=== PATIENT | female | born 1960 ===

== ENCOUNTER → 2020-05-02 10:21 | Outpatient (BNVA) | payer OTHER, SELFPAY | PROVIDERS: PCP Internal Medicine; Referring Provider Internal Medicine; Visit Provider Nurse Practitioner | DX: Z76.89 Persons encountering health services in other specified circumstances (principal) ==

== ENCOUNTER 2020-05-21 11:38 | Outpatient (REF) | payer OTHER, SELFPAY ==
[2020-05-21 13:56] LABS: Alanine Aminotransferase 16 U/L (0-31); Albumin Level 4.2 g/dL (3.5-5.0); Alkaline Phosphatase 80 U/L (39-117); Anion Gap 12 (12-20); Aspartate Amino Transferase 18 U/L (5-31); Bilirubin Total 0.3 mg/dL (0.0-1.0); Blood Urea Nitrogen 8 mg/dL (9-16); Calcium 9.2 mg/dL (8.4-10.2); Carbon Dioxide 26 mmol/L (22-29); Chloride 108 mmol/L (96-108); Cholesterol 240 mg/dL; Estimated Glomerular Filt Rate > 60; Glucose Fasting 96 mg/dL (60-99); HDL Cholesterol 45 mg/dL; LDL Cholesterol Calculated 148 mg/dl; Potassium 4.3 mmol/l (3.3-5.1); Sodium 142 mmol/L (135-145); Total Protein 7.1 g/dL (6.5-8.0); Triglycerides 238 mg/dL
[2020-05-21 14:19] LABS: Free T4 (Free Thyroxine) 1.02 ng/dL (0.71-1.85); Thyroid Stimulating Hormone 2.16 uIU/mL (0.32-4.0)
== END 2020-05-21 11:39 | disposition home or self-care (01) ==
LOC: HO.LAB 11:38
PROVIDERS: Absent Provider Nurse Practitioner Family; PCP Internal Medicine; Visit Provider Internal Medicine
DX: E78.2 Mixed hyperlipidemia (principal); E03.9 Hypothyroidism, unspecified; E66.3 Overweight
CPT/HCPCS: 80053; 80061; 84439; 84443

== ENCOUNTER 2020-06-25 11:41 | Outpatient (REF) | payer OTHER, SELFPAY | END 2020-06-25 11:42 | disposition home or self-care (01) | LOC: HO.LAB 11:41 | PROVIDERS: Visit Provider Internal Medicine | DX: Z20.822 Contact with and (suspected) exposure to COVID-19 (principal) | CPT/HCPCS: 36415; C9803; U0003 ==

== ENCOUNTER → 2020-07-03 10:48 | Outpatient (BNVA) | payer OTHER, SELFPAY | PROVIDERS: PCP Internal Medicine; Visit Provider Nurse Practitioner ==

== ENCOUNTER 2020-08-30 10:13 | Outpatient (REF) | payer OTHER, SELFPAY ==
[2020-08-30 11:47] LABS: Glucose Urine UA NEG (NEG); Leukocyte Esterase Urine NEG (NEG); Nitrite Urine NEG (NEG); Urine Blood NEG (NEG); Urine Ketones NEG (NEG); Urine Protein NEG (NEG-TRACE)
[2020-08-30 11:56] LABS: Appearance Urine CLEAR; Color Urine YELLOW
[2020-08-30 12:06] LABS: MANUAL DIFF FLAG NO
[2020-08-30 12:20] LABS: Basophils Percent Auto 0.4 % (0-2); Eosinophils Absolute Auto 0.1 X10*3/uL (0.0-0.4); Eosinophils Percent Auto 2.7 % (0-4); Hematocrit 38.8 % (37-47); Hemoglobin 12.4 g/dl (12.0-16.0); Imm Gran Abs Auto 0.01 X10*3/uL (0.00-0.03); Imm Gran Pct Auto 0.2 % (0.0-0.4); Lymphocytes Absolute Auto 1.8 X10*3/uL (1.2-4.9); Mean Corpuscular Hemoglobin 29.2 pg (27.0-33.0); Mean Corpuscular Volume 91.3 fL (80-98); Mean Platelet Volume 11.8 fL (9.4-12.3); Monocytes Absolute Auto 0.3 X10*3/uL (0.1-1.2); Monocytes Percent Auto 5.8 % (2-11); Neutrophils Absolute Auto 2.3 X10*3/uL (2.0-8.3); Neutrophils Percent Auto 50.9 % (45-73); Platelet Count 229 X10*3/uL (160-400); Red Blood Count 4.25 X10*6/uL (4.20-5.50); Red Cell Distribution Width 13.2 % (11.0-16.0); White Blood Count 4.5 X10*3/uL (4.8-10.8)
[2020-08-30 13:10] LABS: Alanine Aminotransferase 15 U/L (0-31); Alkaline Phosphatase 80 U/L (39-117); Anion Gap 16 (12-20); Aspartate Amino Transferase 22 U/L (5-31); Bilirubin Total 0.4 mg/dL (0.0-1.0); Blood Urea Nitrogen 14 mg/dL (9-16); Calcium 9.1 mg/dL (8.4-10.2); Carbon Dioxide 22 mmol/L (22-29); Chloride 109 mmol/L (96-108); Cholesterol 200 mg/dL; Estimated Glomerular Filt Rate > 60; Glucose Fasting 97 mg/dL (60-99); HDL Cholesterol 47 mg/dL; LDL Cholesterol Calculated 121 mg/dl; Potassium 4.8 mmol/L (3.3-5.1); Sodium 142 mmol/L (135-145); Triglycerides 163 mg/dL
[2020-08-30 13:26] LABS: Thyroid Stimulating Hormone 2.15 uIU/mL (0.32-4.0); Vitamin D 25-OH Total 17.5 ng/mL (>30)
== END 2020-08-30 10:14 | disposition home or self-care (01) ==
LOC: HO.LAB 10:13
PROVIDERS: PCP Internal Medicine; Visit Provider Internal Medicine
DX: E03.9 Hypothyroidism, unspecified (principal); E66.3 Overweight; E78.2 Mixed hyperlipidemia; K58.2 Mixed irritable bowel syndrome; G44.209 Tension-type headache, unspecified, not intractable; M85.80 Other specified disorders of bone density and structure, unspecified site; K21.9 Gastro-esophageal reflux disease without esophagitis
CPT/HCPCS: 36415; 80053; 80061; 81003; 82306; 84439; 84443; 85025

== ENCOUNTER 2020-12-08 10:24 | Outpatient (REF) | payer OTHER, SELFPAY ==
[2020-12-08 11:23] LABS: MANUAL DIFF FLAG NO
[2020-12-08 11:30] LABS: Basophils Percent Auto 0.8 % (0-2); Eosinophils Absolute Auto 0.2 X10*3/uL (0.0-0.4); Eosinophils Percent Auto 2.9 % (0-4); Hematocrit 37.5 % (37-47); Hemoglobin 12.1 g/dl (12.0-16.0); Imm Gran Abs Auto 0.02 X10*3/uL (0.00-0.03); Imm Gran Pct Auto 0.4 % (0.0-0.4); Lymphocytes Absolute Auto 1.8 X10*3/uL (1.2-4.9); Mean Corpuscular HGB Conc 32.3 g/dl (31.0-35.0); Mean Corpuscular Hemoglobin 28.9 pg (27.0-33.0); Mean Corpuscular Volume 89.7 fL (80-98); Monocytes Absolute Auto 0.4 X10*3/uL (0.1-1.2); Monocytes Percent Auto 7.9 % (2-11); Neutrophils Absolute Auto 2.8 X10*3/uL (2.0-8.3); Platelet Count 194 X10*3/uL (160-400); Red Blood Count 4.18 X10*6/uL (4.20-5.50); Red Cell Distribution Width 13.5 % (11.0-16.0); White Blood Count 5.2 X10*3/uL (4.8-10.8)
[2020-12-08 12:07] LABS: TSH reflex Free T4 4.52 uIU/mL (0.32-4.0)
[2020-12-08 12:12] LABS: Alanine Aminotransferase 21 U/L (0-31); Albumin Level 3.9 g/dL (3.5-5.0); Alkaline Phosphatase 74 U/L (39-117); Anion Gap 11 (12-20); Aspartate Amino Transferase 22 U/L (5-31); Bilirubin Total 0.6 mg/dL (0.0-1.0); Blood Urea Nitrogen 13 mg/dL (9-16); Calcium 9.2 mg/dL (8.4-10.2); Carbon Dioxide 23 mmol/L (22-29); Chloride 111 mmol/L (96-108); Cholesterol 192 mg/dL; Estimated Glomerular Filt Rate > 60; Glucose Fasting 113 mg/dL (60-99); HDL Cholesterol 56 mg/dL; LDL Cholesterol Calculated 112 mg/dl; Potassium 4.8 mmol/L (3.3-5.1); Sodium 140 mmol/L (135-145); Total Protein 6.8 g/dL (6.5-8.0); Triglycerides 122 mg/dL
[2020-12-08 12:13] LABS: Free T4 (Free Thyroxine) 0.98 ng/dL (0.71-1.85); Thyroid Stimulating Hormone 5.14 uIU/mL (0.32-4.0); Vitamin D 25-OH Total 24.6 ng/mL (>30)
== END 2020-12-08 10:25 | disposition home or self-care (01) ==
LOC: HO.LAB 10:24
PROVIDERS: Nurse Practitioner Family; PCP Internal Medicine; Visit Provider Internal Medicine
DX: M85.80 Other specified disorders of bone density and structure, unspecified site (principal); E03.9 Hypothyroidism, unspecified; E78.2 Mixed hyperlipidemia; K21.9 Gastro-esophageal reflux disease without esophagitis; K58.2 Mixed irritable bowel syndrome; E66.3 Overweight
CPT/HCPCS: 36415; 80053; 80061; 82306; 84439; 84443; 85025

== ENCOUNTER → 2020-12-25 13:48 | Outpatient (BNVA) | payer OTHER, SELFPAY | PROVIDERS: PCP Internal Medicine; Visit Provider Nurse Practitioner ==

== ENCOUNTER 2020-12-31 11:58 | Outpatient (REF) | payer OTHER, SELFPAY ==
[2020-12-31 12:44] LABS: Basophils Percent Auto 0.3 % (0-2); Eosinophils Percent Auto 0.1 % (0-4); Hematocrit 38.9 % (37-47); Hemoglobin 12.6 g/dl (12.0-16.0); Imm Gran Abs Auto 0.05 X10*3/uL (0.00-0.03); Imm Gran Pct Auto 0.6 % (0.0-0.4); Lymphocytes Absolute Auto 1.8 X10*3/uL (1.2-4.9); Lymphocytes Percent Auto 20.1 % (20-40); MANUAL DIFF FLAG SCAN; Mean Corpuscular HGB Conc 32.4 g/dl (31.0-35.0); Mean Corpuscular Hemoglobin 29.4 pg (27.0-33.0); Mean Corpuscular Volume 90.7 fL (80-98); Mean Platelet Volume 12.3 fL (9.4-12.3); Monocytes Absolute Auto 0.3 X10*3/uL (0.1-1.2); Monocytes Percent Auto 3.8 % (2-11); Neutrophils Absolute Auto 6.8 X10*3/uL (2.0-8.3); Neutrophils Percent Auto 75.1 % (45-73); PLT CLUMP 1; Red Blood Count 4.29 X10*6/uL (4.20-5.50); Red Cell Distribution Width 13.4 % (11.0-16.0); SCAN SMEAR FLAG 1
[2020-12-31 13:01] LABS: Platelet Count 192 X10*3/uL (160-400)
[2020-12-31 13:02] LABS: SLIDE REVIEW VERIFIED
[2020-12-31 13:14] LABS: Cholesterol 202 mg/dL; HDL Cholesterol 73 mg/dL; LDL Cholesterol Calculated 109 mg/dl; Triglycerides 101 mg/dL
[2021-01-01 17:21] LABS: Gliadin Deamidated IgA Ab 4 Units; Gliadin Deamidated IgG Ab 2 Units
[2021-01-01 22:53] LABS: Transglutaminase Ab IgG 7 U/mL; Transglutaminase IgA 1 U/mL
== END 2020-12-31 11:59 | disposition home or self-care (01) ==
LOC: HO.LAB 11:58
PROVIDERS: Nurse Practitioner Family; PCP Internal Medicine; Visit Provider Nurse Practitioner
DX: R14.0 Abdominal distension (gaseous) (principal); E03.9 Hypothyroidism, unspecified; J32.1 Chronic frontal sinusitis; E78.00 Pure hypercholesterolemia, unspecified
CPT/HCPCS: 36415; 80061; 83516; 85025

== ENCOUNTER 2021-01-01 11:40 | Outpatient (REF) | payer OTHER, SELFPAY | END 2021-01-01 11:41 | disposition home or self-care (01) | LOC: HO.LNP 11:40 | PROVIDERS: Visit Provider Nurse Practitioner | DX: K21.9 Gastro-esophageal reflux disease without esophagitis (principal); R14.0 Abdominal distension (gaseous) | CPT/HCPCS: 87338 ==

== ENCOUNTER → 2021-03-09 08:54 | Outpatient (BNVA) | payer OTHER, SELFPAY | PROVIDERS: PCP Internal Medicine; Visit Provider Nurse Practitioner ==

== ENCOUNTER → 2021-07-29 10:37 | Outpatient (REF) | payer OTHER, SELFPAY ==
--- NOTE | 2021-07-29 10:41 | CA_ITS ---
Acquisition Time: 2021-07-29 11:39:36 Total Exercise Time: 00:04:25 Test Indications: Chest Pain Medications: Protocol: ANASTACIA Max HR: 222 BPM 138% of Pred: 160 BPM Max BP: 146/070 mmHG Max Work Load: 6.3 METS Exercise stress test with exercise 4 min 25 sec of Anastacia protocol, with request to stop due to fatigue and moderate sob, without chest discomfort, without arrythmia, with normotensive response to exercise, achieving 78% MPHR, with significant artifact during exercise, without nondiagnostic EKG for ischemia due to artifact and subopitmal heart rate. Test reviewed with Dr Graff Message sent to Dr Kamara with recommendation for a pharmacological nuclear stress test if further evaluation for ischemia is warranted. Referred By: Mayra Valente Overread By: TOMASA ORDAZ
== END ==
LOC: HO.CARD 10:37
PROVIDERS: PCP Internal Medicine; Visit Provider Internal Medicine
DX: R07.9 Chest pain, unspecified (principal)
CPT/HCPCS: 93017

== ENCOUNTER → 2021-08-28 07:57 | Outpatient (REF) | payer OTHER, SELFPAY ==
--- NOTE | ~2021-08-28 | NM_ITS ---
Myocardial perfusion study Indication: Chest pain to evaluate for myocardial ischemia Technique: The patient was brought in for a Lexiscan perfusion study on 08/28/2021. Patient performed low-level exercise and was injected 0.4 mg of Lexiscan intravenously. Within a minute of injection, 25 mCi of sestamibi was given intravenously. Images were obtained using the SPECT gamma camera interlaced with the gating device. Images were obtained in supine position. Resting perfusion study was performed on 09/01/2021. Patient was administered 25 mCi of sestamibi intravenously at rest. Images were then obtained in supine position. Images obtained with and without CT attenuation DLP 110 mGy-cm Images were processed with the software and compared side to side in short axis, horizontal long axis and vertical long axis views. Findings: The stress perfusion study showed both attenuated corrected as well as non attenuated images show normal uptake of radiotracer in all segments of LV myocardium. The gated study shows normal LV systolic function with calculated LVEF of 72%. LV cavity is normal size. The gated study shows normal systolic wall thickening and contraction of segments. Resting study shows non attenuated images show normal uptake of radiotracer in all segments of LV myocardium. Gating at rest reveals normal systolic wall motion with ejection fraction at 67%. The findings are consistent with normal myocardial perfusion. NM/NM darcy perf SPECT rest & str Impression: 1. Myocardial perfusion imaging study shows normal myocardial perfusion 2. Gated LVEF is 67% 3. Transient ischemic dilatation not present EKG is nondiagnostic for ischemia
--- NOTE | 2021-08-28 08:05 | CA_ITS ---
Acquisition Time: 2021-08-28 08:27:10 Total Exercise Time: 00:02:00 Test Indications: Chest Pain Medications: SEE H Protocol: LEXISCAN Max HR: 109 BPM 60% of Pred: 180 BPM Max BP: 118/070 mmHG Max Work Load: 1.6 METS Pharmacological stress test with Lexiscan injection, while walking on treadmill without anginal symptoms, without arrythmia, with normotensive response to injection, with nondiagnostic EKG for ischemia. Nuclear images pending. Test reviewed with Dr Phillips. Referred By: Jacoby Kamara Overread By: TOMASA ORDAZ
== END ==
LOC: HO.CARD 07:57
PROVIDERS: Visit Provider Internal Medicine
DX: R07.9 Chest pain, unspecified (principal); R94.39 Abnormal result of other cardiovascular function study
CPT/HCPCS: 78452; 93017; A9500; J0280; J2785

== ENCOUNTER 2021-09-21 15:01 | Outpatient (REF) | payer OTHER, SELFPAY ==
--- NOTE | ~2021-09-21 | XR_ITS ---
EXAMINATION: XR KNEE, RIGHT CLINICAL INFORMATION: Sprain COMPARISON: None TECHNIQUE: Four views of the right knee. FINDINGS: Bones and soft tissues are normal. No fracture or joint effusion. Alignment is anatomic. Joint spaces are well maintained. No abnormal soft tissue calcification. XR/XR knee RT 4V IMPRESSION: Normal right knee.
== END 2021-09-21 15:02 | disposition home or self-care (01) ==
LOC: HO.HMGCX 15:01
PROVIDERS: Visit Provider Internal Medicine
DX: S83.91XD Sprain of unspecified site of right knee, subsequent encounter (principal)
CPT/HCPCS: 73564

== ENCOUNTER 2021-10-15 10:36 | Outpatient (REF) | payer OTHER, SELFPAY ==
[2021-10-15 11:00] LABS: MANUAL DIFF FLAG NO
[2021-10-15 11:49] LABS: Basophils Percent Auto 0.8 % (0-2); Eosinophils Absolute Auto 0.1 X10*3/uL (0.0-0.4); Eosinophils Percent Auto 1.9 % (0-4); Hematocrit 37.1 % (37.0-47.0); Hemoglobin 12.1 g/dl (12.0-16.0); Imm Gran Abs Auto 0.01 X10*3/uL (0.00-0.03); Imm Gran Pct Auto 0.2 % (0.0-0.4); Lymphocytes Absolute Auto 2.2 X10*3/uL (1.2-4.9); Lymphocytes Percent Auto 42.3 % (20-40); Mean Corpuscular HGB Conc 32.6 g/dl (31.0-35.0); Mean Corpuscular Hemoglobin 29.4 pg (27.0-33.0); Mean Platelet Volume 11.7 fL (9.4-12.3); Monocytes Absolute Auto 0.4 X10*3/uL (0.1-1.2); Monocytes Percent Auto 7.2 % (2-11); Neutrophils Absolute Auto 2.5 x10*3/uL (2.0-8.3); Neutrophils Percent Auto 47.6 % (45-73); Platelet Count 241 X10*3/uL (160-400); Red Blood Count 4.12 X10*6/uL (4.20-5.50); Red Cell Distribution Width 13.4 % (11.0-16.0); White Blood Count 5.3 X10*3/uL (4.8-10.8)
[2021-10-15 12:23] LABS: Alanine Aminotransferase 15 U/L (0-31); Albumin Level 3.8 g/dL (3.5-5.0); Alkaline Phosphatase 77 U/L (39-117); Anion Gap 11 (12-20); Aspartate Amino Transferase 18 U/L (5-31); Bilirubin Total 0.4 mg/dL (0.0-1.0); Blood Urea Nitrogen 10 mg/dL (9-16); Calcium 9.3 mg/dL (8.4-10.2); Carbon Dioxide 25 mmol/L (22-29); Chloride 109 mmol/L (96-108); Cholesterol 248 mg/dL; Estimated Glomerular Filt Rate > 60; Glucose Fasting 111 mg/dL (60-99); HDL Cholesterol 45 mg/dL; LDL Cholesterol Calculated 170 mg/dl; Potassium 4.1 mmol/L (3.3-5.1); Sodium 141 mmol/L (135-145); Total Protein 6.6 g/dL (6.5-8.0); Triglycerides 166 mg/dL
[2021-10-15 12:28] LABS: Appearance Urine CLEAR; Color Urine YELLOW; Glucose Urine UA NEG (NEG); Leukocyte Esterase Urine NEG (NEG); Nitrite Urine NEG (NEG); PH 6.5 (5.0-8.0); Specific Gravity - Urine 1.015 (1.005-1.025); Urine Blood NEG (NEG); Urine Ketones NEG (NEG); Urine Protein NEG (NEG-TRACE)
[2021-10-15 12:33] LABS: Free T4 (Free Thyroxine) 1.06 ng/dL (0.71-1.85); Thyroid Stimulating Hormone 2.96 uIU/mL (0.32-4.0)
== END 2021-10-15 10:37 | disposition home or self-care (01) ==
LOC: HO.LAB 10:36
PROVIDERS: PCP Internal Medicine; Visit Provider Internal Medicine
DX: E78.00 Pure hypercholesterolemia, unspecified (principal); E03.9 Hypothyroidism, unspecified; K58.2 Mixed irritable bowel syndrome; K21.9 Gastro-esophageal reflux disease without esophagitis
CPT/HCPCS: 36415; 80053; 80061; 81003; 84439; 84443; 85025

== ENCOUNTER 2021-11-24 08:09 | Outpatient (REF) | payer OTHER, SELFPAY ==
--- NOTE | ~2021-11-24 | XR_ITS ---
EXAMINATION: Knee x-ray CLINICAL INFORMATION: Pain COMPARISON: Previous right knee x-ray September 2021 TECHNIQUE: AP bilateral standing view of the knees and lateral and sunrise view of the right knee was obtained. FINDINGS: Right: Bone alignment is normal. No fracture or dislocation is seen. There is a small osteophytes seen at the lateral patellofemoral joint on the sunrise view. Joint spaces are otherwise normal. There is no joint effusion. The AP view of the left knee is unremarkable. XR/XR knee RT 1V IMPRESSION: Right: Mild degenerative changes at the lateral patellofemoral joint.
--- NOTE | ~2021-11-24 | XR_ITS ---
EXAMINATION: Knee x-ray CLINICAL INFORMATION: Pain COMPARISON: Previous right knee x-ray September 2021 TECHNIQUE: AP bilateral standing view of the knees and lateral and sunrise view of the right knee was obtained. FINDINGS: Right: Bone alignment is normal. No fracture or dislocation is seen. There is a small osteophytes seen at the lateral patellofemoral joint on the sunrise view. Joint spaces are otherwise normal. There is no joint effusion. The AP view of the left knee is unremarkable. XR/XR knee standing BI IMPRESSION: Right: Mild degenerative changes at the lateral patellofemoral joint.
== END 2021-11-24 08:10 | disposition home or self-care (01) ==
LOC: HO.HOSX 08:09
PROVIDERS: Visit Provider Physician Assistant
DX: M76.899 Other specified enthesopathies of unspecified lower limb, excluding foot (principal)
CPT/HCPCS: 73560; 73565; 99202

== ENCOUNTER → 2021-11-25 10:31 | Outpatient (BNVA) | payer OTHER, SELFPAY | PROVIDERS: PCP Internal Medicine; Referring Provider Nurse Practitioner Family; Visit Provider Internal Medicine | DX: R07.9 Chest pain, unspecified (principal); I10 Essential (primary) hypertension; Z98.890 Other specified postprocedural states | CPT/HCPCS: 93005; 99202 ==

== ENCOUNTER 2022-02-11 08:37 | Outpatient (REF) | payer OTHER, SELFPAY ==
--- NOTE | ~2022-02-11 | US_ITS ---
EXAMINATION: US THYROID CLINICAL INFORMATION: Other specified disorders of thyroid. Thyroid pain. COMPARISON: None TECHNIQUE: Linear transducer grayscale and color Doppler examination with attention to the region of the thyroid. FINDINGS: SIZE: Measurements of the thyroid lobes and nodules are given in sagittal, anteroposterior and transverse dimensions respectively. Right Thyroid Lobe: 4.0 x 2.4 x 1.6 cm, volume 8.0 mL. Parenchyma: The gland echotexture is heterogeneous. Thyroid vascularity is normal. Left Thyroid Lobe: 3.5 x 1.6 x 1.4 cm, volume 4.1 mL. Parenchyma: The gland echotexture is heterogeneous. Thyroid vascularity is increased. Isthmus: 0.3 cm in maximum AP dimension. Estimated total number of nodules greater than or equal to 1 cm: 1. 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 Location: Right mid pole. Size: 0.7 x 0.8 x 1.0 cm, volume 0.294 mL. Nodule characteristics: Composition: Solid (2). Echogenicity: Hyperechoic (1). Shape: Taller than wide (3). Margins: Smooth (0). Echogenic Foci: None (0). ACR TI-RADS total points: 6 ACR TI-RADS category: 4 2. Location: Right mid pole. Size: 0.3 x 0.3 x 0.2 cm, volume 0.010 mL. Nodule characteristics: Composition: Solid (2). Echogenicity: Hypoechoic (2). Shape: Not taller than wide (0). Margins: Ill-defined (0). Echogenic Foci: None (0). ACR TI-RADS total points: 4 ACR TI-RADS category: 4 NODES: No lymphadenopathy is seen in the tissue surrounding the thyroid gland. US/US thyroid IMPRESSION: TI-RADS Category 4 right midpole nodule with maximum dimension of 1.0 cm for which follow-up as described below is recommended. ACR TI-RADS RECOMMENDATION REFERENCE: Ultrasound-guided fine-needle aspiration, followup ultrasound, no further follow up. * TR4 (4-6 points): FNA if more than or equal to 1.5 cm in maximum dimension, followup ultrasound in 1, 2, 3 and 5 years if 1 to 1.4 cm in maximum dimension.
== END 2022-02-11 08:38 | disposition home or self-care (01) ==
LOC: HO.US 08:37
PROVIDERS: Visit Provider Internal Medicine
DX: E07.89 Other specified disorders of thyroid (principal)
CPT/HCPCS: 76536

== ENCOUNTER → 2022-02-19 09:34 | Outpatient (REF) | payer OTHER, SELFPAY ==
--- NOTE | 2022-02-19 09:36 | CA_ITS ---
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 There is mildly increased left ventricular wall thickness. The visually estimated ejection fraction is between 60-65%. - Normal right ventricular cavity size and systolic function. Findings Left Ventricle Normal left ventricular size and systolic function. There is mildly increased left ventricular wall thickness. The visually estimated ejection fraction is between 60-65%. There is no evidence of regional wall motion abnormalities. Diastolic function is indeterminate on the basis of available data. E/E prime ratio is between 8 and 15 consistent with indeterminate filling pressures. Right Ventricle Normal right ventricular cavity size and systolic function. Atria The left atrium is likely dilated. Aortic Valve There is a normal trileaflet aortic valve. There is mild thickening of the aortic valve. There is no aortic valve stenosis. There is no aortic valve regurgitation. Mitral Valve Normal mitral valve structure and function. There is no mitral valve regurgitation. There is no mitral valve stenosis. Pulmonic Valve Normal pulmonic valve structure and function. There is no pulmonic valve regurgitation. Tricuspid Valve Normal tricuspid valve structure and function. There is trace tricuspid valve regurgitation. Normal right atrial pressure. There is no evidence of pulmonary hypertension. Great Vessels There is mild dilatation of the ascending aorta measuring 3.40 cm. The visualized portions of the pulmonary artery and branches are normal. Venous The inferior vena cava is normal in size and collapses greater than 50% with inspiration. Pericardium/Pleural There is no evidence of pericardial effusion. Measurements 2D Linear Measurements IVSd: 1.15 0.6-0.9/0.6-1.0 cm LVIDd: 4.36 3.9-5.3/4.2-5.9 cm LVIDd Index: 2.48 2.4-3.2/2.2-3.1 cm/m2 LVIDs: 2.86 2.0-3.6 cm LVPWd: 1.04 0.7-1.1 cm Ao Root: 3.00 2.1-3.5 cm LA Diam: 4.40 2.7-3.8/3.0-4.0 cm LAIDs Index: 2.50 1.5-2.3 cm/m2 LV Mass: 206.05 67-162/88-224 g LV Mass Index: 117.08 43-95/49-115 g/m2 LVOT Diam: 2.30 3.0+(-)1.3 cm 2D Systolic Function EF 4C: 61.10 >55% EF 2C: 68.30 >55% EF BiP: 64.90 >55% Mitral Valve MV Pk E: 0.63 MV PK A: 0.61 MV Decel Time: 228.00 E/A: 1.00 E'Lateral: 9.36 E'Medial: 6.31 E/E' Med: 10.00 E/E' Lat: 6.70 PHT: 67.00 MVA PHT: 3.28 Decel Catron: 2.76 Aortic Valve AoV Pk Elfego: 1.26 AoV Mn Elfego: 0.88 AoV VTI: 0.25 AoV Pk Grad: 6.00 Aov Mn Grad: 4.00 NETTE Cont.VTI: 3.51 LVOT LVOT Pk Elfego: 0.97 LVOT Mn Elfego: 0.62 LVOT VTI: 0.21 LVOT Pk Grad: 4.00 LVOT Mn Grad: 2.00 LVOT Diam: 2.30 LVOT Area: 4.15 Diastolic Function MV Pk E: 0.63 MV Pk A: 0.61 E/A: 1.00 E'Medial: 6.31 E/E' Med: 10.00 E' Laterial: 9.36 E/E' Lat: 6.70 Right Ventricle TAPSE (mm): 20.00 TVS' Elfego: 11.00 Tricuspid Valve TR Pk Elfego: 2.08 TR Pk Grad: 17.00 RA Press: 3.00 RVSP: 20.00 Great Vessels Aorta Ao Root-2D: 3.00 2.0-3.7 cm Ao Asc: 3.40 2.1-3.4 cm Pulmonary Valve PV Pk Elfego: 1.29 Peak PV Grad: 7.00 Updated in Other Vendor System with Status of Final José Antonio Pierce MD electronically signed on 02/20/2022 7:47:10 PM with status of Final
[2022-02-19 10:32] LABS: MANUAL DIFF FLAG NO
[2022-02-19 11:46] LABS: Basophils Percent Auto 0.5 % (0-2); Eosinophils Absolute Auto 0.2 X10*3/uL (0.0-0.4); Eosinophils Percent Auto 2.5 % (0-4); Hematocrit 37.8 % (37.0-47.0); Hemoglobin 12.5 g/dl (12.0-16.0); Imm Gran Abs Auto 0.02 X10*3/uL (0.00-0.03); Imm Gran Pct Auto 0.3 % (0.0-0.4); Lymphocytes Absolute Auto 2.3 X10*3/uL (1.2-4.9); Lymphocytes Percent Auto 38.5 % (20-40); Mean Corpuscular HGB Conc 33.1 g/dl (31.0-35.0); Mean Corpuscular Hemoglobin 29.1 pg (27.0-33.0); Mean Corpuscular Volume 88.1 fL (80.0-98.0); Mean Platelet Volume 11.7 fL (9.4-12.3); Monocytes Absolute Auto 0.4 X10*3/uL (0.1-1.2); Monocytes Percent Auto 7.1 % (2-11); Neutrophils Percent Auto 51.1 % (45-73); Platelet Count 230 X10*3/uL (160-400); Red Blood Count 4.29 X10*6/uL (4.20-5.50)
[2022-02-19 12:02] LABS: Alanine Aminotransferase 16 U/L (0-31); Albumin Level 4.1 g/dL (3.5-5.0); Alkaline Phosphatase 80 U/L (39-117); Anion Gap 15 (12-20); Aspartate Amino Transferase 21 U/L (5-31); Bilirubin Total 0.4 mg/dL (0.0-1.0); Blood Urea Nitrogen 9 mg/dL (9-16); Calcium 9.4 mg/dL (8.4-10.2); Carbon Dioxide 23 mmol/L (22-29); Chloride 107 mmol/L (96-108); Cholesterol 212 mg/dL; Estimated Glomerular Filt Rate > 60; Glucose Fasting 101 mg/dL (60-99); HDL Cholesterol 49 mg/dL; LDL Cholesterol Calculated 136 mg/dl; Potassium 4.4 mmol/L (3.3-5.1); Sodium 141 mmol/L (135-145); Total Protein 7.1 g/dL (6.5-8.0); Triglycerides 138 mg/dL
[2022-02-19 13:23] LABS: TSH reflex Free T4 5.62 uIU/mL (0.32-4.0)
[2022-02-19 13:56] LABS: Free T4 (Free Thyroxine) 0.96 ng/dL (0.71-1.85)
[2022-02-24 14:57] LABS: Vitamin D 25-OH, D2 <4 ng/mL; Vitamin D 25-OH, D3 29 ng/mL; Vitamin D 25-OH, Total 29 ng/mL (30-100)
== END ==
LOC: HO.CARD 09:34
PROVIDERS: Absent Provider Nurse Practitioner Family; PCP Internal Medicine; Visit Provider Internal Medicine
DX: R07.9 Chest pain, unspecified (principal); E03.9 Hypothyroidism, unspecified; E66.3 Overweight; E78.2 Mixed hyperlipidemia; I10 Essential (primary) hypertension; E78.00 Pure hypercholesterolemia, unspecified; K22.10 Ulcer of esophagus without bleeding; K58.2 Mixed irritable bowel syndrome; K21.9 Gastro-esophageal reflux disease without esophagitis; K22.4 Dyskinesia of esophagus; R10.10 Upper abdominal pain, unspecified
CPT/HCPCS: 36415; 80053; 80061; 82306; 84439; 84443; 85025; 93306; 99212

== ENCOUNTER 2022-02-22 12:44 | Outpatient (REF) | payer OTHER, SELFPAY ==
--- NOTE | ~2022-02-22 | US_ITS ---
EXAMINATION: US ABDOMEN COMPLETE CLINICAL INFORMATION: Upper abdominal pain, unspecified. COMPARISON: Ultrasound abdomen 05/21/2011. TECHNIQUE: Real-time imaging of the abdominal viscera. FINDINGS: PANCREAS: Normal. The visualized pancreatic head and body are normal in appearance. The remainder of the pancreas is obscured from visualization by the overlying bowel gas. ABDOMINAL AORTA: The proximal, mid, and distal segments are normal in caliber. INFERIOR VENA CAVA: Visualized portions are normal. LIVER: The liver is normal in size. The liver contour is normal. There is diffuse increased liver parenchymal echogenicity. No focal hepatic lesion. There is no intrahepatic biliary duct dilatation seen. GALLBLADDER: Normal. The gallbladder is physiologically distended without evidence of stones, sludge, polyps, wall thickening or pericholecystic fluid. COMMON BILE DUCT: Normal in caliber measuring 0.4 cm in diameter. RIGHT KIDNEY: At the interpolar aspect, a 3 mm nonobstructing calculus is seen, with twinkle artifact. No hydronephrosis or focal parenchymal lesions. The kidney measures 9.5 cm in maximum dimension. LEFT KIDNEY: At the upper pole, a 6 mm nonobstructing calculus is seen, with twinkle artifact. At the lower pole, a 3 mm nonobstructing calculus is seen, with twinkle artifact. No hydronephrosis or focal parenchymal lesions. The kidney measures 8.7 cm in maximum dimension. SPLEEN: Normal. The spleen measures 8.7 cm in maximum dimension. FREE FLUID: None. US/US abdomen complete IMPRESSION: 1. There are nonobstructing bilateral renal calculi, as detailed. No hydronephrosis is noted bilaterally. 2. There is generalized increase in hepatic echotexture, consistent with fatty infiltration or hepatocellular disease. Please correlate clinically. No focal hepatic mass or intrahepatic biliary dilatation is seen. 3. Otherwise, unremarkable examination, with imaging of the pancreatic tail technically limited
[2022-02-27 23:57] LABS: Pancreatic Elastase-1 484 mcg/g
== END 2022-02-22 12:45 | disposition home or self-care (01) ==
LOC: HO.US 12:44
PROVIDERS: Visit Provider Nurse Practitioner
DX: R10.10 Upper abdominal pain, unspecified (principal); K58.2 Mixed irritable bowel syndrome
CPT/HCPCS: 76700; 82656

== ENCOUNTER → 2022-03-17 12:46 | Outpatient (BNVA) | payer OTHER, SELFPAY | PROVIDERS: PCP Internal Medicine; Visit Provider Nurse Practitioner | DX: K21.9 Gastro-esophageal reflux disease without esophagitis (principal); K58.2 Mixed irritable bowel syndrome; R10.10 Upper abdominal pain, unspecified; K22.10 Ulcer of esophagus without bleeding | CPT/HCPCS: 99212 ==

== ENCOUNTER → 2022-04-28 13:14 | Outpatient (BNVA) | payer OTHER, SELFPAY | PROVIDERS: PCP Internal Medicine; Visit Provider Nurse Practitioner | DX: K22.10 Ulcer of esophagus without bleeding (principal); K58.2 Mixed irritable bowel syndrome; K22.4 Dyskinesia of esophagus; R10.10 Upper abdominal pain, unspecified | CPT/HCPCS: 99212 ==

== ENCOUNTER → 2022-05-12 11:46 | Outpatient (BNVA) | payer OTHER, SELFPAY | PROVIDERS: PCP Internal Medicine; Visit Provider Internal Medicine | DX: E03.9 Hypothyroidism, unspecified (principal); E04.1 Nontoxic single thyroid nodule | CPT/HCPCS: 99202 ==

== ENCOUNTER → 2022-06-22 12:37 | Outpatient (BNVA) | payer OTHER, SELFPAY | PROVIDERS: PCP Internal Medicine; Visit Provider Nurse Practitioner | DX: K22.10 Ulcer of esophagus without bleeding (principal); R14.0 Abdominal distension (gaseous); K58.2 Mixed irritable bowel syndrome; K21.9 Gastro-esophageal reflux disease without esophagitis; Z79.899 Other long term (current) drug therapy | CPT/HCPCS: 99212 ==

== ENCOUNTER 2022-07-15 07:19 | Outpatient (REF) | payer OTHER, SELFPAY ==
[2022-07-15 07:44] LABS: MANUAL DIFF FLAG NO
[2022-07-15 07:48] LABS: Basophils Absolute Auto 0.1 X10*3/uL (0.0-0.2); Basophils Percent Auto 1.3 % (0-2); Eosinophils Absolute Auto 0.1 X10*3/uL (0.0-0.4); Hematocrit 37.6 % (37.0-47.0); Hemoglobin 12.2 g/dl (12.0-16.0); Lymphocytes Absolute Auto 1.7 X10*3/uL (1.2-4.9); Lymphocytes Percent Auto 36.2 % (20-40); Mean Corpuscular HGB Conc 32.4 g/dl (31.0-35.0); Mean Corpuscular Hemoglobin 29.5 pg (27.0-33.0); Mean Platelet Volume 11.3 fL (9.4-12.3); Monocytes Absolute Auto 0.5 X10*3/uL (0.1-1.2); Monocytes Percent Auto 9.8 % (2-11); Neutrophils Absolute Auto 2.3 x10*3/uL (2.0-8.3); Neutrophils Percent Auto 49.7 % (45-73); Platelet Count 190 X10*3/uL (160-400); Red Blood Count 4.13 X10*6/uL (4.20-5.50); Red Cell Distribution Width 13.8 % (11.0-16.0); White Blood Count 4.6 X10*3/uL (4.8-10.8)
[2022-07-15 08:22] LABS: Alanine Aminotransferase 37 U/L (0-31); Albumin Level 3.9 g/dL (3.5-5.0); Alkaline Phosphatase 101 U/L (39-117); Anion Gap 11 (12-20); Aspartate Amino Transferase 30 U/L (5-31); Bilirubin Total 0.6 mg/dL (0.0-1.0); Blood Urea Nitrogen 10 mg/dL (9-16); Calcium 8.9 mg/dL (8.4-10.2); Carbon Dioxide 22 mmol/L (22-29); Chloride 112 mmol/L (96-108); Cholesterol 133 mg/dL; Estimated Glomerular Filt Rate 55; Glucose Fasting 136 mg/dL (60-99); HDL Cholesterol 38 mg/dL; LDL Cholesterol Calculated 72 mg/dl; Potassium 4.2 mmol/L (3.3-5.1); Sodium 141 mmol/L (135-145); Total Protein 6.5 g/dL (6.5-8.0); Triglycerides 116 mg/dL
[2022-07-15 08:24] LABS: Appearance Urine Clear; Color Urine Yellow; Glucose Urine UA Negative (Negative); Leukocyte Esterase Urine Trace (Negative); Nitrite Urine Negative (Negative); PH 6.5 (5.0-9.0); Specific Gravity - Urine 1.015 (1.005-1.025); UMIC TRIGGER UACC YES; Urine Blood Negative (Negative); Urine Ketones Negative (Negative); Urine Protein Negative (Neg-Trace)
[2022-07-15 08:25] LABS: Cortisol Random 13.6 ug/dL
[2022-07-15 08:30] LABS: Bacteria Urine None Seen (None Seen); Hyaline Casts Urine 0-2 /LPF (0-2); RBC Urine 0-2 /HPF (0-2); WBC Urine 0-5 /HPF (0-5)
[2022-07-15 08:40] LABS: Free T4 (Free Thyroxine) 1.02 ng/dL (0.71-1.85); Thyroid Stimulating Hormone 5.43 uIU/mL (0.32-4.0); Thyroid Stimulating Hormone 6.12 uIU/mL (0.32-4.0); Vitamin D 25-OH Total 31.3 ng/mL (>30)
--- NOTE | 2022-07-15 09:10 | PM.OP ---
Brief Operative Note Date of Service: 07/15/22 Pre-op diagnosis: Multinodular Thyroid Procedure: This is doctor Yuliet Bowles. This is an ultrasound-guided fine-needle aspiration report. Date of Examination: 07/15/2022 Indication: Multinodular Thyroid Porcedure: Procedure was explained to the patient. Alternatives, the risk and benefits were discussed. Written consent was obtained. A time-out was also obtained. 1 ml of 1% lidocaine solution was applied subcutaneously for anesthetic effect. After sterile preparation, fine-needle aspiration of a right mid pole 1.0 cm thyroid nodule was performed using direct ultrasound guidance to confirm accurate needle placement. Two aspirations were made using 27 gauge needles. An additional four aspirations were made using 25 guage needles. Samples were submitted for cytology. 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 The patient tolerated the procedure well. Aftercare instructions were provided. Impression: Uncomplicated fine needle aspiration biopsy of a right mid pole 1.0 cm thyroid nodule under ultrasound guidance. Surgeon: Yuliet Bowles, DO Was an Behavioral Services Tech used for this Procedure?: No Estimated blood loss (mL): 0
[2022-07-15] MEDS: Lidocaine HCl 1 % 20 ML VIAL 5 ML SUBCUT (11:31)
[2022-07-16 21:44] LABS: Thyroglobulin Antibodies 5 IU/mL (< or = 1); Thyroid Peroxidase Antibodies 801 IU/mL (<9)
[2022-07-22 14:13] LABS: Adrenocorticotropic Hormone 13 pg/mL (6-50)
== END 2022-07-15 07:20 | disposition home or self-care (01) ==
LOC: HO.US 07:19
PROVIDERS: Absent Provider Internal Medicine; PCP Internal Medicine; Visit Provider Internal Medicine
DX: I10 Essential (primary) hypertension (principal); E03.9 Hypothyroidism, unspecified; E78.00 Pure hypercholesterolemia, unspecified; E55.9 Vitamin D deficiency, unspecified; R30.0 Dysuria; E04.1 Nontoxic single thyroid nodule
CPT/HCPCS: 10005; 36415; 80053; 80061; 81001; 82024; 82306; 82533; 84439; 84443; 85025; 86376; 86800; 88172; 88173; 88177; 88305

== ENCOUNTER → 2022-08-04 14:05 | Outpatient (BNVA) | payer OTHER, SELFPAY | PROVIDERS: PCP Internal Medicine; Visit Provider Internal Medicine | DX: E03.9 Hypothyroidism, unspecified (principal); E04.1 Nontoxic single thyroid nodule; E11.65 Type 2 diabetes mellitus with hyperglycemia | CPT/HCPCS: 99212 ==

== ENCOUNTER 2022-09-10 07:11 | Outpatient (REF) | payer OTHER, SELFPAY ==
[2022-09-10 07:31] LABS: MANUAL DIFF FLAG NO
[2022-09-10 07:40] LABS: Basophils Percent Auto 0.4 % (0-2); Eosinophils Percent Auto 0.2 % (0-4); Hematocrit 38.3 % (37.0-47.0); Hemoglobin 12.6 g/dl (12.0-16.0); Imm Gran Abs Auto 0.02 X10*3/uL (0.00-0.03); Imm Gran Pct Auto 0.4 % (0.0-0.4); Lymphocytes Absolute Auto 1.3 X10*3/uL (1.2-4.9); Lymphocytes Percent Auto 24.3 % (20-40); Mean Corpuscular HGB Conc 32.9 g/dl (31.0-35.0); Mean Platelet Volume 11.3 fL (9.4-12.3); Monocytes Absolute Auto 0.2 X10*3/uL (0.1-1.2); Monocytes Percent Auto 3.2 % (2-11); Neutrophils Absolute Auto 3.8 x10*3/uL (2.0-8.3); Neutrophils Percent Auto 71.5 % (45-73); Platelet Count 231 X10*3/uL (160-400); Red Blood Count 4.35 X10*6/uL (4.20-5.50); Red Cell Distribution Width 12.8 % (11.0-16.0); White Blood Count 5.3 X10*3/uL (4.8-10.8)
[2022-09-10 07:49] LABS: Estimated Average Glucose 137 mg/dL; Hemoglobin A1c % 6.4 %
[2022-09-10 08:17] LABS: Alanine Aminotransferase 35 U/L (0-31); Albumin Level 3.8 g/dL (3.5-5.0); Alkaline Phosphatase 104 U/L (39-117); Anion Gap 12 (12-20); Aspartate Amino Transferase 25 U/L (5-31); Bilirubin Total 0.4 mg/dL (0.0-1.0); Blood Urea Nitrogen 12 mg/dL (9-16); Calcium 9.2 mg/dL (8.4-10.2); Carbon Dioxide 20 mmol/L (22-29); Chloride 112 mmol/L (96-108); Cholesterol 202 mg/dL; Estimated Glomerular Filt Rate > 60; Glucose Fasting 158 mg/dL (60-99); HDL Cholesterol 49 mg/dL; LDL Cholesterol Calculated 133 mg/dl; Potassium 4.4 mmol/L (3.3-5.1); Sodium 140 mmol/L (135-145); Total Protein 6.5 g/dL (6.5-8.0); Triglycerides 104 mg/dL
[2022-09-10 08:19] LABS: Appearance Urine Clear; Color Urine Yellow; Glucose Urine UA Negative (Negative); Leukocyte Esterase Urine Negative (Negative); Nitrite Urine Negative (Negative); Urine Blood Negative (Negative); Urine Ketones Negative (Negative); Urine Protein Negative (Neg-Trace)
[2022-09-10 08:20] LABS: TSH reflex Free T4 0.11 uIU/mL (0.32-4.0)
[2022-09-10 08:23] LABS: Free T4 (Free Thyroxine) 1.13 ng/dL (0.71-1.85); Thyroid Stimulating Hormone 0.11 uIU/mL (0.32-4.0)
[2022-09-10 08:46] LABS: Creatinine Urine 57.18 mg/dL; Microalbumin Urine < 5.0 mg/L
== END 2022-09-10 07:12 | disposition home or self-care (01) ==
LOC: HO.LAB 07:11
PROVIDERS: Absent Provider Internal Medicine; PCP Internal Medicine; Visit Provider Internal Medicine
DX: E03.9 Hypothyroidism, unspecified (principal); E55.9 Vitamin D deficiency, unspecified; E78.00 Pure hypercholesterolemia, unspecified; E11.9 Type 2 diabetes mellitus without complications; R30.0 Dysuria; I10 Essential (primary) hypertension
CPT/HCPCS: 36415; 80053; 80061; 81003; 82043; 82306; 83036; 84439; 84443; 85025

== ENCOUNTER 2022-11-03 13:06 | Outpatient (REF) | payer OTHER, SELFPAY ==
--- NOTE | ~2022-11-03 | MM_ITS ---
EXAMINATION: BONE DENSITOMETRY CLINICAL INDICATION: Asymptomatic menopausal state. COMPARISON: Baseline BD dated 11/16/2018. TECHNIQUE: Using a [employer]ette DXA System (software version: 13.1) manufactured by [employer], dual-energy x-ray absorptiometry was performed of the lumbar spine and left hip. The images are of good technical quality. Summary results are attached. FINDINGS: AP SPINE L1-L4: Current: BMD 0.965 g/cm2, Z-score -0.7, T-score -1.8, osteopenia, 1.2% decrease from baseline (<5% change is not significant). Baseline: BMD 0.977 g/cm2. LEFT FEMUR, NECK: Current: BMD 0.782 g/cm2, Z-score -0.7, T-score -1.8, osteopenia. Baseline: BMD 0.778 g/cm2. LEFT FEMUR, TOTAL: Current: BMD 0.859 g/cm2, Z-score -0.3, T-score -1.2, osteopenia, 4.5% increase from baseline (<5% change is not significant). Baseline: BMD 0.822 g/cm2. IDENTIFIED RISK FACTORS: Menopause. HISTORY OF FRACTURE: None listed. MEDICATIONS: Vitamin D. MM/XR DEXA axial skeleton IMPRESSION: 1. DIAGNOSIS: Osteopenia based on the lowest T-score value of -1.8 in the lumbar spine and femoral neck applying World Health Organization criteria. 2. 10-YEAR FRACTURE RISK PREDICTION, FRAX: Major osteoporotic fracture (clinical spine, forearm, hip or shoulder) 5.3%. Hip fracture 0.6%. 3. Treatment Recommendations: NOF guidelines recommend consideration for treatment in postmenopausal women and men age 50 and older presenting with the following: -A hip or vertebral (clinical or morphometric) fracture. -T-score less than or equal to -2.5 at the femoral neck or spine after appropriate evaluation to exclude secondary causes. -Low bone mass at the hip or spine and a 10-year fracture probability by FRAX of greater than or equal to 3% for hip fracture or greater than or equal to 20% for major osteoporotic fracture based on the [place] adapted WHO algorithm. 4. Other Recommendations: All treatment decisions require clinical judgment and consideration of individual patient factors, including patient preferences, comorbidities, previous drug use, risk factors not captured in the FRAX model (e.g. frailty, falls, vitamin D deficiency, increased bone turnover, interval significant decline in bone density) and possible under or overestimation of fracture risk by FRAX. Additional medical evaluation for secondary cause of low bone mineral density may be appropriate. FUTURE SCAN RECOMMENDATION: People with diagnosed cases of osteoporosis or at high risk for fracture should have regular bone mineral density tests. For patients eligible for Medicare, routine testing is allowed once every 2 years. The testing frequency can be increased to one year for patients who have rapidly progressing disease, those who are receiving or discontinuing medical therapy to restore bone mass, or have additional risk factors.
--- NOTE | ~2022-11-03 | MM_ITS ---
EXAMINATION: MM SCREENING DIGITAL BREAST TOMOSYNTHESIS, BILATERAL CLINICAL INFORMATION: Screening. Asymptomatic. Prior [id number] mammography from [place] currently unavailable. No known family history breast cancer. The lifetime risk of breast cancer based on the Tyrer-Cuzick Model is 5%. COMPARISON: None. Radiology department staff will attempt to retrieve prior [id number] mammography to allow for comparison in an addendum report. TECHNIQUE: Digital breast tomosynthesis is performed in both the craniocaudal and mediolateral oblique views along with computer-aided detection (CAD). Synthesized 2D images are generated from the tomosynthesis. FINDINGS: There are scattered areas of fibroglandular density (ACR BI-RADS breast composition Category b). There are no significant masses, abnormal calcifications, or other abnormalities. No architectural abnormality. Incidental small low left axillary tail nodes. There are scattered bilateral vascular calcifications and minor pseudocalcification digital processing artifact anterior outer left breast on synthesized CC view. No tomography or MLO correlate. The axilla and skin contours are unremarkable. MM/MM tomosynthesis screening BI IMPRESSION: No mammographic evidence of malignancy. ASSESSMENT: BI-RADS 2: Benign RECOMMENDATION: -Routine annual mammography screening. -Radiology department staff will attempt to retrieve prior [id number] mammography to allow for comparison in an addendum report. This patient's information was entered into a reminder system with a target due date for their next mammogram.
== END 2022-11-03 13:07 | disposition home or self-care (01) ==
LOC: HO.MAMMO 13:06
PROVIDERS: PCP Internal Medicine; Visit Provider Internal Medicine
DX: Z12.31 Encounter for screening mammogram for malignant neoplasm of breast (principal); Z13.820 Encounter for screening for osteoporosis; Z78.0 Asymptomatic menopausal state
CPT/HCPCS: 77063; 77067; 77080

== ENCOUNTER 2022-11-16 07:11 | Outpatient (REF) | payer OTHER, SELFPAY ==
[2022-11-16 08:00] LABS: Estimated Average Glucose 128 mg/dL; Hemoglobin A1c % 6.1 %
[2022-11-16 08:04] LABS: Alanine Aminotransferase 27 U/L (0-31); Alkaline Phosphatase 104 U/L (39-117); Anion Gap 10 (12-20); Aspartate Amino Transferase 20 U/L (5-31); Bilirubin Total 0.3 mg/dL (0.0-1.0); Blood Urea Nitrogen 6 mg/dL (9-16); Calcium 9.5 mg/dL (8.4-10.2); Carbon Dioxide 24 mmol/L (22-29); Chloride 114 mmol/L (96-108); Cholesterol 135 mg/dL; Estimated Glomerular Filt Rate > 60; Glucose Random 119 mg/dL (60-115); HDL Cholesterol 41 mg/dL; LDL Cholesterol Calculated 66 mg/dl; Potassium 4.4 mmol/L (3.3-5.1); Sodium 144 mmol/L (135-145); Total Protein 6.7 g/dL (6.5-8.0); Triglycerides 144 mg/dL
[2022-11-16 08:18] LABS: Cortisol Random 17.4 ug/dL
[2022-11-16 08:19] LABS: Free T4 (Free Thyroxine) 1.53 ng/dL (0.71-1.85); Insulin 8 uU/mL (2-29); Thyroid Stimulating Hormone 1.61 uIU/mL (0.32-4.0)
[2022-11-18 01:03] LABS: LDL Cholesterol Direct 64 mg/dL (<100)
[2022-11-18 02:23] LABS: C Peptide 2.71 ng/mL (0.80-3.85)
[2022-11-21 07:49] LABS: Glutamic acid decarboxylase Ab <5 IU/mL (<5)
[2022-11-21 14:58] LABS: Adrenocorticotropic Hormone 21 pg/mL (6-50)
[2022-11-24 18:58] LABS: Insulinoma associated 2 aatb <5.4 U/mL (<5.4)
[2022-11-25 18:18] LABS: Dexamethasone <20 ng/dL
[2022-11-27 23:19] LABS: Islet Cell Antibody Screen NEGATIVE (NEGATIVE)
== END 2022-11-16 07:12 | disposition home or self-care (01) ==
LOC: HO.LAB 07:11
PROVIDERS: PCP Internal Medicine; Visit Provider Internal Medicine
DX: E11.65 Type 2 diabetes mellitus with hyperglycemia (principal); E03.9 Hypothyroidism, unspecified
CPT/HCPCS: 36415; 80053; 80061; 80299; 82024; 82533; 83036; 83525; 83721; 84439; 84443; 84681; 86255; 86341

== ENCOUNTER 2023-01-17 09:10 | Outpatient (AMB) | payer OTHER, SELFPAY ==
[2023-01-17 09:15] VITALS: BP 122/80; PULSE 70; O2SAT 98; BMI 32.5
--- NOTE | 2023-01-17 09:15 | MHC.PC.OV ---
Vital Signs 01/17/23 09:15 Height 5 ft 2 in Weight 177 lb 8 oz BMI 32.5 BP 122/80 Blood Pressure Location Lt brachial Position Sitting Pulse 70 Pulse Source Pulse Oximeter Pulse Oximetry (%) 98 Oxygen Delivery Method Room Air Intake Visit Reasons: [facility] Chest pain Vehicle Care Specialist Required: No Accompanied by: Self / Same As Patient Allergies Benadryl Allergy (Unknown, Verified 01/17/23 09:45) unknown dapagliflozin Adverse Reaction (Severe, Verified 01/17/23 09:45) Chest Pain, Weakness, Nausea, Fatigue amoxicillin [Augmentin] Adverse Reaction (Intermediate, Verified 01/17/23 09:45) diarrhea atorvastatin Adverse Reaction (Intermediate, Verified 01/17/23 09:45) myalgia, feet pain, hair loss morphine [MORPHINE] Adverse Reaction (Intermediate, Verified 01/17/23 09:45) TACHYCARDIA, CP, confusion simvastatin Adverse Reaction (Intermediate, Verified 01/17/23 09:45) swelling of feet tramadol [TRAMADOL] Adverse Reaction (Intermediate, Verified 01/17/23 09:45) DIZZYNESS, confusion paroxetine [Paxil] Adverse Reaction (Unknown, Verified 01/17/23 09:45) Unknown Medication List - Last Reconciled 01/17/23 by Jacoby Kamara MD albuterol sulfate 90 mcg/actuation 2 puffs PO Q6H PRN albuterol sulfate 2.5 mg (3 mL) inhalation QID PRN 30 days aspirin 81 mg PO DAILY atorvastatin 80 mg PO BEDTIME 90 days jskqndpfpc-yicdstiqjwsaa-agai 50-325-40 mg 1 cap PO TID cimetidine 800 mg PO BID 90 days clonazepam 0.5 mg PO BID PRN 30 days clopidogrel 75 mg PO DAILY dexamethasone 1 mg PO ONCE escitalopram oxalate 10 mg PO DAILY 30 days famotidine 40 mg PO BID fluticasone propion-salmeterol 115-21 mcg/actuation (Advair HFA) 2 puffs inhalation BID 30 days fluticasone propionate 50 mcg/actuation 2 sprays intranasal DAILY 30 days levothyroxine 88 mcg PO DAILY 30 days metformin ER 500 mg PO QPM 30 days metoprolol succinate ER 25 mg PO DAILY 90 days [NEBULIZER As directed] omega-3 fatty acids 1,000 mg PO DAILY NS sennosides (senna) 17.2 mg (2 x 8.6 mg) PO BEDTIME PRN sucralfate (Carafate) 2 grams (20 mL) PO .qhs trazodone 150 mg PO BEDTIME Tobacco use date assessed: 01/17/23 Dental Screening Dental Screen Date: 01/17/23 Did you have a dental visit in the last 12 months?: No Did you have a dental problem in the last 6 months where you did not have access to dental care?: No Was dental information given to patient?: No HPI [facility] Chest pain HPI Details Patient comes in today for her follow up visit States that she feels okay She denies any headaches or dizziness Denies any chest pains or increased SOB lately No nausea/vomiting, no abdominal pain No change in bowel habits noted States that she had her follow up labs done at [facility] last week although these were NOT fasting labs; did have her fasting labs and cholesterol checked back in November 2022 for her healthcare or medical at [facility] Would like to see if she can be referred to cardiology here at [facility] for her future cardiology follow up as she states that she has been having some issues with her current healthcare or medical at [facility] lately [facility] Medical History (Updated 01/17/23 @ 12:05 by Jacoby Kamara MD) Acquired hypothyroidism Acute non intractable tension-type headache Allergic rhinitis Anxiety Asthma Coronary atherosclerosis Depression Diabetes mellitus Epilepsy Insomnia Mixed hyperlipidemia Obesity (BMI 30-39.9) Osteopenia Surgical History History of bunionectomy History of esophagogastroduodenoscopy (EGD) History of ST elevation myocardial infarction (STEMI) Hx of cardiac cath (~05/05/22) Hx of colonoscopy Hx of shoulder surgery Family History Father HTN (hypertension) Heart disease Myocardial infarction Mother Diabetes Hyperchloremia HTN (hypertension) Myocardial infarction Family/Other Stomach cancer Social History Household Members: None Housing: Apartment Alcohol intake: current Alcohol intake frequency: does not drink Patient Tobacco Use Status: Never used Tobacco e-Cigarette/Vaping Use: Never Used Second Hand Smoke Exposure: No Current occupational status: disabled Cognitive needs: No Hearing needs: No Vision needs: Yes Questionnaire PHQ-9 Over the last 2 weeks, how often have you been bothered by any of the following problems? 1. Little interest or pleasure in doing things: more than half the days 2. Feeling down, depressed, or hopeless: more than half the days 3. Trouble falling or staying asleep, or sleeping too much: more than half the days 4. Feeling tired or having little energy: more than half the days 5. Poor appetite or overeating: more than half the days 6. Feeling bad about yourself - or that you are a failure or have let yourself or your family down: more than half the days 7. Trouble concentrating on things, such as reading the newspaper or watching television: not at all 8. Moving or speaking so slowly that other people could have noticed. Or the opposite - being so fidgety or restless that you have been moving around a lot more than usual: not at all 9. Thoughts that you would be better off or of hurting yourself in some way: not at all Total score: 12 Depression Screening Interpretation: Positive Depression Screening Follow-up: Existing condition and In treatment 22647 - PHQ-9 Billing: Yes Source: Developed by Drs. Ziyad Gary, Dayana Crane, Vinh Brar and colleagues, with an educational vero from [employer]. Thrive Questionnaire Date Thrive assessed: 01/17/23 I am a: Patient What is your living situation today?: I have a steady place to live Within the past 12 months, did the food you bought not last and you didn't have the money to get more?: Never true Within the past 12 months, did you worry whether your food would run out before you got money to buy more?: Never true Do you have trouble paying for medicines?: No Do you have trouble getting transportation to medical appointments?: No Do you have trouble paying your heating and electricity bill?: No Do you have trouble taking care of your child, family member or friend?: No Do you have trouble with day-to-day activities such as bathing, preparing meals, shopping, managing finances, etc.?: No Are you currently unemployed and looking for a job?: No Are you interested in more education?: No Please select the resources that you would like help with: None Currently or been in a relationship where the following occur: no concerns reported AUDIT C Alcohol Use Questionnaire (AUDIT-C) 1. How often do you have a drink containing alcohol?: Never 2. How many drinks containing alcohol do you have on a typical day when you are drinking?: 1 or 2 3. How often do you have six or more drinks on one occasion?: Never Total Score: 0 Score Reviewed/Action Taken: Yes RASHI-7 AMB Questionnaire RASHI-7 Date RASHI - 7 assessed: 01/17/23 Feeling nervous, anxious, or on edge: 0 = Not at all Not being able to stop or control worryin = Not at all Worrying too much about different things: 0 = Not at all Trouble relaxin = Not at all Being so restless that it is hard to sit still: 0 = Not at all Becoming easily annoyed or irritable: 0 = Not at all Feeling afraid as if something awful might happen: 0 = Not at all Total RASHI-7 score (0-4 normal; 5-9 mild; 10-14 moderate; 15-21 severe): 0 Source: Developed by Drs. Ziyad Gary, Dayana Crane, Vinh Brar and colleagues, with an educational vero from [employer]. Review of Systems Const Denies fatigue, Denies fever(s) and Denies headache(s) ENT Denies dysphagia, Denies dizziness, Denies headache(s), Denies neck pain, Denies odynophagia and Denies sore throat Card Denies chest pain, Denies rapid heart rate, Denies irregular heart rhythm, Denies palpitations and Denies dyspnea Resp Denies chest congestion, Denies cough and Denies dyspnea GI Denies abdominal pain, Denies constipation, Denies dysphagia, Denies heartburn, Denies diarrhea, Denies nausea, Denies odynophagia and Denies vomiting Denies urinary frequency, Denies dysuria and Denies urinary urgency Musc Denies back pain, Denies arthralgias and Denies neck pain Neuro Denies dizziness, Denies headache(s) and Denies paresthesias Psych Reports anxiety (controlled on Rx) and Denies depression Endo Denies fatigue and Denies palpitations Bryson/Lymph Denies easy bruising Physical exam (Primary Care) Vital Signs: Last Vital Signs Pulse 70 01/17/23 09:15 BP 122/80 01/17/23 09:15 Pulse Ox 98 01/17/23 09:15 Oxygen Delivery Method Room Air 01/17/23 09:15 BMI result Body Mass Index 32.5 Tobacco/Smoking Status: Tobacco use Status Tobacco use date assessed 01/17/23 01/17/23 09:21 Patient Tobacco Use Status Never used Tobacco 01/17/23 09:21 e-Cigarette/Vaping Use Never Used 01/17/23 09:21 PHQ-9: PHQ-9 Score PHQ-9: Total score 12 01/17/23 11:47 Depression Screening Interpretation: Positive Depression Screening Follow-up: Existing condition and In treatment Thrive Assessment: Date of Thrive Assessment Date Thrive assessed 01/17/23 01/17/23 09:21 Currently or been in a relationship where the following occur: no concerns reported Const General: no acute distress and alert HENMT Ears: TM's normal bilaterally and EAC's normal Throat: Yes posterior oropharynx normal and Yes tonsils normal (no TP congestion) Neck Neck: Yes no lymphadenopathy and Yes supple Thyroid: Thyroid normal Resp Auscultation: clear to auscultation bilaterally, no rales and no wheezes Cardio Rate: regular rate Rhythm: regular rhythm Heart sounds: no murmurs GI Palpation (GI): Soft to palpation and nontender Auscultation: normal bowel sounds General: Yes no CVA tenderness Back/Spine/Pelvis Back: no CVA tenderness Thoracic/Lumbar Spine: thoracic and lumbar spine normal to inspection Skin Rashes: no rashes Neuro General: no focal motor deficits Extrem General: Yes no clubbing, cyanosis or edema Results Reviewed Results Reviewed: Laboratory Tests 11/16/22 11/16/22 11/16/22 07:38 07:38 07:38 Creatinine 0.80 Estimated GFR > 60 Random Glucose 119 H Hemoglobin A1c % 6.1 Triglycerides 144 Cholesterol 135 LDL Cholesterol Direct 64 LDL Cholesterol, Calc 66 HDL Cholesterol 41 Assessment and Plan Assessment & Plan (1) Coronary atherosclerosis: Comment: S/P cardiac cath with stenting of LAD with ISAIAH on 05/05/2022 Code(s): I25.10 - Atherosclerotic heart disease of [place] coronary artery without angina pectoris Qualifiers: Associated angina: without angina Coronary Disease-Associated Artery/Lesion type: [place] artery [place] vs. transplanted heart: [place] heart Qualified Code(s): I25.10 - Atherosclerotic heart disease of [place] coronary artery without angina pectoris Plan: Patient currently remains asymptomatic from cardiac standpoint Continue Aspirin 81 mg QD for lifelong antiplatelet Tx; continue Clopidogrel 75 mg QD and Metoprolol ER 25 mg QD (was taken off Brilinta by cardiology previously due to increasing SOB) Myocardial perfusion stress test imaging done on 09/08/22 at [facility] reportedly came out normal Repeat echocardiogram done on 10/26/2022 at [facility] was also normal, with EF of 65 to 70% (EF was at 35 to 40% back in April 2022 when patient had her [place] and was experiencing ischemic cardiomyopathy at the time) Follow up with cardiology as scheduled Per her request, will refer her to [facility] Cardiology for continuing management and follow up (2) Diabetes mellitus: Code(s): E11.9 - Type 2 diabetes mellitus without complications Qualifiers: Diabetes mellitus type: type 2 Diabetes mellitus shelter insulin use: without terminal manager use Diabetes mellitus complication status: with hyperglycemia Qualified Code(s): E11.65 - Type 2 diabetes mellitus with hyperglycemia Plan: HgbA1c was at 6.1% when last checked a couple of months ago (was at 6.4% a few months ago) - goal is at least <7.0% but ideally <6.5% Reinforced diabetic diet She was started on Farxiga 5 mg QD previously but developed chest pains while on the medication Went to the ER at [facility] at the beginning of August 2022 - cardiac work ups were normal and she was advised to stop Farxiga immediately States that she's had no recurrence of her chest pains since Continue Metformin ER 500 mg QD (3) Mixed hyperlipidemia: Code(s): E78.2 - Mixed hyperlipidemia Plan: Patient's cholesterol levels were at goal when last checked a couple of months ago, with her LDL cholesterol at 64 mg/dl Reinforced low cholesterol diet Has been taking Atorvastatin 80 mg QD but states that she is still experiencing increased pain over her ankles every time she takes her Rx (as she did in the past with both Atorvastatin and Simvastatin) but she has been trying to put up with it as she is aware that she should be on a statin due to her recent CAD Will try switching her over to Rosuavastatain 40 mg QD to see if she will tolerate Rosuvastatin better; reminded to STOP Atorvastatin when she starts taking Rosuvastatin Will recheck her labs in 3 months for follow-up (4) Asthma: Code(s): J45.909 - Unspecified asthma, uncomplicated Qualifiers: Asthma severity: moderate Asthma persistence: persistent Asthma complication type: with acute exacerbation Qualified Code(s): J45.41 - Moderate persistent asthma with (acute) exacerbation Plan: Stable [place] Advair HFA 115-21 mcg 2 inhalations BID and Albuterol HFA 1 to 2 inhalations Q 6 hours PRN (5) Acquired hypothyroidism: Code(s): E03.9 - Hypothyroidism, unspecified Plan: Continue Levothyroxine 88 mcg QD Will recheck her TFTs in 3 months for follow up (6) Thyroid nodule: Code(s): E04.1 - Nontoxic single thyroid nodule Plan: Thyroid US done a few months ago revealed (+) TI-RADS Category 4 right midpole nodule with maximum dimension of 1.0 cm Recommend followup ultrasound in 1, 2, 3 and 5 years for continuing surveillance; was referred to and she is now seeing endocrinology for further evaluation and management of her thyroid nodule Just had thyroid Bx done by endocrinology a few months ago Follow up with endocrinology as scheduled (7) Epilepsy: Code(s): G40.909 - Epilepsy, unspecified, not intractable, without status epilepticus Qualifiers: Epilepsy type: unspecified Intractability: not intractable Status epilepticus: without status epilepticus Qualified Code(s): G40.909 - Epilepsy, unspecified, not intractable, without status epilepticus Plan: Stable lately; recalls that her last seizure episode was over a year ago, and that she has never been started on any Rx for her seizures Was referred to neurology last year but patient states that she does not want to go back to see Dr. Pittman Was referred instead to Dr. Donahue as she has [facility], which is not accepted by [facility]-affiliated practices, but patient states that she has not yet been contacted for an appointment (8) Erosive esophagitis: Code(s): K22.10 - Ulcer of esophagus without bleeding Plan: Dx by EGD with Bx Dietary restrictions reinforced Was doing well on Omeprazole 40 mg BID but insurance would NOT cover Rx and she was getting Rx [id number] for a while but could not afford to continue Is currently on Famotidine 40 mg BID and Carafate liquid Q HS Follow up with GI as scheduled (9) Insomnia: Code(s): G47.00 - Insomnia, unspecified Qualifiers: Insomnia type: unspecified Qualified Code(s): G47.00 - Insomnia, unspecified Plan: Sleep hygiene reinforced Continue Trazodone 150 mg once a day at bedtime as needed (10) Anxiety: Code(s): F41.9 - Anxiety disorder, unspecified Plan: Continue Clonazepam 0.5 mg BID PRN Follow-up with Psychiatry as scheduled (11) Depression: Code(s): F32.9 - Major depressive disorder, single episode, unspecified Qualifiers: Depression Type: major depressive disorder Major depression recurrence: recurrent Active/Remission status: currently active Major depression episode severity: unspecified Qualified Code(s): F33.9 - Major depressive disorder, recurrent, unspecified Plan: Was on Fluoxetine 40 mg QD but reportedly felt angry often while on the Rx Continue Escitalopram 10 mg QD - has been tolerating Rx well so far Follow-up with Psychiatry as scheduled (12) Obesity (BMI 30-39.9): Code(s): E66.9 - Obesity, unspecified Plan: Reinforced diet/exercise as tolerated/lose weight Plan Follow up in 3 months Orders: Orders B Type Natriuretic Peptide 3 Months I50.9 - Heart failure, unspecified Comprehensive [place]. Panel Fast 3 Months E78.00 - Pure hypercholesterolemia, unspecified Hemoglobin A1c 3 Months E11.9 - Type 2 diabetes mellitus without complications, I25.10 - Atherosclerotic heart disease of [place] coronary artery without angina pectoris Lipid Panel 3 Months E78.00 - Pure hypercholesterolemia, unspecified Vitamin D 25-OH Total 3 Months E55.9 - Vitamin D deficiency, unspecified Complete Blood Count Auto Diff 3 Months I10 - Essential (primary) hypertension UA CC w/rflx Micro + Cult 3 Months R30.0 - Dysuria Free T4 (Free Thyroxine) 3 Months E03.9 - Hypothyroidism, unspecified Thyroid Stimulating Hormone 3 Months E03.9 - Hypothyroidism, unspecified Microalbumin, Random (w Creat) 3 Months E11.9 - Type 2 diabetes mellitus without complications Referrals Cardiology Referral I25.10 - Atherosclerotic heart disease of [place] coronary artery without angina pectoris, I42.9 - Cardiomyopathy, unspecified Medications: New rosuvastatin 40 mg PO DAILY 30 tabs 5RF 30 days Coding Level of Care Code Est Pt Level 4 (63859) Diagnoses Coronary atherosclerosis I25.10 Associated angina: without angina Coronary Disease-Associated Artery/Lesion type: [place] artery [place] vs. transplanted heart: [place] heart Diabetes mellitus E11.65 Diabetes mellitus type: type 2 Diabetes mellitus shelter insulin use: without terminal manager use Diabetes mellitus complication status: with hyperglycemia Mixed hyperlipidemia E78.2 Asthma J45.41 Asthma severity: moderate Asthma persistence: persistent Asthma complication type: with acute exacerbation Acquired hypothyroidism E03.9 Thyroid nodule E04.1 Epilepsy G40.909 Epilepsy type: unspecified Intractability: not intractable Status epilepticus: without status epilepticus Erosive esophagitis K22.10 Insomnia G47.00 Insomnia type: unspecified Anxiety F41.9 Depression F33.9 Depression Type: major depressive disorder Major depression recurrence: recurrent Active/Remission status: currently active Major depression episode severity: unspecified Obesity (BMI 30-39.9) E66.9
== END 2023-01-17 10:06 | disposition home or self-care (01) ==
PROVIDERS: PCP Internal Medicine; Visit Provider Internal Medicine
DX: E11.65 Type 2 diabetes mellitus with hyperglycemia (principal); J45.41 Moderate persistent asthma with (acute) exacerbation; E03.9 Hypothyroidism, unspecified; E04.1 Nontoxic single thyroid nodule; G40.909 Epilepsy, unspecified, not intractable, without status epilepticus; I25.10 Atherosclerotic heart disease of native coronary artery without angina pectoris; E78.2 Mixed hyperlipidemia; K22.10 Ulcer of esophagus without bleeding; G47.00 Insomnia, unspecified; F41.9 Anxiety disorder, unspecified; F33.9 Major depressive disorder, recurrent, unspecified; E66.9 Obesity, unspecified
CPT/HCPCS: 99214

== ENCOUNTER 2023-05-02 09:12 | Outpatient (REF) | payer OTHER, SELFPAY ==
[2023-05-02 10:02] LABS: Basophils Percent Auto 0.7 % (0-2); Eosinophils Absolute Auto 0.1 X10*3/uL (0.0-0.4); Eosinophils Percent Auto 2.1 % (0-4); Hematocrit 35.8 % (37.0-47.0); Hemoglobin 11.6 g/dl (12.0-16.0); Imm Gran Abs Auto 0.01 X10*3/uL (0.00-0.03); Imm Gran Pct Auto 0.2 % (0.0-0.4); Lymphocytes Absolute Auto 1.8 X10*3/uL (1.2-4.9); Lymphocytes Percent Auto 42.4 % (20-40); MANUAL DIFF FLAG NO; Mean Corpuscular HGB Conc 32.4 g/dl (31.0-35.0); Mean Corpuscular Hemoglobin 28.9 pg (27.0-33.0); Mean Corpuscular Volume 89.3 fL (80.0-98.0); Mean Platelet Volume 12.1 fL (9.4-12.3); Monocytes Absolute Auto 0.3 X10*3/uL (0.1-1.2); Monocytes Percent Auto 7.8 % (2-11); Neutrophils Percent Auto 46.8 % (45-73); Platelet Count 208 X10*3/uL (160-400); Red Blood Count 4.01 X10*6/uL (4.20-5.50); White Blood Count 4.3 X10*3/uL (4.8-10.8)
[2023-05-02 10:11] LABS: Estimated Average Glucose 134 mg/dL; Hemoglobin A1c % 6.3 % (<6.0)
[2023-05-02 10:37] LABS: B Type Natriuretic Peptide 185 pg/mL (<100)
[2023-05-02 10:39] LABS: Alanine Aminotransferase 14 U/L (0-31); Albumin Level 3.8 g/dL (3.5-5.0); Alkaline Phosphatase 65 U/L (39-117); Anion Gap 12 (12-20); Aspartate Amino Transferase 18 U/L (5-31); Bilirubin Total 0.2 mg/dL (0.0-1.0); Blood Urea Nitrogen 12 mg/dL (9-16); Calcium 9.1 mg/dL (8.4-10.2); Carbon Dioxide 23 mmol/L (22-29); Chloride 112 mmol/L (96-108); Cholesterol 150 mg/dL (<200); Estimated Glomerular Filt Rate > 60; Glucose Fasting 133 mg/dL (60-99); HDL Cholesterol 44 mg/dL (>40); LDL Cholesterol Calculated 80 mg/dL (<100); Potassium 4.2 mmol/L (3.3-5.1); Sodium 143 mmol/L (135-145); Total Protein 6.6 g/dL (6.5-8.0); Triglycerides 134 mg/dL (<150)
[2023-05-02 10:50] LABS: Free T4 (Free Thyroxine) 0.89 ng/dL (0.71-1.85); TSH reflex Free T4 4.83 uIU/mL (0.32-4.0); Thyroid Stimulating Hormone 4.83 uIU/mL (0.32-4.0); Vitamin D 25-OH Total 34.5 ng/mL (>30)
[2023-05-02 10:59] LABS: Appearance Urine Clear; Color Urine Yellow; Glucose Urine UA Negative (Negative); Leukocyte Esterase Urine Negative (Negative); Nitrite Urine Negative (Negative); Specific Gravity - Urine 1.015 (1.005-1.025); Urine Blood Negative (Negative); Urine Ketones Negative (Negative); Urine Protein Negative (Neg-Trace)
[2023-05-02 11:43] LABS: Creatinine Urine 63.05 mg/dL; Microalbumin Urine < 5.0 mg/L
== END 2023-05-02 09:13 | disposition home or self-care (01) ==
LOC: HO.LAB 09:12
PROVIDERS: PCP Internal Medicine; Visit Provider Internal Medicine
DX: I11.0 Hypertensive heart disease with heart failure (principal); I50.9 Heart failure, unspecified; E03.9 Hypothyroidism, unspecified; I25.10 Atherosclerotic heart disease of native coronary artery without angina pectoris; E78.00 Pure hypercholesterolemia, unspecified; E55.9 Vitamin D deficiency, unspecified; E11.9 Type 2 diabetes mellitus without complications; R30.0 Dysuria
CPT/HCPCS: 36415; 80053; 80061; 81003; 82043; 82306; 82570; 83036; 83880; 84439; 84443; 85025

== ENCOUNTER 2023-05-03 13:08 | Outpatient (AMB) | payer OTHER, SELFPAY ==
[2023-05-03 13:24] VITALS: BP 130/70; PULSE 79; O2SAT 98; BMI 33.4
--- NOTE | 2023-05-03 13:24 | A.OFFPC_ITS ---
Vital Signs 05/03/23 13:24 Height 5 ft 2 in Weight 182 lb 6 oz BMI 33.4 BP 130/70 Blood Pressure Location Lt brachial Position Sitting Pulse 79 Pulse Source Pulse Oximeter Pulse Oximetry (%) 98 Oxygen Delivery Method Room Air Intake Visit Reasons: cardiomyopathy/CAD, hyperlipidemia Repossessor Required: No Accompanied by: Self / Same As Patient Allergies Benadryl Allergy (Unknown, Verified 05/03/23 14:06) unknown dapagliflozin Adverse Reaction (Severe, Verified 05/03/23 14:06) Chest Pain, Weakness, Nausea, Fatigue amoxicillin [Augmentin] Adverse Reaction (Intermediate, Verified 05/03/23 14:06) diarrhea atorvastatin Adverse Reaction (Intermediate, Verified 05/03/23 14:06) myalgia, feet pain, hair loss morphine [MORPHINE] Adverse Reaction (Intermediate, Verified 05/03/23 14:06) TACHYCARDIA, CP, confusion simvastatin Adverse Reaction (Intermediate, Verified 05/03/23 14:06) swelling of feet tramadol [TRAMADOL] Adverse Reaction (Intermediate, Verified 05/03/23 14:06) DIZZYNESS, confusion paroxetine [Paxil] Adverse Reaction (Unknown, Verified 05/03/23 14:06) Unknown Medication List - Last Reconciled 05/03/23 by Jacoby Kamara MD albuterol sulfate 90 mcg/actuation 2 puffs PO Q6H PRN albuterol sulfate 2.5 mg (3 mL) inhalation QID PRN 30 days aspirin 81 mg PO DAILY atorvastatin 80 mg PO BEDTIME 90 days [id number]-[id number] 50-325-40 mg 1 cap PO TID cimetidine 800 mg PO BID 90 days clonazepam 0.5 mg PO BID PRN 30 days clopidogrel 75 mg PO DAILY dexamethasone 1 mg PO ONCE escitalopram oxalate 10 mg PO DAILY 30 days famotidine 40 mg PO BID fluticasone propion-salmeterol 115-21 mcg/actuation (Advair HFA) 2 puffs inhalation BID 30 days fluticasone propionate 50 mcg/actuation 2 sprays intranasal DAILY 30 days levothyroxine 88 mcg PO DAILY metformin ER 500 mg PO QPM 30 days metoprolol succinate ER 25 mg PO DAILY 90 days [NEBULIZER As directed] omega-3 fatty acids 1,000 mg PO DAILY NS rosuvastatin 40 mg PO DAILY 30 days sennosides (senna) 17.2 mg (2 x 8.6 mg) PO BEDTIME PRN sucralfate (Carafate) 2 grams (20 mL) PO .qhs trazodone 150 mg PO BEDTIME Tobacco use date assessed: 05/03/23 Dental Screening Dental Screen Date: 05/03/23 Did you have a dental visit in the last 12 months?: Yes Did you have a dental problem in the last 6 months where you did not have access to dental care?: No Was dental information given to patient?: Patient has dentist HPI cardiomyopathy/CAD, hyperlipidemia HPI Details Patient comes in today for her follow up visit States that she feels okay She denies any headaches or dizziness Denies any chest pains, no increased SOB No nausea/vomiting, no abdominal pain No change in bowel habits noted Is requesting to have her Escitalopram dosage increased - states that she is tolerating the Rx but feels that her depression is still not controlled well enough Had her follow up labs done yesterday - to discuss her results [facility] Medical History Obesity (BMI 30-39.9) Diabetes mellitus Coronary atherosclerosis Asthma Depression Epilepsy Anxiety Insomnia Osteopenia Allergic rhinitis Acquired hypothyroidism Acute non intractable tension-type headache Mixed hyperlipidemia Surgical History Hx of cardiac cath (~05/05/22) History of ST elevation myocardial infarction (STEMI) Hx of shoulder surgery History of bunionectomy History of esophagogastroduodenoscopy (EGD) Hx of colonoscopy Family History Father HTN (hypertension) Heart disease Myocardial infarction Mother Diabetes Hyperchloremia HTN (hypertension) Myocardial infarction Family/Other Stomach cancer Household Members: None Housing: Apartment Alcohol intake: current Alcohol intake frequency: does not drink Patient Tobacco Use Status: Never used Tobacco e-Cigarette/Vaping Use: Never Used Second Hand Smoke Exposure: No Current occupational status: disabled Cognitive needs: No Hearing needs: No Vision needs: Yes Questionnaire PHQ-9 Over the last 2 weeks, how often have you been bothered by any of the following problems? 1. Little interest or pleasure in doing things: more than half the days 2. Feeling down, depressed, or hopeless: more than half the days 3. Trouble falling or staying asleep, or sleeping too much: more than half the days 4. Feeling tired or having little energy: more than half the days 5. Poor appetite or overeating: more than half the days 6. Feeling bad about yourself - or that you are a failure or have let yourself or your family down: more than half the days 7. Trouble concentrating on things, such as reading the newspaper or watching television: not at all 8. Moving or speaking so slowly that other people could have noticed. Or the opposite - being so fidgety or restless that you have been moving around a lot more than usual: not at all 9. Thoughts that you would be better off or of hurting yourself in some way: not at all Total score: 12 Depression Screening Interpretation: Positive Depression Screening Follow-up: Existing condition and In treatment Depression Screening Done: Yes 09609 - PHQ-9 Billing: Yes Source: Developed by Drs. Ziyad Gary, Dayana Crane, Vinh Brar and colleagues, with an educational vero from [employer]. Thrive Questionnaire Date Thrive assessed: 05/03/23 I am a: Patient What is your living situation today?: I have a steady place to live Within the past 12 months, did the food you bought not last and you didn't have the money to get more?: Never true Within the past 12 months, did you worry whether your food would run out before you got money to buy more?: Never true Do you have trouble paying for medicines?: No Do you have trouble getting transportation to medical appointments?: No Do you have trouble paying your heating and electricity bill?: No Do you have trouble taking care of your child, family member or friend?: No Do you have trouble with day-to-day activities such as bathing, preparing meals, shopping, managing finances, etc.?: No Are you currently unemployed and looking for a job?: No Are you interested in more education?: No Please select the resources that you would like help with: None Currently or been in a relationship where the following occur: no concerns reported AUDIT C Alcohol Use Questionnaire (AUDIT-C) 1. How often do you have a drink containing alcohol?: Never 2. How many drinks containing alcohol do you have on a typical day when you are drinking?: 1 or 2 3. How often do you have six or more drinks on one occasion?: Never Total Score: 0 Score Reviewed/Action Taken: Yes RASHI-7 AMB Questionnaire RASHI-7 Date RASHI - 7 assessed: 05/03/23 Feeling nervous, anxious, or on edge: 0 = Not at all Not being able to stop or control worryin = Not at all Worrying too much about different things: 0 = Not at all Trouble relaxin = Not at all Being so restless that it is hard to sit still: 0 = Not at all Becoming easily annoyed or irritable: 0 = Not at all Feeling afraid as if something awful might happen: 0 = Not at all Total RASHI-7 score (0-4 normal; 5-9 mild; 10-14 moderate; 15-21 severe): 0 Source: Developed by Drs. Ziyad Gary, Dayana Crane, Vinh Brar and colleagues, with an educational vero from [employer]. Review of Systems Const Denies chills, Denies fatigue, Denies fever(s) and Denies headache(s) ENT Denies dysphagia, Denies dizziness, Denies otalgia, Denies headache(s), Denies neck pain, Denies odynophagia and Denies sore throat Card Denies chest pain, Denies rapid heart rate, Denies irregular heart rhythm, Denies palpitations and Denies dyspnea Resp Denies chest congestion, Denies cough and Denies dyspnea GI Denies abdominal pain, Denies constipation, Denies dysphagia, Denies heartburn, Denies diarrhea, Denies nausea, Denies odynophagia and Denies vomiting Denies urinary frequency, Denies dysuria and Denies urinary urgency Musc Denies back pain, Denies arthralgias and Denies neck pain Skin/Breast Denies rash Neuro Denies dizziness, Denies headache(s) and Denies paresthesias Psych Reports anxiety (controlled on Rx) and Denies depression Endo Denies fatigue and Denies palpitations Bryson/Lymph Denies easy bruising Physical exam (Primary Care) Vital Signs: Last Vital Signs Pulse 79 05/03/23 13:24 BP 130/70 05/03/23 13:24 Pulse Ox 98 05/03/23 13:24 Oxygen Delivery Method Room Air 05/03/23 13:24 BMI result Body Mass Index 33.4 Tobacco/Smoking Status: Tobacco use Status Tobacco use date assessed 05/03/23 05/03/23 13:34 Patient Tobacco Use Status Never used Tobacco 05/03/23 13:24 e-Cigarette/Vaping Use Never Used 05/03/23 13:24 PHQ-9: PHQ-9 Score PHQ-9: Total score 12 05/03/23 13:34 Depression Screening Interpretation: Positive Depression Screening Follow-up: Existing condition and In treatment Thrive Assessment: Date of Thrive Assessment Date Thrive assessed 05/03/23 05/03/23 13:34 Currently or been in a relationship where the following occur: no concerns reported Const General: no acute distress and alert HENMT Ears: TM's normal bilaterally and EAC's normal Throat: Yes posterior oropharynx normal and Yes tonsils normal (no TP congestion) Neck Neck: Yes no lymphadenopathy and Yes supple Thyroid: Thyroid normal Resp Auscultation: clear to auscultation bilaterally, no rales and no wheezes Cardio Rate: regular rate Rhythm: regular rhythm Heart sounds: no murmurs GI Palpation (GI): Soft to palpation and nontender Auscultation: normal bowel sounds General: Yes no CVA tenderness Back/Spine/Pelvis Back: no CVA tenderness Thoracic/Lumbar Spine: thoracic and lumbar spine normal to inspection Skin Rashes: no rashes Neuro General: no focal motor deficits Extrem General: Yes no clubbing, cyanosis or edema Results Reviewed Results Reviewed: Laboratory Tests 05/02/23 05/02/23 05/02/23 09:17 10:15 Unknown WBC 4.3 L Hgb 11.6 L Hct 35.8 L Plt Count 208 Sodium 143 Potassium 4.2 Creatinine 0.81 Estimated GFR > 60 Fasting Glucose 133 H Hemoglobin A1c % 6.3 H Calcium 9.1 AST 18 ALT 14 B-Natriuretic Peptide Triglycerides Cholesterol 150 LDL Cholesterol, Calc 80 HDL Cholesterol 44 25-OH Vitamin D Total 34.5 TSH 4.83 H Free T4 0.89 Ur Specific [place] 1.015 Urine Protein Negative Urine Glucose (UA) Negative Urine Blood Negative 05/02/23 Unknown WBC Hgb Hct Plt Count Sodium Potassium Creatinine Estimated GFR Fasting Glucose Hemoglobin A1c % Calcium AST ALT B-Natriuretic Peptide 185 H Triglycerides 134 Cholesterol LDL Cholesterol, Calc HDL Cholesterol 25-OH Vitamin D Total TSH Free T4 Ur Specific [place] Urine Protein Urine Glucose (UA) Urine Blood Assessment and Plan Assessment & Plan (1) Coronary atherosclerosis: Comment: S/P cardiac cath with stenting of LAD with ISAIAH on 05/05/2022 Code(s): I25.10 - Atherosclerotic heart disease of [place] coronary artery without angina pectoris Qualifiers: Coronary Disease-Associated Artery/Lesion type: [place] artery [place] vs. transplanted heart: [place] heart Associated angina: without angina Qualified Code(s): I25.10 - Atherosclerotic heart disease of [place] coronary artery without angina pectoris Plan: Patient continues to remain asymptomatic from cardiac standpoint Continue Aspirin 81 mg QD for lifelong antiplatelet Tx; continue Clopidogrel 75 mg QD and Metoprolol ER 25 mg QD (was taken off Brilinta by cardiology previously due to increasing SOB) Myocardial perfusion stress test imaging done on 09/08/22 at [facility] reportedly came out normal Repeat echocardiogram done on 10/26/2022 at [facility] was also normal, with EF of 65 to 70% (EF was at 35 to 40% back in April 2022 when patient had her MS and was experiencing ischemic cardiomyopathy at the time) Follow up with cardiology as scheduled (2) Mixed hyperlipidemia: Code(s): E78.2 - Mixed hyperlipidemia Plan: Results of her labs done yesterday reviewed and discussed with patient - advised that her cholesterol numbers are acceptable although they have increased slightly from previous Reinforced low cholesterol diet Was switched to Rosuvastatin 40 mg QOD at her last visit as she supposedly had problems tolerating Atorvastatin (80 mg) in the past but states that she ended up with similar reactions on Rosuvastatin so she switched herself back to Atorvastatin 80 mg after a few weeks and has been taking this every other day for a few weeks now with no significant issues; would like to continue on Atorvastatin for now Will recheck her labs and fasting lipids in 3 months for follow-up (3) Diabetes mellitus: Code(s): E11.9 - Type 2 diabetes mellitus without complications Qualifiers: Diabetes mellitus type: type 2 Diabetes mellitus penitentiary insulin use: without protection engineer use Diabetes mellitus complication status: with hyperglycemia Qualified Code(s): E11.65 - Type 2 diabetes mellitus with hyperglycemia Plan: HgbA1c was at 6.3% on her labs done yesterday (was at 6.1% a few months ago) - goal is at least <7.0% but ideally <6.5% Reinforced diabetic diet Continue Metformin ER 500 mg QD; could not tolerate Farxiga (chest pains) (4) Asthma: Code(s): J45.909 - Unspecified asthma, uncomplicated Qualifiers: Asthma severity: moderate Asthma persistence: persistent Asthma complication type: with acute exacerbation Qualified Code(s): J45.41 - Moderate persistent asthma with (acute) exacerbation Plan: Stable Con[place] Advair HFA 115-21 mcg 2 inhalations BID and Albuterol HFA 1 to 2 inhalations Q 6 hours PRN (5) Acquired hypothyroidism: Code(s): E03.9 - Hypothyroidism, unspecified Plan: Her TFTs were acceptable on her recent labs Continue Levothyroxine 88 mcg QD Will recheck her TFTs in 3 months for follow up (6) Thyroid nodule: Code(s): E04.1 - Nontoxic single thyroid nodule Plan: Thyroid US done a few months ago revealed (+) TI-RADS Category 4 right midpole nodule with maximum dimension of 1.0 cm Recommend followup ultrasound in 1, 2, 3 and 5 years for continuing surveillance; was referred to and she is now seeing endocrinology for further evaluation and management of her thyroid nodule Just had thyroid Bx done by endocrinology a few months ago Follow up with endocrinology as scheduled (7) Epilepsy: Code(s): G40.909 - Epilepsy, unspecified, not intractable, without status epilepticus Qualifiers: Epilepsy type: unspecified Intractability: not intractable Status epilepticus: without status epilepticus Qualified Code(s): G40.909 - Epilepsy, unspecified, not intractable, without status epilepticus Plan: Stable lately; recalls that her last seizure episode was over a year ago, and that she has never been started on any Rx for her seizures Was referred to neurology last year but patient states that she does not want to go back to see Dr. Pittman Was referred instead to Dr. Donahue as she has [facility], which is not accepted by [facility]-affiliated practices, but patient states that she has not yet been contacted for an appointment (8) Erosive esophagitis: Code(s): K22.10 - Ulcer of esophagus without bleeding Plan: Dx by EGD with Bx Dietary restrictions reinforced Was doing well on Omeprazole 40 mg BID but insurance would NOT cover Rx and she was getting Rx [id number] for a while but could not afford to continue Is currently on Famotidine 40 mg BID and Carafate liquid Q HS Follow up with GI as scheduled (9) Insomnia: Code(s): G47.00 - Insomnia, unspecified Qualifiers: Insomnia type: unspecified Qualified Code(s): G47.00 - Insomnia, unspecified Plan: Sleep hygiene reinforced Continue Trazodone 150 mg once a day at bedtime as needed (10) Anxiety: Code(s): F41.9 - Anxiety disorder, unspecified Plan: Continue Clonazepam 0.5 mg BID PRN Follow-up with Psychiatry as scheduled (11) Depression: Code(s): F32.9 - Major depressive disorder, single episode, unspecified Qualifiers: Depression Type: major depressive disorder Major depression recurrence: recurrent Active/Remission status: currently active Major depression episode severity: unspecified Qualified Code(s): F33.9 - Major depressive disorder, recurrent, unspecified Plan: Has been tolerating Escitalopram but requested to have this increased in dose - will increase her Escitalopram now to 20 mg QD (reportedly felt angry often while on Fluoxetine in the past) Follow-up with Psychiatry as scheduled (12) Obesity (BMI 30-39.9): Code(s): E66.9 - Obesity, unspecified Plan: Reinforced diet/exercise as tolerated/lose weight Plan Follow up in 3 months Orders: Orders Comprehensive Velma. Panel Fast 3 Months E78.00 - Pure hypercholesterolemia, unspecified Thyroid Stimulating Hormone 3 Months E03.9 - Hypothyroidism, unspecified Vitamin D 25-OH Total 3 Months E55.9 - Vitamin D deficiency, unspecified Hemoglobin A1c 3 Months E11.9 - Type 2 diabetes mellitus without complications Complete Blood Count Auto Diff 3 Months I10 - Essential (primary) hypertension Lipid Panel 3 Months E78.00 - Pure hypercholesterolemia, unspecified Free T4 (Free Thyroxine) 3 Months E03.9 - Hypothyroidism, unspecified UA CC w/rflx Micro + Cult 3 Months R30.0 - Dysuria Microalbumin, Random (w Creat) 3 Months E11.9 - Type 2 diabetes mellitus without complications Medications: Changed From escitalopram oxalate 10 mg PO DAILY 30 days 30 tabs 3RF F33.9 - Major depressive disorder, recurrent, unspecified, F41.9 - Anxiety disorder, u nspecified To escitalopram oxalate 20 mg PO DAILY 30 days 30 tabs 3RF F33.9 - Major depressive disorder, recurrent, unspecified, F41.9 - Anxiety disorder, unsp ecified Coding Level of Care Code Est Pt Level 4 (54094) Diagnoses Atherosclerosis of [place] coronary artery of [place] heart without angina pectoris I25.10 Coronary Disease-Associated Artery/Lesion type: [place] artery [place] vs. transplanted heart: [place] heart Associated angina: without angina Mixed hyperlipidemia E78.2 Type 2 diabetes mellitus with hyperglycemia, without long-term current use of insulin E11.65 Diabetes mellitus type: type 2 Diabetes mellitus protection engineer insulin use: without penitentiary use Diabetes mellitus complication status: with hyperglycemia Moderate persistent asthma with acute exacerbation J45.41 Asthma severity: moderate Asthma persistence: persistent Asthma complication type: with acute exacerbation Acquired hypothyroidism E03.9 Thyroid nodule E04.1 Nonintractable epilepsy without status epilepticus, unspecified epilepsy type G40.909 Epilepsy type: unspecified Intractability: not intractable Status epilepticus: without status epilepticus Erosive esophagitis K22.10 Insomnia, unspecified type G47.00 Insomnia type: unspecified Anxiety F41.9 Episode of recurrent major depressive disorder, unspecified depression episode severity F33.9 Depression Type: major depressive disorder Major depression recurrence: recurrent Active/Remission status: currently active Major depression episode severity: unspecified Obesity (BMI 30-39.9) E66.9
== END 2023-05-03 14:21 | disposition home or self-care (01) ==
PROVIDERS: PCP Internal Medicine; Visit Provider Internal Medicine
DX: I25.10 Atherosclerotic heart disease of native coronary artery without angina pectoris (principal); E11.65 Type 2 diabetes mellitus with hyperglycemia; G40.909 Epilepsy, unspecified, not intractable, without status epilepticus; F33.9 Major depressive disorder, recurrent, unspecified; E78.2 Mixed hyperlipidemia; J45.41 Moderate persistent asthma with (acute) exacerbation; K22.10 Ulcer of esophagus without bleeding; E03.9 Hypothyroidism, unspecified; E04.1 Nontoxic single thyroid nodule; G47.00 Insomnia, unspecified; F41.9 Anxiety disorder, unspecified; E66.9 Obesity, unspecified
CPT/HCPCS: 99214

== ENCOUNTER 2023-06-23 08:45 | Outpatient (AMB) | payer OTHER, SELFPAY ==
[2023-06-23 08:55] VITALS: BP 118/74; PULSE 74; BMI 32.1
--- NOTE | 2023-06-23 08:55 | A.OFFVIS_ITS ---
Intake Vital Signs 06/23/23 08:55 Height 5 ft 2 in Weight 175 lb 11.335 oz BMI 32.1 BP 118/74 Blood Pressure Location Lt brachial Position Sitting Pulse 74 Pulse Source Pulse Oximeter Intake Visit Reasons: Thyroid/CONFIRMED Intake Note: Patient presents today for Thyroid follow up. Last seen by Dr. Fierro on 08/04/2022. Cloth Designer Required: No Accompanied by: Self / Same As Patient Allergies Benadryl Allergy (Unknown, Verified 06/23/23 09:00) unknown dapagliflozin Adverse Reaction (Severe, Verified 06/23/23 09:00) Chest Pain, Weakness, Nausea, Fatigue amoxicillin [Augmentin] Adverse Reaction (Intermediate, Verified 06/23/23 09:00) diarrhea atorvastatin Adverse Reaction (Intermediate, Verified 06/23/23 09:00) myalgia, feet pain, hair loss morphine [MORPHINE] Adverse Reaction (Intermediate, Verified 06/23/23 09:00) TACHYCARDIA, CP, confusion simvastatin Adverse Reaction (Intermediate, Verified 06/23/23 09:00) swelling of feet tramadol [TRAMADOL] Adverse Reaction (Intermediate, Verified 06/23/23 09:00) DIZZYNESS, confusion paroxetine [Paxil] Adverse Reaction (Unknown, Verified 06/23/23 09:00) Unknown Medication List - Last Reconciled 06/23/23 by Ziyad Le MD albuterol sulfate 90 mcg/actuation 2 puffs PO Q6H PRN albuterol sulfate 2.5 mg (3 mL) inhalation QID PRN 30 days aspirin 81 mg PO DAILY atorvastatin 80 mg PO BEDTIME 90 days [id number] 50-325-40 mg 1 cap PO TID clonazepam 0.5 mg PO BID PRN 30 days dexamethasone 1 mg PO ONCE escitalopram oxalate 20 mg PO DAILY 30 days fluticasone propion-salmeterol 115-21 mcg/actuation (Advair HFA) 2 puffs inhalation BID 30 days levothyroxine 88 mcg PO DAILY metformin ER 500 mg PO QPM 30 days metoprolol succinate ER 25 mg PO DAILY 90 days [NEBULIZER As directed] sennosides (senna) 17.2 mg (2 x 8.6 mg) PO BEDTIME PRN trazodone 150 mg PO BEDTIME HPI HPI Comments History of Present Illness Details 62 YO F with PMHx Hypothyroidism, SVT, Celiac disease and a recent STEMI who is seen in F/U for a thyroid nodule. The patient last saw Dr. Fierro on 08/04/2022 She had a recent thyroid US 02/11/2022 which revealed a RMP 1.0 cm thyroid nodule. She underwent FNA biopsy of this nodule 07/15/2022 with benign cytology. She presents today to review these results. She does have a history of hypothyroidism and takes levothyroxine 88 mcg PO daily. Her most recent labs reveal hypothyroidism. She reports poor compliance prior to that, but states she has been fully compliant with daily dosing for the past 6 weeks. She denies any symptoms of hyper or hypothyroidism. Denies any history of head or neck irradiation. Denies any family history of thyroid cancer. Thyroid US: 02/11/2022 Right Thyroid Lobe: 4.0 x 2.4 x 1.6 cm, volume 8.0 mL. Parenchyma: The gland echotexture is heterogeneous. Thyroid vascularity is normal. Left Thyroid Lobe: 3.5 x 1.6 x 1.4 cm, volume 4.1 mL. Parenchyma: The gland echotexture is heterogeneous. Thyroid vascularity is increased. Isthmus: 0.3 cm in maximum AP dimension. Estimated total number of nodules greater than or equal to 1 cm: 1. Metal Stamper nodules are described as follows: 1. Location: Right mid pole. ?? ? Size: 0.7 x 0.8 x 1.0 cm, volume 0.294 mL. ?? ? Nodule characteristics: ?? ? Composition: Solid (2). ?? ? Echogenicity: Hyperechoic (1). ?? ? Shape: Taller than wide (3). ?? ? Margins: Smooth (0). ?? ? Echogenic Foci: None (0). ?? ? ACR TI-RADS total points: 6 ?? ? ACR TI-RADS category: 4 2. Location: Right mid pole. ?? ? Size: 0.3 x 0.3 x 0.2 cm, volume 0.010 mL. ?? ? Nodule characteristics: ?? ? Composition: Solid (2). ?? ? Echogenicity: Hypoechoic (2). ?? ? Shape: Not taller than wide (0). ?? ? Margins: Ill-defined (0). ?? ? Echogenic Foci: None (0). ?? ? ACR TI-RADS total points: 4 ?? ? ACR TI-RADS category: 4 NODES: No lymphadenopathy is seen in the tissue surrounding the thyroid gland. Labs: Laboratory Tests 07/15/22 07/15/22 07:43 07:43 TSH 5.43 H Free T4 1.02 Thyroglobulin Anti body 5 H Thyroid Peroxidase Ab 801 H S/P FNA of R nodule 07/15/2022 with benign cytology Complains of several symptoms of Markel's including weight gain, facial puffiness, muscular weakness. Had a 1 mg dexamethasone suppression test performed with n on suppressible cortisol [facility] Medical History (Updated 06/23/23 @ 09:53 by Ziyad Le MD) Buford syndrome Obesity (BMI 30-39.9) Diabetes mellitus Coronary atherosclerosis Asthma Depression Epilepsy Anxiety Insomnia Osteopenia Allergic rhinitis Acquired hypothyroidism Acute non intractable tension-type headache Mixed hyperlipidemia Surgical History Hx of cardiac cath (~05/05/22) History of ST elevation myocardial infarction (STEMI) Hx of shoulder surgery History of bunionectomy History of esophagogastroduodenoscopy (EGD) Hx of colonoscopy Family History Father HTN (hypertension) Heart disease Myocardial infarction Mother Diabetes Hyperchloremia HTN (hypertension) Myocardial infarction Family/Other Stomach cancer Social History Household Members: None Housing: Apartment Alcohol intake: current Alcohol intake frequency: does not drink Patient Tobacco Use Status: Never used Tobacco e-Cigarette/Vaping Use: Never Used Second Hand Smoke Exposure: No Current occupational status: disabled Cognitive needs: No Hearing needs: No Vision needs: Yes Physical Exam Const Other: Thyroid gland is normal size weighs about 15 g. There are no thyroid nodules palpated. She does have cushingoid features such as facial puffiness and supraclavicular fat pad Assessment & Plan Assessment & Plan (1) Hypothyroidism: Code(s): E03.9 - Hypothyroidism, unspecified Plan: This 62-year-old female with a history of hypothyroidism being treated with 88 mcg levothyroxine. She appears to be clinically euthyroid slightly elevated TSH 2 months ago. Plan is to increase the levothyroxine to 100 mcg and recheck TSH and free T4 in 6 weeks time (2) Thyroid nodule: Code(s): E04.1 - Nontoxic single thyroid nodule Plan: Status post FNA of a right midpole nodule July 2022 with benign cytology. 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 She h ad a non suppressible 1 mg dexamethasone suppression test. ACTH was measured 20. If she does have Markel's, based on the ACTH level, it would be ACTH dependent Buford's covering from the pituitary or less likely ectopic Will repeat the dexamethasone suppression test with dexamethasone level, we will also do 24 hour urine for free cortisol and creatinine as well as midnight salivary cortisol. If results are consistent with Buford's, may repeat ACTH and/or perform pituitary MRI. At that point they also referred to pituitary Markel's expert at [facility] Dr. Sabrina Hernandez Orders: Orders Thyroid Stimulating Hormone 6 Weeks E03.9 - Hypothyroidism, unspecified Cortisol Random 1 Week E24.9 - Buford's syndrome, unspecified Cortisol, Free 24Hr Urine Today E24.9 - Buford's syndrome, unspecified Free T4 (Free Thyroxine) 6 Weeks E03.9 - Hypothyroidism, unspecified Dexamethasone 1 Week E24.9 - Buford's syndrome, unspecified Creatinine, 24 Hr Group Today E24.9 - Markel's syndrome, unspecified Saliva Cortisol Today E24.9 - Buford's syndrome, unspecified Medications: New levothyroxine (Levoxyl) 100 mcg PO DAILY 30 tabs 5RF Refilled dexamethasone 1 mg PO ONCE 1 tab 0RF E11.65 - Type 2 diabetes mellitus with hyperglycemia Discontinued levothyroxine Discontinued Reason: Doctor's Order 88 mcg PO DAILY 90 tabs 1RF E03.9 - Hypothyroidism, unspecified Coding Level of Care Code Est Pt Level 3 (52486) Diagnoses Hypothyroidism E03.9 Thyroid nodule E04.1 Markel syndrome E24.9
== END 2023-06-23 10:07 | disposition home or self-care (01) ==
PROVIDERS: PCP Internal Medicine; Visit Provider Internal Medicine Endocrinology, Diabetes & Metabolism
DX: E03.9 Hypothyroidism, unspecified (principal); E04.1 Nontoxic single thyroid nodule; E24.9 Cushing's syndrome, unspecified
CPT/HCPCS: 99213

== ENCOUNTER → 2023-06-23 08:45 | Outpatient (BNVA) | payer OTHER, SELFPAY | PROVIDERS: PCP Internal Medicine; Visit Provider Internal Medicine Endocrinology, Diabetes & Metabolism | DX: E03.9 Hypothyroidism, unspecified (principal); E04.1 Nontoxic single thyroid nodule; E24.9 Cushing's syndrome, unspecified | CPT/HCPCS: 99212 ==

== ENCOUNTER 2023-08-02 10:50 | Outpatient (AMB) | payer OTHER, SELFPAY ==
[2023-08-02 11:00] VITALS: BP 144/67; PULSE 68; BMI 31.9
--- NOTE | 2023-08-02 11:00 | A.OFFVIS_ITS ---
Intake Vital Signs 08/02/23 11:00 Height 5 ft 2 in Weight 174 lb 2.643 oz BMI 31.9 BP 144/67 H Blood Pressure Location Lt brachial Position Sitting Pulse 68 Intake Visit Reasons: Follow up constipation Intake Note: Steffany presents in the office in follow up of IBS. CC: Patient reports having chest pains but unsure if it's from her heart or from GERD. Patient states she has been buying the Omeprazole OTC because the cimetidine did not help with symptoms. Patient denies other GI symptoms. Exchange Specialist Required: No Accompanied by: Self / Same As Patient Allergies Benadryl Allergy (Unknown, Verified 08/02/23 11:17) unknown dapagliflozin Adverse Reaction (Severe, Verified 08/02/23 11:17) Chest Pain, Weakness, Nausea, Fatigue amoxicillin [Augmentin] Adverse Reaction (Intermediate, Verified 08/02/23 11:17) diarrhea atorvastatin Adverse Reaction (Intermediate, Verified 08/02/23 11:17) myalgia, feet pain, hair loss morphine [MORPHINE] Adverse Reaction (Intermediate, Verified 08/02/23 11:17) TACHYCARDIA, CP, confusion simvastatin Adverse Reaction (Intermediate, Verified 08/02/23 11:17) swelling of feet tramadol [TRAMADOL] Adverse Reaction (Intermediate, Verified 08/02/23 11:17) DIZZYNESS, confusion paroxetine [Paxil] Adverse Reaction (Unknown, Verified 08/02/23 11:17) Unknown HPI Follow up constipation HPI Details Assessment & Plan (1) Erosive esophagitis: ?Code(s): K22.10 - Ulcer of esophagus without bleeding ?Plan: She had a big SC in April, just before .? I considered this in the differential diet no when her her GERD worsened but she told me she was seeing a maintenance worker house trailer so I thought this had been excluded! It turns out she had never gotten nuclear stress test which may have uncovered the pending problem.? She had a thrombus in her LAD and had a drug eluting stent placed. Most all of her problems resolved after this including N/V and sinus problems!! She is in cardiac rehab and has adjusted her diet aggressively for cholesterol/cardiac health. She has had some wt loss. The bentyl was stopped by card because they did not want me to confuse CP with esophageal spasm. She continues on famotidine with good control of the GERD and still uses carafate for diarrhea. She has the cimetidine but has not been using it. ROV 6 mos (2) Abdominal bloating: ?Code(s): R14.0 - Abdominal distension (gaseous) (3) Irritable bowel syndrome with both c onstipation and diarrhea: ?Code(s): K58.2 - Mixed irritable bowel syndrome (4) GERD (gastroesophageal reflux diseas e): ?Code(s): K21.9 - Gastro-esophageal reflux disease without esophagitis ?Qualifiers: ?Esophagitis presence:?without esophagitis? Qualified Code(s):?K21.9 - Gastro-esophageal reflux disease without esophagitis TODAY'S VISIT She has been having frequent chest pain some across the upper chest she describes as burning that goes from right to left and some that has a more stabbing pain right in the middle. When her GERD was increased last time it was because she had an SC so we do not want to be can place an about possible cardiac causes. However, she also did not have good success with cimetidine and has not been taking omeprazole 40 mg twice a day as we had prescribed in the past for her erosive esophagitis. This is because her insurance declined to pay for any PPI. She is trying to buy it [id number] and can get 14 pills for 14 dollars but this is expensive for her so she has only been taking it once a day. We look up on [employer] if she goes too big why she can get a 60 day supply for 10- 11 dollars so will try sending it they are giving her the coupon. I think we need to see how she does once we get her reestablished on the appropriate medication intervention. I have also encouraged her to communicate with her maintenance worker house trailer to make sure the pain is not due to cardiac causes. She has an upcoming echocardiogram on the of this month. She is also having a feeling of early satiety and continued bloating even hours after eating. This is accompanied by a good deal of gas and flatulence. While this could be driving GERD and that could be the reason for her chest pain we want to be cautious and I do encourage her to contact her maintenance worker house trailer she says that she has use nitro sublingually at times and this has relieved the pain, but she has using a lot more of the nitroglycerin that she had in the past. It is also possible she has having a combination of these 2 factors which could be difficult to tease out. Return office visit in 2 weeks to see how she is doing. She also wants to restart her dicyclomine to see if esophageal spasm is part of the presentation and I think this is okay. [facility] Medical History Athol syndrome Obesity (BMI 30-39.9) Diabetes mellitus Coronary atherosclerosis Asthma Depression Epilepsy Anxiety Insomnia Osteopenia Allergic rhinitis Acquired hypothyroidism Acute non intractable tension-type headache Mixed hyperlipidemia Surgical History Hx of cardiac cath (~05/05/22) History of ST elevation myocardial infarction (STEMI) Hx of shoulder surgery History of bunionectomy History of esophagogastroduodenoscopy (EGD) Hx of colonoscopy Family History Father HTN (hypertension) Heart disease Myocardial infarction Mother Diabetes Hyperchloremia HTN (hypertension) Myocardial infarction Family/Other Stomach cancer Other Thyroid nodule Social History Household Members: None Housing: Apartment Alcohol intake: current Alcohol intake frequency: does not drink Patient Tobacco Use Status: Never used Tobacco e-Cigarette/Vaping Use: Never Used Second Hand Smoke Exposure: No Current occupational status: disabled Cognitive needs: No Hearing needs: No Vision needs: Yes Review of Systems Const Denies fatigue, Denies fever(s), Denies night sweats, Reports poor appetite and Denies weight loss Eyes Details: glasses Reports requires corrective lenses ENT Reports Normal hearing present, Denies dental pain, Denies dysphagia, Denies hearing loss, Denies mouth pain, Denies odynophagia, Denies throat swelling, Denies tongue swelling and Reports other (Dentition adequate) Card Reports chest pain Resp Reports no additional complaints GI Details: Denies abdominal pain, Denies melena, Denies bloating, Reports hematochezia, Denies constipation, Denies GI cramping, Denies dysphagia, Reports excessive flatus, Reports early satiety, Reports heartburn, Denies diarrhea, Denies nausea, Denies odynophagia, Denies vomiting and Denies hematemesis Skin/Breast Denies pruritus, Denies lesions, Denies rash and Denies jaundice Neuro Reports Normal hearing present and Denies Abnormal speech present Endo Denies fatigue Aller/Immun Denies throat swelling and Denies tongue swelling Physical Exam Vital Signs: Last Vital Signs Pulse 68 08/02/23 11:00 BP 144/67 H 08/02/23 11:00 BMI result Body Mass Index 31.9 Const General: cooperative, no acute distress, well developed and well groomed Nutritional Appearance: well nourished and obese Orientation/consciousness: oriented to person, oriented to place and oriented to time Limitations: No language barrier HEENT Head: Yes normocephalic and Yes atraumatic Eyes General: appearance normal, both eyes and all related structures Pupils: Equal, round and reactive pupils present Neck Neck: Yes normal visual inspection and Yes no lymphadenopathy Thyroid: Thyroid normal Resp Effort & Inspection: normal respiratory effort and able to speak in complete sentences Auscultation: clear to auscultation bilaterally Cardio Rate: regular rate Rhythm: regular rhythm Heart sounds: Normal, physiologic split S2 sound present Peripheral pulses: radial pulses present and posterior tibial pulses present GI Inspection: No distended, No Abdominal panniculus present and Yes obesity Palpation (GI): Soft to palpation, nontender, no guarding, not rigid and No hepatosplenomegaly present Percussion: Yes normal to percussion Auscultation: normal bowel sounds Rectal Exam - Female: deferred Skin General skin exam: no rashes or lesions noted, turgor normal, skin not dry, no jaundice, No spider nevi and no striae Rashes: no rashes Nails: normal Neuro General: oriented to person, oriented to place and oriented to time Cranial nerves: Yes Equal, round and reactive pupils present and Yes Normal hearing present Speech: No Abnormal speech present Extrem General: Yes normal to inspection, No clubbing, No cyanosis and No edema Psych Appearance: grossly normal and well kempt Mental Status: mental status grossly normal Speech and movement: Normal speech and movement present Affect: normal affect Attitude: cooperative Thought process: Normal thought process present and not confabulating Thought content: Normal thought content present Insight: Fair insight present (Psych) Judgement: Fair judgement present (Psych) Assessment & Plan Assessment & Plan (1) GERD (gastroesophageal reflux disease): Code(s): K21.9 - Gastro-esophageal reflux disease without esophagitis Qualifiers: Esophagitis presence: without esophagitis Qualified Code(s): K21.9 - Gastro-esophageal reflux disease without esophagitis (2) Irritable bowel syndrome with both constipation and diarrhea: Code(s): K58.2 - Mixed irritable bowel syndrome (3) Esophageal spasm: Code(s): K22.4 - Dyskinesia of esophagus (4) Erosive esophagitis: Code(s): K22.10 - Ulcer of esophagus without bleeding (5) Cardiomyopathy: Code(s): I42.9 - Cardiomyopathy, unspecified Plan She has been having frequent chest pain some across the upper chest she describes as burning that goes from right to left and some that has a more stabbing pain right in the middle. When her GERD was increased last time it was because she had an SC so we do not want to be can place an about possible cardiac causes. However, she also did not have good success with cimetidine and has not been taking omeprazole 40 mg twice a day as we had prescribed in the past for her erosive esophagitis. This is because her insurance declined to pay for any PPI. She is trying to buy it [id number] and can get 14 pills for 14 dollars but this is expensive for her so she has only been taking it once a day. We look up on [employer] if she goes too big why she can get a 60 day supply for 10- 11 dollars so will try sending it they are giving her the coupon. I think we need to see how she does once we get her reestablished on the appropriate medication intervention. I have also encouraged her to communicate with her maintenance worker house trailer to make sure the pain is not due to cardiac causes. She has an upcoming echocardiogram on the of this month. She is also having a feeling of early satiety and continued bloating even hours after eating. This is accompanied by a good deal of gas and flatulence. While this could be driving GERD and that could be the reason for her chest pain we want to be cautious and I do encourage her to contact her maintenance worker house trailer she says that she has use nitro sublingually at times and this has relieved the pain, but she has using a lot more of the nitroglycerin that she had in the past. It is also possible she has having a combination of these 2 factors which could be difficult to tease out. Return office visit in 2 weeks to see how she is doing. She also wants to restart her dicyclomine to see if esophageal spasm is part of the presentation and I think this is okay. Medications: New omeprazole 40 mg PO BID 30 days 60 caps 6RF K21.9 - Gastro-esophageal reflux disease without esophagitis, K22.10 - Ulcer of esophagus without bleeding dicyclomine 10 mg PO QID PRN 120 caps 3RF abdominal pain K22.4 - Dyskinesia of esophagus Coding Level of Care Code Est Pt Level 3 (29802) Diagnoses Gastroesophageal reflux disease without esophagitis K21.9 Esophagitis presence: without esophagitis Irritable bowel syndrome with both constipation and diarrhea K58.2 Esophageal spasm K22.4 Erosive esophagitis K22.10 Cardiomyopathy I42.9
== END 2023-08-02 11:59 | disposition home or self-care (01) ==
PROVIDERS: PCP Internal Medicine; Visit Provider Nurse Practitioner
DX: K21.9 Gastro-esophageal reflux disease without esophagitis (principal); K58.2 Mixed irritable bowel syndrome; K22.4 Dyskinesia of esophagus; K22.10 Ulcer of esophagus without bleeding; I42.9 Cardiomyopathy, unspecified
CPT/HCPCS: 99213

== ENCOUNTER → 2023-08-02 10:50 | Outpatient (BNVA) | payer OTHER, SELFPAY | PROVIDERS: PCP Internal Medicine; Visit Provider Nurse Practitioner | DX: K21.9 Gastro-esophageal reflux disease without esophagitis (principal); K58.2 Mixed irritable bowel syndrome; K22.4 Dyskinesia of esophagus; K22.10 Ulcer of esophagus without bleeding; I42.9 Cardiomyopathy, unspecified | CPT/HCPCS: 99212 ==

== ENCOUNTER 2023-08-03 07:27 | Outpatient (REF) | payer OTHER, SELFPAY ==
[2023-08-03 07:41] LABS: MANUAL DIFF FLAG NO
[2023-08-03 08:01] LABS: Basophils Percent Auto 0.3 % (0-2); Eosinophils Absolute Auto 0.1 X10*3/uL (0.0-0.4); Eosinophils Percent Auto 1.4 % (0-4); Hematocrit 36.5 % (37.0-47.0); Hemoglobin 11.8 g/dl (12.0-16.0); Imm Gran Abs Auto 0.03 X10*3/uL (0.00-0.03); Imm Gran Pct Auto 0.4 % (0.0-0.4); Lymphocytes Absolute Auto 1.6 X10*3/uL (1.2-4.9); Lymphocytes Percent Auto 21.6 % (20-40); Mean Corpuscular HGB Conc 32.3 g/dl (31.0-35.0); Mean Corpuscular Hemoglobin 29.1 pg (27.0-33.0); Mean Corpuscular Volume 90.1 fL (80.0-98.0); Mean Platelet Volume 11.6 fL (9.4-12.3); Monocytes Absolute Auto 0.4 X10*3/uL (0.1-1.2); Neutrophils Absolute Auto 5.1 x10*3/uL (2.0-8.3); Neutrophils Percent Auto 70.3 % (45-73); Platelet Count 237 X10*3/uL (160-400); Red Blood Count 4.05 X10*6/uL (4.20-5.50); Red Cell Distribution Width 14.2 % (11.0-16.0); White Blood Count 7.2 X10*3/uL (4.8-10.8)
[2023-08-03 08:02] LABS: Estimated Average Glucose 126 mg/dL
[2023-08-03 08:14] LABS: Appearance Urine Clear; Color Urine Yellow; Glucose Urine UA Negative (Negative); Leukocyte Esterase Urine Negative (Negative); Nitrite Urine Negative (Negative); PH 8.5 (5.0-9.0); Specific Gravity - Urine 1.015 (1.005-1.025); Urine Blood Negative (Negative); Urine Ketones Negative (Negative); Urine Protein Negative (Neg-Trace)
[2023-08-03 08:26] LABS: Creatinine Urine 82.89 mg/dL; Microalbumin Urine < 5.0 mg/L
[2023-08-03 08:41] LABS: Alanine Aminotransferase 31 U/L (0-31); Albumin Level 3.7 g/dL (3.5-5.0); Alkaline Phosphatase 94 U/L (39-117); Anion Gap 12 (12-20); Aspartate Amino Transferase 41 U/L (5-31); Bilirubin Total 0.3 mg/dL (0.0-1.0); Blood Urea Nitrogen 10 mg/dL (9-16); Calcium 9.2 mg/dL (8.4-10.2); Carbon Dioxide 23 mmol/L (22-29); Chloride 112 mmol/L (96-108); Cholesterol 159 mg/dL (<200); Estimated Glomerular Filt Rate > 60; Glucose Fasting 154 mg/dL (60-99); HDL Cholesterol 47 mg/dL (>40); LDL Cholesterol Calculated 90 mg/dL (<100); Potassium 5.2 mmol/L (3.3-5.1); Sodium 142 mmol/L (135-145); Triglycerides 112 mg/dL (<150)
[2023-08-03 08:43] LABS: Free T4 (Free Thyroxine) 1.01 ng/dL (0.71-1.85); Vitamin D 25-OH Total 33.6 ng/mL (>30)
[2023-08-13 17:34] LABS: Saliva Cortisol 98.46 mcg/dL
== END 2023-08-03 07:28 | disposition home or self-care (01) ==
LOC: HO.LAB 07:27
PROVIDERS: Absent Provider Internal Medicine Endocrinology, Diabetes & Metabolism; Visit Provider Internal Medicine
DX: E78.00 Pure hypercholesterolemia, unspecified (principal); E55.9 Vitamin D deficiency, unspecified; E03.9 Hypothyroidism, unspecified; E11.9 Type 2 diabetes mellitus without complications; R30.0 Dysuria; E24.9 Cushing's syndrome, unspecified; I10 Essential (primary) hypertension
CPT/HCPCS: 36415; 80053; 80061; 81003; 82043; 82306; 82530; 82570; 83036; 84439; 84443; 85025

== ENCOUNTER 2023-08-08 14:01 | Outpatient (AMB) | payer OTHER, SELFPAY ==
[2023-08-08 14:04] VITALS: BP 100/68; PULSE 73; O2SAT 94; BMI 32.2
--- NOTE | 2023-08-08 14:04 | MHC.PC.OV ---
Vital Signs 08/08/23 14:04 Height 5 ft 2 in Weight 176 lb BMI 32.2 BP 100/68 Blood Pressure Location Lt brachial Position Sitting Pulse 73 Pulse Source Pulse Oximeter Pulse Oximetry (%) 94 Oxygen Delivery Method Room Air Intake Visit Reasons: cardiomyopathy, hyperlipidemia, DM, HTN Graphic Artist Required: No Physical Therapy Technician: Not Required per policy Accompanied by: Self / Same As Patient Allergies Benadryl Allergy (Unknown, Verified 08/08/23 16:07) unknown dapagliflozin Adverse Reaction (Severe, Verified 08/08/23 16:07) Chest Pain, Weakness, Nausea, Fatigue amoxicillin [Augmentin] Adverse Reaction (Intermediate, Verified 08/08/23 16:07) diarrhea atorvastatin Adverse Reaction (Intermediate, Verified 08/08/23 16:07) myalgia, feet pain, hair loss morphine [MORPHINE] Adverse Reaction (Intermediate, Verified 08/08/23 16:07) TACHYCARDIA, CP, confusion simvastatin Adverse Reaction (Intermediate, Verified 08/08/23 16:07) swelling of feet tramadol [TRAMADOL] Adverse Reaction (Intermediate, Verified 08/08/23 16:07) DIZZYNESS, confusion paroxetine [Paxil] Adverse Reaction (Unknown, Verified 08/08/23 16:07) Unknown Medication List - Last Reconciled 08/08/23 by Jacoby Kamara MD albuterol sulfate 90 mcg/actuation 2 puffs PO Q6H PRN albuterol sulfate 2.5 mg (3 mL) inhalation QID PRN 30 days aspirin 81 mg PO DAILY atorvastatin 80 mg PO BEDTIME 90 days [id number]-bztomvclpgvkp-bqdt 50-325-40 mg 1 cap PO TID cetirizine 10 mg PO DAILY PRN 90 days clonazepam 0.5 mg PO BID PRN 30 days dexamethasone 1 mg PO ONCE dicyclomine 10 mg PO QID PRN escitalopram oxalate 20 mg PO DAILY 30 days fluticasone propion-salmeterol 115-21 mcg/actuation (Advair HFA) 2 puffs inhalation BID 30 days levothyroxine 100 mcg PO DAILY metformin ER 500 mg PO QPM 30 days metoprolol succinate ER 25 mg PO DAILY 90 days [NEBULIZER As directed] nitroglycerin mg sublingual omeprazole 40 mg PO BID 30 days sennosides (senna) 17.2 mg (2 x 8.6 mg) PO BEDTIME PRN trazodone 150 mg PO BEDTIME Tobacco use date assessed: 08/08/23 Dental Screening Dental Screen Date: 08/08/23 Did you have a dental visit in the last 12 months?: Yes Did you have a dental problem in the last 6 months where you did not have access to dental care?: No Was dental information given to patient?: Patient has dentist HPI cardiomyopathy, hyperlipidemia, DM, HTN HPI Details Patient comes in today for her follow up visit States that she has been experiencing frequent/recurrent nasal and sinus drainage and congestion as well as recurrent bilateral ear fullness and discomfort for a while now Relates that she has a history of allergies and was seeing an melt supervisor in [place] a few years ago although she has not been back to see them in a few years now States that she now resides up in [place] and going all the way down to [place] to see a specialist would be too far for her States that she was also on Nasacort and Azelastine nasal sprays in the past but she stopped using them a while ago as she did not feel that the nasal sprays were helping adequately Patient also states that 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, based on some of her symptoms; patient also reportedly had a non-suppressible 1 mg Dexamethasone suppression test recently and she has been sent for a repeat Dexamethasone suppression test as well as some additional labs for further evaluation She denies any fever or sore throat; denies any headaches or dizziness She denies any chest pains, no increased SOB No nausea/vomiting, no abdominal pain No change in bowel habits noted Needs her Atoravastatin Rx refilled Had her follow up labs done a few days ago - to discuss her results [facility] Medical History Markel syndrome Obesity (BMI 30-39.9) Diabetes mellitus Coronary atherosclerosis Asthma Depression Epilepsy Anxiety Insomnia Osteopenia Allergic rhinitis Acquired hypothyroidism Acute non intractable tension-type headache Mixed hyperlipidemia Surgical History Hx of cardiac cath (~05/05/22) History of ST elevation myocardial infarction (STEMI) Hx of shoulder surgery History of bunionectomy History of esophagogastroduodenoscopy (EGD) Hx of colonoscopy Family History Father HTN (hypertension) Heart disease Myocardial infarction Mother Diabetes Hyperchloremia HTN (hypertension) Myocardial infarction Family/Other Stomach cancer Other Thyroid nodule Social History Household Members: None Housing: Apartment Alcohol intake: current Alcohol intake frequency: does not drink Patient Tobacco Use Status: Never used Tobacco e-Cigarette/Vaping Use: Never Used Second Hand Smoke Exposure: No Current occupational status: disabled Cognitive needs: No Hearing needs: No Vision needs: Yes Questionnaire PHQ-9 Over the last 2 weeks, how often have you been bothered by any of the following problems? 1. Little interest or pleasure in doing things: not at all 2. Feeling down, depressed, or hopeless: not at all 3. Trouble falling or staying asleep, or sleeping too much: not at all 4. Feeling tired or having little energy: not at all 5. Poor appetite or overeating: not at all 6. Feeling bad about yourself - or that you are a failure or have let yourself or your family down: not at all 7. Trouble concentrating on things, such as reading the newspaper or watching television: not at all 8. Moving or speaking so slowly that other people could have noticed. Or the opposite - being so fidgety or restless that you have been moving around a lot more than usual: not at all 9. Thoughts that you would be better off or of hurting yourself in some way: not at all Total score: 0 Depression Screening Interpretation: Positive Depression Screening Follow-up: Existing condition and In treatment Depression Screening Done: Yes 34286 - PHQ-9 Billing: Yes Source: Developed by Drs. Ziyad Gary, Dayana Crane, Vinh Brar and colleagues, with an educational vero from [employer]. Thrive Questionnaire Date Thrive assessed: 08/08/23 I am a: Patient What is your living situation today?: I have a steady place to live Within the past 12 months, did the food you bought not last and you didn't have the money to get more?: Never true Within the past 12 months, did you worry whether your food would run out before you got money to buy more?: Never true Do you have trouble paying for medicines?: No Do you have trouble getting transportation to medical appointments?: No Do you have trouble paying your heating and electricity bill?: No Do you have trouble taking care of your child, family member or friend?: No Do you have trouble with day-to-day activities such as bathing, preparing meals, shopping, managing finances, etc.?: No Are you currently unemployed and looking for a job?: No Are you interested in more education?: No Please select the resources that you would like help with: None Currently or been in a relationship where the following occur: no concerns reported THRIVE Score: 0 AUDIT C Alcohol Use Questionnaire (AUDIT-C) 1. How often do you have a drink containing alcohol?: Never 2. How many drinks containing alcohol do you have on a typical day when you are drinking?: 1 or 2 3. How often do you have six or more drinks on one occasion?: Never Total Score: 0 Score Reviewed/Action Taken: Yes RASHI-7 AMB Questionnaire RASHI-7 Date RASHI - 7 assessed: 08/08/23 Feeling nervous, anxious, or on edge: 1 = Several days Not being able to stop or control worryin = More than half the days Worrying too much about different things: 0 = Not at all Trouble relaxin = Not at all Being so restless that it is hard to sit still: 0 = Not at all Becoming easily annoyed or irritable: 0 = Not at all Feeling afraid as if something awful might happen: 0 = Not at all Total RASHI-7 score (0-4 normal; 5-9 mild; 10-14 moderate; 15-21 severe): 3 Source: Developed by Drs. Ziyad Gary, Dayana Crane, Vinh Brar and colleagues, with an educational vero from [employer]. Review of Systems Const Denies chills, Reports fatigue, Denies fever(s) and Denies headache(s) ENT Denies dysphagia, Denies dizziness, Denies ear discharge, Denies otalgia (but reports (+) ear fullness/pressure at times), Denies headache(s), Reports nasal congestion (on and off), Reports nasal discharge, Denies neck pain, Denies odynophagia, Denies sinus pain, Reports sinus pressure (on and off) and Denies sore throat Card Denies chest pain, Denies rapid heart rate, Denies irregular heart rhythm, Denies palpitations and Denies dyspnea Resp Denies chest congestion, Denies cough, Denies dyspnea and Denies wheezing GI Denies abdominal pain, Denies constipation, Denies dysphagia, Denies heartburn, Denies diarrhea, Denies nausea, Denies odynophagia and Denies vomiting Denies urinary frequency, Denies dysuria and Denies urinary urgency Musc Denies back pain, Denies arthralgias and Denies neck pain Skin/Breast Denies rash Neuro Denies dizziness, Denies headache(s) and Denies paresthesias Psych Reports anxiety (controlled on Rx) and Denies depression Endo Reports fatigue and Denies palpitations Bryson/Lymph Denies easy bruising Aller/Immun Reports seasonal rhinorrhea and Denies wheezing Physical exam (Primary Care) Vital Signs: Last Vital Signs Pulse 73 08/08/23 14:04 BP 100/68 08/08/23 14:04 Pulse Ox 94 08/08/23 14:04 Oxygen Delivery Method Room Air 08/08/23 14:04 BMI result Body Mass Index 32.2 Tobacco/Smoking Status: Tobacco use Status Tobacco use date assessed 08/08/23 08/08/23 14:05 Patient Tobacco Use Status Never used Tobacco 08/08/23 14:05 e-Cigarette/Vaping Use Never Used 08/08/23 14:05 PHQ-9: PHQ-9 Score PHQ-9: Total score 0 08/08/23 14:10 Depression Screening Interpretation: Positive Depression Screening Follow-up: Existing condition and In treatment Thrive Assessment: Date of Thrive Assessment Date Thrive assessed 08/08/23 08/08/23 14:05 Currently or been in a relationship where the following occur: no concerns reported Const General: no acute distress and alert HENMT Ears: TM's normal bilaterally and EAC's normal General nose exam: no nasal discharge noted Face and sinus: Yes sinuses nontender Throat: Yes posterior oropharynx normal and Yes tonsils normal (no TP congestion) Neck Neck: Yes no lymphadenopathy and Yes supple Thyroid: Thyroid normal Resp Auscultation: clear to auscultation bilaterally, no rales and no wheezes Cardio Rate: regular rate Rhythm: regular rhythm Heart sounds: no murmurs GI Palpation (GI): Soft to palpation and nontender Auscultation: normal bowel sounds General: Yes no CVA tenderness Back/Spine/Pelvis Back: no CVA tenderness Thoracic/Lumbar Spine: thoracic and lumbar spine normal to inspection Skin Rashes: no rashes Extrem General: Yes no clubbing, cyanosis or edema Results Reviewed Results Reviewed: Laboratory Tests 08/03/23 08/03/23 07:34 07:39 WBC 7.2 Hgb 11.8 L Hct 36.5 L Plt Count 237 Sodium 142 Potassium 5.2 H Creatinine 0.76 Estimated GFR > 60 Fasting Glucose 154 H Hemoglobin A1c % 6.0 Calcium 9.2 AST 41 H ALT 31 Triglycerides 112 Cholesterol 159 LDL Cholesterol, Calc 90 HDL Cholesterol 47 25-OH Vitamin D Total 33.6 TSH 0.70 Free T4 1.01 Ur Specific Leonardo 1.015 Urine Protein Negative Urine Glucose (UA) Negative Urine Blood Negative Urine Nitrite Negative Ur Leukocyte Esterase Negative Assessment and Plan Assessment & Plan (1) Coronary atherosclerosis: Comment: S/P cardiac cath with stenting of LAD with ISAIAH on 05/05/2022 Code(s): I25.10 - Atherosclerotic heart disease of [place] coronary artery without angina pectoris Qualifiers: Coronary Disease-Associated Artery/Lesion type: [place] artery [place] vs. transplanted heart: [place] heart Associated angina: without angina Qualified Code(s): I25.10 - Atherosclerotic heart disease of [place] coronary artery without angina pectoris Plan: Patient continues to remain asymptomatic from cardiac standpoint Continue Aspirin 81 mg QD for lifelong antiplatelet Tx; continue Clopidogrel 75 mg QD and Metoprolol ER 25 mg QD (was taken off Brilinta by cardiology previously due to increasing SOB) Myocardial perfusion stress test imaging done on 09/08/22 at [facility] reportedly came out normal Repeat echocardiogram done on 10/26/2022 at [facility] was also normal, with EF of 65 to 70% (EF was at 35 to 40% back in April 2022 when patient had her TN and was experiencing ischemic cardiomyopathy at the time) Follow up with cardiology as scheduled (2) Mixed hyperlipidemia: Code(s): E78.2 - Mixed hyperlipidemia Plan: Results of her labs done a few days ago reviewed and discussed with patient - advised that her cholesterol numbers are acceptable although they have again increased slightly from previous Reinforced low cholesterol diet Continue Atorvastatin 80 mg QD for now; may need to consider adding Ezetimibe if her cholesterol numbers do not improve or continue to go up over the next fem Will recheck her labs and fasting lipids in 3 months for follow-up (3) Diabetes mellitus: Code(s): E11.9 - Type 2 diabetes mellitus without complications Qualifiers: Diabetes mellitus type: type 2 Diabetes mellitus intermediate manager insulin use: without intermediate manager use Diabetes mellitus complication status: with hyperglycemia Qualified Code(s): E11.65 - Type 2 diabetes mellitus with hyperglycemia Plan: HgbA1c was at 6.0% on her labs done a few days ago (was at 6.3% a few months ago) - goal is at least <7.0% but ideally <6.5% Reinforced diabetic diet Continue Metformin ER 500 mg QD; she could not tolerate Farxiga (chest pains) (4) Asthma: Code(s): J45.909 - Unspecified asthma, uncomplicated Qualifiers: Asthma severity: moderate Asthma persistence: persistent Asthma complication type: with acute exacerbation Qualified Code(s): J45.41 - Moderate persistent asthma with (acute) exacerbation Plan: Stable [place] Advair HFA 115-21 mcg 2 inhalations BID and Albuterol HFA 1 to 2 inhalations Q 6 hours PRN (5) Acquired hypothyroidism: Code(s): E03.9 - Hypothyroidism, unspecified Plan: Her TFTs were acceptable on her recent labs Continue Levothyroxine 100 mcg QD Will recheck her TFTs in 3 months for follow up (6) Thyroid nodule: Code(s): E04.1 - Nontoxic single thyroid nodule Plan: Thyroid US done a few months ago revealed (+) TI-RADS Category 4 right midpole nodule with maximum dimension of 1.0 cm Recommend followup ultrasound in 1, 2, 3 and 5 years for continuing surveillance She had a thyroid Bx done by endocrinology last year on 07/15/2022 - cytology was benign Follow up with endocrinology as scheduled (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 for further evaluation and management (8) Allergic rhinitis: Code(s): J30.9 - Allergic rhinitis, unspecified Qualifiers: Allergic rhinitis trigger: unspecified Allergic rhinitis seasonality: unspecified Qualified Code(s): J30.9 - Allergic rhinitis, unspecified Plan: Patient used to see Dr. Donita Ho for her allergies and was on Nasacort and Azelastine but has not used these in a while as she did not feel that they were helping adequately She also has not seen Dr. Ho in a few years - she currently lives in the [facility] and finds it too far to go all the way to [place] Will start her for now on oral Cetirizine 10 mg QD PRN to help with her allergy symptoms Will refer her to melt supervisor (SAMANTHA) in [place] for further evaluation and management of her allergies (9) Epilepsy: Code(s): G40.909 - Epilepsy, unspecified, not intractable, without status epilepticus Qualifiers: Epilepsy type: unspecified Intractability: not intractable Status epilepticus: without status epilepticus Qualified Code(s): G40.909 - Epilepsy, unspecified, not intractable, without status epilepticus Plan: Stable lately; recalls that her last seizure episode was over a year ago, and that she has never been started on any Rx for her seizures Was referred to neurology last year but patient states that she does not want to go back to see Dr. Pittman Was referred instead to Dr. Donahue as [place] [facility] [place] [facility] - to follow up with neurology as scheduled (10) Erosive esophagitis: Code(s): K22.10 - Ulcer of esophagus without bleeding Plan: Dx by EGD with Bx Dietary restrictions reinforced Was doing well on Omeprazole 40 mg BID but insurance would NOT cover Rx and she was getting Rx [id number] for a while but could not afford to continue Is currently on Famotidine 40 mg BID and Carafate liquid Q HS Follow up with GI as scheduled (11) Insomnia: Code(s): G47.00 - Insomnia, unspecified Qualifiers: Insomnia type: unspecified Qualified Code(s): G47.00 - Insomnia, unspecified Plan: Sleep hygiene reinforced Continue Trazodone 150 mg once a day at bedtime as needed (12) Anxiety: Code(s): F41.9 - Anxiety disorder, unspecified Plan: Continue Clonazepam 0.5 mg BID PRN Follow-up with Psychiatry as scheduled (13) Depression: Code(s): F32.9 - Major depressive disorder, single episode, unspecified Qualifiers: Depression Type: major depressive disorder Major depression recurrence: recurrent Active/Remission status: currently active Major depression episode severity: unspecified Qualified Code(s): F33.9 - Major depressive disorder, recurrent, unspecified Plan: Has been tolerating Escitalopram but requested to have this increased in dose - will increase her Escitalopram now to 20 mg QD (reportedly felt angry often while on Fluoxetine in the past) Follow-up with Psychiatry as scheduled (14) Obesity (BMI 30-39.9): Code(s): E66.9 - Obesity, unspecified Plan: Reinforced diet/exercise as tolerated/lose weight Plan To return in 3 months for her annual physical examination Orders: Orders Comprehensive [place]. Panel Fast 3 Months E78.00 - Pure hypercholesterolemia, unspecified Hemoglobin A1c 3 Months E11.9 - Type 2 diabetes mellitus without complications Microalbumin, Random (w Creat) 3 Months E11.9 - Type 2 diabetes mellitus without complications Free T4 (Free Thyroxine) 3 Months E03.9 - Hypothyroidism, unspecified Vitamin D 25-OH Total 3 Months E55.9 - Vitamin D deficiency, unspecified Complete Blood Count Auto Diff 3 Months D64.9 - Anemia, unspecified Lipid Panel 3 Months E78.00 - Pure hypercholesterolemia, unspecified UA CC w/rflx Micro + Cult 3 Months R30.0 - Dysuria Thyroid Stimulating Hormone 3 Months E03.9 - Hypothyroidism, unspecified Referrals Allergy & Immunology Referral Z91.09 - Other allergy status, other than to drugs and biological substances Medications: New cetirizine 10 mg PO DAILY PRN 90 tabs 3RF allergy symptoms 90 days Refilled atorvastatin 80 mg PO BEDTIME 90 tabs 3RF 90 days Coding Level of Care Code Est Pt Level 4 (39070) Diagnoses Atherosclerosis of [place] coronary artery of [place] heart without angina pectoris I25.10 Coronary Disease-Associated Artery/Lesion type: [place] artery [place] vs. 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 Allergic rhinitis, unspecified seasonality, unspecified trigger J30.9 Allergic rhinitis trigger: unspecified Allergic rhinitis seasonality: unspecified Nonintractable epilepsy without status epilepticus, unspecified epilepsy type G40.909 Epilepsy type: unspecified Intractability: not intractable Status epilepticus: without status epilepticus Erosive esophagitis K22.10 Insomnia, unspecified type G47.00 Insomnia type: unspecified Anxiety F41.9 Episode of recurrent major depressive disorder, unspecified depression episode severity F33.9 Depression Type: major depressive disorder Major depression recurrence: recurrent Active/Remission status: currently active Major depression episode severity: unspecified Obesity (BMI 30-39.9) E66.9
== END 2023-08-08 15:13 | disposition home or self-care (01) ==
PROVIDERS: PCP Internal Medicine; Visit Provider Internal Medicine
DX: E11.65 Type 2 diabetes mellitus with hyperglycemia (principal); E24.9 Cushing's syndrome, unspecified; G40.909 Epilepsy, unspecified, not intractable, without status epilepticus; F33.9 Major depressive disorder, recurrent, unspecified; I25.10 Atherosclerotic heart disease of native coronary artery without angina pectoris; E78.2 Mixed hyperlipidemia; J45.41 Moderate persistent asthma with (acute) exacerbation; E03.9 Hypothyroidism, unspecified; E04.1 Nontoxic single thyroid nodule; J30.9 Allergic rhinitis, unspecified; K22.10 Ulcer of esophagus without bleeding
CPT/HCPCS: 99214

== ENCOUNTER 2023-08-12 11:17 | Outpatient (REF) | payer OTHER, SELFPAY ==
[2023-08-12 12:04] LABS: Creatinine, mg/dL 50.59
[2023-08-12 14:19] LABS: Total Volume 24 Hour Urine 2000 mL
[2023-08-24 16:47] LABS: Cortisol Free, 24 Hr Urine 26.9 mcg/24 h (4.0-50.0); Creatinine, 24 Hr Urine 1.09 g/24 h (0.50-2.15); Total Volume, 24 Hr Urine 2000 mL
== END 2023-08-12 11:18 | disposition home or self-care (01) ==
LOC: HO.LNP 11:17
PROVIDERS: Visit Provider Internal Medicine Endocrinology, Diabetes & Metabolism
DX: E24.9 Cushing's syndrome, unspecified (principal)
CPT/HCPCS: 82530; 82570

== ENCOUNTER 2023-08-16 11:27 | Outpatient (AMB) | payer OTHER, SELFPAY ==
--- NOTE | 2023-08-16 11:31 | A.OFFVIS_ITS ---
Intake Vital Signs 08/16/23 11:55 Height 5 ft 2 in Weight 178 lb 9.191 oz BMI 32.7 BP 139/83 Blood Pressure Location Rt brachial Position Sitting Temp 68 F L Intake Visit Reasons: 2 week follow up Intake Note: Patient returns to in office visit in 2 weeks follow up. CC: Patient reports feeling better from chest pains with medications. Allergies Benadryl Allergy (Unknown, Verified 08/18/23 15:55) unknown dapagliflozin Adverse Reaction (Severe, Verified 08/18/23 15:55) Chest Pain, Weakness, Nausea, Fatigue amoxicillin [Augmentin] Adverse Reaction (Intermediate, Verified 08/18/23 15:55) diarrhea atorvastatin Adverse Reaction (Intermediate, Verified 08/18/23 15:55) myalgia, feet pain, hair loss morphine [MORPHINE] Adverse Reaction (Intermediate, Verified 08/18/23 15:55) TACHYCARDIA, CP, confusion simvastatin Adverse Reaction (Intermediate, Verified 08/18/23 15:55) swelling of feet tramadol [TRAMADOL] Adverse Reaction (Intermediate, Verified 08/18/23 15:55) DIZZYNESS, confusion paroxetine [Paxil] Adverse Reaction (Unknown, Verified 08/18/23 15:55) Unknown HPI 2 week follow up HPI0 Details Assessment & Plan (1) GERD (gastroesophageal reflux diseas e): Code(s): K21.9 - Gastro-esophageal reflux disease without esophagitis Qualifiers: Esophagitis presence: without esophagitis Qualified Code(s): K21.9 - Gastro-esophageal reflux disease without esophagitis (2) Irritable bowel syndrome with both c onstipation and diarrhea: Code(s): K58.2 - Mixed irritable bowel syndrome (3) Esophageal spasm: Code(s): K22.4 - Dyskinesia of esophagus (4) Erosive esophagitis: Code(s): K22.10 - Ulcer of esophagus without bleeding (5) Cardiomyopathy: Code(s): I42.9 - Cardiomyopathy, unspecified Plan She has been having frequent chest pain some across the upper chest she describes as burning that goes from right to left and some that has a more stabbing pain right in the middle. When her GERD was increased last time it was because she had an UT so we do not want to be can place an about possible cardiac causes. However, she also did not have good success with cimetidine and has not been taking omeprazole 40 mg twice a day as we had prescribed in the past for her erosive esophagitis. This is because her insurance declined to pay for any PPI. She is trying to buy it [id number] and can get 14 pills for 14 dollars but this is expensive for her so she has only been taking it once a day. We look up on [facility] if she goes too big why she can get a 60 day supply for 10- 11 dollars so will try sending it they are giving her the coupon. I think we need to see how she does once we get her reestablished on the appropriate medication intervention. I have also encouraged her to communicate with her management architect to make sure the pain is not due to cardiac causes. She has an upcoming echocardiogram on the of this month. She is also having a feeling of early satiety and continued bloating even hours after eating. This is accompanied by a good deal of gas and flatulence. While this could be driving GERD and that could be the reason for her chest pain we want to be cautious and I do encourage her to contact her management architect she says that she has use nitro sublingually at times and this has relieved the pain, but she has using a lot more of the nitroglycerin that she had in the past. It is also possible she has having a combination of these 2 factors which could be difficult to tease out. Return office visit in 2 weeks to see how she is doing. She also wants to restart her dicyclomine to see if esophageal spasm is part of the presentation and I think this is okay. Medications: New omeprazole 40 mg PO BID 30 d ays 60 caps 6RF K21.9 - Gastro-eso phageal reflux dis ease without esoph agitis, K22.10 - U lcer of esophagus without bleeding dicyclomine 10 mg PO QID PRN 120 caps 3RF abdom inal pain K22.4 - Dyskinesia of esophagus TODAY'S VISIT SHe is doing much better, and she credits franck omperazole which her insurance is covering now! She also finds the bentyl helpful for general bowel cramping. She tells me that she was dx'ed wtih Celiac which she was in [place] but has not been following [facility] diet. ROV 6 mos BE SURE TO SEND OMPERAZOLE TO [facility] Medical History (Updated 08/16/23 @ 12:43 by BLAS Padilla) Markel syndrome Obesity (BMI 30-39.9) Diabetes mellitus Coronary atherosclerosis Asthma Depression Epilepsy Anxiety Insomnia Osteopenia Allergic rhinitis Acquired hypothyroidism Acute non intractable tension-type headache Mixed hyperlipidemia Surgical History Hx of cardiac cath (~05/05/22) History of ST elevation myocardial infarction (STEMI) Hx of shoulder surgery History of bunionectomy History of esophagogastroduodenoscopy (EGD) Hx of colonoscopy Family History Father HTN (hypertension) Heart disease Myocardial infarction Mother Diabetes Hyperchloremia HTN (hypertension) Myocardial infarction Family/Other Stomach cancer Other Thyroid nodule Social History Household Members: None Housing: Apartment Alcohol intake: current Alcohol intake frequency: does not drink Patient Tobacco Use Status: Never used Tobacco e-Cigarette/Vaping Use: Never Used Second Hand Smoke Exposure: No Current occupational status: disabled Cognitive needs: No Hearing needs: No Vision needs: Yes Review of Systems Const Denies fatigue, Denies fever(s), Denies night sweats, Denies poor appetite and Denies weight loss Eyes Details: glasses Reports requires corrective lenses ENT Reports Normal hearing present, Denies dental pain, Denies dysphagia, Denies hearing loss, Denies mouth pain, Denies odynophagia, Denies throat swelling, Denies tongue swelling and Reports other (Dentition adequate) Card Reports no additional complaints Resp Reports no additional complaints GI Details: Denies abdominal pain, Denies melena, Denies bloating, Denies hematochezia, Denies constipation, Reports GI cramping, Denies dysphagia, Denies excessive flatus, Denies early satiety, Reports heartburn, Denies diarrhea, Denies nausea, Denies odynophagia, Denies vomiting and Denies hematemesis Skin/Breast Denies pruritus, Denies lesions, Denies rash and Denies jaundice Neuro Reports Normal hearing present and Denies Abnormal speech present Endo Denies fatigue Aller/Immun Denies throat swelling and Denies tongue swelling Physical Exam Vital Signs: Last Vital Signs Temp 68 F L 08/16/23 11:55 BP 139/83 08/16/23 11:55 BMI result Body Mass Index 32.7 Const General: cooperative, no acute distress, well developed and well groomed Nutritional Appearance: well nourished and obese Orientation/consciousness: oriented to person, oriented to place and oriented to time Limitations: No language barrier HEENT Head: Yes normocephalic and Yes atraumatic Eyes General: appearance normal, both eyes and all related structures Pupils: Equal, round and reactive pupils present Neck Neck: Yes normal visual inspection and Yes no lymphadenopathy Thyroid: Thyroid normal Resp Effort & Inspection: normal respiratory effort and able to speak in complete sentences Auscultation: clear to auscultation bilaterally Cardio Rate: regular rate Rhythm: regular rhythm Heart sounds: Normal, physiologic split S2 sound present Peripheral pulses: radial pulses present and posterior tibial pulses present GI Inspection: No distended, No Abdominal panniculus present and Yes obesity Palpation (GI): Soft to palpation, nontender, no guarding, not rigid and No hepatosplenomegaly present Percussion: Yes normal to percussion Auscultation: normal bowel sounds Rectal Exam - Female: deferred Skin General skin exam: no rashes or lesions noted, turgor normal, skin not dry, no jaundice, No spider nevi and no striae Rashes: no rashes Nails: normal Neuro General: oriented to person, oriented to place and oriented to time Cranial nerves: Yes Equal, round and reactive pupils present and Yes Normal hearing present Speech: No Abnormal speech present Extrem General: Yes normal to inspection, No clubbing, No cyanosis and No edema Psych Appearance: grossly normal and well kempt Mental Status: mental status grossly normal Speech and movement: Normal speech and movement present Affect: normal affect Attitude: cooperative Thought process: Normal thought process present and not confabulating Thought content: Normal thought content present Insight: Limited insight present (Psych) Judgement: Limited judgement present (Psych) Assessment & Plan Assessment & Plan (1) GERD (gastroesophageal reflux disease): Code(s): K21.9 - Gastro-esophageal reflux disease without esophagitis Qualifiers: Esophagitis presence: without esophagitis Qualified Code(s): K21.9 - Gastro-esophageal reflux disease without esophagitis (2) Irritable bowel syndrome with both constipation and diarrhea: Code(s): K58.2 - Mixed irritable bowel syndrome (3) Esophageal spasm: Code(s): K22.4 - Dyskinesia of esophagus (4) Celiac disease: Code(s): K90.0 - Celiac disease Plan SHe is doing much better, and she credits [facility] omperazole which her insurance is covering now! She also finds the bentyl helpful for general bowel cramping. She tells me that she was dx'ed wtih Celiac which she was in [facility] but has not been following [facility] diet. ROV 6 mos BE SURE TO SEND OMPERAZOLE TO [facility] pharmacy Coding Level of Care Code Est Pt Level 3 (74877) Diagnoses Gastroesophageal reflux disease without esophagitis K21.9 Esophagitis presence: without esophagitis Irritable bowel syndrome with both constipation and diarrhea K58.2 Esophageal spasm K22.4 Celiac disease K90.0
[2023-08-16 11:55] VITALS: BP 139/83; TEMP 20; BMI 32.7
== END 2023-08-16 12:46 | disposition home or self-care (01) ==
PROVIDERS: PCP Internal Medicine; Visit Provider Nurse Practitioner
DX: K21.9 Gastro-esophageal reflux disease without esophagitis (principal); K58.2 Mixed irritable bowel syndrome; K22.4 Dyskinesia of esophagus; K90.0 Celiac disease
CPT/HCPCS: 99213

== ENCOUNTER → 2023-08-16 11:27 | Outpatient (BNVA) | payer OTHER, SELFPAY | PROVIDERS: PCP Internal Medicine; Visit Provider Nurse Practitioner | DX: K21.9 Gastro-esophageal reflux disease without esophagitis (principal); K58.2 Mixed irritable bowel syndrome; K22.4 Dyskinesia of esophagus; K90.0 Celiac disease | CPT/HCPCS: 99212 ==

== ENCOUNTER 2023-08-18 15:49 | Outpatient (AMB) | payer OTHER, SELFPAY ==
[2023-08-18 15:50] VITALS: BP 118/72; PULSE 84; BMI 33.1
--- NOTE | 2023-08-18 15:50 | MHC.OFFVIS ---
Intake Vital Signs 08/18/23 15:50 Height 5 ft 2 in Weight 180 lb 15.992 oz BMI 33.1 BP 118/72 Blood Pressure Location Lt brachial Position Sitting Pulse 84 Pulse Source Pulse Oximeter Intake Visit Reasons: f/u hypothyroidism /?Markel's-confirmed Intake Note: Patient present for hypothyroidism markel's follow up visit. Learning Specialist Required: No Accompanied by: Self / Same As Patient Allergies Benadryl Allergy (Unknown, Verified 08/18/23 15:55) unknown dapagliflozin Adverse Reaction (Severe, Verified 08/18/23 15:55) Chest Pain, Weakness, Nausea, Fatigue amoxicillin [Augmentin] Adverse Reaction (Intermediate, Verified 08/18/23 15:55) diarrhea atorvastatin Adverse Reaction (Intermediate, Verified 08/18/23 15:55) myalgia, feet pain, hair loss morphine [MORPHINE] Adverse Reaction (Intermediate, Verified 08/18/23 15:55) TACHYCARDIA, CP, confusion simvastatin Adverse Reaction (Intermediate, Verified 08/18/23 15:55) swelling of feet tramadol [TRAMADOL] Adverse Reaction (Intermediate, Verified 08/18/23 15:55) DIZZYNESS, confusion paroxetine [Paxil] Adverse Reaction (Unknown, Verified 08/18/23 15:55) Unknown Medication List - Last Reconciled 08/18/23 by Ziyad Le MD albuterol sulfate 90 mcg/actuation 2 puffs PO Q6H PRN albuterol sulfate 2.5 mg (3 mL) inhalation QID PRN 30 days aspirin 81 mg PO DAILY atorvastatin 80 mg PO BEDTIME 90 days eskaxckuoq-[id number]-auqt 50-325-40 mg 1 cap PO TID cetirizine 10 mg PO DAILY PRN 90 days clonazepam 0.5 mg PO BID PRN 30 days dicyclomine 10 mg PO QID PRN escitalopram oxalate 20 mg PO DAILY 30 days fluticasone propion-salmeterol 115-21 mcg/actuation (Advair HFA) 2 puffs inhalation BID 30 days levothyroxine 100 mcg PO DAILY metformin ER 500 mg PO QPM 30 days metoprolol succinate ER 25 mg PO DAILY 90 days [NEBULIZER As directed] nitroglycerin mg sublingual omeprazole 40 mg PO BID 30 days sennosides (senna) 17.2 mg (2 x 8.6 mg) PO BEDTIME PRN trazodone 150 mg PO BEDTIME HPI HPI Comments History of Present Illness Details 62 YO F with PMHx Hypothyroidism, SVT, Celiac disease and a recent STEMI who is seen in F/U for a thyroid nodule. She had a recent thyroid US 02/11/2022 which revealed a RMP 1.0 cm thyroid nodule. She underwent FNA biopsy of this nodule 07/15/2022 with benign cytology. She presents today to review these results. She does have a history of hypothyroidism and takes levothyroxine 88 mcg PO daily. Her most recent labs reveal hypothyroidism. She reports poor compliance prior to that, but states she has been fully compliant with daily dosing for the past 6 weeks. She denies any symptoms of hyper or hypothyroidism. Denies any history of head or neck irradiation. Denies any family history of thyroid cancer. Thyroid US: 02/11/2022 Right Thyroid Lobe: 4.0 x 2.4 x 1.6 cm, volume 8.0 mL. Parenchyma: The gland echotexture is heterogeneous. Thyroid vascularity is normal. Left Thyroid Lobe: 3.5 x 1.6 x 1.4 cm, volume 4.1 mL. Parenchyma: The gland echotexture is heterogeneous. Thyroid vascularity is increased. Isthmus: 0.3 cm in maximum AP dimension. Estimated total number of nodules greater than or equal to 1 cm: 1. Human Resources Trainer nodules are described as follows: 1. Location: Right mid pole. ?? ? Size: 0.7 x 0.8 x 1.0 cm, volume 0.294 mL. ?? ? Nodule characteristics: ?? ? Composition: Solid (2). ?? ? Echogenicity: Hyperechoic (1). ?? ? Shape: Taller than wide (3). ?? ? Margins: Smooth (0). ?? ? Echogenic Foci: None (0). ?? ? ACR TI-RADS total points: 6 ?? ? ACR TI-RADS category: 4 2. Location: Right mid pole. ?? ? Size: 0.3 x 0.3 x 0.2 cm, volume 0.010 mL. ?? ? Nodule characteristics: ?? ? Composition: Solid (2). ?? ? Echogenicity: Hypoechoic (2). ?? ? Shape: Not taller than wide (0). ?? ? Margins: Ill-defined (0). ?? ? Echogenic Foci: None (0). ?? ? ACR TI-RADS total points: 4 ?? ? ACR TI-RADS category: 4 NODES: No lymphadenopathy is seen in the tissue surrounding the thyroid gland. Labs: Laboratory Tests 07/15/22 07/15/22 07:43 07:43 TSH 5.43 H Free T4 1.02 Thyroglobulin Anti body 5 H Thyroid Peroxidase Ab 801 H S/P FNA of R nodule 07/15/2022 with benign cytology Complains of several symptoms of Markel's including weight gain, facial puffiness, muscular weakness. Had a 1 mg dexamethasone suppression test performed with n on suppressible cortisol. [facility] Medical History (Updated 08/16/23 @ 12:43 by BLAS Padilla) Markel syndrome Obesity (BMI 30-39.9) Diabetes mellitus Coronary atherosclerosis Asthma Depression Epilepsy Anxiety Insomnia Osteopenia Allergic rhinitis Acquired hypothyroidism Acute non intractable tension-type headache Mixed hyperlipidemia Surgical History Hx of cardiac cath (~05/05/22) History of ST elevation myocardial infarction (STEMI) Hx of shoulder surgery History of bunionectomy History of esophagogastroduodenoscopy (EGD) Hx of colonoscopy Family History Father HTN (hypertension) Heart disease Myocardial infarction Mother Diabetes Hyperchloremia HTN (hypertension) Myocardial infarction Family/Other Stomach cancer Other Thyroid nodule Social History Household Members: None Housing: Apartment Alcohol intake: current Alcohol intake frequency: does not drink Patient Tobacco Use Status: Never used Tobacco e-Cigarette/Vaping Use: Never Used Second Hand Smoke Exposure: No Current occupational status: disabled Cognitive needs: No Hearing needs: No Vision needs: Yes Physical Exam Vital Signs: Last Vital Signs Pulse 84 08/18/23 15:50 BP 118/72 08/18/23 15:50 BMI result Body Mass Index 33.1 Const Other: Thyroid gland is normal size weighs about 15 g. There are no thyroid nodules palpated. She does have cushingoid features such as facial puffiness and supraclavicular fat pad Assessment & Plan Assessment & Plan (1) Hypothyroidism: Code(s): E03.9 - Hypothyroidism, unspecified Plan: This 62-year-old female with a history of hypothyroidism being treated with 88 mcg levothyroxine. She appears to be clinically euthyroid slightly elevated TSH 2 months ago. Plan is to increase the levothyroxine to 100 mcg and recheck TSH and free T4 in 6 weeks time (2) Thyroid nodule: Code(s): E04.1 - Nontoxic single thyroid nodule Plan: Status post FNA of a right midpole nodule July 2022 with benign cytology. 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 She had a non suppressible 1 mg dexamethasone suppression test. ACTH was measured 20. If she does have Markel's, based on the ACTH level, it would be ACTH dependent Cottonwood's covering from the pituitary or less likely ectopic. Midnight salivary cortisol was very elevated suggesting possible contamination. Patient did do 24 hour urine and dexamethasone suppression test not available and 24 hour urine for cortisol is pending. Will repeat the dexamethasone suppression test with dexamethasone level, we will also check 24 hour urine for free cortisol and creatinine when available.. Will also repeat the midnight salivary cortisol and gave patient instructions want to avoid when doing the midnight salivary cortisol If results are consistent with Cottonwood's, may repeat ACTH and/or perform pituitary MRI. At that point they also referred to pituitary Markel's expert at [facility] Dr. 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
== END 2023-08-18 16:56 | disposition home or self-care (01) ==
PROVIDERS: PCP Internal Medicine; Visit Provider Internal Medicine Endocrinology, Diabetes & Metabolism
DX: E03.9 Hypothyroidism, unspecified (principal); E04.1 Nontoxic single thyroid nodule; E24.9 Cushing's syndrome, unspecified
CPT/HCPCS: 99213

== ENCOUNTER → 2023-08-18 15:49 | Outpatient (BNVA) | payer OTHER, SELFPAY | PROVIDERS: PCP Internal Medicine; Visit Provider Internal Medicine Endocrinology, Diabetes & Metabolism | DX: E03.9 Hypothyroidism, unspecified (principal); E24.9 Cushing's syndrome, unspecified; E04.1 Nontoxic single thyroid nodule | CPT/HCPCS: 99212 ==

== ENCOUNTER 2023-08-23 08:11 | Outpatient (REF) | payer OTHER, SELFPAY ==
[2023-08-23 09:55] LABS: Alanine Aminotransferase 16 U/L (0-31); Albumin Level 3.8 g/dL (3.5-5.0); Alkaline Phosphatase 79 U/L (39-117); Anion Gap 10 (12-20); Aspartate Amino Transferase 17 U/L (5-31); Bilirubin Total 0.3 mg/dL (0.0-1.0); Blood Urea Nitrogen 13 mg/dL (9-16); Calcium 9.3 mg/dL (8.4-10.2); Carbon Dioxide 23 mmol/L (22-29); Chloride 112 mmol/L (96-108); Cholesterol 195 mg/dL (<200); Estimated Glomerular Filt Rate > 60; Glucose Fasting 135 mg/dL (60-99); HDL Cholesterol 51 mg/dL (>40); LDL Cholesterol Calculated 112 mg/dL (<100); Potassium 4.2 mmol/L (3.3-5.1); Sodium 141 mmol/L (135-145); Triglycerides 160 mg/dL (<150)
[2023-08-23 10:14] LABS: Free T4 (Free Thyroxine) 1.12 ng/dL (0.71-1.85); Thyroid Stimulating Hormone 0.25 uIU/mL (0.32-4.0)
[2023-08-23 10:17] LABS: Cortisol Random < 1.0 ug/dL
[2023-09-06 19:54] LABS: Dexamethasone 502 ng/dL
== END 2023-08-23 08:12 | disposition home or self-care (01) ==
LOC: HO.LAB 08:11
PROVIDERS: PCP Internal Medicine; Visit Provider Internal Medicine Endocrinology, Diabetes & Metabolism
DX: E03.9 Hypothyroidism, unspecified (principal); E24.9 Cushing's syndrome, unspecified; E78.00 Pure hypercholesterolemia, unspecified
CPT/HCPCS: 36415; 80053; 80061; 80299; 82306; 82533; 84439; 84443

== ENCOUNTER 2023-09-13 08:03 | Outpatient (REF) | payer OTHER, SELFPAY ==
[2023-09-13 09:34] LABS: Free T4 (Free Thyroxine) 0.99 ng/dL (0.71-1.85); Thyroid Stimulating Hormone 0.47 uIU/mL (0.32-4.0)
[2023-09-21 01:43] LABS: Saliva Cortisol 0.08 mcg/dL
== END 2023-09-13 08:04 | disposition home or self-care (01) ==
LOC: HO.LAB 08:03
PROVIDERS: PCP Internal Medicine; Visit Provider Internal Medicine Endocrinology, Diabetes & Metabolism
DX: E03.9 Hypothyroidism, unspecified (principal); E24.9 Cushing's syndrome, unspecified
CPT/HCPCS: 36415; 82530; 84439; 84443

== ENCOUNTER 2023-09-15 08:26 | Outpatient (AMB) | payer OTHER, SELFPAY ==
--- NOTE | 2023-09-15 08:27 | MHC.OFFVIS ---
Intake Vital Signs 09/15/23 08:28 Height 5 ft 2 in Weight 183 lb 3.266 oz BMI 33.5 Intake Visit Reasons: f/u hypothyroidism /?Markel's-lvm Intake Note: Patient present today for Hypothyroidism/Markel's follow up visit. Dental Technician Instructor Required: No Accompanied by: Self / Same As Patient Allergies Benadryl Allergy (Unknown, Verified 09/15/23 08:29) unknown dapagliflozin Adverse Reaction (Severe, Verified 09/15/23 08:29) Chest Pain, Weakness, Nausea, Fatigue amoxicillin [Augmentin] Adverse Reaction (Intermediate, Verified 09/15/23 08:29) diarrhea atorvastatin Adverse Reaction (Intermediate, Verified 09/15/23 08:29) myalgia, feet pain, hair loss morphine [MORPHINE] Adverse Reaction (Intermediate, Verified 09/15/23 08:29) TACHYCARDIA, CP, confusion simvastatin Adverse Reaction (Intermediate, Verified 09/15/23 08:29) swelling of feet tramadol [TRAMADOL] Adverse Reaction (Intermediate, Verified 09/15/23 08:29) DIZZYNESS, confusion paroxetine [Paxil] Adverse Reaction (Unknown, Verified 09/15/23 08:29) Unknown Medication List - Last Reconciled 09/15/23 by Ziyad Le MD albuterol sulfate 90 mcg/actuation 2 puffs PO Q6H PRN albuterol sulfate 2.5 mg (3 mL) inhalation QID PRN 30 days aspirin 81 mg PO DAILY atorvastatin 80 mg PO BEDTIME 90 days daivcsereu-jmcaommbxhjpx-prvo 50-325-40 mg 1 cap PO TID PRN 20 days cetirizine 10 mg PO DAILY PRN 90 days clonazepam 0.5 mg PO BID PRN 30 days dexamethasone 1 mg PO ONCE dicyclomine 10 mg PO QID PRN escitalopram oxalate 20 mg PO DAILY 30 days fluticasone propion-salmeterol 115-21 mcg/actuation (Advair HFA) 2 puffs inhalation BID 30 days levothyroxine 100 mcg PO DAILY metformin ER 500 mg PO BEDTIME metoprolol succinate ER 25 mg PO DAILY 90 days [NEBULIZER As directed] nitroglycerin mg sublingual omeprazole 40 mg PO BID 30 days sennosides (senna) 17.2 mg (2 x 8.6 mg) PO BEDTIME PRN trazodone 150 mg PO BEDTIME HPI HPI Comments History of Present Illness Details 62 YO F with PMHx Hypothyroidism, SVT, Celiac disease and a recent STEMI who is seen in F/U for a thyroid nodule. She had a recent thyroid US 02/11/2022 which revealed a RMP 1.0 cm thyroid nodule. She underwent FNA biopsy of this nodule 07/15/2022 with benign cytology. She presents today to review these results. She does have a history of hypothyroidism and takes levothyroxine 100 mcg PO daily. She denies any symptoms of hyper or hypothyroidism. Denies any history of head or neck irradiation. Denies any family history of thyroid cancer. Thyroid US: 02/11/2022 Right Thyroid Lobe: 4.0 x 2.4 x 1.6 cm, volume 8.0 mL. Parenchyma: The gland echotexture is heterogeneous. Thyroid vascularity is normal. Left Thyroid Lobe: 3.5 x 1.6 x 1.4 cm, volume 4.1 mL. Parenchyma: The gland echotexture is heterogeneous. Thyroid vascularity is increased. Isthmus: 0.3 cm in maximum AP dimension. Estimated total number of nodules greater than or equal to 1 cm: 1. Registered Radiation Therapist nodules are described as follows: 1. Location: Right mid pole. ?? ? Size: 0.7 x 0.8 x 1.0 cm, volume 0.294 mL. ?? ? Nodule characteristics: ?? ? Composition: Solid (2). ?? ? Echogenicity: Hyperechoic (1). ?? ? Shape: Taller than wide (3). ?? ? Margins: Smooth (0). ?? ? Echogenic Foci: None (0). ?? ? ACR TI-RADS total points: 6 ?? ? ACR TI-RADS category: 4 2. Location: Right mid pole. ?? ? Size: 0.3 x 0.3 x 0.2 cm, volume 0.010 mL. ?? ? Nodule characteristics: ?? ? Composition: Solid (2). ?? ? Echogenicity: Hypoechoic (2). ?? ? Shape: Not taller than wide (0). ?? ? Margins: Ill-defined (0). ?? ? Echogenic Foci: None (0). ?? ? ACR TI-RADS total points: 4 ?? ? ACR TI-RADS category: 4 NODES: No lymphadenopathy is seen in the tissue surrounding the thyroid gland. Labs: Laboratory Tests 07/15/22 07/15/22 07:43 07:43 TSH 5.43 H Free T4 1.02 Thyroglobulin Anti body 5 H Thyroid Peroxidase Ab 801 H S/P FNA of R nodule 07/15/2022 with benign cytology Complains of several symptoms of Markel's including weight gain, facial puffiness, muscular weakness. Had a 1 mg dexamethasone suppression test performed with n on suppressible cortisol. Repeat 1 mg dexamethasone suppression test was normal as was 24 hour urine for cortisol ruling out Markel's [facility] Medical History (Updated 08/16/23 @ 12:43 by BLAS Padilla) Winfield syndrome Obesity (BMI 30-39.9) Diabetes mellitus Coronary atherosclerosis Asthma Depression Epilepsy Anxiety Insomnia Osteopenia Allergic rhinitis Acquired hypothyroidism Acute non intractable tension-type headache Mixed hyperlipidemia Surgical History Hx of cardiac cath (~05/05/22) History of ST elevation myocardial infarction (STEMI) Hx of shoulder surgery History of bunionectomy History of esophagogastroduodenoscopy (EGD) Hx of colonoscopy Family History Father HTN (hypertension) Heart disease Myocardial infarction Mother Diabetes Hyperchloremia HTN (hypertension) Myocardial infarction Family/Other Stomach cancer Other Thyroid nodule Social History Household Members: None Housing: Apartment Alcohol intake: current Alcohol intake frequency: does not drink Patient Tobacco Use Status: Never used Tobacco e-Cigarette/Vaping Use: Never Used Second Hand Smoke Exposure: No Current occupational status: disabled Cognitive needs: No Hearing needs: No Vision needs: Yes Physical Exam Vital Signs: BMI result Body Mass Index 33.5 Const Other: Thyroid gland is normal size weighs about 15 g. There are no thyroid nodules palpated. She does have cushingoid features such as facial puffiness and supraclavicular fat pad Assessment & Plan Assessment & Plan (1) Hypothyroidism: Code(s): E03.9 - Hypothyroidism, unspecified Plan: This 62-year-old female with a history of hypothyroidism being treated with 88 mcg levothyroxine. She appears to be clinically and biochemically euthyroid Plan is to continue the current therapy. At this point, patient returned to the care of her primary care provider returned back to endocrinology as needed (2) Thyroid nodule: Code(s): E04.1 - Nontoxic single thyroid nodule Plan: Status post FNA of a right midpole nodule July 2022 with benign cytology. Patient returned to the care of her primary care provider and repeat thyroid ultrasound to be ordered about 1-2 years time. 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 This essentially rules out Markel syndrome Coding Level of Care Code Est Pt Level 3 (35934) Diagnoses Hypothyroidism E03.9 Thyroid nodule E04.1 Markel syndrome E24.9
[2023-09-15 08:28] VITALS: BMI 33.5
== END 2023-09-15 08:58 | disposition home or self-care (01) ==
PROVIDERS: PCP Internal Medicine; Visit Provider Internal Medicine Endocrinology, Diabetes & Metabolism
DX: E03.9 Hypothyroidism, unspecified (principal); E04.1 Nontoxic single thyroid nodule; E24.9 Cushing's syndrome, unspecified
CPT/HCPCS: 99213

== ENCOUNTER → 2023-09-15 08:26 | Outpatient (BNVA) | payer OTHER, SELFPAY | PROVIDERS: PCP Internal Medicine; Visit Provider Internal Medicine Endocrinology, Diabetes & Metabolism | DX: E03.9 Hypothyroidism, unspecified (principal); E04.1 Nontoxic single thyroid nodule; E24.9 Cushing's syndrome, unspecified | CPT/HCPCS: 99212 ==

== ENCOUNTER 2023-11-02 09:37 | Outpatient (REF) | payer OTHER, SELFPAY ==
[2023-11-02 09:53] LABS: MANUAL DIFF FLAG NO
[2023-11-02 10:38] LABS: Basophils Percent Auto 0.7 % (0-2); Eosinophils Absolute Auto 0.2 X10*3/uL (0.0-0.4); Eosinophils Percent Auto 3.6 % (0-4); Hematocrit 37.5 % (37.0-47.0); Hemoglobin 12.2 g/dl (12.0-16.0); Imm Gran Abs Auto 0.01 X10*3/uL (0.00-0.03); Imm Gran Pct Auto 0.2 % (0.0-0.4); Lymphocytes Absolute Auto 2.5 X10*3/uL (1.2-4.9); Lymphocytes Percent Auto 42.8 % (20-40); Mean Corpuscular HGB Conc 32.5 g/dl (31.0-35.0); Mean Corpuscular Hemoglobin 28.6 pg (27.0-33.0); Mean Platelet Volume 12.2 fL (9.4-12.3); Monocytes Absolute Auto 0.4 X10*3/uL (0.1-1.2); Monocytes Percent Auto 6.8 % (2-11); Neutrophils Absolute Auto 2.7 x10*3/uL (2.0-8.3); Neutrophils Percent Auto 45.9 % (45-73); Platelet Count 204 X10*3/uL (160-400); Red Blood Count 4.26 X10*6/uL (4.20-5.50); Red Cell Distribution Width 13.7 % (11.0-16.0); White Blood Count 5.9 X10*3/uL (4.8-10.8)
[2023-11-02 10:40] LABS: Appearance Urine Cloudy; Color Urine Yellow; Glucose Urine UA Negative (Negative); Leukocyte Esterase Urine Trace (Negative); Nitrite Urine Negative (Negative); Specific Gravity - Urine 1.015 (1.005-1.025); UMIC TRIGGER UACC YES; Urine Blood Negative (Negative); Urine Ketones Negative (Negative); Urine Protein Negative (Neg-Trace)
[2023-11-02 10:47] LABS: Bacteria Urine Trace (None Seen); Hyaline Casts Urine 0-2 /LPF (0-2); RBC Urine 0-2 /HPF (0-2); WBC Urine 0-5 /HPF (0-5)
[2023-11-02 10:55] LABS: Estimated Average Glucose 146 mg/dL; Hemoglobin A1c % 6.7 % (<6.0)
[2023-11-02 11:11] LABS: Creatinine Urine 107.22 mg/dL; Microalbumin Urine < 5.0 mg/L
[2023-11-02 11:13] LABS: Alanine Aminotransferase 16 U/L (0-31); Albumin Level 3.9 g/dL (3.5-5.0); Alkaline Phosphatase 81 U/L (39-117); Anion Gap 13 (12-20); Aspartate Amino Transferase 17 U/L (5-31); Bilirubin Total 0.3 mg/dL (0.0-1.0); Blood Urea Nitrogen 14 mg/dL (9-16); Calcium 9.4 mg/dL (8.4-10.2); Carbon Dioxide 22 mmol/L (22-29); Chloride 112 mmol/L (96-108); Cholesterol 167 mg/dL (<200); Estimated Glomerular Filt Rate > 60; Glucose Fasting 140 mg/dL (60-99); HDL Cholesterol 51 mg/dL (>40); LDL Cholesterol Calculated 93 mg/dL (<100); Potassium 4.2 mmol/L (3.3-5.1); Sodium 143 mmol/L (135-145); Total Protein 6.8 g/dL (6.5-8.0); Triglycerides 118 mg/dL (<150)
[2023-11-02 11:17] LABS: Vitamin D 25-OH Total 29.2 ng/mL (>30)
== END 2023-11-02 09:38 | disposition home or self-care (01) ==
LOC: HO.LAB 09:37
PROVIDERS: PCP Internal Medicine; Visit Provider Internal Medicine
DX: E55.9 Vitamin D deficiency, unspecified (principal); E78.00 Pure hypercholesterolemia, unspecified; I10 Essential (primary) hypertension; E11.9 Type 2 diabetes mellitus without complications; E03.9 Hypothyroidism, unspecified
CPT/HCPCS: 36415; 80053; 80061; 81001; 82043; 82306; 82570; 83036; 85025

== ENCOUNTER 2023-11-04 13:31 | Outpatient (AMB) | payer OTHER, SELFPAY ==
--- NOTE | 2023-11-04 13:34 | MHC.PC.OV ---
Vital Signs 11/04/23 13:35 Height 5 ft 2 in Weight 182 lb 4 oz BMI 33.3 BP 110/66 Blood Pressure Location Lt brachial Position Sitting Pulse 60 Pulse Source Pulse Oximeter Pulse Oximetry (%) 97 Oxygen Delivery Method Room Air Intake Visit Reasons: Annual Exam Intake Note: Patient is here today for a physical. 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 Required: No Campaign Analyst: Not Required per policy Accompanied by: Self / Same As Patient Allergies Benadryl Allergy (Unknown, Verified 11/04/23 14:01) unknown dapagliflozin Adverse Reaction (Severe, Verified 11/04/23 14:01) Chest Pain, Weakness, Nausea, Fatigue amoxicillin [Augmentin] Adverse Reaction (Intermediate, Verified 11/04/23 14:01) diarrhea atorvastatin Adverse Reaction (Intermediate, Verified 11/04/23 14:01) myalgia, feet pain, hair loss morphine [MORPHINE] Adverse Reaction (Intermediate, Verified 11/04/23 14:01) TACHYCARDIA, CP, confusion simvastatin Adverse Reaction (Intermediate, Verified 11/04/23 14:01) swelling of feet tramadol [TRAMADOL] Adverse Reaction (Intermediate, Verified 11/04/23 14:01) DIZZYNESS, confusion paroxetine [Paxil] Adverse Reaction (Unknown, Verified 11/04/23 14:01) Unknown Medication List - Last Reconciled 11/04/23 by Jacoby Kamara MD albuterol sulfate 90 mcg/actuation 2 puffs PO Q6H PRN albuterol sulfate 2.5 mg (3 mL) inhalation QID PRN 30 days aspirin 81 mg PO DAILY atorvastatin 80 mg PO BEDTIME 90 days [id number] 50-325-40 mg 1 cap PO TID PRN 20 days cetirizine 10 mg PO DAILY PRN 90 days clonazepam 0.5 mg PO BID PRN 30 days dicyclomine 10 mg PO QID PRN escitalopram oxalate 20 mg PO DAILY 30 days fluticasone propion-salmeterol 115-21 mcg/actuation (Advair HFA) 2 puffs inhalation BID 30 days levothyroxine 100 mcg PO DAILY metformin ER 500 mg PO BEDTIME metoprolol succinate ER 25 mg PO DAILY 90 days [NEBULIZER As directed] nitroglycerin mg sublingual omeprazole 40 mg PO BID 30 days sennosides (senna) 17.2 mg (2 x 8.6 mg) PO BEDTIME PRN trazodone 150 mg PO BEDTIME Tobacco use date assessed: 11/04/23 Dental Screening Dental Screen Date: 08/08/23 [facility] Annual Exam HPI Details Patient comes in today for her annual physical examination States that she feels okay except for some recurrent pain in her right ankle, right foot and over her right heel lately She does not recall any recent injury or trauma to her right ankle or foot She denies any headaches or dizziness Denies any chest pains, no SOB No nausea/vomiting, no abdominal pain No change in bowel habits noted She denies any acute urinary symptoms Needs her Clonazepam Rx refilled Had her follow up labs done a couple of days ago - to discuss her results She had her colonoscopy last done with Dr. Barroso in 2019 and was advised that she will need repeat colonoscopy in 7 years (2026) She had her BMD done in 2022; mammogram was also last done in September 2022 and she is now due for repeat States that she has not had her pap smear and gynecology exam done in a few years now and is overdue Relates that she was seen by her infection control manager at [facility] last week and was reportedly advised that she was doing well and will see her again in 6 months for follow up [facility] Medical History Umbarger syndrome Obesity (BMI 30-39.9) Diabetes mellitus Coronary atherosclerosis Asthma Depression Epilepsy Anxiety Insomnia Osteopenia Allergic rhinitis Acquired hypothyroidism Acute non intractable tension-type headache Mixed hyperlipidemia Surgical History Hx of cardiac cath (~05/05/22) History of ST elevation myocardial infarction (STEMI) Hx of shoulder surgery History of bunionectomy History of esophagogastroduodenoscopy (EGD) Hx of colonoscopy Family History Father HTN (hypertension) Heart disease Myocardial infarction Mother Diabetes Hyperchloremia HTN (hypertension) Myocardial infarction Family/Other Stomach cancer Other Thyroid nodule Social History Household Members: None Housing: Apartment Alcohol intake: current Alcohol intake frequency: does not drink Patient Tobacco Use Status: Never used Tobacco e-Cigarette/Vaping Use: Never Used Second Hand Smoke Exposure: No service: No Current occupational status: disabled Cognitive needs: No Hearing needs: No Vision needs: Yes Questionnaire PHQ-9 Over the last 2 weeks, how often have you been bothered by any of the following problems? 1. Little interest or pleasure in doing things: not at all 2. Feeling down, depressed, or hopeless: not at all 3. Trouble falling or staying asleep, or sleeping too much: not at all 4. Feeling tired or having little energy: not at all 5. Poor appetite or overeating: not at all 6. Feeling bad about yourself - or that you are a failure or have let yourself or your family down: not at all 7. Trouble concentrating on things, such as reading the newspaper or watching television: not at all 8. Moving or speaking so slowly that other people could have noticed. Or the opposite - being so fidgety or restless that you have been moving around a lot more than usual: not at all 9. Thoughts that you would be better off or of hurting yourself in some way: not at all Total score: 0 Depression Screening Interpretation: Positive Depression Screening Follow-up: Existing condition and In treatment Depression Screening Done: Yes 97103 - PHQ-9 Billing: Yes Source: Developed by Drs. Ziyad Gary, Dayana Crane, Vinh Brar and colleagues, with an educational vero from [employer]. Thrive Questionnaire Date Thrive assessed: 11/04/23 I am a: Patient What is your living situation today?: I have a steady place to live Within the past 12 months, did the food you bought not last and you didn't have the money to get more?: Never true Within the past 12 months, did you worry whether your food would run out before you got money to buy more?: Never true Do you have trouble paying for medicines?: No Do you have trouble getting transportation to medical appointments?: No Do you have trouble paying your heating and electricity bill?: No Do you have trouble taking care of your child, family member or friend?: No Do you have trouble with day-to-day activities such as bathing, preparing meals, shopping, managing finances, etc.?: No Are you currently unemployed and looking for a job?: No Are you interested in more education?: No Please select the resources that you would like help with: None Currently or been in a relationship where the following occur: no concerns reported THRIVE Score: 0 AUDIT C Alcohol Use Questionnaire (AUDIT-C) 1. How often do you have a drink containing alcohol?: Never 2. How many drinks containing alcohol do you have on a typical day when you are drinking?: 1 or 2 3. How often do you have six or more drinks on one occasion?: Never Total Score: 0 Score Reviewed/Action Taken: Yes RASHI-7 AMB Questionnaire RASHI-7 Date RASHI - 7 assessed: 08/08/23 Source: Developed by Drs. Ziyad Gary, Dayana Crane, Vinh Brar and colleagues, with an educational vero from [employer]. Review of Systems Const Denies chills, Denies fatigue, Denies fever(s), Denies headache(s) and Denies malaise Eyes Denies blurry vision, Denies change in vision, Denies irritation and Denies itchy eyes ENT Denies dysphagia, Denies dizziness, Denies otalgia, Denies headache(s), Denies nasal congestion, Denies neck pain, Denies odynophagia, Denies sinus pain and Denies sore throat Card Denies chest pain, Denies rapid heart rate, Denies irregular heart rhythm, Denies palpitations and Denies dyspnea Resp Denies chest congestion, Denies cough, Denies dyspnea and Denies wheezing GI Denies abdominal pain, Denies bloating, Denies constipation, Denies dysphagia, Denies heartburn, Denies diarrhea, Denies nausea, Denies odynophagia and Denies vomiting Denies hematuria, Denies urinary frequency, Denies dysuria, Denies urinary incontinence and Denies urinary urgency Musc Denies back pain, Reports arthralgias (on and off over her right ankle, foot and heel areas lately), Denies joint swelling, Denies muscle weakness and Denies neck pain Skin/Breast Denies breast pain, Denies breast mass, Denies change in pigmentation, Denies lesions, Denies rash and Denies unusual bruising Neuro Denies dizziness, Denies headache(s) and Denies paresthesias Psych Denies anxiety and Denies depression Endo Denies fatigue and Denies palpitations Bryson/Lymph Denies easy bruising Aller/Immun Denies itchy eyes and Denies wheezing Physical exam (Primary Care) Vital Signs: Last Vital Signs Pulse 60 11/04/23 13:35 BP 110/66 11/04/23 13:35 Pulse Ox 97 11/04/23 13:35 Oxygen Delivery Method Room Air 11/04/23 13:35 BMI result Body Mass Index 33.3 Tobacco/Smoking Status: Tobacco use Status Tobacco use date assessed 11/04/23 11/04/23 13:41 Patient Tobacco Use Status Never used Tobacco 11/04/23 13:41 e-Cigarette/Vaping Use Never Used 11/04/23 13:41 PHQ-9: PHQ-9 Score PHQ-9: Total score 0 11/04/23 14:28 Depression Screening Interpretation: Positive Depression Screening Follow-up: Existing condition and In treatment Thrive Assessment: Date of Thrive Assessment Date Thrive assessed 11/04/23 11/04/23 14:28 Currently or been in a relationship where the following occur: no concerns reported Const General: no acute distress, alert and awake Orientation/consciousness: patient oriented x3 HENMT Head: Yes normocephalic and Yes atraumatic Ears: external ears normal, TM's normal bilaterally and EAC's normal General nose exam: No nasal discharge present Face and sinus: Yes normal facial exam and Yes sinuses nontender Teeth and gingiva: dentition normal Throat: Yes posterior oropharynx normal and Yes tonsils normal (no TP congestion) Eyes Eyelids: Yes eyelids normal Conjunctivae: conjunctivae normal Pupils: Equal, round and reactive pupils present EOM: EOMs intact bilaterally Neck Neck: Yes no lymphadenopathy and Yes supple Thyroid: Thyroid normal Resp Auscultation: clear to auscultation bilaterally, no rales and no wheezes Cardio Rate: regular rate Rhythm: regular rhythm Heart sounds: no murmurs GI Palpation (GI): Soft to palpation, nontender and No hepatosplenomegaly present Auscultation: normal bowel sounds General: Yes no CVA tenderness Back/Spine/Pelvis Back: no CVA tenderness Thoracic/Lumbar Spine: thoracic and lumbar spine normal to inspection Skin Lesions: no lesions Rashes: no rashes Neuro General: patient oriented x3, moves all extremities, no focal motor deficits and CN's II-XI intact bilaterally Cranial nerves: Yes Equal, round and reactive pupils present Cognition (Neuro): normal cognition Gait exam (Neuro): Normal gait present Extrem General: Yes no clubbing, cyanosis or edema Right lower extremity: ankle Details: tenderness (mild) Location: of the lateral malleolus and of the achilles tendon; no swelling and foot Details: tenderness (mild) Location: of the calcaneus Results Reviewed Results Reviewed: Laboratory Tests 11/02/23 11/02/23 09:46 09:52 WBC 5.9 Hgb 12.2 Hct 37.5 Plt Count 204 Sodium 143 Potassium 4.2 Creatinine 0.77 Estimated GFR > 60 Fasting Glucose 140 H Hemoglobin A1c % 6.7 H Calcium 9.4 AST 17 ALT 16 Triglycerides 118 Cholesterol 167 LDL Cholesterol, Calc 93 HDL Cholesterol 51 25-OH Vitamin D Total 29.2 L Ur Specific [place] 1.015 Urine Protein Negative Urine Glucose (UA) Negative Urine Blood Negative Urine Nitrite Negative Ur Leukocyte Esterase Trace H Assessment and Plan Assessment & Plan (1) Annual physical exam: Code(s): Z00.00 - Encounter for general adult medical examination without abnormal findings Plan: Results of her labs done a couple of days ago reviewed and discussed with patient She is up-to-date with her colonoscopy screening; is now due for her repeat mammogram and is overdue for her annual Pap smear and gynecologic exam (2) Coronary atherosclerosis: Comment: S/P cardiac cath with stenting of LAD with ISAIAH on 05/05/2022 Code(s): I25.10 - Atherosclerotic heart disease of [place] coronary artery without angina pectoris Qualifiers: Associated angina: without angina Coronary Disease-Associated Artery/Lesion type: [place] artery [place] vs. transplanted heart: [place] heart Qualified Code(s): I25.10 - Atherosclerotic heart disease of [place] coronary artery without angina pectoris Plan: Patient continues to remain asymptomatic from cardiac standpoint Continue Aspirin 81 mg QD for lifelong antiplatelet Tx; continue Clopidogrel 75 mg QD and Metoprolol ER 25 mg QD (was taken off Brilinta by cardiology previously due to increasing SOB) Myocardial perfusion stress test imaging done on 09/08/[address] [facility] reportedly came out normal Repeat echocardiogram done on 10/26/[address] [facility] was also normal, with EF of 65 to 70% (EF was at 35 to 40% back in April 2022 when patient had her OR and was experiencing ischemic cardiomyopathy at the time) Follow up with cardiology as scheduled (3) Mixed hyperlipidemia: Code(s): E78.2 - Mixed hyperlipidemia Plan: Patient is advised that her cholesterol numbers have improved slightly from previous on her recent labs Reinforced low cholesterol diet Continue Atorvastatin 80 mg QD for now; may need to again consider adding Ezetimibe if her cholesterol numbers cannot get to goal Will recheck her labs and fasting lipids in 4 months for follow-up (4) Diabetes mellitus: Code(s): E11.9 - Type 2 diabetes mellitus without complications Qualifiers: Diabetes mellitus complication status: with hyperglycemia Diabetes mellitus rn long term care insulin use: without nursing home use Diabetes mellitus type: type 2 Qualified Code(s): E11.65 - Type 2 diabetes mellitus with hyperglycemia Plan: Her HgbA1c went up to 6.7% on her labs done a couple of days ago (HgbA1c was at 6.0% a few months ago) - goal is at least <7.0% but ideally <6.5% Reinforced diabetic diet Continue Metformin ER 500 mg QD but may need to increase to BID if her HgbA1c continues to go up: she could not tolerate Farxiga (chest pains) (5) Asthma: Code(s): J45.909 - Unspecified asthma, uncomplicated Qualifiers: Asthma complication type: with acute exacerbation Asthma persistence: persistent Asthma severity: moderate Qualified Code(s): J45.41 - Moderate persistent asthma with (acute) exacerbation Plan: Stable Conrinue Advair HFA 115-21 mcg 2 inhalations BID and Albuterol HFA 1 to 2 inhalations Q 6 hours PRN (6) Acquired hypothyroidism: Code(s): E03.9 - Hypothyroidism, unspecified Plan: Her TFTs were acceptable on her recent labs Continue Levothyroxine 100 mcg QD Will recheck her TFTs in 4 months for follow up (7) Thyroid nodule: Code(s): E04.1 - Nontoxic single thyroid nodule Plan: Thyroid US done a few months ago revealed (+) TI-RADS Category 4 right midpole nodule with maximum dimension of 1.0 cm Recommend followup ultrasound in 1, 2, 3 and 5 years for continuing surveillance She had a thyroid Bx done by endocrinology last year on 07/15/2022 - cytology was benign Follow up with endocrinology as scheduled (8) Umbarger syndrome: Code(s): 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 Sabrina Hernandez) for further evaluation and management (9) Allergic rhinitis: Code(s): J30.9 - Allergic rhinitis, unspecified Qualifiers: Allergic rhinitis seasonality: unspecified Allergic rhinitis trigger: unspecified Qualified Code(s): J30.9 - Allergic rhinitis, unspecified Plan: Patient used to see Dr. Donita Ho for her allergies and was on Nasacort and Azelastine but has not used these in a while as she did not feel that they were helping adequately She also has not seen Dr. Ho in a few years - she currently lives in the [facility] and finds it too far to go all the way to [place] Will start her for now on oral Cetirizine 10 mg QD PRN to help with her allergy symptoms Will refer her to narcotics detective (SAMANTHA) in [place] for further evaluation and management of her allergies (10) Epilepsy: Code(s): G40.909 - Epilepsy, unspecified, not intractable, without status epilepticus Qualifiers: Epilepsy type: unspecified Intractability: not intractable Status epilepticus: without status epilepticus Qualified Code(s): G40.909 - Epilepsy, unspecified, not intractable, without status epilepticus Plan: Stable lately; recalls that her last seizure episode was over a year ago, and that she has never been started on any Rx for her seizures Was referred to neurology last year but patient states that she does not want to go back to see Dr. Pittman Was referred instead to Dr. Donahue as she has [facility], which is not accepted by [facility] - to follow up with neurology as scheduled (11) Erosive esophagitis: Code(s): K22.10 - Ulcer of esophagus without bleeding Plan: Dx by EGD with Bx Dietary restrictions reinforced Was doing well on Omeprazole 40 mg BID but insurance would NOT cover Rx and she was getting Rx [id number] for a while but could not afford to continue Is currently on Famotidine 40 mg BID and Carafate liquid Q HS Follow up with GI as scheduled (12) Right ankle pain: Code(s): M25.571 - Pain in right ankle and joints of right foot Qualifiers: Chronicity: acute Qualified Code(s): M25.571 - Pain in right ankle and joints of right foot Plan: Will send patient for x-rays of the right ankle for further evaluation (13) Pain of right heel: Code(s): M79.671 - Pain in right foot Plan: Will also send patient for right foot and right heel x-rays for further evaluation (14) Insomnia: Code(s): G47.00 - Insomnia, unspecified Qualifiers: Insomnia type: unspecified Qualified Code(s): G47.00 - Insomnia, unspecified Plan: Sleep hygiene reinforced Continue Trazodone 150 mg once a day at bedtime as needed (15) Anxiety: Code(s): F41.9 - Anxiety disorder, unspecified Plan: Continue Clonazepam 0.5 mg BID PRN - Rx refilled Follow-up with Psychiatry as scheduled (16) Depression: Code(s): F32.9 - Major depressive disorder, single episode, unspecified Qualifiers: Active/Remission status: currently active Depression Type: major depressive disorder Major depression episode severity: unspecified Major depression recurrence: recurrent Qualified Code(s): F33.9 - Major depressive disorder, recurrent, unspecified Plan: Has been tolerating Escitalopram but requested to have this increased in dose - will increase her Escitalopram now to 20 mg QD (reportedly felt angry often while on Fluoxetine in the past) Follow-up with Psychiatry as scheduled (17) Obesity (BMI 30-39.9): Code(s): E66.9 - Obesity, unspecified Plan: Reinforced diet/exercise as tolerated/lose weight (18) Breast cancer screening by mammogram: Code(s): Z12.31 - Encounter for screening mammogram for malignant neoplasm of breast Plan: Will sent patient for repeat annual mammogram (19) Cervical cancer screening: Code(s): Z12.4 - Encounter for screening for malignant neoplasm of cervix Plan: Will refer patient to package sealer for her annual Pap smear and gynecologic exam Plan Follow up in 4 months Orders: Orders XR foot RT min 3V 11/04/23 M79.671 - Pain in right foot XR ankle RT min 3V 24 M25.571 - Pain in right ankle and joints of right foot Hemoglobin A1c 4 Months E11.9 - Type 2 diabetes mellitus without complications Complete Blood Count Auto Diff 4 Months D64.9 - Anemia, unspecified Comprehensive [place]. Panel Fast 4 Months E78.00 - Pure hypercholesterolemia, unspecified Microalbumin, Random (w Creat) 4 Months E11.9 - Type 2 diabetes mellitus without complications Vitamin D 25-OH Total 4 Months E55.9 - Vitamin D deficiency, unspecified MM tomosynthesis screening BI 11/04/23 Z12.31 - Encounter for screening mammogram for malignant neoplasm of breast Lipid Panel 4 Months E78.00 - Pure hypercholesterolemia, unspecified Thyroid Stimulating Hormone 4 Months E03.9 - Hypothyroidism, unspecified Free T4 (Free Thyroxine) 4 Months E03.9 - Hypothyroidism, unspecified UA CC w/rflx Micro + Cult 4 Months R30.0 - Dysuria Referrals RANGER AIDE Referral Z12.4 - Encounter for screening for malignant neoplasm of cervix Medications: Refilled clonazepam 0.5 mg PO BID 30 days PRN 60 tabs 0RF anxiety F41.9 - Anxiety disorder, unspecified Coding Level of Care Code Est Pt Prev Care 40-64y(90632) Diagnoses Annual physical exam Z00.00 Atherosclerosis of [place] coronary artery of [place] heart without angina pectoris I25.10 Associated angina: without angina Coronary Disease-Associated Artery/Lesion type: [place] artery [place] vs. transplanted heart: [place] heart Mixed hyperlipidemia E78.2 Type 2 diabetes mellitus with hyperglycemia, without long-term current use of insulin E11.65 Diabetes mellitus complication status: with hyperglycemia Diabetes mellitus nursing home insulin use: without nursing home use Diabetes mellitus type: type 2 Moderate persistent asthma with acute exacerbation J45.41 Asthma complication type: with acute exacerbation Asthma persistence: persistent Asthma severity: moderate Acquired hypothyroidism E03.9 Thyroid nodule E04.1 Umbarger syndrome E24.9 Allergic rhinitis, unspecified seasonality, unspecified trigger J30.9 Allergic rhinitis seasonality: unspecified Allergic rhinitis trigger: unspecified Nonintractable epilepsy without status epilepticus, unspecified epilepsy type G40.909 Epilepsy type: unspecified Intractability: not intractable Status epilepticus: without status epilepticus Erosive esophagitis K22.10 Acute right ankle pain M25.571 Chronicity: acute Pain of right heel M79.671 Insomnia, unspecified type G47.00 Insomnia type: unspecified Anxiety F41.9 Episode of recurrent major depressive disorder, unspecified depression episode severity F33.9 Active/Remission status: currently active Depression Type: major depressive disorder Major depression episode severity: unspecified Major depression recurrence: recurrent Obesity (BMI 30-39.9) E66.9 Breast cancer screening by mammogram Z12.31 Cervical cancer screening Z12.4
[2023-11-04 13:35] VITALS: BP 110/66; PULSE 60; O2SAT 97; BMI 33.3
== END 2023-11-04 14:14 | disposition home or self-care (01) ==
PROVIDERS: PCP Internal Medicine; Visit Provider Internal Medicine
DX: Z00.00 Encounter for general adult medical examination without abnormal findings (principal); E11.65 Type 2 diabetes mellitus with hyperglycemia; E24.9 Cushing's syndrome, unspecified; G40.909 Epilepsy, unspecified, not intractable, without status epilepticus; I25.10 Atherosclerotic heart disease of native coronary artery without angina pectoris; E78.2 Mixed hyperlipidemia; J45.41 Moderate persistent asthma with (acute) exacerbation; E03.9 Hypothyroidism, unspecified; E04.1 Nontoxic single thyroid nodule; J30.9 Allergic rhinitis, unspecified; K22.10 Ulcer of esophagus without bleeding; M25.571 Pain in right ankle and joints of right foot
CPT/HCPCS: 99396

== ENCOUNTER 2023-11-04 14:23 | Outpatient (REF) | payer OTHER, SELFPAY ==
--- NOTE | ~2023-11-04 | XR_ITS ---
EXAMINATION: XR RIGHT FOOT AND ANKLE CLINICAL INFORMATION: Pain right foot and ankle joints. COMPARISON: None available. TECHNIQUE: 2 views of the right ankle. 3 views of the right foot. FINDINGS: RIGHT FOOT: Postsurgical changes first metatarsal head with an obliquely positioned screw. Moderate degenerative changes in the first metatarsophalangeal joint with joint space narrowing and hypertrophic change. Small spur along the dorsal aspect of the calcaneus. RIGHT ANKLE: Ankle mortise is maintained. Small ossific/calcific densities along the inferior aspects of the medial and lateral malleoli of indeterminate age and etiology. Differential considerations include chronic/degenerative process versus prior avulsion fractures. Trace ankle joint effusion. XR/XR foot RT min 3V IMPRESSION: 1. Postsurgical changes first metatarsal head with an obliquely positioned screw. Moderate degenerative changes in the first metatarsophalangeal joint with joint space narrowing and hypertrophic change. 2. Small ossific/calcific densities along the inferior aspects of the medial and lateral malleoli of indeterminate age and etiology. Differential considerations include chronic/degenerative process versus prior avulsion fractures. Trace ankle joint effusion.
--- NOTE | ~2023-11-04 | XR_ITS ---
EXAMINATION: XR RIGHT FOOT AND ANKLE CLINICAL INFORMATION: Pain right foot and ankle joints. COMPARISON: None available. TECHNIQUE: 2 views of the right ankle. 3 views of the right foot. FINDINGS: RIGHT FOOT: Postsurgical changes first metatarsal head with an obliquely positioned screw. Moderate degenerative changes in the first metatarsophalangeal joint with joint space narrowing and hypertrophic change. Small spur along the dorsal aspect of the calcaneus. RIGHT ANKLE: Ankle mortise is maintained. Small ossific/calcific densities along the inferior aspects of the medial and lateral malleoli of indeterminate age and etiology. Differential considerations include chronic/degenerative process versus prior avulsion fractures. Trace ankle joint effusion. XR/XR ankle RT min 3V IMPRESSION: 1. Postsurgical changes first metatarsal head with an obliquely positioned screw. Moderate degenerative changes in the first metatarsophalangeal joint with joint space narrowing and hypertrophic change. 2. Small ossific/calcific densities along the inferior aspects of the medial and lateral malleoli of indeterminate age and etiology. Differential considerations include chronic/degenerative process versus prior avulsion fractures. Trace ankle joint effusion.
== END 2023-11-04 14:24 | disposition home or self-care (01) ==
LOC: HO.XRAY 14:23
PROVIDERS: PCP Internal Medicine; Visit Provider Internal Medicine
DX: M79.671 Pain in right foot (principal); M25.571 Pain in right ankle and joints of right foot
CPT/HCPCS: 73610; 73630

== ENCOUNTER 2024-03-07 10:41 | Outpatient (REF) | payer OTHER, SELFPAY ==
--- NOTE | ~2024-03-07 | MM_ITS ---
EXAMINATION: MM SCREENING DIGITAL BREAST TOMOSYNTHESIS, BILATERAL CLINICAL INFORMATION: Screening. Asymptomatic. COMPARISON: Mammography: Comparison is made with available priors TECHNIQUE: Digital breast mammography with tomosynthesis is performed in both the craniocaudal and mediolateral oblique views along with computer-aided detection (CAD). FINDINGS: There are scattered areas of fibroglandular density (ACR BI-RADS breast composition Category b). There are no significant masses, abnormal calcifications, or other abnormalities. MM/MM tomosynthesis screening BI IMPRESSION: No mammographic evidence of malignancy. ASSESSMENT: BI-RADS BI-RADS 1 - Negative RECOMMENDATION: Routine annual mammography screening. 1 year F/U This examination should not preclude the clinical evaluation of a suspicious palpable abnormality. This patient's information was entered into a reminder system with a target due date for their next mammogram. Electronically signed by: Jessa Greene DO 03/19/2024 05:15 PM EDT
== END 2024-03-07 10:42 | disposition home or self-care (01) ==
LOC: HO.MAMMO 10:41
PROVIDERS: PCP Internal Medicine; Visit Provider Internal Medicine
DX: Z12.31 Encounter for screening mammogram for malignant neoplasm of breast (principal)
CPT/HCPCS: 77063; 77067

== ENCOUNTER → 2024-03-07 10:45 | Outpatient (BNV) | payer OTHER, SELFPAY | PROVIDERS: PCP Internal Medicine; Visit Provider Internal Medicine | DX: Z12.31 Encounter for screening mammogram for malignant neoplasm of breast (principal) | CPT/HCPCS: 77063; 77067 ==

== ENCOUNTER 2024-03-14 07:29 | Outpatient (REF) | payer OTHER, SELFPAY ==
[2024-03-14 08:01] LABS: MANUAL DIFF FLAG NO
[2024-03-14 08:17] LABS: Basophils Percent Auto 0.7 % (0-2); Eosinophils Absolute Auto 0.2 X10*3/uL (0.0-0.4); Eosinophils Percent Auto 2.9 % (0-4); Hematocrit 37.6 % (37.0-47.0); Hemoglobin 12.4 g/dl (12.0-16.0); Imm Gran Abs Auto 0.02 X10*3/uL (0.00-0.03); Imm Gran Pct Auto 0.4 % (0.0-0.4); Lymphocytes Absolute Auto 2.4 X10*3/uL (1.2-4.9); Lymphocytes Percent Auto 43.5 % (20-40); Mean Corpuscular Hemoglobin 29.2 pg (27.0-33.0); Mean Corpuscular Volume 88.7 fL (80.0-98.0); Mean Platelet Volume 11.3 fL (9.4-12.3); Monocytes Absolute Auto 0.4 X10*3/uL (0.1-1.2); Monocytes Percent Auto 7.9 % (2-11); Neutrophils Absolute Auto 2.5 x10*3/uL (2.0-8.3); Neutrophils Percent Auto 44.6 % (45-73); Platelet Count 230 X10*3/uL (160-400); Red Blood Count 4.24 X10*6/uL (4.20-5.50); Red Cell Distribution Width 14.4 % (11.0-16.0); White Blood Count 5.6 X10*3/uL (4.8-10.8)
[2024-03-14 08:25] LABS: Estimated Average Glucose 134 mg/dL; Hemoglobin A1C 142.9991 umol/L; Hemoglobin A1c % 6.3 % (<6.0); Total Hemoglobin (HGBA1C) 3138.0187 umol/L
[2024-03-14 08:36] LABS: Appearance Urine Clear; Color Urine Yellow; Glucose Urine UA Negative (Negative); Leukocyte Esterase Urine Negative (Negative); Nitrite Urine Negative (Negative); PH 6.5 (5.0-9.0); Specific Gravity - Urine 1.015 (1.005-1.025); Urine Blood Negative (Negative); Urine Ketones Negative (Negative); Urine Protein Negative (Neg-Trace)
[2024-03-14 08:45] LABS: Microalbumin Urine < 5.0 mg/L
[2024-03-14 08:49] LABS: Alanine Aminotransferase 27 U/L (0-31); Albumin Level 4.1 g/dL (3.5-5.0); Alkaline Phosphatase 63 U/L (39-117); Anion Gap 14 (12-20); Aspartate Amino Transferase 27 U/L (5-31); Bilirubin Total 0.4 mg/dL (0.0-1.0); Blood Urea Nitrogen 12 mg/dL (9-16); Calcium 9.6 mg/dL (8.4-10.2); Carbon Dioxide 19 mmol/L (22-29); Chloride 111 mmol/L (96-108); Cholesterol 163 mg/dL (<200); Estimated Glomerular Filt Rate > 60; Glucose Fasting 144 mg/dL (60-99); HDL Cholesterol 45 mg/dL (>40); LDL Cholesterol Calculated 84 mg/dL (<100); Potassium 4.2 mmol/L (3.3-5.1); Sodium 140 mmol/L (135-145); Total Protein 7.2 g/dL (6.5-8.0); Triglycerides 171 mg/dL (<150)
[2024-03-14 09:06] LABS: Thyroid Stimulating Hormone 3.62 uIU/mL (0.32-4.0); Vitamin D 25-OH Total 32.4 ng/mL (>30)
== END 2024-03-14 07:30 | disposition home or self-care (01) ==
LOC: HO.LAB 07:29
PROVIDERS: PCP Internal Medicine; Visit Provider Internal Medicine
DX: I30.9 Acute pericarditis, unspecified (principal); I25.10 Atherosclerotic heart disease of native coronary artery without angina pectoris; E78.2 Mixed hyperlipidemia; E11.9 Type 2 diabetes mellitus without complications; I10 Essential (primary) hypertension; J45.41 Moderate persistent asthma with (acute) exacerbation; Z23 Encounter for immunization; E03.9 Hypothyroidism, unspecified; E04.1 Nontoxic single thyroid nodule; J30.9 Allergic rhinitis, unspecified; G40.909 Epilepsy, unspecified, not intractable, without status epilepticus; K22.10 Ulcer of esophagus without bleeding; G47.00 Insomnia, unspecified; F41.9 Anxiety disorder, unspecified; F33.9 Major depressive disorder, recurrent, unspecified; E66.9 Obesity, unspecified; D64.9 Anemia, unspecified; R30.0 Dysuria; E55.9 Vitamin D deficiency, unspecified; Z79.82 Long term (current) use of aspirin; Z79.84 Long term (current) use of oral hypoglycemic drugs; Z79.899 Other long term (current) drug therapy
CPT/HCPCS: 36415; 80053; 80061; 81003; 82306; 82570; 83036; 84439; 84443; 85025; 90471; 90656; 96127; 99212

== ENCOUNTER 2024-03-14 10:04 | Outpatient (AMB) | payer OTHER, SELFPAY ==
[2024-03-14 10:10] VITALS: BP 120/70; PULSE 77; O2SAT 98; BMI 32.1
--- NOTE | 2024-03-14 10:10 | A.OFFPC_ITS ---
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 Accompanied by: Self / Same As Patient Allergies Benadryl Allergy (Unknown, Verified 03/14/24 10:59) unknown dapagliflozin Adverse Reaction (Severe, Verified 03/14/24 10:59) Chest Pain, Weakness, Nausea, Fatigue amoxicillin [Augmentin] Adverse Reaction (Intermediate, Verified 03/14/24 10:59) diarrhea atorvastatin Adverse Reaction (Intermediate, Verified 03/14/24 10:59) myalgia, feet pain, hair loss morphine [MORPHINE] Adverse Reaction (Intermediate, Verified 03/14/24 10:59) TACHYCARDIA, CP, confusion simvastatin Adverse Reaction (Intermediate, Verified 03/14/24 10:59) swelling of feet tramadol [TRAMADOL] Adverse Reaction (Intermediate, Verified 03/14/24 10:59) DIZZYNESS, confusion trazodone Adverse Reaction (Intermediate, Verified 03/14/24 11:11) chest discomfort; tachycardia zolpidem Adverse Reaction (Intermediate, Verified 03/14/24 11:11) sleepwalking paroxetine [Paxil] Adverse Reaction (Unknown, Verified 03/14/24 10:59) Unknown Medication List - Last Reconciled 03/14/24 by Jacoby Kamara MD albuterol sulfate 90 mcg/actuation 2 puffs PO Q6H PRN albuterol sulfate 2.5 mg (3 mL) inhalation QID PRN 30 days aspirin 81 mg PO DAILY atorvastatin 80 mg PO BEDTIME 90 days apuhrzalzg-dialucrolaqnd-pobj 50-325-40 mg 1 cap PO TID PRN 20 days cetirizine 10 mg PO DAILY PRN 90 days clonazepam 0.5 mg PO BID PRN 30 days colchicine 0.6 mg PO DAILY dicyclomine 10 mg PO QID PRN escitalopram oxalate 20 mg PO DAILY 30 days fluticasone propion-salmeterol 115-21 mcg/actuation (Advair HFA) 2 puffs inhalation BID 30 days levothyroxine 100 mcg PO DAILY lisinopril 5 mg PO DAILY metformin ER 500 mg PO BEDTIME metoprolol succinate ER 25 mg PO DAILY 90 days [NEBULIZER As directed] nitroglycerin mg sublingual omeprazole 40 mg PO BID 30 days sennosides (senna) 17.2 mg (2 x 8.6 mg) PO BEDTIME PRN trazodone 150 mg PO BEDTIME Tobacco use date assessed: 03/14/24 Dental Screening Dental Screen Date: 03/14/24 Did you have a dental visit in the last 12 months?: Yes Did you have a dental problem in the last 6 months where you did not have access to dental care?: No Was dental information given to patient?: Patient has dentist HPI 4mt f/u HPI Details Patient comes in today for her follow up visit She went to the ER at [facility] about a month ago on 02/09/2024 for substernal chest pains As her blood pressure was reportedly significantly elevated at the time, cardiology recommended overnight observation and will do stress testing the following morning Cardiology reassessed her the next day and thinks that her symptoms might be more due to pericarditis as patient also just recently recovered from a bout with COVID and opted to start her on Colchicine 0.6 mg QD for the next 90 days and will defer nuclear stress testing to an outpatient basis She was subsequently discharged home and states that since then, her chest pains have subsided with no recent recurrence She was also started additionally on Lisinopril 5 mg QD when she was at the [facility] due to her persistently elevated blood pressure and she has been tolerating this with no issues She is currently still on Metoprolol ER 25 mg QD She denies any headaches or dizziness Denies any recent chest pains since her discharge from [facility] a month ago, no SOB No nausea/vomiting, no abdominal pain No change in bowel habits noted Adds that she is still having trouble sleeping at night and needs something to help with this She was taking Trazodone previously but stopped taking it a couple of weeks ago as since her hospital admission last month, she would feel frequent chest discomfort and that her heart would start racing at times everytime she took her Trazodone recently States that she tried cutting her Rx in half but still gets the same sensations although they are less severe but she is not able to sleep with just a half dose of her Trazodone Relates that she has tried Zolpidem in the past but ended up sleepwalking while on the Rx She had her follow up labs done earlier today - to discuss her results Would also like to get her flu shot today PFSH Medical History Markel syndrome Obesity (BMI 30-39.9) Diabetes mellitus Coronary atherosclerosis Asthma Depression Epilepsy Anxiety Insomnia Osteopenia Allergic rhinitis Acquired hypothyroidism Acute non intractable tension-type headache Mixed hyperlipidemia Surgical History Hx of cardiac cath (~05/05/22) History of ST elevation myocardial infarction (STEMI) Hx of shoulder surgery History of bunionectomy History of esophagogastroduodenoscopy (EGD) Hx of colonoscopy Family History Father HTN (hypertension) Heart disease Myocardial infarction Mother Diabetes Hyperchloremia HTN (hypertension) Myocardial infarction Family/Other Stomach cancer Other Thyroid nodule Social History Household Members: None Housing: Apartment Alcohol intake: current Alcohol intake frequency: does not drink Patient Tobacco Use Status: Never used Tobacco e-Cigarette/Vaping Use: Never Used Second Hand Smoke Exposure: No service: No Current occupational status: disabled Cognitive needs: No Hearing needs: No Vision needs: Yes Questionnaire PHQ-9 Over the last 2 weeks, how often have you been bothered by any of the following problems? 1. Little interest or pleasure in doing things: not at all 2. Feeling down, depressed, or hopeless: not at all 3. Trouble falling or staying asleep, or sleeping too much: not at all 4. Feeling tired or having little energy: not at all 5. Poor appetite or overeating: not at all 6. Feeling bad about yourself - or that you are a failure or have let yourself or your family down: not at all 7. Trouble concentrating on things, such as reading the newspaper or watching television: not at all 8. Moving or speaking so slowly that other people could have noticed. Or the opposite - being so fidgety or restless that you have been moving around a lot more than usual: not at all 9. Thoughts that you would be better off or of hurting yourself in some way: not at all Total score: 0 Depression Screening Interpretation: Positive Depression Screening Follow-up: Existing condition and In treatment Depression Screening Done: Yes 80345 - PHQ-9 Billing: Yes Source: Developed by Drs. Ziyad Gary, Dayana Crane, Vinh Brar and colleagues, with an educational vero from [employer]. Thrive Questionnaire Date Thrive assessed: 03/14/24 I am a: Patient What is your living situation today?: I have a steady place to live Within the past 12 months, did the food you bought not last and you didn't have the money to get more?: Never true Within the past 12 months, did you worry whether your food would run out before you got money to buy more?: Never true Do you have trouble paying for medicines?: No Do you have trouble getting transportation to medical appointments?: No Do you have trouble paying your heating and electricity bill?: No Do you have trouble taking care of your child, family member or friend?: No Do you have trouble with day-to-day activities such as bathing, preparing meals, shopping, managing finances, etc.?: No Are you currently unemployed and looking for a job?: No Are you interested in more education?: No Please select the resources that you would like help with: None Currently or been in a relationship where the following occur: No concerns reported THRIVE Score: 0 AUDIT C Alcohol Use Questionnaire (AUDIT-C) 1. How often do you have a drink containing alcohol?: Never 2. How many drinks containing alcohol do you have on a typical day when you are drinking?: 1 or 2 3. How often do you have six or more drinks on one occasion?: Never Total Score: 0 Score Reviewed/Action Taken: Yes RASHI-7 AMB Questionnaire RASHI-7 Date RASHI - 7 assessed: 03/14/24 Feeling nervous, anxious, or on edge: 0 = Not at all Not being able to stop or control worryin = Not at all Worrying too much about different things: 0 = Not at all Trouble relaxin = Not at all Being so restless that it is hard to sit still: 0 = Not at all Becoming easily annoyed or irritable: 0 = Not at all Feeling afraid as if something awful might happen: 0 = Not at all Total RASHI-7 score (0-4 normal; 5-9 mild; 10-14 moderate; 15-21 severe): 0 Source: Developed by Drs. Ziyad Gary, Dayana Crane, Vinh Brar and colleagues, with an educational vero from [employer]. Review of Systems Const Denies chills, Reports difficulty sleeping, Denies fatigue, Denies fever(s) and Denies headache(s) ENT Denies dysphagia, Denies dizziness, Denies otalgia, Denies headache(s), Denies neck pain, Denies odynophagia and Denies sore throat Card Denies chest pain, Denies rapid heart rate, Denies irregular heart rhythm, Denies palpitations and Denies dyspnea Resp Denies chest congestion, Denies cough and Denies dyspnea GI Denies abdominal pain, Denies constipation, Denies dysphagia, Denies heartburn, Denies diarrhea, Denies nausea, Denies odynophagia and Denies vomiting Denies hematuria, Denies urinary frequency, Denies dysuria, Denies urinary incontinence and Denies urinary urgency Musc Denies back pain, Reports arthralgias (on and off over her right ankle, foot and heel ) and Denies neck pain Skin/Breast Denies rash Neuro Denies dizziness, Denies headache(s) and Denies paresthesias Psych Denies anxiety and Denies depression Endo Denies fatigue and Denies palpitations Bryson/Lymph Denies easy bruising Physical exam (Primary Care) Vital Signs: Last Vital Signs Pulse 77 03/14/24 10:10 BP 120/70 03/14/24 10:10 Pulse Ox 98 03/14/24 10:10 Oxygen Delivery Method Room Air 03/14/24 10:10 BMI result Body Mass Index 32.1 Tobacco/Smoking Status: Tobacco use Status Tobacco use date assessed 03/14/24 03/14/24 10:12 Patient Tobacco Use Status Never used Tobacco 03/14/24 10:12 e-Cigarette/Vaping Use Never Used 03/14/24 10:12 PHQ-9: PHQ-9 Score PHQ-9: Total score 0 03/14/24 12:46 Depression Screening Interpretation: Positive Depression Screening Follow-up: Existing condition and In treatment Thrive Assessment: Date of Thrive Assessment Date Thrive assessed 03/14/24 03/14/24 10:12 Currently or been in a relationship where the following occur: No concerns reported Const General: no acute distress and alert HENMT Ears: TM's normal bilaterally and EAC's normal Throat: Yes posterior oropharynx normal and Yes tonsils normal (no TP congestion) Neck Neck: Yes no lymphadenopathy and Yes supple Thyroid: Thyroid normal Resp Auscultation: clear to auscultation bilaterally, no rales and no wheezes Cardio Rate: regular rate Rhythm: regular rhythm Heart sounds: no murmurs GI Palpation (GI): Soft to palpation and nontender Auscultation: normal bowel sounds General: Yes no CVA tenderness Back/Spine/Pelvis Back: no CVA tenderness Thoracic/Lumbar Spine: No lumbar spinal tenderness Skin Rashes: no rashes Extrem General: Yes no clubbing, cyanosis or edema Right lower extremity: ankle Details: tenderness (mild) Location: of the lateral malleolus and of the achilles tendon; no swelling and foot Details: tenderness (mild) Location: of the calcaneus Office Procedures Flu Questionnaire Does the patient have a severe egg allergy?: No Does the patient have severe life threatening allergies?: No Does the patient have a fever or illness today?: No Has the patient ever had Guillain-Mullens Syndrome?: No Has the patient ever had any past reaction to a flu shot?: No Results AMB Hemoglobin A1c AMB Hemoglobin A1c 6.9 % Last Edit by ROSALINDA Denise on 03/14/24 10 :33 Immunizations Fluarix Triv 4330-3531 (PF) 45 mcg (15 mcg x 3)/0.5 mL IM syringe Performing Provider: Jacoby Kamara MD Performing Location: [facility] [place] [place] [facility] Administered by: ROSALINDA Denise on 03/14/24 10:27 Dose Route Admin Location Dispensed Lot Number Expiration Date [facility] Terminal Operator 0.5 mL IM Left Deltoid 0.5 mL [id number] 12/10/24 11931-510-86 Huan Xiong VIS Given Date VIS Provided VIS Publication Date 03/14/24 Single Vaccine 21 Eligibility Eligibility Date Funding Source Not [facility] Eligible 03/14/24 Private Results Reviewed Results Reviewed: Laboratory Last Values Hgb A1c (Clinic) 6.9 % (4.0-6.0) H 03/14/24 10:12 Laboratory Tests 03/14/24 03/14/24 07:59 08:00 WBC 5.6 Hgb 12.4 Hct 37.6 Plt Count 230 Sodium 140 Potassium 4.2 Creatinine 0.84 Estimated GFR > 60 Fasting Glucose 144 H Hemoglobin A1c % 6.3 H Calcium 9.6 AST 27 ALT 27 Triglycerides 171 H Cholesterol 163 LDL Cholesterol, Calc 84 HDL Cholesterol 45 25-OH Vitamin D Total 32.4 TSH 3.62 Free T4 1.00 Ur Specific Hunter 1.015 Urine Protein Negative Urine Glucose (UA) Negative Urine Blood Negative Urine Nitrite Negative Ur Leukocyte Esterase Negative Coding Level of Care Code Est Pt Level 4 (61869) Complex EM visit Add On G2211 Diagnoses Acute pericarditis, unspecified type I30.9 Pericarditis type: unspecified type Chronicity: acute Atherosclerosis of [place] coronary artery of [place] heart without angina pectoris I25.10 Coronary Disease-Associated Artery/Lesion type: [place] artery [place] vs. transplanted heart: [place] heart Associated angina: without angina Mixed hyperlipidemia E78.2 Type 2 diabetes mellitus with hyperglycemia, without long-term current use of insulin E11.65 Diabetes mellitus type: type 2 Diabetes mellitus jail insulin use: without computer terminal operator use Diabetes mellitus complication status: with hyperglycemia Essential hypertension I10 Moderate persistent asthma with acute exacerbation J45.41 Asthma severity: moderate Asthma persistence: persistent Asthma complication type: with acute exacerbation Acquired hypothyroidism E03.9 Thyroid nodule E04.1 Allergic rhinitis, unspecified seasonality, unspecified trigger J30.9 Allergic rhinitis trigger: unspecified Allergic rhinitis seasonality: unspecified Nonintractable epilepsy without status epilepticus, unspecified epilepsy type G40.909 Epilepsy type: unspecified Intractability: not intractable Status epilepticus: without status epilepticus Erosive esophagitis K22.10 Insomnia, unspecified type G47.00 Insomnia type: unspecified Anxiety F41.9 Episode of recurrent major depressive disorder, unspecified depression episode severity F33.9 Depression Type: major depressive disorder Major depression recurrence: recurrent Active/Remission status: currently active Major depression episode severity: unspecified Obesity (BMI 30-39.9) E66.9 Assessment & Plan Assessment & Plan (1) Pericarditis: Code(s): I31.9 - Disease of pericardium, unspecified Category: Medical Qualifiers: Pericarditis type: unspecified type Chronicity: acute Qualified Code(s): I30.9 - Acute pericarditis, unspecified Plan: Cardiac work ups done at the ER at [facility] a month ago were all negative It was presumed that her chest pains at the time were likely due to pericarditis She was started on Colchicine 0.6 mg QD and she has been advised to stay on this for at least 90 days - she is currently just over 30 days into her Rx and will need to continue it for a couple of more months (2) Coronary atherosclerosis: Comment: S/P cardiac cath with stenting of LAD with ISAIAH on 05/05/2022 Code(s): I25.10 - Atherosclerotic heart disease of [place] coronary artery without angina pectoris Category: Medical Qualifiers: Coronary Disease-Associated Artery/Lesion type: [place] artery [place] vs. transplanted heart: [place] heart Associated angina: without angina Qualified Code(s): I25.10 - Atherosclerotic heart disease of [place] coronary artery without angina pectoris Plan: Patient continues to remain asymptomatic from cardiac standpoint Continue Aspirin 81 mg QD for lifelong antiplatelet Tx; continue Clopidogrel 75 mg QD and Metoprolol ER 25 mg QD (was taken off Brilinta by cardiology previously due to increasing SOB) Myocardial perfusion stress test imaging done on 09/08/22 at [facility] reportedly came out normal Repeat echocardiogram done on 10/26/2022 at [facility] was also normal, with EF of 65 to 70% (EF was at 35 to 40% back in April 2022 when patient had her TX and was experiencing ischemic cardiomyopathy at the time) Follow up with cardiology as scheduled (3) Mixed hyperlipidemia: Code(s): E78.2 - Mixed hyperlipidemia Category: Medical Plan: Results of her labs done earlier this morning reviewed and discussed with patient Reinforced low cholesterol diet She was on Atorvastatin 80 mg QD previously but she cut her dose down to 40 mg QD on her own a couple of weeks ago due to increased myalgia, which she attributed to her cholesterol Rx States that her muscle pains subsided when she cut her dose down Will have her continue on Atorvastatin 40 mg QD for now Will recheck her labs and fasting lipids in 4 months for follow-up - advised that if her cholesterol levels go up on the 40 mg dose, we may need to explore alternative Tx for her cholesterol levels (4) Diabetes mellitus: Code(s): E11.9 - Type 2 diabetes mellitus without complications Category: Medical Qualifiers: Diabetes mellitus type: type 2 Diabetes mellitus computer terminal operator insulin use: without computer terminal operator use Diabetes mellitus complication status: with hyperglycemia Qualified Code(s): E11.65 - Type 2 diabetes mellitus with hyperglycemia Plan: Her HgbA1c is at 6.3% on her labs done earlier today (HgbA1c was at 6.7% a few months ago) - goal is at least <7.0% but ideally <6.5% Reinforced diabetic diet Will go ahead and increase her Metformin ER to 500 mg BID: she could not tolerate Farxiga (chest pains) (5) Essential hypertension: Code(s): I10 - Essential (primary) hypertension Category: Medical Plan: Reinforced low sodium diet - goal is systolic BP of 120 mm or less Continue Lisinopril 5 mg QD (6) Asthma: Code(s): J45.909 - Unspecified asthma, uncomplicated Category: Medical Qualifiers: Asthma severity: moderate Asthma persistence: persistent Asthma complication type: with acute exacerbation Qualified Code(s): J45.41 - Moderate persistent asthma with (acute) exacerbation Plan: Stable [place] Advair HFA 115-21 mcg 2 inhalations BID and Albuterol HFA 1 to 2 inhalations Q 6 hours PRN (7) Acquired hypothyroidism: Code(s): E03.9 - Hypothyroidism, unspecified Category: Medical Plan: Her TFTs were normal on her recent labs Continue Levothyroxine 100 mcg QD Will recheck her TFTs in 4 months for follow up (8) Thyroid nodule: Code(s): E04.1 - Nontoxic single thyroid nodule Category: Medical Plan: Thyroid US done a few months ago revealed (+) TI-RADS Category 4 right midpole nodule with maximum dimension of 1.0 cm Recommend followup ultrasound in 1, 2, 3 and 5 years for continuing surveillance She had a thyroid Bx done by endocrinology last year on 07/15/2022 - cytology was benign Follow up with endocrinology as scheduled (9) Allergic rhinitis: Code(s): J30.9 - Allergic rhinitis, unspecified Category: Medical Qualifiers: Allergic rhinitis trigger: unspecified Allergic rhinitis seasonality: unspecified Qualified Code(s): J30.9 - Allergic rhinitis, unspecified Plan: Patient used to see Dr. Donita Ho for her allergies and was on Nasacort and Azelastine but has not used these in a while as she did not feel that they were helping adequately She also has not seen Dr. Ho in a few years - she currently lives in the [facility] [place] and finds it too far to go all the way to [place] She is now going to [facility] in [place] for her allergy issues Continue Cetirizine 10 mg QD PRN (10) Epilepsy: Code(s): G40.909 - Epilepsy, unspecified, not intractable, without status epilepticus Category: Medical Qualifiers: Epilepsy type: unspecified Intractability: not intractable Status epilepticus: without status epilepticus Qualified Code(s): G40.909 - Epilepsy, unspecified, not intractable, without status epilepticus Plan: Stable lately; recalls that her last seizure episode was over a year ago, and that she has never been started on any Rx for her seizures She was referred to neurology last year but patient states that she does not want to go back to see Dr. Pittman She was referred instead to Dr. Donahue as she has [facility], which is not accepted by [facility] practices - to follow up with neurology as scheduled (11) Erosive esophagitis: Code(s): K22.10 - Ulcer of esophagus without bleeding Category: Medical Plan: Dx by EGD with Bx Dietary restrictions reinforced Was doing well on Omeprazole 40 mg BID but insurance would NOT cover Rx and she was getting Rx [id number] for a while but could not afford to continue Is currently on Famotidine 40 mg BID and Carafate liquid Q HS Follow up with GI as scheduled (12) Insomnia: Code(s): G47.00 - Insomnia, unspecified Category: Medical Qualifiers: Insomnia type: unspecified Qualified Code(s): G47.00 - Insomnia, unspecified Plan: Sleep hygiene reinforced She could not tolerate Trazodone due to side effects; also had issues with Zolpidem in the past Will start her for now on Doxepin 25 mg Q HS PRN (13) Anxiety: Code(s): F41.9 - Anxiety disorder, unspecified Category: Medical Plan: Continue Clonazepam 0.5 mg BID PRN Follow-up with Psychiatry as scheduled (14) Depression: Code(s): F32.9 - Major depressive disorder, single episode, unspecified Category: Medical Qualifiers: Depression Type: major depressive disorder Major depression recurrence: recurrent Active/Remission status: currently active Major depression episode severity: unspecified Qualified Code(s): F33.9 - Major depressive disorder, recurrent, unspecified Plan: Continue Escitalopram 20 mg QD (reportedly felt angry often while on Fluoxetine in the past) Follow-up with Psychiatry as scheduled (15) Obesity (BMI 30-39.9): Code(s): E66.9 - Obesity, unspecified Category: Medical Plan: Reinforced diet/exercise as tolerated/lose weight Plan As requested, flu vaccine given to patient today Follow up in 4 months Orders: Orders Complete Blood Count Auto Diff 4 Months D64.9 - Anemia, unspecified Comprehensive [place]. Panel Fast 4 Months E78.00 - Pure hypercholesterolemia, unspecified Lipid Panel 4 Months E78.00 - Pure hypercholesterolemia, unspecified Microalbumin, Random (w Creat) 4 Months E11.9 - Type 2 diabetes mellitus without complications Influenza [id number] Immunization 03/14/24 Z23 - Encounter for immunization AMB Hemoglobin A1c 03/14/24 Z13.9 - Encounter for screening, unspecified Hemoglobin A1c 4 Months E11.9 - Type 2 diabetes mellitus without complications Medications: New doxepin 25 mg PO BEDTIME PRN 30 caps 3RF anxiety 30 days Changed From metformin ER 500 mg PO BEDTIME 90 tabs 1RF To metformin ER 500 mg PO BID 180 tabs 1RF 90 days Discontinued trazodone Discontinued Reason: Doctor's Order 150 mg PO BEDTIME 30 tabs 3RF
== END 2024-03-14 11:21 | disposition home or self-care (01) ==
PROVIDERS: PCP Internal Medicine; Visit Provider Internal Medicine
DX: E11.65 Type 2 diabetes mellitus with hyperglycemia (principal); G40.909 Epilepsy, unspecified, not intractable, without status epilepticus; F33.9 Major depressive disorder, recurrent, unspecified; I30.9 Acute pericarditis, unspecified; I25.10 Atherosclerotic heart disease of native coronary artery without angina pectoris; E78.2 Mixed hyperlipidemia; I10 Essential (primary) hypertension; J45.41 Moderate persistent asthma with (acute) exacerbation; E03.9 Hypothyroidism, unspecified; E04.1 Nontoxic single thyroid nodule; K22.10 Ulcer of esophagus without bleeding; J30.9 Allergic rhinitis, unspecified

== ENCOUNTER 2024-09-04 16:24 | Outpatient (REF) | payer OTHER, SELFPAY ==
--- NOTE | ~2024-09-04 | XR_ITS ---
CLINICAL HISTORY: J98.8 - Other specified respiratory disorders Two views of the chest. COMPARISON: None FINDINGS: Normal heart and mediastinal contours. No consolidation. No pleural effusion or pneumothorax. No fracture identified. IMPRESSION: 1. No consolidation. This document has been electronically signed by: Dylan Shen MD on 09/04/2024 16:45:05
== END 2024-09-04 16:25 | disposition home or self-care (01) ==
LOC: HO.XRAY 16:24
PROVIDERS: PCP Internal Medicine; Visit Provider Internal Medicine
DX: J98.8 Other specified respiratory disorders (principal)
CPT/HCPCS: 71046

== ENCOUNTER → 2024-09-04 16:28 | Outpatient (BNV) | payer OTHER, SELFPAY | PROVIDERS: PCP Internal Medicine; Visit Provider Radiology Diagnostic Radiology | DX: J98.8 Other specified respiratory disorders (principal) | CPT/HCPCS: 71046 ==

== ENCOUNTER 2024-09-05 08:41 | Outpatient (AMB) | payer OTHER, SELFPAY ==
--- NOTE | 2024-09-05 08:48 | A.OFFPC_ITS ---
Vital Signs 09/05/24 08:51 Height 5 ft 2 in Weight 179 lb BMI 32.7 BP 120/76 Blood Pressure Location Lt brachial Position Sitting Pulse 69 Pulse Source Pulse Oximeter Temp 97.1 F Temp Source Temporal Artery Scan Pulse Oximetry (%) 98 Oxygen Delivery Method Room Air Intake Visit Reasons: sinus infection? Intake Note: Patient complains of sinus infection?, productive coughs sometimes, headaches, no fever or chills ongoing for twelve days . Developer Advocate Required: No [employer] Field Technician: Not Required per policy Accompanied by: Self / Same As Patient Allergies Benadryl Allergy (Unknown, Verified 09/05/24 09:12) unknown dapagliflozin Adverse Reaction (Severe, Verified 09/05/24 09:12) Chest Pain, Weakness, Nausea, Fatigue amoxicillin [Augmentin] Adverse Reaction (Intermediate, Verified 09/05/24 09:12) diarrhea atorvastatin Adverse Reaction (Intermediate, Verified 09/05/24 09:12) myalgia, feet pain, hair loss morphine [MORPHINE] Adverse Reaction (Intermediate, Verified 09/05/24 09:12) TACHYCARDIA, CP, confusion simvastatin Adverse Reaction (Intermediate, Verified 09/05/24 09:12) swelling of feet tramadol [TRAMADOL] Adverse Reaction (Intermediate, Verified 09/05/24 09:12) DIZZYNESS, confusion trazodone Adverse Reaction (Intermediate, Verified 09/05/24 09:12) chest discomfort; tachycardia zolpidem Adverse Reaction (Intermediate, Verified 09/05/24 09:12) sleepwalking paroxetine [Paxil] Adverse Reaction (Unknown, Verified 09/05/24 09:12) Unknown Medication List - Last Reconciled 09/05/24 by DARRICK Lawson albuterol sulfate 90 mcg/actuation 2 puffs PO Q6H PRN albuterol sulfate 2.5 mg (3 mL) inhalation QID PRN 30 days aspirin 81 mg PO DAILY atorvastatin 80 mg PO BEDTIME 90 days blood sugar diagnostic (FreeStyle Lite Strips) As directed once a day blood-glucose meter (FreeStyle Lite Meter kit) As directed ecwroxzbmc-coobfqjcyvjgg-exqk 50-325-40 mg 1 cap PO TID PRN 20 days cetirizine 10 mg PO DAILY PRN 90 days clonazepam 0.5 mg PO BID PRN 30 days colchicine 0.6 mg PO DAILY dicyclomine 10 mg PO QID PRN escitalopram oxalate 20 mg PO DAILY 30 days fluticasone propion-salmeterol 115-21 mcg/actuation (Advair HFA) 2 puffs inhalation BID 30 days lancets (FreeStyle Lancets) As directed once a day levothyroxine 100 mcg PO DAILY lisinopril 5 mg PO DAILY metoprolol succinate ER 25 mg PO DAILY 90 days [NEBULIZER As directed] nitroglycerin mg sublingual omeprazole 40 mg PO BID 30 days sennosides (senna) 17.2 mg (2 x 8.6 mg) PO BEDTIME PRN sitagliptin phosphate (Januvia) 50 mg PO DAILY 90 days trazodone 150 mg PO BEDTIME Tobacco use date assessed: 09/05/24 Dental Screening Dental Screen Date: 09/05/24 Did you have a dental visit in the last 12 months?: Yes Did you have a dental problem in the last 6 months where you did not have access to dental care?: No Was dental information given to patient?: Patient has dentist HPI sinus infection? HPI Details The patient is a 63-year-old female who is presenting for evaluation for sinus infection Reports that her cough started 15 days ago. She went to urgent care and was prescribed Tessalon Perles without relief Reports that she called Dr. Kamara and was prescribed a Z-[place] without any relief as well Reports that she is still coughing in her head hurts in his worse when she bends down Reports that her headaches settles on the top of her head in the around the temporal lobes Reports she is having runny nose and nasal congestion alternatively Respiratory panel was all negative. Reports that she is short of breath at night Patient reports that she has been using her albuterol rescue inhaler. However, she has not been using her Advair inhaler, in fear of this affecting her heart Cough: started almost 15 days. Went to urgent care and the prescribed teslon pearls. Reports that she called Dr. Kamara and was sent the zpack without any relief. She reports that she is still coughing and her head hurts and worse if she bends down. Reports that the WERNER is on top of her head and in the temporal area. The is having runny and congested nose alteratively. Respiratory panel was all negative so far. short of breath at night. [facility]LY [facility] Medical History Markel syndrome Obesity (BMI 30-39.9) Diabetes mellitus Coronary atherosclerosis Asthma Depression Epilepsy Anxiety Insomnia Osteopenia Allergic rhinitis Acquired hypothyroidism Acute non intractable tension-type headache Mixed hyperlipidemia Surgical History Hx of cardiac cath (~05/05/22) History of ST elevation myocardial infarction (STEMI) Hx of shoulder surgery History of bunionectomy History of esophagogastroduodenoscopy (EGD) Hx of colonoscopy Family History Father HTN (hypertension) Heart disease Myocardial infarction Mother Diabetes Hyperchloremia HTN (hypertension) Myocardial infarction Family/Other Stomach cancer Other Thyroid nodule Social History Household Members: None Housing: Apartment Alcohol intake: current Alcohol intake frequency: does not drink Patient Tobacco Use Status: Never used Tobacco e-Cigarette/Vaping Use: Never Used Second Hand Smoke Exposure: No service: No Current occupational status: disabled Cognitive needs: No Hearing needs: No Vision needs: Yes (Glasses) Questionnaire PHQ-9 Over the last 2 weeks, how often have you been bothered by any of the following problems? 1. Little interest or pleasure in doing things: not at all 2. Feeling down, depressed, or hopeless: not at all 3. Trouble falling or staying asleep, or sleeping too much: not at all 4. Feeling tired or having little energy: not at all 5. Poor appetite or overeating: not at all 6. Feeling bad about yourself - or that you are a failure or have let yourself or your family down: not at all 7. Trouble concentrating on things, such as reading the newspaper or watching television: not at all 8. Moving or speaking so slowly that other people could have noticed. Or the opposite - being so fidgety or restless that you have been moving around a lot more than usual: not at all 9. Thoughts that you would be better off or of hurting yourself in some way: not at all Total score: 0 Depression Screening Interpretation: Negative Depression Screening Done: Yes 95931 - PHQ-9 Billing: Yes Source: Developed by Drs. Ziyad Gary, Dayana Crane, Vinh Brar and colleagues, with an educational vero from [employer]. Thrive Questionnaire Date Thrive assessed: 09/05/24 I am a: Patient What is your living situation today?: I have a steady place to live Within the past 12 months, did the food you bought not last and you didn't have the money to get more?: Never true Within the past 12 months, did you worry whether your food would run out before you got money to buy more?: Never true Do you have trouble paying for medicines?: No Do you have trouble getting transportation to medical appointments?: No Do you have trouble paying your heating and electricity bill?: No Do you have trouble taking care of your child, family member or friend?: No Do you have trouble with day-to-day activities such as bathing, preparing meals, shopping, managing finances, etc.?: No Are you currently unemployed and looking for a job?: No Are you interested in more education?: No Please select the resources that you would like help with: None Currently or been in a relationship where the following occur: No concerns reported THRIVE Score: 0 AUDIT C Alcohol Use Questionnaire (AUDIT-C) 1. How often do you have a drink containing alcohol?: Never Total Score: 0 RASHI-7 AMB Questionnaire RASHI-7 Date RASHI - 7 assessed: 09/05/24 Feeling nervous, anxious, or on edge: 0 = Not at all Not being able to stop or control worryin = Not at all Worrying too much about different things: 0 = Not at all Trouble relaxin = Not at all Being so restless that it is hard to sit still: 0 = Not at all Becoming easily annoyed or irritable: 0 = Not at all Feeling afraid as if something awful might happen: 0 = Not at all Total RASHI-7 score (0-4 normal; 5-9 mild; 10-14 moderate; 15-21 severe): 0 Source: Developed by Dayana Odell Kurt Kroenke and colleagues, with an educational vero from [employer]. RASHI-7 Assessment Billing RASHI-7 Assessment Tool: RASHI-7 Assessment 59237 Review of Systems Const Reports headache(s) Eyes Denies loss of vision ENT Denies vertigo, Denies dizziness, Reports headache(s), Reports nasal congestion, Reports nasal discharge, Reports post nasal drip and Denies sore throat Card Denies chest pain, Denies leg edema, Denies lightheadedness and Reports dyspnea (at night) Resp Reports cough, Denies hemoptysis, Reports dyspnea (at night) and Denies wheezing GI Denies abdominal pain, Denies melena, Denies constipation, Denies diarrhea and Denies vomiting Denies urinary frequency, Denies dysuria and Denies urinary urgency Musc Denies arthralgias, Denies joint swelling, Denies numbness and Denies tingling Neuro Denies Abnormal speech present, Denies behavioral changes, Denies vertigo, Denies dizziness, Reports headache(s), Denies loss of vision, Denies memory loss, Denies numbness and Denies tingling Psych Denies anxiety, Denies behavioral changes, Denies depression, Denies memory loss and Denies panic attacks Bryson/Lymph Denies easy bleeding and Denies easy bruising Aller/Immun Denies wheezing Physical exam (Primary Care) Vital Signs: Last Vital Signs Temp 97.1 F 09/05/24 08:51 Pulse 69 09/05/24 08:51 BP 120/76 09/05/24 08:51 Pulse Ox 98 09/05/24 08:51 Oxygen Delivery Method Room Air 09/05/24 08:51 BMI result Body Mass Index 32.7 Tobacco/Smoking Status: Tobacco use Status Tobacco use date assessed 09/05/24 09/05/24 08:56 Patient Tobacco Use Status Never used Tobacco 09/05/24 08:56 e-Cigarette/Vaping Use Never Used 09/05/24 08:56 PHQ-9: PHQ-9 Score PHQ-9: Total score 0 09/05/24 09:19 Depression Screening Interpretation: Negative Thrive Assessment: Date of Thrive Assessment Date Thrive assessed 09/05/24 09/05/24 08:56 Currently or been in a relationship where the following occur: No concerns reported Const General: healthy appearing, no acute distress, alert and awake Nutritional Appearance: well nourished Orientation/consciousness: oriented to person, oriented to place and oriented to time HENMT Ears: TM's normal bilaterally General nose exam: Abnormal mucous membranes and turbinates present boggy and erythematous Face and sinus: Yes sinuses nontender Mouth: Normal oral and palatal mucosa present Throat: Yes posterior oropharynx normal Eyes Conjunctivae: conjunctivae normal Sclerae: sclerae normal Pupils: Equal, round and reactive pupils present Neck Neck: Yes no lymphadenopathy and Yes no JVD Thyroid: Thyroid normal Carotids: no bruits Resp Effort & Inspection: normal respiratory effort and not tachypneic Auscultation: no crackles, no rales, no rhonchi and no wheezes Cardio Rate: regular rate Rhythm: regular rhythm Heart sounds: no murmurs and normal S1 and S2 GI Palpation (GI): Soft to palpation, nontender, no hepatomegaly and no splenomegaly Auscultation: normal bowel sounds Skin General skin exam: no rashes or lesions noted and dry skin Neuro General: oriented to person, oriented to place and oriented to time Cranial nerves: Yes Equal, round and reactive pupils present Speech: No Abnormal speech present Gait exam (Neuro): Normal gait present Motor exam (neuro): no tremor noted Extrem Right upper extremity: full ROM Left upper extremity: full ROM Right lower extremity: full ROM; no edema Left lower extremity: full ROM; no edema Psych Mental Status: mental status grossly normal Speech and movement: Normal speech and movement present Affect: normal affect Attitude: cooperative Thought process: Normal thought process present Coding Level of Care Code Est Pt Level 4 (05374) Diagnoses Allergic rhinitis, unspecified seasonality, unspecified trigger J30.9 Allergic rhinitis trigger: unspecified Allergic rhinitis seasonality: unspecified Moderate persistent asthma with acute exacerbation J45.41 Asthma severity: moderate Asthma persistence: persistent Asthma complication type: with acute exacerbation Subacute cough R05.2 Cough type: subacute Chronic nonintractable headache, unspecified headache type R51.9; G89.29 Headache type: unspecified Headache chronicity pattern: chronic headache Intractability: not intractable Additional Codes PHQ-9 - 07044 - PHQ-9 Billing: Yes ([id number]) RASHI-7 Assessment Billing - RASHI-7 Assessment Tool: RASHI-7 Assessment 81863 ([id number]) Time Spent (min) 39 Assessment & Plan Assessment & Plan (1) Allergic rhinitis: Code(s): J30.9 - Allergic rhinitis, unspecified Category: Medical Qualifiers: Allergic rhinitis trigger: unspecified Allergic rhinitis seasonality: unspecified Qualified Code(s): J30.9 - Allergic rhinitis, unspecified Plan: Continue cetirizine 10 mg daily PRN, flonase nasal spray OTC. Prednisone tapered ordered an allergic referral was already ordered by Dr. Kamara (2) Asthma: Code(s): J45.909 - Unspecified asthma, uncomplicated Category: Medical Qualifiers: Asthma severity: moderate Asthma persistence: persistent Asthma complication type: with acute exacerbation Qualified Code(s): J45.41 - Moderate persistent asthma with (acute) exacerbation Plan: Shortness of breath at nighttime. Using albuterol rescue inhaler only; fear that her Advair inhaler we will worsen her heart condition. Discussed with the patient that it is safer to use the Advair inhaler twice a day, than constantly using her rescue inhaler. Advair inhaler refilled. (3) Cough: Code(s): R05.9 - Cough, unspecified Category: Medical Qualifiers: Cough type: subacute Qualified Code(s): R05.2 - Subacute cough Plan: refractory nzcig-cktyhaf-ncqrzqudcjs PRN x7 days ordered (4) Headache: Code(s): R51.9 - Headache, unspecified Category: Medical Qualifiers: Headache type: unspecified Headache chronicity pattern: chronic headache Intractability: not intractable Qualified Code(s): R51.9 - Headache, unspecified; G89.29 - Other chronic pain Plan: Refilled the patient fnwzcubiid-lnvglydhuzgoc-irlm 50-325-40 mg Medications: New prednisone see taper instructions 4 tabs x2 day, 3 tabs x 2 days, 2 tabs x 2 days, 1 tab x 2 days 10 mg PO DIRECTED 20 tabs 0RF codeine-guaifenesin 10-100 mg/5 mL 10 mL PO Q4-6H 7 days PRN 200 mL 0RF cough Refilled fluticasone propion-salmeterol 115-21 mcg/actuation (Advair HFA) 2 puffs inhalation BID 30 days 12 grams 3RF J45.41 - Moderate persistent asthma with (acute) exacerbation pkodjfpjkf-duqlhqmizxysb-fyqq 50-325-40 mg 1 cap PO TID 20 days PRN 60 caps 1RF headaches
[2024-09-05 08:51] VITALS: BP 120/76; PULSE 69; TEMP 36.2; O2SAT 98; BMI 32.7
== END 2024-09-05 09:45 | disposition home or self-care (01) ==
LOC: HO.HMCH 08:42
PROVIDERS: PCP Internal Medicine
DX: J30.9 Allergic rhinitis, unspecified (principal); J45.41 Moderate persistent asthma with (acute) exacerbation; R05.2 Subacute cough; R51.9 Headache, unspecified; G89.29 Other chronic pain

== ENCOUNTER → 2024-09-05 08:41 | Outpatient (BNVA) | payer OTHER, SELFPAY | PROVIDERS: PCP Internal Medicine | DX: J30.9 Allergic rhinitis, unspecified (principal); J45.41 Moderate persistent asthma with (acute) exacerbation; R05.2 Subacute cough; R51.9 Headache, unspecified; G89.29 Other chronic pain | CPT/HCPCS: 96127; 99212 ==

== ENCOUNTER 2024-10-08 09:58 | Outpatient (REF) | payer OTHER, SELFPAY ==
[2024-10-08 10:21] LABS: MANUAL DIFF FLAG NO
[2024-10-08 10:46] LABS: Basophils Absolute Auto 0.1 X10*3/uL (0.0-0.2); Basophils Percent Auto 0.8 % (0-2); Eosinophils Absolute Auto 0.1 X10*3/uL (0.0-0.4); Eosinophils Percent Auto 1.7 % (0-4); Estimated Average Glucose 128 mg/dL; Hematocrit 36.2 % (37.0-47.0); Hemoglobin A1C 139.2371 umol/L; Hemoglobin A1c % 6.1 % (<6.0); Imm Gran Abs Auto 0.02 X10*3/uL (0.00-0.03); Imm Gran Pct Auto 0.3 % (0.0-0.4); Lymphocytes Absolute Auto 3.2 X10*3/uL (1.2-4.9); Lymphocytes Percent Auto 52.7 % (20-40); Mean Corpuscular HGB Conc 33.1 g/dl (31.0-35.0); Mean Corpuscular Hemoglobin 29.1 pg (27.0-33.0); Mean Corpuscular Volume 87.9 fL (80.0-98.0); Mean Platelet Volume 11.1 fL (9.4-12.3); Monocytes Absolute Auto 0.4 X10*3/uL (0.1-1.2); Monocytes Percent Auto 6.3 % (2-11); Neutrophils Absolute Auto 2.3 x10*3/uL (2.0-8.3); Neutrophils Percent Auto 38.2 % (45-73); Platelet Count 246 X10*3/uL (160-400); Red Blood Count 4.12 X10*6/uL (4.20-5.50); Total Hemoglobin (HGBA1C) 3218.1973 umol/L; White Blood Count 6.1 X10*3/uL (4.8-10.8)
[2024-10-08 11:20] LABS: Alanine Aminotransferase 24 U/L (0-31); Alkaline Phosphatase 65 U/L (39-117); Anion Gap 11 (12-20); Aspartate Amino Transferase 28 U/L (5-31); Bilirubin Total 0.4 mg/dL (0.0-1.0); Blood Urea Nitrogen 13 mg/dL (9-16); Calcium 9.1 mg/dL (8.4-10.2); Carbon Dioxide 24 mmol/L (22-29); Chloride 111 mmol/L (96-108); Cholesterol 156 mg/dL (<200); Estimated Glomerular Filt Rate > 60; Glucose Fasting 117 mg/dL (60-99); HDL Cholesterol 48 mg/dL (>40); LDL Cholesterol Calculated 87 mg/dL (<100); Potassium 4.4 mmol/L (3.3-5.1); Sodium 142 mmol/L (135-145); Total Protein 6.8 g/dL (6.5-8.0); Triglycerides 108 mg/dL (<150)
[2024-10-08 11:26] LABS: Creatinine Urine 64.08 mg/dL; Microalbumin Urine < 5.0 mg/L
== END 2024-10-08 09:59 | disposition home or self-care (01) ==
LOC: HO.LAB 09:58
PROVIDERS: PCP Internal Medicine; Visit Provider Internal Medicine
DX: D64.9 Anemia, unspecified (principal); E78.00 Pure hypercholesterolemia, unspecified; E11.9 Type 2 diabetes mellitus without complications
CPT/HCPCS: 36415; 80053; 80061; 82043; 82570; 83036; 85025

== ENCOUNTER 2024-10-19 14:57 | Outpatient (AMB) | payer OTHER, SELFPAY ==
--- OUTSIDE RECORDS SUMMARY | 2024-10-19 14:59 | XMS_ITS | Continuity of Care Document ---
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 Name Role Phone Eduardo LOMBARDO, Juanita Unavailable Unavailable Allergies, Adverse Reactions, Alerts Substance Reaction Status Criticality MORPHINE SULFATE Active No Informat ion POTASSIUM CLAVULANATE Active No Inf ormation AMOXICILLIN TRIHYDRATE Active No In formation PAROXETINE HCL Active No Informatio n Medications Medication Instructions Dosage Effective Dates (start - stop) Status Comments omeprazole 40 mg capsule,delayed release take 1 capsule by oral route every day before a meal 40 MG - Active Tirosint 75 mcg capsule take 1 capsule by oral route every day 75 MCG - Active baclofen 10 mg tablet take 1 tablet by oral route 3 times every day 10 MG - Active topiramate 50 mg tablet take 1 tablet by oral route 2 times every day 50 MG - Active Klonopin 0.5 mg tablet take 1 tablet by oral route 2 times every day 0.5 MG - Active diclofenac sodium 75 mg tablet,delayed release take 1 tablet by oral route 2 times every day 75 MG - Active Prozac 20 mg capsule take 1 capsule by oral route every day in the morning 20 MG - Active Prozac 40 mg capsule take 1 capsule by oral route every day in the morning 40 MG - Active fluoxetine 60 mg tablet take 1 tablet by oral route every day in the morning 60 MG - Active trazodone 150 mg tablet take 1 tablet by oral route every day 150 MG - Active oxycodone-acetami nophen 7.5 mg-325 [...] Diagnoses Date Provider Providers Copied on Encounter [email or web address], [address], [place], [place], [id number] , [facility] [place] No Information Eduardo Grant. [address], [address], [place], [address], [place]. tel:[phone] OFFICE/OUTPA TIENT VISIT, EST [email or web address], [address], [place], [place], [id number] , [facility] [place] neck pain (chief complaint) Pain in left shoulderChronic pain syndromeCervicalg iaRotator cuff rupture of left shoulder, not specified as traumaticRadiculo stuart, cervical regionBody mass index (BMI) 30.0-30.9, adult 8 Eduardo Grant. [address], [address], [place], [address], [place]. tel:[phone] Referring Provider: Samy patel, [facility] [place], [address] . [email or web address], [address], [place], [place], [id number] , [place] [facility] [place] Follow up chronic pain (chief complaint) Other disturbances of skin sensationBody mass index (BMI) 31.0-31.9, adult 8 [facility] Juanita. [address], [address], [place], [address], [place]. tel:[phone] Referring Provider: Samy aptel, [address] [place] [address], [phone] . OFFICE/OUTPA TIENT VISIT, [facility], [address], [place], [place], [id number] , [facility] [place] cervicalgia (chief complaint)[place] Pain (chief complaint) Pain in left shoulderChronic pain syndromeBody mass index (BMI) 31.0-31.9, adultCervicalgiaR otator cuff rupture of left shoulder, not specified as traumaticOther disturbances of skin sensation 0 3-201 8 [facility] [address], [place], [address], . tel:[phone] Referring Provider: Samy patel, [address] [place] [address], [phone] . [facility], [address], [place], [place], [id number] , [facility] [place] Pain in left shoulder 6 8 [facility] [address], [facility] [address], [place], [place], [facility], . tel:[phone] Referring Provider: Samy patel, [address] [place] [address], [phone] . Family History Family Member Type Diagnosis [...] ID Lex iniguez(s) [facility] Medicaid CI [id number] Social History Type Description Quantity Date Captured [...]
[2024-10-19 15:01] VITALS: BP 118/76; PULSE 79; O2SAT 95; BMI 32.6
--- NOTE | 2024-10-19 15:01 | MHC.PC.OV ---
Vital Signs 10/19/24 15:01 Height 5 ft 2 in Weight 178 lb 6 oz BMI 32.6 BP 118/76 Blood Pressure Location Lt brachial Position Sitting Pulse 79 Pulse Source Pulse Oximeter Pulse Oximetry (%) 95 Oxygen Delivery Method Room Air Intake Visit Reasons: 4 Months f/u Home Health Occupational Therapist Required: No Accompanied by: Self / Same As Patient Allergies Benadryl Allergy (Unknown, Verified 10/19/24 15:38) unknown dapagliflozin Adverse Reaction (Severe, Verified 10/19/24 15:38) Chest Pain, Weakness, Nausea, Fatigue amoxicillin [Augmentin] Adverse Reaction (Intermediate, Verified 10/19/24 15:38) diarrhea atorvastatin Adverse Reaction (Intermediate, Verified 10/19/24 15:38) myalgia, feet pain, hair loss morphine [MORPHINE] Adverse Reaction (Intermediate, Verified 10/19/24 15:38) TACHYCARDIA, CP, confusion simvastatin Adverse Reaction (Intermediate, Verified 10/19/24 15:38) swelling of feet tramadol [TRAMADOL] Adverse Reaction (Intermediate, Verified 10/19/24 15:38) DIZZYNESS, confusion trazodone Adverse Reaction (Intermediate, Verified 10/19/24 15:38) chest discomfort; tachycardia zolpidem Adverse Reaction (Intermediate, Verified 10/19/24 15:38) sleepwalking paroxetine [Paxil] Adverse Reaction (Unknown, Verified 10/19/24 15:38) Unknown Medication List - Last Reconciled 10/19/24 by Jacoby Kamara MD albuterol sulfate 90 mcg/actuation 2 puffs PO Q6H PRN albuterol sulfate 2.5 mg (3 mL) inhalation QID PRN 30 days aspirin 81 mg PO DAILY atorvastatin 80 mg PO BEDTIME 90 days blood sugar diagnostic (FreeStyle Lite Strips) As directed once a day blood-glucose meter (FreeStyle Lite Meter kit) As directed newlyiobxk-qunqckaspkrvk-hkkz 50-325-40 mg 1 tab PO TID PRN cetirizine 10 mg PO DAILY PRN 90 days clonazepam 0.5 mg PO BID PRN 30 days codeine-guaifenesin 10-100 mg/5 mL 10 mL PO Q4-6H PRN 7 days colchicine 0.6 mg PO DAILY dicyclomine 10 mg PO QID PRN dulaglutide (Trulicity) 0.75 mg subcut QWEEK escitalopram oxalate 20 mg PO DAILY 30 days fluticasone propion-salmeterol 115-21 mcg/actuation (Advair HFA) 2 puffs inhalation BID 30 days lancets (FreeStyle Lancets) As directed once a day levothyroxine 100 mcg PO DAILY lisinopril 5 mg PO DAILY metoprolol succinate ER 25 mg PO DAILY 90 days [NEBULIZER As directed] nitroglycerin mg sublingual omeprazole 40 mg PO BID 30 days prednisone 10 mg PO DIRECTED sennosides (senna) 17.2 mg (2 x 8.6 mg) PO BEDTIME PRN trazodone 150 mg PO BEDTIME Tobacco use date assessed: 10/19/24 Dental Screening Dental Screen Date: 10/19/24 Did you have a dental visit in the last 12 months?: Yes Did you have a dental problem in the last 6 months where you did not have access to dental care?: No Was dental information given to patient?: Patient has dentist HPI 4 Months f/u HPI Details Patient comes in today for her follow up visit States that she currently feels okay She denies any headaches or dizziness Denies any chest pains, no shortness a breath No nausea/vomiting, no abdominal pain No change in bowel habits noted She had her follow-up labs done a couple of weeks ago - to discuss her results [facility] Medical History Markel syndrome Obesity (BMI 30-39.9) Diabetes mellitus Coronary atherosclerosis Asthma Depression Epilepsy Anxiety Insomnia Osteopenia Allergic rhinitis Acquired hypothyroidism Acute non intractable tension-type headache Mixed hyperlipidemia Surgical History Hx of cardiac cath (~05/05/22) History of ST elevation myocardial infarction (STEMI) Hx of shoulder surgery History of bunionectomy History of esophagogastroduodenoscopy (EGD) Hx of colonoscopy Family History Father HTN (hypertension) Heart disease Myocardial infarction Mother Diabetes Hyperchloremia HTN (hypertension) Myocardial infarction Family/Other Stomach cancer Other Thyroid nodule Social History Household Members: None Housing: Apartment Alcohol intake: current Alcohol intake frequency: does not drink Patient Tobacco Use Status: Never used Tobacco e-Cigarette/Vaping Use: Never Used Second Hand Smoke Exposure: No service: No Current occupational status: disabled Cognitive needs: No Hearing needs: No Vision needs: Yes (Glasses) Questionnaire PHQ-9 Over the last 2 weeks, how often have you been bothered by any of the following problems? 1. Little interest or pleasure in doing things: several days 2. Feeling down, depressed, or hopeless: several days 3. Trouble falling or staying asleep, or sleeping too much: several days 4. Feeling tired or having little energy: several days 5. Poor appetite or overeating: several days 6. Feeling bad about yourself - or that you are a failure or have let yourself or your family down: several days 7. Trouble concentrating on things, such as reading the newspaper or watching television: several days 8. Moving or speaking so slowly that other people could have noticed. Or the opposite - being so fidgety or restless that you have been moving around a lot more than usual: several days 9. Thoughts that you would be better off or of hurting yourself in some way: several days Total score: 9 Depression Screening Interpretation: Positive Depression Screening Follow-up: Existing condition and In treatment Depression Screening Done: Yes 20478 - PHQ-9 Billing: Yes Source: Developed by Drs. Ziyad Gary, Dayana Crane, Vinh Brar and colleagues, with an educational vero from [employer]. Thrive Questionnaire Date Thrive assessed: 10/19/24 I am a: Patient What is your living situation today?: I have a steady place to live Within the past 12 months, did the food you bought not last and you didn't have the money to get more?: I choose not to answer this question Within the past 12 months, did you worry whether your food would run out before you got money to buy more?: I choose not to answer this question Do you have trouble paying for medicines?: No Do you have trouble getting transportation to medical appointments?: I choose not to answer this question Do you have trouble paying your heating and electricity bill?: I choose not to answer this question Do you have trouble taking care of your child, family member or friend?: No Do you have trouble with day-to-day activities such as bathing, preparing meals, shopping, managing finances, etc.?: I choose not to answer this question Are you currently unemployed and looking for a job?: No Are you interested in more education?: No Please select the resources that you would like help with: None Currently or been in a relationship where the following occur: No concerns reported THRIVE Score: 0 AUDIT C Alcohol Use Questionnaire (AUDIT-C) 1. How often do you have a drink containing alcohol?: Never 3. How often do you have six or more drinks on one occasion?: Never Total Score: 0 Score Reviewed/Action Taken: Yes RASHI-7 AMB Questionnaire RASHI-7 Date RASHI - 7 assessed: 10/19/24 Feeling nervous, anxious, or on edge: 1 = Several days Not being able to stop or control worryin = Not at all Worrying too much about different things: 0 = Not at all Trouble relaxin = Not at all Being so restless that it is hard to sit still: 0 = Not at all Becoming easily annoyed or irritable: 0 = Not at all Feeling afraid as if something awful might happen: 0 = Not at all Total RASHI-7 score (0-4 normal; 5-9 mild; 10-14 moderate; 15-21 severe): 1 Source: Developed by Drs. Ziyad Gary, Dayana Crane, Vinh Brar and colleagues, with an educational vero from [employer]. Review of Systems Const Denies chills, Reports difficulty sleeping, Denies fatigue, Denies fever(s) and Denies headache(s) ENT Denies dysphagia, Denies dizziness, Denies otalgia, Denies headache(s), Denies neck pain, Denies odynophagia and Denies sore throat Card Denies chest pain, Denies rapid heart rate, Denies irregular heart rhythm, Denies palpitations and Denies dyspnea Resp Denies chest congestion, Denies cough and Denies dyspnea GI Denies abdominal pain, Denies constipation, Denies dysphagia, Denies heartburn, Denies diarrhea, Denies nausea, Denies odynophagia and Denies vomiting Denies difficulty voiding, Denies nocturia, Denies dysuria and Denies urinary urgency Musc Denies back pain, Reports arthralgias (on and off over her right ankle, foot and heel ) and Denies neck pain Skin/Breast Denies rash Neuro Denies dizziness, Denies headache(s) and Denies paresthesias Psych Denies anxiety and Denies depression Endo Denies fatigue and Denies palpitations Bryson/Lymph Denies easy bruising Physical exam (Primary Care) Vital Signs: Last Vital Signs Pulse 79 10/19/24 15:01 BP 118/76 10/19/24 15:01 Pulse Ox 95 10/19/24 15:01 Oxygen Delivery Method Room Air 10/19/24 15:01 BMI result Body Mass Index 32.6 Tobacco/Smoking Status: Tobacco use Status Tobacco use date assessed 10/19/24 10/19/24 15:03 Patient Tobacco Use Status Never used Tobacco 10/19/24 15:03 e-Cigarette/Vaping Use Never Used 10/19/24 15:03 PHQ-9: PHQ-9 Score PHQ-9: Total score 9 10/19/24 15:41 Depression Screening Interpretation: Positive Depression Screening Follow-up: Existing condition and In treatment Thrive Assessment: Date of Thrive Assessment Date Thrive assessed 10/19/24 10/19/24 15:03 Currently or been in a relationship where the following occur: No concerns reported Const General: no acute distress and alert HENMT Ears: TM's normal bilaterally and EAC's normal Throat: Yes posterior oropharynx normal and Yes tonsils normal (no TP congestion) Neck Neck: Yes no lymphadenopathy and Yes supple Thyroid: Thyroid normal Resp Auscultation: clear to auscultation bilaterally, no rales and no wheezes Cardio Rate: regular rate Rhythm: regular rhythm Heart sounds: no murmurs GI Palpation (GI): Soft to palpation and nontender Auscultation: normal bowel sounds General: Yes no CVA tenderness Back/Spine/Pelvis Back: no CVA tenderness Thoracic/Lumbar Spine: No lumbar spinal tenderness Skin Rashes: no rashes Extrem General: Yes no clubbing, cyanosis or edema Right lower extremity: ankle Details: tenderness (mild) Location: of the lateral malleolus and of the achilles tendon; no swelling and foot Details: tenderness (mild) Location: of the calcaneus Results Reviewed Results Reviewed: Laboratory Tests 10/08/24 10:19 WBC 6.1 Hgb 12.0 Hct 36.2 L Plt Count 246 Sodium 142 Potassium 4.4 Creatinine 0.80 Estimated GFR > 60 Fasting Glucose 117 H Hemoglobin A1c % 6.1 H Calcium 9.1 AST 28 ALT 24 Triglycerides 108 Cholesterol 156 LDL Cholesterol, Calc 87 HDL Cholesterol 48 Coding Level of Care Code Est Pt Level 4 (54260) Diagnoses Atherosclerosis of [place] coronary artery of [place] heart without angina pectoris I25.10 Associated angina: without angina Coronary Disease-Associated Artery/Lesion type: [place] artery [place] vs. transplanted heart: [place] heart Mixed hyperlipidemia E78.2 Type 2 diabetes mellitus with hyperglycemia, without long-term current use of insulin E11.65 Diabetes mellitus complication status: with hyperglycemia Diabetes mellitus chcf insulin use: without extermination supervisor use Diabetes mellitus type: type 2 Essential hypertension I10 Moderate persistent asthma with acute exacerbation J45.41 Asthma complication type: with acute exacerbation Asthma persistence: persistent Asthma severity: moderate Acquired hypothyroidism E03.9 Thyroid nodule E04.1 Allergic rhinitis, unspecified seasonality, unspecified trigger J30.9 Allergic rhinitis seasonality: unspecified Allergic rhinitis trigger: unspecified Nonintractable epilepsy without status epilepticus, unspecified epilepsy type G40.909 Epilepsy type: unspecified Intractability: not intractable Status epilepticus: without status epilepticus Erosive esophagitis K22.10 Insomnia, unspecified type G47.00 Insomnia type: unspecified Anxiety F41.9 Episode of recurrent major depressive disorder, unspecified depression episode severity F33.9 Active/Remission status: currently active Depression Type: major depressive disorder Major depression episode severity: unspecified Major depression recurrence: recurrent Obesity (BMI 30-39.9) E66.9 Additional Codes PHQ-9 - 02573 - PHQ-9 Billing: Yes ([id number]) Assessment & Plan Assessment & Plan (1) Coronary atherosclerosis: Comment: S/P cardiac cath with stenting of LAD with ISAIAH on 05/05/2022 Code(s): I25.10 - Atherosclerotic heart disease of [place] coronary artery without angina pectoris Category: Medical Qualifiers: Associated angina: without angina Coronary Disease-Associated Artery/Lesion type: [place] artery [place] vs. transplanted heart: [place] heart Qualified Code(s): I25.10 - Atherosclerotic heart disease of [place] coronary artery without angina pectoris Plan: Patient remains asymptomatic from cardiac standpoint Continue Aspirin 81 mg QD for lifelong antiplatelet Tx; continue Clopidogrel 75 mg QD and Metoprolol ER 25 mg QD (was taken off Brilinta by cardiology previously due to increasing SOB) Myocardial perfusion stress test imaging done on 09/08/22 at [facility] reportedly came out normal Repeat echocardiogram done on 10/26/2022 at [facility] was also normal, with EF of 65 to 70% (EF was at 35 to 40% back in April 2022 when patient had her MN and was experiencing ischemic cardiomyopathy at the time) Follow up with cardiology as scheduled (2) Mixed hyperlipidemia: Code(s): E78.2 - Mixed hyperlipidemia Category: Medical Plan: Results of her labs done a couple of weeks ago reviewed and discussed with patient Reinforced low cholesterol diet Continue Atorvastatin 40 mg QD She was on Atorvastatin 80 mg QD previously but she cut her dose down to 40 mg QD on her own a few months ago due to increased myalgia that she attributed to her cholesterol Rx States that her muscle pains subsided when she cut her dose down Will recheck her labs and fasting lipids in 4 months for follow-up (3) Diabetes mellitus: Code(s): E11.9 - Type 2 diabetes mellitus without complications Category: Medical Qualifiers: Diabetes mellitus complication status: with hyperglycemia Diabetes mellitus extermination supervisor insulin use: without chcf use Diabetes mellitus type: type 2 Qualified Code(s): E11.65 - Type 2 diabetes mellitus with hyperglycemia Plan: Her HgbA1c is at 6.1% on her labs done a couple of weeks ago (HgbA1c was previously at 6.3% a few months ago) - goal is at least <7.0% but ideally <6.5% Reinforced diabetic diet Continue Metformin ER 500 mg BID: she could not tolerate Farxiga in the past due to chest pains (4) Essential hypertension: Code(s): I10 - Essential (primary) hypertension Category: Medical Plan: Reinforced low sodium diet - goal is systolic BP of 120 mm or less Continue Lisinopril 5 mg QD (5) Asthma: Code(s): J45.909 - Unspecified asthma, uncomplicated Category: Medical Qualifiers: Asthma complication type: with acute exacerbation Asthma persistence: persistent Asthma severity: moderate Qualified Code(s): J45.41 - Moderate persistent asthma with (acute) exacerbation Plan: Controlled [place] Advair HFA 115-21 mcg 2 inhalations BID and Albuterol HFA 1 to 2 inhalations Q 6 hours PRN (6) Acquired hypothyroidism: Code(s): E03.9 - Hypothyroidism, unspecified Category: Medical Plan: Her TFTs were normal on her recent labs Continue Levothyroxine 100 mcg QD Will recheck her TFTs in 4 months for follow up (7) Thyroid nodule: Code(s): E04.1 - Nontoxic single thyroid nodule Category: Medical Plan: Thyroid US done last year revealed (+) TI-RADS Category 4 right midpole nodule with maximum dimension of 1.0 cm Recommend followup ultrasound in 1, 2, 3 and 5 years for continuing surveillance She had a thyroid Bx done by endocrinology a couple of years ago on 07/15/2022 - cytology was benign Follow up with endocrinology as scheduled (8) Allergic rhinitis: Code(s): J30.9 - Allergic rhinitis, unspecified Category: Medical Qualifiers: Allergic rhinitis seasonality: unspecified Allergic rhinitis trigger: unspecified Qualified Code(s): J30.9 - Allergic rhinitis, unspecified Plan: Patient used to see Dr. Donita Ho for her allergies and was on Nasacort and Azelastine but she has not used these in a while as she did not feel that they were helping adequately She also has not seen Dr. Ho in a few years - she currently lives in the [facility] and finds it too far to go all the way to [place] She is now going to [facility] in [place] for her allergy issues Continue Cetirizine 10 mg QD PRN (9) Epilepsy: Code(s): G40.909 - Epilepsy, unspecified, not intractable, without status epilepticus Category: Medical Qualifiers: Epilepsy type: unspecified Intractability: not intractable Status epilepticus: without status epilepticus Qualified Code(s): G40.909 - Epilepsy, unspecified, not intractable, without status epilepticus Plan: Stable lately; recalls that her last seizure episode was over a year ago, and that she has never been started on any Rx for her seizures She was referred to neurology last year but patient states that she does not want to go back to see Dr. Pittman She was referred instead to Dr. Donahue as she has [facility], which is not accepted by [facility] practices - to follow up with neurology as scheduled (10) Erosive esophagitis: Code(s): K22.10 - Ulcer of esophagus without bleeding Category: Medical Plan: Dx by EGD with Bx Dietary restrictions reinforced She was doing well on Omeprazole 40 mg BID but insurance would NOT cover Rx and she was getting Rx [id number] for a while but could not afford to continue She is currently on Famotidine 40 mg BID and Carafate liquid Q HS Follow up with GI as scheduled (11) Insomnia: Code(s): G47.00 - Insomnia, unspecified Category: Medical Qualifiers: Insomnia type: unspecified Qualified Code(s): G47.00 - Insomnia, unspecified Plan: Sleep hygiene reinforced She could not tolerate Trazodone due to side effects; also had issues with Zolpidem in the past She also stopped taking her Doxepin 25 mg Q HS PRN a while back (12) Anxiety: Code(s): F41.9 - Anxiety disorder, unspecified Category: Medical Plan: Continue Clonazepam 0.5 mg BID PRN Follow-up with Psychiatry as scheduled (13) Depression: Code(s): F32.9 - Major depressive disorder, single episode, unspecified Category: Medical Qualifiers: Active/Remission status: currently active Depression Type: major depressive disorder Major depression episode severity: unspecified Major depression recurrence: recurrent Qualified Code(s): F33.9 - Major depressive disorder, recurrent, unspecified Plan: Continue Escitalopram 20 mg QD (reportedly felt angry often while on Fluoxetine in the past) Follow-up with Psychiatry as scheduled (14) Obesity (BMI 30-39.9): Code(s): E66.9 - Obesity, unspecified Category: Medical Plan: Reinforced diet/exercise as tolerated/lose weight Plan To return in 4 months for her next annual physical examination Orders: Orders Comprehensive Slemp. Panel Fast 02/11/25 E78.00 - Pure hypercholesterolemia, unspecified, Z00.00 - Encounter for general adult medical examination without abnormal findings Lipid Panel 02/11/25 E78.00 - Pure hypercholesterolemia, unspecified, Z00.00 - Encounter for general adult medical examination without abnormal findings Microalbumin, Random (w Creat) 02/11/25 E11.9 - Type 2 diabetes mellitus without complications, Z00.00 - Encounter for general adult medical examination without abnormal findings Thyroid Stimulating Hormone 02/11/25 E03.9 - Hypothyroidism, unspecified, Z00.00 - Encounter for general adult medical examination without abnormal findings UA CC w/rflx Micro + Cult 02/11/25 R30.0 - Dysuria, Z00.00 - Encounter for general adult medical examination without abnormal findings Vitamin B12 and Folate 02/11/25 E53.8 - Deficiency of other specified B group vitamins, Z00.00 - Encounter for general adult medical examination without abnormal findings Vitamin D 25-OH Total 02/11/25 E55.9 - Vitamin D deficiency, unspecified, Z00.00 - Encounter for general adult medical examination without abnormal findings Complete Blood Count Auto Diff 02/11/25 D64.9 - Anemia, unspecified, Z00.00 - Encounter for general adult medical examination without abnormal findings Hemoglobin A1c 02/11/25 E11.9 - Type 2 diabetes mellitus without complications, Z00.00 - Encounter for general adult medical examination without abnormal findings Free T4 (Free Thyroxine) 02/11/25 E03.9 - Hypothyroidism, unspecified, Z00.00 - Encounter for general adult medical examination without abnormal findings
== END 2024-10-19 15:47 | disposition home or self-care (01) ==
LOC: HO.HMCH 14:57
PROVIDERS: PCP Internal Medicine; Visit Provider Internal Medicine
DX: E11.65 Type 2 diabetes mellitus with hyperglycemia (principal); G40.909 Epilepsy, unspecified, not intractable, without status epilepticus; E66.9 Obesity, unspecified; Z68.32 Body mass index [BMI] 32.0-32.9, adult; I25.10 Atherosclerotic heart disease of native coronary artery without angina pectoris; E78.2 Mixed hyperlipidemia; I10 Essential (primary) hypertension; J45.41 Moderate persistent asthma with (acute) exacerbation; E03.9 Hypothyroidism, unspecified; E04.1 Nontoxic single thyroid nodule; J30.9 Allergic rhinitis, unspecified; K22.10 Ulcer of esophagus without bleeding

== ENCOUNTER → 2024-10-19 14:57 | Outpatient (BNVA) | payer OTHER, SELFPAY | PROVIDERS: PCP Internal Medicine; Visit Provider Internal Medicine | DX: I25.10 Atherosclerotic heart disease of native coronary artery without angina pectoris (principal); E78.2 Mixed hyperlipidemia; E11.65 Type 2 diabetes mellitus with hyperglycemia; I10 Essential (primary) hypertension; J45.41 Moderate persistent asthma with (acute) exacerbation; E03.9 Hypothyroidism, unspecified; E04.1 Nontoxic single thyroid nodule; J30.9 Allergic rhinitis, unspecified; G40.909 Epilepsy, unspecified, not intractable, without status epilepticus; K22.10 Ulcer of esophagus without bleeding; G47.00 Insomnia, unspecified; F41.9 Anxiety disorder, unspecified; F33.9 Major depressive disorder, recurrent, unspecified; E66.9 Obesity, unspecified; Z68.32 Body mass index [BMI] 32.0-32.9, adult | CPT/HCPCS: 96127; 99212 ==

== ENCOUNTER 2024-12-05 09:56 | Outpatient (AMB) | payer OTHER, SELFPAY ==
--- OUTSIDE RECORDS SUMMARY | 2018-01-20 07:23 | XMS_ITS | Continuity of Care Document ---
Author Organization [facility] [facility] Address [address] [place] [address] Care Team Providers Care Galley Hand Name Role Phone Eduardo LOMBARDO, Juanita Unavailable Unavailable Allergies, Adverse Reactions, Alerts Substance Reaction Status Criticality MORPHINE SULFATE Active No Informat ion POTASSIUM CLAVULANATE Active No Inf ormation AMOXICILLIN TRIHYDRATE Active No In formation PAROXETINE HCL Active No Informatio n Medications Medication Instructions Dosage Effective Dates (start - stop) Status Comments trazodone 150 mg tablet take 1 tablet by oral route every day 150 MG - Active fluoxetine 60 mg tablet take 1 tablet by oral route every day in the morning 60 MG - Active Prozac 40 mg capsule take 1 capsule by oral route every day in the morning 40 MG - Active Prozac 20 mg capsule take 1 capsule by oral route every day in the morning 20 MG - Active diclofenac sodium 75 mg tablet,delayed release take 1 tablet by oral route 2 times every day 75 MG - Active Klonopin 0.5 mg tablet take 1 tablet by oral route 2 times every day 0.5 MG - Active topiramate 50 mg tablet take 1 tablet by oral route 2 times every day 50 MG - Active baclofen 10 mg tablet take 1 tablet by oral route 3 times every day 10 MG - Active Tirosint 75 mcg capsule take 1 capsule by oral route every day 75 MCG - Active omeprazole 40 mg capsule,delayed release take 1 capsule by oral route every day before a meal 40 MG - Active oxycodone-acetami nophen 7.5 mg-325 mg tablet take 1 tablet by oral route every 4-6 hours as needed - No Longer Active for non-acute pain oxycodone-acetami nophen 7.5 mg-325 mg tablet take 1 tablet by oral route every 4-6 hours as needed - No Longer Active Procedures Procedure Date OFFICE/OUTPATIENT VISIT, EST Musc Test Done W/n Test Comp Motor&sens 7-8 Nrv Cndj Test OFFICE/OUTPATIENT VISIT, NEW DRUG TEST PRSMV CHEM ANLYZR Advance Directives Directive Yes / No Effective Date File Name No Information Encounters Encounter Description Practice Location Reason(s) For Visit Diagnoses Date Provider Providers Copied on Encounter [facility], [address], [place], [place], [id number] , [facility] [place] No Information Eduardo Grant. [address], [address], [place], [address], [place]. tel:[phone] OFFICE/OUTPA TIENT VISIT, EST [facility], [address], [place], [place], [id number] , [facility] [place] neck pain (chief complaint) Pain in left shoulderChronic pain syndromeCervicalg iaRotator cuff rupture of left shoulder, not specified as traumaticRadiculo stuart, cervical regionBody mass index (BMI) 30.0-30.9, adult 8 Eduardo Grant. [address], [address], [place], [address], [place]. tel:[phone] Referring Provider: Samy patel, [facility] [place], [address] . [facility], [address], [place], [place], [id number] , [place] [facility] [place] Follow up chronic pain (chief complaint) Other disturbances of skin sensationBody mass index (BMI) 31.0-31.9, adult 8 [facility] Juanita. [address], [address], [place], [address], [place]. tel:[phone] Referring Provider: Samy patel, [address] [place] [address], [address] . OFFICE/OUTPA TIENT VISIT, [facility], [address], [place], [place], [id number] , [facility] [place] cervicalgia (chief complaint)Sh oulder Pain (chief complaint) Pain in left shoulderChronic pain syndromeBody mass index (BMI) 31.0-31.9, adultCervicalgiaR otator cuff rupture of left shoulder, not specified as traumaticOther disturbances of skin sensation 0 3-201 8 [facility] [address], [address], . tel:[phone] Referring Provider: Samy patel, [address] [place] [address], [phone] . [facility], [address], [place], [place], [id number] , [facility] [place] Pain in left shoulder 6 8 [facility] [address], [place], [facility], . tel:[phone] Referring Provider: Samy patel, [address] [place] [address], [phone] . Family History Family Member Type Diagnosis Age At Onset Problem (finding) Family history of raise d blood lipids Problem (finding) Family history of Heart disease Problem (finding) Family history of Diabe mariangel mellitus Problem (finding) Family history of Thyro id disorder Problem (finding) Family history of Heada ches Problem (finding) Family history of hyper tension Payers Payer name Insurance type Covered republican ID Lex iniguez(s) [employer] [employer] Medicaid CI [id number] Social History Type Description Quantity Date Captured Comments Alcohol Use Details Unknown Caffeine Use Details Unknown Tobacco Use Status No Information Smoking Status No Information Sex Female Chief Complaint And Reason For Visit No Information Reason For Referral Reason For Referral No Information Plan Of Treatment Date Type Action Status Goal Dietary management education , guidance, and counseling completed Goal Dietary management education , guidance, and counseling completed Goal Dietary management education , guidance, and counseling completed Referral Ordered: Musc Test Done W/n Test Comp Bilateral Upper Extremity ordered Referral Ordered: X-RAY EXAM OF NECK SPINE spine, cervical ordered History Of Present Illness Encounter Date Complaint History Of Prese nt Illness neck pain Onset: gradual. The severity of the problem is moderate. The problem has worsened. The frequency of pain is constant. Location of pain is left anterior neck, left lateral neck, left posterior neck and left shoulder. There is radiation of pain to the left face, left upper arm and left elbow. The patient describes the pain as sharp and stabbing. Aggravating factors include bending, climbing stairs, coughing, defecation, driving, exertion, flexion, hyperextension, kneeling, lifting, lying down, prolonged sitting, pushing, rotation, running, sneezing, standing, stooping, straining, stress, turning head, twisting, Valsalva, walking and working. Relieving factors include narcotic analgesics. Associated symptoms include joint pain. Pertinent negatives include bladder incontinence, bladder retention, rash and weight loss. Follow up chronic pain Patient p resents today for a B/L Upper Extremity NCS/EMG study. Informed consent has been obtained and all questions/instructions have been addressed in detail with the patient. Shoulder Pain Onset: gradual. Duration: 2 Years. Severity level is 10. It occurs constantly and is fluctuating. Location: left shoulder. The pain radiates to the left arm. The pain is aching, piercing, sharp and throbbing. Context: there is no injury. The pain is aggravated by climbing stairs, lifting, movement, pushing and walking. The pain is relieved by minimal relief with immobility and NSAIDS. Associated symptoms include decreased mobility, difficulty initiating sleep, joint tenderness, tingling in the arms and weakness. cervicalgia Onset: gradual. The problem is severe. Duration: 2 Years. The problem has not changed. The frequency of pain is constant. Location of pain is left lateral neck, left posterior neck, left shoulder and left arm. There is radiation of pain to the left upper arm, left hand, left thumb, left index finger and left 5th finger. The patient describes the pain as aching, discomforting, piercing, sharp, shooting, stabbing, throbbing and tingling. Aggravating factors include driving, hyperextension, lifting, pushing, rotation, turning head and twisting. Relieving factors include minimal relief with NSAIDS and resting. Associated symptoms include decreased mobility, joint pain, loss of balance, tenderness, tingling and weakness. Pertinent negatives include bladder incontinence, bladder retention, rash and weight loss. Functional Status Date Functional Assessmen t No Information Instructions Date Instruction Additional Infor cesar Patient reports Left surgery surgery with Dr Carrizales on 12/21/17. Patient reports the pain is now worse. Related to Rotator cuff rupture of left shoulder, not specified as traumatic 1. Lifestyle Modific ations: Avoid bending neck forward, sleep in supine position.2. Therapy: HEP with handouts.3. Orthotics/Braces: Education on Neck contour pillow; handout given.4. Pharmacotherapy: Currently taking Naproxen 220mg PRN, Oxycodone 7.5/325mg PRN. Refill Oxycodone 7.5/325mg TID;#90. Pharmacy verified. 5. Interventions: Order BELKYS C6-T1 X3.6. Investigations: Most recent imaging reviewed with patient today. 7. Referals: None at this time.8. Follow-up: Follow up one month for refill.*UDS reviewed/consistent; EFORSCE reviewed and appropriate* Related to Chronic pain syndrome Dietary management e ducation, guidance, and counseling Related to Body mass index (BMI) 30.0-30.9, adult Patient presents tod ay for a B/L Upper Extremity NCS/EMG study. Informed consent has been obtained and all questions/instructions have been addressed in detail with the patient. Related to Other disturbances of skin sensation Dietary management e ducation, guidance, and counseling Related to Body mass index (BMI) 31.0-31.9, adult 1. Lifestyle Modific ations: - Encouraged patient to avoid heavy lifting. 2. Therapy: HEP with handout.3. Orthotics/Braces: None indicated at this time. 4. Pharmacotherapy: Medication Management: Patient is currently being treated with Clonazepam 0.5mg 1 PO QD. - Will consider initiating pain medications in the future in needed after completion of left shoulder surgery.*No signs of opioid related risk. NSAID safety education was provided today.5. Interventions: Patient is anticipating Left shoulder surgery on 12/21/[address] Byers.6. Investigations: Will proceed with performing a B/L Upper Extremity NCS/EMG with clinical findings of left C8 radiculopathy vs Left Ulnar neuropathy at the elbow. - Will obtain Left shoulder MRI upon completion.- Will order Cervical Spine X-ray today.- Will consider Cervical MRI w/o contrast in the future.7. Referals: None at this time.8. Follow up: Follow up in for NCS/EMG post surgery follow up for status check and UDS review in 4 weeks. Related to Chronic pain syndrome Dietary management e ducation, guidance, and counseling Related to Body mass index (BMI) 31.0-31.9, adult Assessments Type Assessment Date No Information Patient Care Teams Name Effective Dates (start - stop) Status Members No Information
--- NOTE | 2024-12-05 10:07 | A.OFFVIS_ITS ---
Vital Signs 12/05/24 10:15 Height 5 ft 2 in Weight 177 lb BMI 32.4 BP 119/72 Blood Pressure Location Lt brachial Position Sitting Pulse 74 Pulse Oximetry (%) 96 Oxygen Delivery Method Room Air Intake Visit Reasons: Celiac, dysphagia Intake Note: Patient follow up for Celiac and dysphagia Patient cc: abdominal discomfortwith bloating, heartburn/food is not digestive, dysphagia and constipation. 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 Required: No Accompanied by: Self / Same As Patient Allergies Benadryl Allergy (Unknown, Verified 12/05/24 10:12) unknown dapagliflozin Adverse Reaction (Severe, Verified 12/05/24 10:12) Chest Pain, Weakness, Nausea, Fatigue amoxicillin (Augmentin) Adverse Reaction (Intermediate, Verified 12/05/24 10:12) diarrhea atorvastatin Adverse Reaction (Intermediate, Verified 12/05/24 10:12) myalgia, feet pain, hair loss morphine (MORPHINE) Adverse Reaction (Intermediate, Verified 12/05/24 10:12) TACHYCARDIA, CP, confusion simvastatin Adverse Reaction (Intermediate, Verified 12/05/24 10:12) swelling of feet tramadol (TRAMADOL) Adverse Reaction (Intermediate, Verified 12/05/24 10:12) DIZZYNESS, confusion trazodone Adverse Reaction (Intermediate, Verified 12/05/24 10:12) chest discomfort; tachycardia zolpidem Adverse Reaction (Intermediate, Verified 12/05/24 10:12) sleepwalking paroxetine (Paxil) Adverse Reaction (Unknown, Verified 12/05/24 10:12) Unknown HPI HPI Celiac, dysphagia: Details: Assessment & Plan (1) GERD (gastroesophageal reflux disease): Code(s): K21.9 - Gastro-esophageal reflux disease without esophagitis Qualifiers: Esophagitis presence: without esophagitis Qualified Code(s): K21.9 - Gastro-esophageal reflux disease without esophagitis (2) Irritable bowel syndrome with both constipation and diarrhea: Code(s): K58.2 - Mixed irritable bowel syndrome (3) Esophageal spasm: Code(s): K22.4 - Dyskinesia of esophagus (4) Celiac disease: Code(s): K90.0 - Celiac disease Plan SHe is doing much better, and she credits [facility] omperazole which her insurance is covering now! She also finds the bentyl helpful for general bowel cramping. She tells me that she was dx'ed wtih Celiac which she was in [facility] but has not been following [facility] diet. ROV 6 mos BE SURE TO SEND OMEPRAZOLE TO [facility] TODAYS VISIT Her current regimen consists of omeprazole 40 mg twice a day and dicyclomine. She is having worsening trouble with constipation and the senna is no longer working even if she takes more than 2 at night. She has had trouble with the [id number] because they will cause severe lower abdominal cramping and she has failed MiraLax, fiber, Colace, bisacodyl, and senna. I think will progress to Linzess and started 145 micro g and titrate to affect her side effect. This will also address the pain issues. Confounding factors are her thyroid which currently is running a bit low with TSH over 4, (however she is following with an expansion joint finisher in [place] isabelle Torres who be rechecking her in December), use of Trulicity, and colchicine for her pericarditis that is intermittent. She is also having upper abdominal discomfort and a pain that will start in the epigastrium and radiate up her chest especially when she is lying down at night. Sometimes the go all the way up into her ears. She also notes that when she bends over she feels like her stomach contents were going to reflux. All of this makes sense in the context of constipation and I think that all of these symptoms will improve once we establish colonic motility. If not then we will explore further and look into other possibility such as gallbladder disease or gastroparesis. WIll also get US of GB as she has been told in the past that my GB was lazy, but I see no HIDA scan in our chart, this may be something to explore going forward if LInzess alone does not alleviate the sx. Return office visit in 4 weeks. FOR[facility]LY [facility], [facility] Medical History (Updated 12/05/24 @ 11:48 by BLAS Padilla) Irritable bowel syndrome with both constipation and diarrhea Annual physical exam Markel syndrome Obesity (BMI 30-39.9) Diabetes mellitus Coronary atherosclerosis Asthma Depression Epilepsy Anxiety Insomnia Osteopenia Allergic rhinitis Acquired hypothyroidism Acute non intractable tension-type headache Mixed hyperlipidemia Surgical History (Updated 12/05/24 @ 10:09 by BLAS Padilla) History of radiofrequency ablation (RFA) procedure for cardiac arrhythmia Hx of cardiac cath (~05/05/22) History of ST elevation myocardial infarction (STEMI) Hx of shoulder surgery History of bunionectomy History of esophagogastroduodenoscopy (EGD) Hx of colonoscopy Family History Father HTN (hypertension) Heart disease Myocardial infarction Mother Diabetes Hyperchloremia HTN (hypertension) Myocardial infarction Family/Other Stomach cancer Other Thyroid nodule Social History Household Members: None Housing: Apartment Alcohol intake: current Alcohol intake frequency: does not drink Patient Tobacco Use Status: Never used Tobacco e-Cigarette/Vaping Use: Never Used Second Hand Smoke Exposure: No service: No Current occupational status: disabled Cognitive needs: No Hearing needs: No Vision needs: Yes (Glasses) Review of Systems Const Denies fatigue, Denies fever(s), Denies night sweats, Denies poor appetite and Denies weight loss Eyes Details: glasses Reports requires corrective lenses ENT Reports Normal hearing present, Denies dental pain, Denies dysphagia, Denies hearing loss, Denies mouth pain, Denies odynophagia, Denies throat swelling, Denies tongue swelling and Reports other (Dentition adequate) Card Reports chest pain Resp Reports no additional complaints GI Details: Denies abdominal pain, Denies melena, Reports bloating, Denies hematochezia, Reports constipation, Denies GI cramping, Denies dysphagia, Denies excessive flatus, Denies early satiety, Reports dyspepsia, Reports heartburn, Denies diarrhea, Denies nausea, Denies odynophagia, Denies vomiting and Denies hematemesis Skin/Breast Denies pruritus, Denies lesions, Denies rash and Denies jaundice Neuro Reports Normal hearing present and Denies Abnormal speech present Endo Denies fatigue Aller/Immun Denies throat swelling and Denies tongue swelling Physical Exam Vital Signs: Last Vital Signs Pulse 74 12/05/24 10:15 BP 119/72 12/05/24 10:15 Pulse Ox 96 12/05/24 10:15 Oxygen Delivery Method Room Air 12/05/24 10:15 BMI result Body Mass Index 32.4 Const General: cooperative, no acute distress, well developed and well groomed Nutritional Appearance: well nourished and obese Orientation/consciousness: oriented to person, oriented to place and oriented to time Limitations: No language barrier HEENT Head: Yes normocephalic and Yes atraumatic Eyes General: appearance normal, both eyes and all related structures Pupils: Equal, round and reactive pupils present Neck Neck: Yes normal visual inspection and Yes no lymphadenopathy Thyroid: Thyroid normal Resp Effort & Inspection: normal respiratory effort and able to speak in complete sentences Auscultation: clear to auscultation bilaterally Cardio Rate: regular rate Rhythm: regular rhythm Heart sounds: Normal, physiologic split S2 sound present Peripheral pulses: radial pulses present and posterior tibial pulses present GI Inspection: No distended, Yes Abdominal panniculus present and Yes obesity Palpation (GI): Soft to palpation, nontender, no guarding, not rigid and No hepatosplenomegaly present Percussion: Yes normal to percussion Auscultation: normal bowel sounds Rectal Exam - Female: deferred Skin General skin exam: no rashes or lesions noted, turgor normal, skin not dry, no jaundice, No spider nevi and no striae Rashes: no rashes Nails: normal Neuro General: oriented to person, oriented to place and oriented to time Cranial nerves: Yes Equal, round and reactive pupils present and Yes Normal hearing present Speech: No Abnormal speech present Extrem General: Yes normal to inspection, No clubbing, No cyanosis and No edema Psych Appearance: grossly normal and well kempt Mental Status: mental status grossly normal Speech and movement: Normal speech and movement present Affect: normal affect Attitude: cooperative Thought process: Normal thought process present and not confabulating Thought content: Normal thought content present Insight: Limited insight present (Psych) Judgement: Limited judgement present (Psych) Assessment & Plan Assessment & Plan (1) Chronic idiopathic constipation: Code(s): K59.04 - Chronic idiopathic constipation Category: Medical (2) Upper abdominal pain: Code(s): R10.10 - Upper abdominal pain, unspecified Category: Medical (3) GERD (gastroesophageal reflux disease): Code(s): K21.9 - Gastro-esophageal reflux disease without esophagitis Category: Medical Qualifiers: Esophagitis presence: without esophagitis Qualified Code(s): K21.9 - Gastro-esophageal reflux disease without esophagitis (4) Erosive esophagitis: Code(s): K22.10 - Ulcer of esophagus without bleeding Category: Medical Plan Her current regimen consists of omeprazole 40 mg twice a day and dicyclomine. She is having worsening trouble with constipation and the senna is no longer working even if she takes more than 2 at night. She has had trouble with the [id number] because they will cause severe lower abdominal cramping and she has failed MiraLax, fiber, Colace, bisacodyl, and senna. I think will progress to Linzess and started 145 micro g and titrate to affect her side effect. This will also address the pain issues. Confounding factors are her thyroid which currently is running a bit low with TSH over 4, (however she is following with an expansion joint finisher in [facility] Susu Montgomery who be rechecking her in December), use of Trulicity, and colchicine for her pericarditis that is intermittent. She is also having upper abdominal discomfort and a pain that will start in the epigastrium and radiate up her chest especially when she is lying down at night. Sometimes the go all the way up into her ears. She also notes that when she bends over she feels like her stomach contents were going to reflux. All of this makes sense in the context of constipation and I think that all of these symptoms will improve once we establish colonic motility. If not then we will explore further and look into other possibility such as gallbladder disease or gastroparesis. WIll also get US of GB as she has been told in the past that my GB was lazy, but I see no HIDA scan in our chart, this may be something to explore going forward if LInzess alone does not alleviate the sx. Return office visit in 4 weeks. Orders: Orders US abdomen complete Today R10.10 - Upper abdominal pain, unspecified Medications: New linaclotide (Linzess) Take first thing in the morning with a full glass of water. 145 mcg PO QAM 30 caps 3RF K58.1 - Irritable bowel syndrome with constipation Refilled omeprazole 40 mg PO BID 60 caps 6RF 30 days K21.9 - Gastro-esophageal reflux disease without esophagitis, K22.10 - Ulcer of esophagus without bleeding On Hold sennosides (senna) Hold Comment: Doctor's Order 17.2 mg (2 x 8.6 mg) PO BEDTIME PRN 60 tabs 6RF for constipation Coding Level of Care Code Est Pt Level 3 (55643) Diagnoses Chronic idiopathic constipation K59.04 Upper abdominal pain R10.10 Gastroesophageal reflux disease without esophagitis K21.9 Esophagitis presence: without esophagitis Erosive esophagitis K22.10
[2024-12-05 10:15] VITALS: BP 119/72; PULSE 74; O2SAT 96; BMI 32.4
== END 2024-12-05 11:40 | disposition home or self-care (01) ==
LOC: HO.HGI 09:57
PROVIDERS: PCP Internal Medicine; Visit Provider Nurse Practitioner
DX: K59.04 Chronic idiopathic constipation (principal); R10.10 Upper abdominal pain, unspecified; K21.9 Gastro-esophageal reflux disease without esophagitis; K22.10 Ulcer of esophagus without bleeding
CPT/HCPCS: 99213

== ENCOUNTER → 2024-12-05 09:56 | Outpatient (BNVA) | payer OTHER, SELFPAY | PROVIDERS: PCP Internal Medicine; Visit Provider Nurse Practitioner | DX: K21.9 Gastro-esophageal reflux disease without esophagitis (principal); K58.2 Mixed irritable bowel syndrome; K22.4 Dyskinesia of esophagus; K90.0 Celiac disease | CPT/HCPCS: 99212 ==

== ENCOUNTER 2024-12-26 10:02 | Outpatient (REF) | payer OTHER, SELFPAY ==
--- NOTE | ~2024-12-26 | US_ITS ---
EXAMINATION: US ABDOMEN COMPLETE CLINICAL INFORMATION: Upper abdominal pain. COMPARISON: 02/22/2022 TECHNIQUE: Real-time grayscale and color Doppler imaging of the abdominal viscera. FINDINGS: PANCREAS: Visualized portions are unremarkable. ABDOMINAL AORTA: The proximal, mid, and distal segments are normal in caliber. INFERIOR VENA CAVA: Visualized portions are normal. LIVER: The liver is normal in size. Right hepatic lobe measures 15.6 cm. The liver contour is normal. Mildly diffusely increased hepatic echogenicity is present. No suspicious focal hepatic lesion. There is no intrahepatic biliary duct dilatation seen. GALLBLADDER: The gallbladder is physiologically distended without evidence of stones, sludge, polyps, wall thickening or pericholecystic fluid. COMMON BILE DUCT: Normal in caliber measuring 0.4 cm in diameter. RIGHT KIDNEY: No hydronephrosis. No suspicious focal parenchymal lesions. The kidney measures 8.5 cm in maximum dimension. There is a nonobstructing calculus measuring 0.5 x 0.2 x 0.3 cm in the lower pole. LEFT KIDNEY: No hydronephrosis. No renal calculi or focal parenchymal lesions. The kidney measures 10.7 cm in maximum dimension. SPLEEN: The spleen measures 7.9 cm in maximum dimension. FREE FLUID: None. US/US abdomen complete IMPRESSION: 1. Diffusely increased hepatic echogenicity, suggestive of hepatic steatosis. No suspicious focal hepatic lesion. 2. Nonobstructing left renal calculus in the lower pole measuring 5 x 2 x 3 mm. 3. Remainder of the examination is normal. Electronically signed by: Sean Saldana MD 12/26/2024 11:03 AM EDT
== END 2024-12-26 10:03 | disposition home or self-care (01) ==
LOC: HO.US 10:02
PROVIDERS: PCP Internal Medicine; Visit Provider Nurse Practitioner
DX: R10.10 Upper abdominal pain, unspecified (principal)
CPT/HCPCS: 76700

== ENCOUNTER → 2024-12-26 10:03 | Outpatient (BNV) | payer OTHER, SELFPAY | PROVIDERS: PCP Internal Medicine; Visit Provider Radiology Diagnostic Radiology | DX: N20.0 Calculus of kidney (principal); K76.89 Other specified diseases of liver | CPT/HCPCS: 76700 ==

== ENCOUNTER 2025-01-11 13:17 | Outpatient (AMB) | payer OTHER, SELFPAY ==
--- OUTSIDE RECORDS SUMMARY | 2018-01-20 07:23 | XMS_ITS | Continuity of Care Document ---
Author Organization [facility] [employer] Address [address] [place] [address] Care Team Providers Care Cap Inspector Name Role Phone Eduardo LOMBARDO, Juanita Unavailable [...] Diagnoses Date Provider Providers Copied on Encounter [facility], [address], [place], [place], [id number] , [facility] [place] No Information Eduardo Grant. [address], [address], [place], [address], [place]. tel:[phone] OFFICE/OUTPA TIENT VISIT, EST [facility], [address], [place], [place], [id number] , [facility] Pain [place] neck pain (chief complaint) Pain in left shoulderChronic pain syndromeCervicalg iaRotator cuff rupture of left shoulder, not specified as traumaticRadiculo stuart, cervical regionBody mass index (BMI) 30.0-30.9, adult 8 [facility] Juanita. [address], [address], [place], [address], [place]. tel:[phone] Referring Provider: Samy patel, [facility] [place], [address] . [facility] Goodman, [address], [place], [place], [id number] , [place] [facility] [place] Follow up chronic pain (chief complaint) Other disturbances of skin sensationBody mass index (BMI) 31.0-31.9, adult 8 [facility] Juanita. [address], [address], [place], [address], [place]. tel:[phone] Referring Provider: Samy patel, [address] [place] [address], [phone] . OFFICE/OUTPA TIENT VISIT, NEW [facility], [address], [place], [place], [id number] , [facility] Pain [place] cervicalgia (chief complaint)Sh oulder Pain (chief complaint) Pain in left shoulderChronic pain syndromeBody mass index (BMI) 31.0-31.9, adultCervicalgiaR otator cuff rupture of left shoulder, not specified as traumaticOther disturbances of skin sensation Dec-0 3-201 8 [facility] [address], [address], [facility], . tel:[phone] Referring Provider: Samy patel, [address] [place] [address], [phone] . [facility], [address], [place], [place], [id number] , [facility] [place] Pain in left shoulder 8 [facility] [address], [facility] [address], [place], [facility], . tel:[phone] Referring Provider: Samy patel, [address] [place] [address], [phone] . Family History Family Member Type Diagnosis Age At Onset Problem (finding) Family history of raise d blood lipids Problem (finding) Family history of Heart disease Problem (finding) Family history of Diabe mariangel mellitus Problem (finding) Family history of Thyro id disorder Problem (finding) Family history of Heada ches Problem (finding) Family history of hyper tension Payers Payer name Insurance type Covered libertarian ID Lex iniguez(s) [facility] Medicaid CI [id number] Social History Type Description Quantity Date Captured [...]
--- OUTSIDE RECORDS SUMMARY | 2025-01-11 13:21 | XMS_ITS | Clinical Summary ---
Author Organization [facility] Address [address] [employer] [facility] [address] [place] [phone] Phone Care Team Providers Care Slag Motor Operator Name Role Phone Jacoby Kamara MD Primary Care Provider [phone] Allergies Active Allergy Reactions Criticality Noted Date Comments Amoxicillin-Pot Clavulanate Diarrhea,Rash Low 01/22 Medications clonazePAM (KLONOPIN) 0.5 MG tablet Take 0.5 mg by mouth daily. 01/16/20 22 Active metoprolol succinate (TOPROL-XL) 25 MG 24 hr tablet Take 25 mg by mouth daily. 05/07/20 22 Active SENNA 8.6 mg tablet Take 1 tablet by mouth continuous prn. 03/17/20 22 Active traZODone (DESYREL) 150 MG tablet TOME SHAUN TABLETA POR V A ORAL AL ACOSTARSE 04/21/20 22 Active metFORMIN (GLUCOPHAGE-XR) 500 MG 24 hr tablet daily. 10/21/19 23 Active escitalopram oxalate (LEXAPRO) 20 MG tablet TOME SHAUN TABLETA TODOS LOS D 09/28/19 24 Active omeprazole (PRILOSEC) 40 MG capsule 2 (two) times a day. 09/13/19 24 Active dicyclomine (BENTYL) 10 MG capsule as needed. 08/02/19 24 Active cetirizine (ZYRTEC) 10 MG tablet 10/15/19 24 Active levothyroxine (SYNTHROID, LEVOTHROID) 100 MCG tablet Take 100 mcg by mouth as directed. Take 1 tablet 6 days a week, skip the 7th day 10/15/19 24 Active atorvastatin (LIPITOR) 80 MG tablet Take 0.5 tablets (40 mg total) by mouth nightly at bedtime. 02/10/20 24 Active FREESTYLE TEST Strp strips 08/15/19 25 Active albuterol 90 mcg/actuation inhaler Inhale 1-2 puffs into the lungs every 4 (four) hours as needed for wheezing or shortness of breath/dyspne a. 8 g 08/28/19 25 Active inhaler spacing device (AEROCHAMBER,DAVID ATHERITE) Spcr Inhale 1 each into the lungs every 4 (four) hours as needed (PRN). 1 each 08/28/19 25 Active butalbital-aceta minophen-caffein e (FIORICET, ESGIC) 50-325-40 mg per tablet Take 1 tablet by mouth every 6 (six) hours as needed. 09/14/19 25 Active dulaglutide (TRULICITY) 0.75 mg/0.5 mL subcutaneous injectionIndicat ions:Type 2 diabetes mellitus without complication, without long-term current use of insulin Inject 0.5 mL (0.75 mg total) under the skin every 7 days. 2 mL 5 10/10/19 25 Active nitroglycerin (NITROSTAT) 0.4 MG SL tabletIndication s:Medication refill PLACE 1 TABLET UNDER THE TONGUE EVERY 5 MINUTES NEEDED FOR CHEST PAIN. 25 tablet 3 11/27/19 25 Active colchicine (COLCRYS) 0.6 mg tablet TAKE 1 TABLET BY MOUTH 2 TIMES A DAY. 180 tablet 3 12/11/19 25 Active ADVAIR HFA 115-21 mcg/actuation inhaler 10/18/19 25 Active LINZESS 145 mcg Cap TOME 1 C PSULA POR V A ORAL TODOS LOS D EN LA MA CHUCKY 12/06/19 25 Active losartan (COZAAR) 25 MG tablet Take 1 tablet (25 mg total) by mouth daily. 90 tablet 5 12/20/19 25 Active aspirin 81 MG EC tabletIndication s:Benign essential hypertension TOME 1 TABLETA POR VIA ORAL TODOS LOS FLORES 90 tablet 3 01/06/20 25 Active lisinopril (PRINIVIL,ZESTRI L) 5 MG tablet Take 1 tablet (5 mg total) by mouth daily. 30 tablet 02/10/20 24 025 Discontinued aspirin 81 MG EC tabletIndication s:Benign essential hypertension TOME SHAUN TABLETA TOSARAH [place] 90 tablet 3 03/12/20 24 025 Discontinued Active Problems Problem Noted Date Diagnosed Date Acquired hypothyroidism 08/31/2024 Assessment & Plan (10/10/2024 1:03 PM EDT): Will check levels to determine if medication adjustments are needed Assessment & Plan (08/31/2024 12:39 PM EDT): Followed by PCP. Clinically and biochemically euthyroid. Last TSH 3.62 in 03/2024 while on 100 mcg LT4 daily. Thyroid nodule 08/31/2024 Assessment & Plan (10/10/2024 1:05 PM EDT): Patient brought in the results from her FNA from 07/15/22. Will have Dr Burt review to determine next course of action. Assessment & Plan (08/31/2024 12:41 PM EDT): Per PCP's records patient had a benign FNA on 07/15/2022 of a nodule. Ultrasound in 2023 reported a right mid 1 cm TR 4 nodule. -No palpable thyroid abnormality on exam today -Patient will obtain her thyroid records and will discuss further management at next visit Chest pain, unspecified type 02/10/2024 Assessment & Plan (02/10/2024 3:53 AM EDT): Patient has significant cardiovascular history with previous LAD stent 2 years prior presented with intermittent substernal chest pain. Initial EKG showed no ischemic changes. Repeat EKG showed possible T wave flattening over aVF and V4. Although troponin remain negative. Chest pain improved with nitroglycerin. But given her significant cardiovascular history and risk factors (hypertension, hyperlipidemia, diabetes) cardiology recommended observation with exercise stress test with nuclear imaging in the morning. -Observation on telemetry -Repeat CBC and CMP -N.p.o. except medications -Continue aspirin, holding beta-samson in the morning, continue atorvastatin -Gentle IV fluid overnight -Nitro as needed for chest pain -Exercise stress test was nuclear imaging -Cardiology consult Type 2 diabetes mellitus wit hout complication, without long-term current use of insulin 02/10/2024 Assessment & Plan (10/10/2024 1:15 PM EDT): Glucose control is very good based upon the patient's SMBG readings and her A1C of 6.1%. She is not using any medications to cause hypoglycemia. She is tolerating the trulicity well. Will maintain her dosing. Continue to work on eating healthy and being active. To call or message with any issues managing her glucose levels. 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 She recalls slightly elevated blood sugars around 2019 and was diagnosed with diabetes after a massive STEMI in 2021. Status post LAD stent in 04/2022. She has history of CHF after [place]. Since 01/2024 has been treated with colchicine for pericarditis. Denies microvascular complications. A1c has been increasing from 6.2 to 6.9 by 03/2024. She had vaginal itching on Farxiga and metformin caused flulike symptoms which was switched to 50 mg Januvia about 3 to 4 months ago. She claims that she has similar side effects on the Januvia including sore throat and flulike symptoms. She denies any rash. She gained about 30 pounds within the last few years. Has not met nursing home administrator/dietitian yet. Foot & nail care good. Up to date with [facility], to request report be sent here. Urine microalbumin/creatinine ratio not available but UA showed no proteinuria in 03/2024. BP under good control. LDL was slightly over target at 84 in 03/2024 while on 80 mg atorvastatin. Discussed pathophysiology of diabetes and complications of uncontrolled diabetes. Discussed progressive nature of disease. Discussed rationale & goals for control. Role of diet, exercise, medications. Role of & goals for HbA1c & SMBG. Reviewed options to improve control with risks & benefits, including intensification of lifestyle & available medications. -Considering her cardiovascular disease and history of CHF an SGLT2 inhibitor would be beneficial but she did not tolerate this in the past. Advised to see GRAIN DRIER OPERATOR, may consider vaginal estradiol cream and after few weeks we may rechallenge with an SGLT2 inhibitor. -Also discussed pros and cons of using a GLP-1 agonist. Patient has no contraindication to use this and it would have a benefit on her cardiovascular health as well. -Stop Januvia and start Mounjaro 2.5 mg weekly. Pending on response we may titrate dose monthly. -Continue to work on eating healthy & keeping active. -Will refer to diabetes education -Follow-up with Elvira in 4 to 6 weeks to decide on further Mounjaro adjustment. -To call or send in log with problems with glucose control. -Labs planned by PCP in 10/2024. Assessment & Plan (02/10/2024 3:56 AM EDT): History of non-ins transient hypoglycemia possibly due to stress. Not on insulin-dependent type 2 diabetes on metformin. Fingerstick was 172 in the ED. -Hemoglobin A1c in the morning -Holding metformin -Continue with low-dose insulin sliding scale with [id number] testing. Mood disorder 02/10/2024 Assessment & Plan (02/10/2024 3:56 AM EDT): Stable. Continue Lexapro, trazodone, Klonopin as needed Chronic heart failure with preserved ejection fr action 03/16/2023 Other chest pain 08/17/2022 Presence of drug coated stent in LAD coronary ar blaise 05/20/2022 Assessment & Plan (07/13/2022 12:28 PM EST): She will continue her aspirin and Plavix for 1 year after 1 year she will continue the aspirin Assessment & Plan (05/20/2022 10:31 AM EST): Patient had almost total occlusion of LAD and was stented. Patient is complaining of some mild atypical chest pain which we will do a simple ETT and an echocardiogram pain is nothing like what she had before during ischemia Atherosclerosis of coronary artery without angin a pectoris 05/20/2022 Overview (05/20/2022): Patient has significant coronary artery disease Cardiac catheterization on 05/05/2022 showed following LAD proximal 100% occluded opened up after stenting Left circumflex mild 30% plaques RCA mild 30% plaques and left ventricular ejection fraction 35 to 40% Assessment & Plan (07/13/2022 12:26 PM EST): Patient had a stress test this time and it did not show any evidence of ischemia is doing well status post LAD stenting she should continue her aspirin Plavix statin and beta-samson he is in the cardiac rehab Assessment & Plan (05/20/2022 10:30 AM EST): Patient has significant coronary artery disease Cardiac catheterization on 05/05/2022 showed following LAD proximal 100% occluded opened up after stenting Left circumflex mild 30% plaques RCA mild 30% plaques and left ventricular ejection fraction 35 to 40%. We will do a simple ETT because she is having some atypical chest pain which she thinks could be GERD. We will also do an echocardiogram to make sure her left ventricular ejection fraction has improved. She will continue her platelet with aspirin and Brilinta she will continue her statin continue her beta-samson metoprolol succinate and she will continue the cardiac rehab Risk benefits of all the management medications and the procedures were explained to her in detail Benign essential hypertension 05/20/2022 Assessment & Plan (02/10/2024 3:54 AM EDT): Continue with metoprolol with holding parameters. Assessment & Plan (05/20/2022 10:32 AM EST): Her blood pressure is very well controlled 07/02/1979 she will continue her present regimen of medication which includes metoprolol succinate in future I will add a low-dose of losartan at this point because of her low ejection fraction Hyperlipidemia 05/20/2022 Assessment & Plan (02/10/2024 3:54 AM EDT): Obtain fasting lipids in the morning Continue atorvastatin Ischemic cardiomyopathy 05/20/2022 Assessment & Plan (07/13/2022 12:27 PM EST): She is doing well she is on beta-samson metoprolol and ARB is not on she is not on Entresto or spironolactone. Does not have any shortness of breath or signs of volume overload Do the echocardiogram to check her left ventricular function before we add up on Entresto or spironolactone So at present we will recommend at least SGLT2 inhibitor Assessment & Plan (05/20/2022 10:33 AM EST): Do not know for sure if she has the blood pressure can be cardiomyopathy because her ejection fraction was only 35% after the angioplasty was done. We will do another echocardiogram but in the meantime we should we will treat her for ischemic cardiomyopathy start her on ARB and guideline mediated therapy Encounters Date Type Department Care Team Description 01/08/2025 12:30 PM EDT Office Visit [facility] [address] [place] [address] Margareth Quiles PA-C Type 2 diabetes mellitus without complication, without long-term current use of insulin (Primary Dx); Thyroid nodule 01/03/2025 12:42 PM EDT - 01/03/2025 11:59 PM EDT Hospital Encounter [facility] [address] [place] [address] Margareth Quiles PA-C Discharge Disposition: Home or Self Care 01/03/2025 Refill [facility] [address] [place] [address], [address] [place] [address] Mejia Quiros MD Medication Refill 12/19/2024 11:20 AM EDT Office Visit [facility] [address] [place] [address], [address] [place] [address] Charlie Amato MD Atherosclerosis of ch[place]koot coronary artery of ch[place]koot heart without angina pectoris (Primary Dx); Benign essential hypertension; Mixed hyperlipidemia 12/09/2024 Refill [facility] [address] [place] [address], [address] [place] [address] Mejia Quiros MD Medication Refill 11/26/2024 Refill [facility] [address] [place] [address], [address] [place] [address] Mejia Quiros MD Medication Refill 10/19/2024 Telephone [facility] [address] [place] [address] Mackenzie Burt MD Request For Records from Last 3 Months Social History Tobacco Use Types Packs/Day Years Used Date Smoking Tobacco: Never Smokeless Tobacco: Never Tobacco Cessation:Counseling Given: Not Answered Alcohol Use Standard Drinks/Week Comments Never 0 (1 standard drink = 0.6 oz pur e alcohol) Education Answer Date Recorded Are you interested in more education? Not on anupam e 10/09/2022 Are you concerned about learning? Not on file 10/09/2022 No 10/09/2022 No 10/09/2022 Food Answer Date Recorded Within the past 6 months we worried whether our food would run out before we got money to buy more. Never True 02/10/2024 Within the past 6 months the food we bought just didn't last and we didn't have enough money to get more. Never True Residential Stability Answer Date Recor ded What is your housing situation today? I have gisella sing 02/10/2024 How many times have you move d in the past 12 months? Zero (I did not move) 02/10/2024 Paying for Meds Answer Date Recorded Do you have trouble paying for medicines? No 02/10/2024 Paying Utility Bills Answer Date Record ed Do you have trouble paying your heating or elect ricity bill? No 02/10/2024 Transportation Answer Date Recorded Has the lack of transportati on kept you from medical appointments or from getting medications? No 02/10/2024 Digital Access Answer Date Recorded No 02/10/2024 Yes 02/10/2024 Do you have reliable internet access at home? Ye s 02/10/2024 Do you have a device (e.g., phone, tablet, computer) with a working camera? Yes 02/10/2024 Intimate Partner Violence Answer Date R ecorded Are you denied basic needs s uch as food, clothing, or medical care? No 02/09/2024 In the past 12 months have y ou been in a relationship with a person who hurts, threatens, or tries to control you? No 02/09/2024 Are you denied basic needs s uch as food, clothing, or medical care? No 02/09/2024 In the past 12 months have y ou been in a relationship with a person who hurts, threatens, or tries to control you? No 02/09/2024 Comments No Sex and Gender Information Value Date Recorded Sex Assigned at Female 05/05/2022 10:33 AM EST Legal Sex Female 11:10 AM EDT Gender Identity Female 05/05/2022 10:33 AM EST Sexual Orientation Straight 01/10/2023 9: 38 AM EDT Last Filed Vital Signs Vital Sign Reading Time Taken Comments Blood Pressure 118/66 01/08/2025 12:31 PM EDT Pulse 80 01/08/2025 12:31 PM EDT Temperature 37.2 C (98.9 F) 08/27/2024 1:45 PM EDT Respiratory Rate 16 08/27/2024 1:45 PM EDT Oxygen Saturation 96% 01/08/2025 12:31 PM EDT Inhaled Oxygen Concentration - - Weight 81.2 kg (179 lb) 01/08/2025 12:31 PM EDT Height 157.5 cm (5' 2.01 ) 01/08/2025 12:31 PM E DT Body Mass Index 32.73 01/08/2025 12:31 PM EDT Plan of Treatment Upcoming Encounters Date Type Department Care Team (Late st Contact Info) Description 05/06/2025 8:40 AM EST Office Visit [facility] [address] [place] [address] [place] [address] Mackenzie Burt MD [address] [place] [address] 06/21/2025 10:40 AM EST Office Visit [facility] [address] [place] [address] [place] [address], [address] [address] Charlie Amato MD [address] [place] [id number] 08/13/2025 10:40 AM EST Office Visit [facility] [address] [place] [address] Margareth Quiles PA-C [address] [place] [address] [email or web address] Maintenance Due Date Last Done Comments DEPRESSION SCREENING 1972 HEPATITIS C SCREENING 1978 HIV ONE-TIME SCREENING (18-65 YEARS) 1978 PAP SMEAR 1981 MAMMOGRAM 2000 COLOGUARD 2005 COLONOSCOPY 2005 COLORECTAL CANCER SCREENING 2005 FIT TEST 2005 FOBT 2005 SIGMOIDOSCOPY 2005 VIRTUAL COLONOSCOPY 2005 RSV VACCINE (1 - Risk 60-74 years 1-dose series) 2020 DIABETIC EYE EXAM 02/10/2024 COVID-19 VACCINE ( season) 2024 06/30/2021, 12/04/2020, 11/12/2020 LIPID PANEL 02/09/2025 02/10/2024 HEMOGLOBIN A1C 07/06/2025 01/03/2025, 02/10/2024 BLOOD PRESSURE 07/11/2025 01/08/2025 CREATININE LEVEL 01/03/2026 01/03/2025, , 02/09/2024, Additional history exists POTASSIUM LEVEL 01/03/2026 01/03/2025, 01/13, 02/09/2024, Additional history exists TSH LEVEL 01/03/2026 01/03/2025, 10/09/2024 Adult Td,Tdap Booster 09/22/2032 09/22/2022 , 06/19/2008, 05/28/2008 PNEUMOCOCCAL VACCINES (50+ years) Completed 09/22/2022 ZOSTER VACCINES Completed 06/16/2023, 09/22/2022 SMOKING STATUS SCREENING (Once After 26 Yrs) Completed 01/08/2025 HEPATITIS A VACCINES Aged Out No long er eligible based on patient's age to complete this topic HIB VACCINES Aged Out No longer eligi ble based on patient's age to complete this topic MENINGOCOCCAL VACCINES (ACWY) Aged Out No longer eligible based on patient's age to complete this topic MENINGOCOCCAL VACCINES (B) Aged Out N o longer eligible based on patient's age to complete this topic Medical Devices Not on file Procedures Procedure Name Priority Date/Time Associated Diagnosis Comments FREE T3 Routine 01/03/2025 12:57 PM EDT FREE T4 Routine 01/03/2025 12:57 PM EDT HEMOGLOBIN A1C Routine 01/03/2025 12:57 PM EDT Type 2 diabetes mellitus without complication, without long-term current use of insulin ALANINE AMINOTRANSFERASE (ALT) Routine 01/03/2025 12:57 PM EDT Type 2 diabetes mellitus without complication, without long-term current use of insulin ASPARTATE AMINOTRANSFERASE (AST) Routine 01/03/2025 12:57 PM EDT Type 2 diabetes mellitus without complication, without long-term current use of insulin BASIC METABOLIC PANEL Routine 01/03/2025 12:57 PM EDT Type 2 diabetes mellitus without complication, without long-term current use of insulin TSH WITH REFLEX Routine 01/03/2025 12:57 PM EDT Thyroid nodule LIPID PANEL Routine 02/10/2024 5:56 AM EDT from Last 3 Months or Most Recently Relevant to Health Maintenance Results * (ABNORMAL) TSH with reflex (01/03/2025 12:57 PM EDT) TSH 0.17(L) 0.27 - 4.20 uIU/mL [facility] Blood 01/03/2025 12:5 7 PM EDT 01/03/2025 1:02 PM EDT us Margareth Quiles PA-C LAB BLOOD ORDERABL ES Final Result [address] [address] * Free T3 (01/03/2025 12:57 PM EDT) FREE T3 3.1 2.0 - 4.4 pg/mL [facility] 01/03/2025 12:5 7 PM EDT 01/03/2025 1:02 PM EDT Margareth IRAHETA-Pedro LAB BLOOD ORDERABL ES Final Result [address] [address] * Alanine aminotransferase (ALT) (01/03/2025 12:57 PM EDT) ALT 22 0 - 40 U/L [facility] Blood 01/03/2025 12:5 7 PM EDT 01/03/2025 1:02 PM EDT Margareth IRAHETA-Pedro LAB BLOOD ORDERABL ES Final Result Performing Organization Address [facility]/ZIP Co de Phone Number [address] [address] * Aspartate aminotransferase (AST) (01/03/2025 12:57 PM EDT) AST 26 0 - 37 U/L [facility] Blood 01/03/2025 12:5 7 PM EDT 01/03/2025 1:02 PM EDT Margareth IRAHETA-C LAB BLOOD ORDERABL ES Final Result Performing Organization Address [facility]/ZIP Co de Phone Number [address] [address] * Free T4 (01/03/2025 12:57 PM EDT) FREE T4 1.5 0.9 - 1.7 ng/dL [facility] 01/03/2025 12:5 7 PM EDT 01/03/2025 1:02 PM EDT Margareth Quiles PA-C LAB BLOOD ORDERABL ES Final Result [address] [address] * (ABNORMAL) Hemoglobin A1c (01/03/2025 12:57 PM EDT) HEMOGLOBIN A1C 6.3(H) 4.3 - 5.8 % [facility] Blood 01/03/2025 12:5 7 PM EDT 01/03/2025 1:03 PM EDT Margareth Quiles PA-C LAB BLOOD ORDERABL ES Final Result Performing Organization Address City/[facility]/ZIP Co de Phone Number [address] [address] * Basic metabolic panel (01/03/2025 12:57 PM EDT) SODIUM 138 133 - 146 mmol/L [facility] CHLORIDE 105 96 - 108 mmol/L [facility] POTASSIUM 4.7 3.3 - 5.1 mmol/L [facility] CO2 24 21 - 35 mmol/L [facility] BUN 12 6 - 19 mg/dL [facility] CREATININE 0.80 0.5 - 1.5 mg/dL [facility] GLUCOSE 91 70 - 99 mg/dL [facility] CALCIUM 9.3 8.4 - 10.3 mg/dL [facility] EGFR 82 >59 mL/min/1.7 3m2 [facility] Comment:Estimated glomerular filtration rate calculated using the CKD-EPI refit equation. ANION GAP 14 10 - 20 mmol/L [facility] Blood 01/03/2025 12:5 7 PM EDT 01/03/2025 1:02 PM EDT Margareth Quiles PA-C LAB BLOOD ORDERABL ES Final Result Performing Organization Address [facility] Co de Phone Number [address] [address] * (ABNORMAL) Lipid panel (02/10/2024 5:56 AM EDT) HDL 53 mg/dL [facility] Comment: Interpretation <40 mg/dL: Low HDL cholesterol (major risk factor for CHD) Greater than or equal to 60 mg/dL: High HDL cholesterol ( negative risk factor for CHD) HDL - cholesterol is affected by a number of factors, e.g. smoking, excerise, hormones, sex and age. CHOLESTEROL 152 0 - 240 mg/dL [facility] TRIGLYCERIDES 160 30 - 160 mg/dL [facility] LDL 67 50 - 129 mg/dL [facility] Comment: LDL levels in terms of risk for coronary heart disease: <100 mg/dL: Optimal 100-129 mg/dL: Near or above optimal 130-159 mg/dL: Borderline high 160-189 mg/dL: High >190 mg/dL: Very High CARDIAC RISK RATIO 2.9(L) 3.3 - 4.4 C [facility] Blood 02/10/2024 5:56 AM EDT 02/10/2024 6:03 AM EDT Ho Estrella MD LAB BLOOD ORDERABLES Final Resu lt Performing Organization Address [facility] Co de Phone Number [address] [address] from Last 3 Months or Most Recently Relevant to Health Maintenance Insurance [facility] [place] [address] [place] [address] [place] [address] [place] [address] [facility] [place] [address] [place] [address] [facility] Advance Directives For more information, please contact: [phone] (9AM - 5PM [facility], Tuesday-Tuesday) Documents on File Type Date Recorded Patient Ep Tech Expl anation Healthcare Proxy 02/27/2024 6:13 PM * Full Code (Latest Code Status on File) Date Activated Date Inactivated Comments 02/10/2024 2:40 AM Question Answer Comments Code Status Confirmed With: Patient Code Status Communicated To: Inpatient Attending Care Teams Slag Motor Operator Relationship Specialty Start Date End Date Jacoby Kamara MD [address] [place] [address] [place] [address] PCP - General Internal Medicine 01/22/22 Additional Source Comments The information contained in this document represents components of the legal health record. It is not the complete legal health record.[facility]
[2025-01-11 13:27] VITALS: BP 114/76; PULSE 82; BMI 32.4
--- NOTE | 2025-01-11 13:27 | MHC.OFFVIS ---
Vital Signs 01/11/25 13:27 Height 5 ft 2 in Weight 177 lb BMI 32.4 BP 114/76 Blood Pressure Location Rt brachial Position Sitting Pulse 82 Intake Visit Reasons: 4 wks f/u Gerd, CIC Intake Note: Steffany returns in 4 weeks follow up of CIC and US. CC: Patient reports that she stopped the colchicine and kept taking the Senna and she has been doing well. 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 Accompanied by: Self / Same As Patient Allergies Benadryl Allergy (Unknown, Verified 01/22/25 13:35) unknown dapagliflozin Adverse Reaction (Severe, Verified 01/22/25 13:35) Chest Pain, Weakness, Nausea, Fatigue amoxicillin (Augmentin) Adverse Reaction (Intermediate, Verified 01/22/25 13:35) diarrhea atorvastatin Adverse Reaction (Intermediate, Verified 01/22/25 13:35) myalgia, feet pain, hair loss morphine (MORPHINE) Adverse Reaction (Intermediate, Verified 01/22/25 13:35) TACHYCARDIA, CP, confusion simvastatin Adverse Reaction (Intermediate, Verified 01/22/25 13:35) swelling of feet tramadol (TRAMADOL) Adverse Reaction (Intermediate, Verified 01/22/25 13:35) DIZZYNESS, confusion trazodone Adverse Reaction (Intermediate, Verified 01/22/25 13:35) chest discomfort; tachycardia zolpidem Adverse Reaction (Intermediate, Verified 01/22/25 13:35) sleepwalking paroxetine (Paxil) Adverse Reaction (Unknown, Verified 01/22/25 13:35) Unknown HPI HPI 4 wks f/u Gerd, CIC: Details: Assessment & Plan (1) Chronic idiopathic constipation: Code(s): K59.04 - Chronic idiopathic constipation Category: Medical (2) Upper abdominal pain: Code(s): R10.10 - Upper abdominal pain, unspecified Category: Medical (3) GERD (gastroesophageal reflux disease): Code(s): K21.9 - Gastro-esophageal reflux disease without esophagitis Category: Medical Qualifiers: Esophagitis presence: without esophagitis Qualified Code(s): K21.9 - Gastro-esophageal reflux disease without esophagitis (4) Erosive esophagitis: Code(s): K22.10 - Ulcer of esophagus without bleeding Category: Medical Plan Her current regimen consists of omeprazole 40 mg twice a day and dicyclomine. She is having worsening trouble with constipation and the senna is no longer working even if she takes more than 2 at night. She has had trouble with the [id number] because they will cause severe lower abdominal cramping and she has failed MiraLax, fiber, Colace, bisacodyl, and senna. I think will progress to Linzess and started 145 micro g and titrate to affect her side effect. This will also address the pain issues. Confounding factors are her thyroid which currently is running a bit low with TSH over 4, (however she is following with an environmental maintenance worker in [place] it Susu Torres who be rechecking her in December), use of Trulicity, and colchicine for her pericarditis that is intermittent. She is also having upper abdominal discomfort and a pain that will start in the epigastrium and radiate up her chest especially when she is lying down at night. Sometimes the go all the way up into her ears. She also notes that when she bends over she feels like her stomach contents were going to reflux. All of this makes sense in the context of constipation and I think that all of these symptoms will improve once we establish colonic motility. If not then we will explore further and look into other possibility such as gallbladder disease or gastroparesis. WIll also get US of GB as she has been told in the past that my GB was lazy, but I see no HIDA scan in our chart, this may be something to explore going forward if LInzess alone does not alleviate the sx. Return office visit in 4 weeks. Orders: Orders US abdomen complete Today R10.10 - Upper abdominal pain, unspecified Medications: New linaclotide (Linzess) Take first thing in the morning with a full glass of water. 145 mcg PO QAM 30 caps 3RF K58.1 - Irritable bowel syndrome with constipation Refilled omeprazole 40 mg PO BID 60 caps 6RF 30 days K21.9 - Gastro-esophageal reflux disease without esophagitis, K22.10 - Ulcer of esophagus without bleeding On Hold sennosides (senna) Hold Comment: Doctor's Order 17.2 mg (2 x 8.6 mg) PO BEDTIME PRN 60 tabs 6RF for constipation us [facility] 12/26/2024 FINDINGS: PANCREAS: Visualized portions are unremarkable. ABDOMINAL AORTA: The proximal, mid, and distal segments are normal in caliber. INFERIOR VENA CAVA: Visualized portions are normal. LIVER: The liver is normal in size. Right hepatic lobe measures 15.6 cm. The liver contour is normal. Mildly diffusely increased hepatic echogenicity is present. No suspicious focal hepatic lesion. There is no intrahepatic biliary duct dilatation seen. GALLBLADDER: The gallbladder is physiologically distended without evidence of stones, sludge, polyps, wall thickening or pericholecystic fluid. COMMON BILE DUCT: Normal in caliber measuring 0.4 cm in diameter. RIGHT KIDNEY: No hydronephrosis. No suspicious focal parenchymal lesions. The kidney measures 8.5 cm in maximum dimension. There is a nonobstructing calculus measuring 0.5 x 0.2 x 0.3 cm in the lower pole. LEFT KIDNEY: No hydronephrosis. No renal calculi or focal parenchymal lesions. The kidney measures 10.7 cm in maximum dimension. SPLEEN: The spleen measures 7.9 cm in maximum dimension. FREE FLUID: None. US/US abdomen complete IMPRESSION: 1. Diffusely increased hepatic echogenicity, suggestive of hepatic steatosis. No suspicious focal hepatic lesion. 2. Nonobstructing left renal calculus in the lower pole measuring 5 x 2 x 3 mm. 3. Remainder of the examination is normal. TODAYS VISIT She is doing much better! She found that the colchicine was the factor causing the CIC, she did find the Linzess helpful, but since stopping the colchicine she has been able to go back to the [facility] and all sx are controlled. She continues on her omeprazole 40 mg twice a day with good control of her GERD. Return office visit in 6 months [facility] Medical History (Updated 01/22/25 @ 13:49 by Jacoby Kamara MD) Irritable bowel syndrome with both constipation and diarrhea Annual physical exam Norman syndrome Obesity (BMI 30-39.9) Diabetes mellitus Coronary atherosclerosis Asthma Depression Epilepsy Anxiety Insomnia Osteopenia Allergic rhinitis Acquired hypothyroidism Acute non intractable tension-type headache Mixed hyperlipidemia Surgical History History of radiofrequency ablation (RFA) procedure for cardiac arrhythmia Hx of cardiac cath (~05/05/22) History of ST elevation myocardial infarction (STEMI) Hx of shoulder surgery History of bunionectomy History of esophagogastroduodenoscopy (EGD) Hx of colonoscopy Family History Father HTN (hypertension) Heart disease Myocardial infarction Mother Diabetes Hyperchloremia HTN (hypertension) Myocardial infarction Family/Other Stomach cancer Other Thyroid nodule Social History Household Members: None Housing: Apartment Alcohol intake: current Alcohol intake frequency: does not drink Patient Tobacco Use Status: Never used Tobacco e-Cigarette/Vaping Use: Never Used Second Hand Smoke Exposure: No service: No Current occupational status: disabled Cognitive needs: No Hearing needs: No Vision needs: Yes (Glasses) Review of Systems Const Denies fatigue, Denies fever(s), Denies night sweats, Denies poor appetite and Denies weight loss Eyes Details: glasses Reports requires corrective lenses ENT Reports Normal hearing present, Denies dental pain, Denies dysphagia, Denies hearing loss, Denies mouth pain, Denies odynophagia, Denies throat swelling, Denies tongue swelling and Reports other (Dentition adequate) Card Reports no additional complaints Resp Reports no additional complaints GI Details: Denies abdominal pain, Denies melena, Denies bloating, Denies hematochezia, Denies constipation, Denies GI cramping, Denies dysphagia, Denies excessive flatus, Denies early satiety, Reports heartburn, Denies diarrhea, Denies nausea, Denies odynophagia, Denies vomiting and Denies hematemesis Skin/Breast Denies pruritus, Denies lesions, Denies rash and Denies jaundice Neuro Reports Normal hearing present and Denies Abnormal speech present Endo Denies fatigue Aller/Immun Denies throat swelling and Denies tongue swelling Physical Exam Vital Signs: Last Vital Signs Pulse 82 01/11/25 13:27 BP 114/76 01/11/25 13:27 BMI result Body Mass Index 32.4 Const General: cooperative, no acute distress, well developed and well groomed Nutritional Appearance: well nourished and obese Orientation/consciousness: oriented to person, oriented to place and oriented to time Limitations: No language barrier HEENT Head: Yes normocephalic and Yes atraumatic Eyes General: appearance normal, both eyes and all related structures Pupils: Equal, round and reactive pupils present Neck Neck: Yes normal visual inspection and Yes no lymphadenopathy Thyroid: Thyroid normal Resp Effort & Inspection: normal respiratory effort and able to speak in complete sentences Auscultation: clear to auscultation bilaterally Cardio Rate: regular rate Rhythm: regular rhythm Heart sounds: Normal, physiologic split S2 sound present Peripheral pulses: radial pulses present and posterior tibial pulses present GI Inspection: No distended and No Abdominal panniculus present Palpation (GI): Soft to palpation, nontender, no guarding, not rigid and No hepatosplenomegaly present Percussion: Yes normal to percussion Auscultation: normal bowel sounds Rectal Exam - Female: deferred Skin General skin exam: no rashes or lesions noted, turgor normal, skin not dry, no jaundice, No spider nevi and no striae Rashes: no rashes Nails: normal Neuro General: oriented to person, oriented to place and oriented to time Cranial nerves: Yes Equal, round and reactive pupils present and Yes Normal hearing present Speech: No Abnormal speech present Extrem General: Yes normal to inspection, No clubbing, No cyanosis and No edema Psych Appearance: grossly normal and well kempt Mental Status: mental status grossly normal Speech and movement: Normal speech and movement present Affect: normal affect Attitude: cooperative Thought process: Normal thought process present and not confabulating Thought content: Normal thought content present Insight: Good insight present (Psych) Judgement: Good judgement present (Psych) Assessment & Plan Assessment & Plan (1) Chronic idiopathic constipation: Code(s): K59.04 - Chronic idiopathic constipation Category: Medical (2) Upper abdominal pain: Code(s): R10.10 - Upper abdominal pain, unspecified Category: Medical (3) GERD (gastroesophageal reflux disease): Code(s): K21.9 - Gastro-esophageal reflux disease without esophagitis Category: Medical Qualifiers: Esophagitis presence: without esophagitis Qualified Code(s): K21.9 - Gastro-esophageal reflux disease without esophagitis (4) Celiac disease: Code(s): K90.0 - Celiac disease Category: Medical Plan She is doing much better! She found that the colchicine was the factor causing the CIC, she did find the Linzess helpful, but since stopping the colchicine she has been able to go back to the [facility] and all sx are controlled. She continues on her omeprazole 40 mg twice a day with good control of her GERD. Return office visit in 6 months Coding Level of Care Code Est Pt Level 3 (42727) Diagnoses Chronic idiopathic constipation K59.04 Upper abdominal pain R10.10 Gastroesophageal reflux disease without esophagitis K21.9 Esophagitis presence: without esophagitis Celiac disease K90.0
== END 2025-01-11 14:18 | disposition home or self-care (01) ==
LOC: HO.HGI 13:18
PROVIDERS: PCP Internal Medicine; Visit Provider Nurse Practitioner
DX: R10.10 Upper abdominal pain, unspecified (principal); K21.9 Gastro-esophageal reflux disease without esophagitis; K90.0 Celiac disease
CPT/HCPCS: 99213

== ENCOUNTER → 2025-01-11 13:17 | Outpatient (BNVA) | payer OTHER, SELFPAY | PROVIDERS: PCP Internal Medicine; Visit Provider Nurse Practitioner | DX: K21.9 Gastro-esophageal reflux disease without esophagitis (principal); K22.10 Ulcer of esophagus without bleeding; R10.10 Upper abdominal pain, unspecified; K59.04 Chronic idiopathic constipation | CPT/HCPCS: 99212 ==

== ENCOUNTER 2025-01-22 12:23 | Outpatient (AMB) | payer OTHER, SELFPAY ==
[2025-01-22 12:51] VITALS: BP 132/80; PULSE 87; O2SAT 96; BMI 32.4
--- NOTE | 2025-01-22 12:51 | MHC.PC.OV ---
Vital Signs 01/22/25 12:51 Height 5 ft 2 in Weight 177 lb BMI 32.4 BP 132/80 Blood Pressure Location Lt brachial Position Sitting Pulse 87 Pulse Source Pulse Oximeter Pulse Oximetry (%) 96 Oxygen Delivery Method Room Air Intake Visit Reasons: ED f/u chest pain, high D-dimer Laboratory Worker Required: No Accompanied by: Self / Same As Patient Allergies Benadryl Allergy (Unknown, Verified 01/22/25 13:35) unknown dapagliflozin Adverse Reaction (Severe, Verified 01/22/25 13:35) Chest Pain, Weakness, Nausea, Fatigue amoxicillin (Augmentin) Adverse Reaction (Intermediate, Verified 01/22/25 13:35) diarrhea atorvastatin Adverse Reaction (Intermediate, Verified 01/22/25 13:35) myalgia, feet pain, hair loss morphine (MORPHINE) Adverse Reaction (Intermediate, Verified 01/22/25 13:35) TACHYCARDIA, CP, confusion simvastatin Adverse Reaction (Intermediate, Verified 01/22/25 13:35) swelling of feet tramadol (TRAMADOL) Adverse Reaction (Intermediate, Verified 01/22/25 13:35) DIZZYNESS, confusion trazodone Adverse Reaction (Intermediate, Verified 01/22/25 13:35) chest discomfort; tachycardia zolpidem Adverse Reaction (Intermediate, Verified 01/22/25 13:35) sleepwalking paroxetine (Paxil) Adverse Reaction (Unknown, Verified 01/22/25 13:35) Unknown Medication List - Last Reconciled 01/22/25 by Jacoby Kamara MD albuterol sulfate 90 mcg/actuation 2 puffs PO Q6H PRN albuterol sulfate 2.5 mg (3 mL) inhalation QID PRN 30 days aspirin 81 mg PO DAILY atorvastatin 40 mg PO BEDTIME blood sugar diagnostic (FreeStyle Lite Strips) As directed once a day blood-glucose meter (FreeStyle Lite Meter kit) As directed [id number]-whoavymgbshvw-[id number] 50-325-40 mg 1 tab PO TID PRN cetirizine 10 mg PO DAILY PRN 90 days clonazepam 0.5 mg PO BID PRN 30 days dicyclomine 10 mg PO QID PRN dulaglutide (Trulicity) 0.75 mg subcut QWEEK escitalopram oxalate 20 mg PO DAILY 30 days fluticasone propion-salmeterol 115-21 mcg/actuation (Advair HFA) 2 puffs inhalation BID 30 days lancets (FreeStyle Lancets) As directed once a day levothyroxine 100 mcg PO DAILY linaclotide (Linzess) 145 mcg PO QAM losartan 25 mg PO DAILY metoprolol succinate ER 25 mg PO DAILY 90 days [NEBULIZER As directed] nitroglycerin mg sublingual omeprazole 40 mg PO BID 30 days sennosides (senna) 17.2 mg (2 x 8.6 mg) PO BEDTIME PRN Held on 12/05/24. Instructions: Doctor's Order trazodone 150 mg PO BEDTIME Tobacco use date assessed: 01/22/25 Fall risk assessment: No Falls in past year Last assessed Fall Risk: 01/22/25 Dental Screening Dental Screen Date: 01/22/25 Did you have a dental visit in the last 12 months?: Yes Did you have a dental problem in the last 6 months where you did not have access to dental care?: No Was dental information given to patient?: Patient has dentist HPI ED f/u chest pain, high D-dimer HPI Details Patient comes in today for her HDF follow-up visit She went to the ER last week for chest pains and palpitations that have been going on for about 3 days Patient also was reportedly experiencing occasional dizziness and weakness in her legs at the time Her EKG done showed sinus rhythm with no evidence of ischemia but there were occasional PACs noted Her labs were reportedly unremarkable except for an elevated D-dimer level Because of this a CTA of the chest was done, which revealed no evidence of pulmonary embolism or other acute findings She was eventually discharged back home with instructions to follow up with her PCP as soon as possible Patient called the office a couple of days ago requesting for lab orders to recheck her D-dimer level but was advised that in the absence of any other pertinent findings, a D-dimer level alone is not a very helpful test to do so no labs were ordered additionally Today patient states that she feels okay with no recurrence of her chest pains or symptoms since her ER visit last week She denies any headaches and that her previous symptoms of dizziness last week have resolved Denies any shortness of breath; states that she has had no further episodes of chest pains since her ER visit last week No nausea/vomiting, no abdominal pain No change in bowel habits noted Patient reports that she has been experiencing some on and off difficulty swallowing lately - reports (+) history of EGD with dilatation many years ago and is wondering if she needs to have this done again [facility] Medical History (Updated 01/27/25 @ 23:13 by Jacoby Kamara MD) Irritable bowel syndrome with both constipation and diarrhea Annual physical exam Markel syndrome Obesity (BMI 30-39.9) Diabetes mellitus Coronary atherosclerosis Asthma Depression Epilepsy Anxiety Insomnia Osteopenia Allergic rhinitis Acquired hypothyroidism Acute non intractable tension-type headache Mixed hyperlipidemia Surgical History History of radiofrequency ablation (RFA) procedure for cardiac arrhythmia Hx of cardiac cath (~05/05/22) History of ST elevation myocardial infarction (STEMI) Hx of shoulder surgery History of bunionectomy History of esophagogastroduodenoscopy (EGD) Hx of colonoscopy Family History Father HTN (hypertension) Heart disease Myocardial infarction Mother Diabetes Hyperchloremia HTN (hypertension) Myocardial infarction Family/Other Stomach cancer Other Thyroid nodule Social History Household Members: None Housing: Apartment Alcohol intake: current Alcohol intake frequency: does not drink Patient Tobacco Use Status: Never used Tobacco e-Cigarette/Vaping Use: Never Used Second Hand Smoke Exposure: No service: No Current occupational status: disabled Cognitive needs: No Hearing needs: No Vision needs: Yes (Glasses) Questionnaire PHQ-9 Over the last 2 weeks, how often have you been bothered by any of the following problems? 1. Little interest or pleasure in doing things: several days 2. Feeling down, depressed, or hopeless: several days 3. Trouble falling or staying asleep, or sleeping too much: several days 4. Feeling tired or having little energy: several days 5. Poor appetite or overeating: several days 6. Feeling bad about yourself - or that you are a failure or have let yourself or your family down: several days 7. Trouble concentrating on things, such as reading the newspaper or watching television: several days 8. Moving or speaking so slowly that other people could have noticed. Or the opposite - being so fidgety or restless that you have been moving around a lot more than usual: several days 9. Thoughts that you would be better off or of hurting yourself in some way: several days Total score: 9 Depression Screening Interpretation: Positive Depression Screening Follow-up: Existing condition and In treatment Depression Screening Done: Yes 62548 - PHQ-9 Billing: Yes Source: Developed by Drs. Ziyad Gary, Dayana Crane, Vinh Brar and colleagues, with an educational vero from ([employer]. Thrive Questionnaire Date Thrive assessed: 01/22/25 I am a: Patient What is your living situation today?: I have a steady place to live Within the past 12 months, did the food you bought not last and you didn't have the money to get more?: I choose not to answer this question Within the past 12 months, did you worry whether your food would run out before you got money to buy more?: I choose not to answer this question Do you have trouble paying for medicines?: No Do you have trouble getting transportation to medical appointments?: I choose not to answer this question Do you have trouble paying your heating and electricity bill?: I choose not to answer this question Do you have trouble taking care of your child, family member or friend?: No Do you have trouble with day-to-day activities such as bathing, preparing meals, shopping, managing finances, etc.?: I choose not to answer this question Are you currently unemployed and looking for a job?: No Are you interested in more education?: No Please select the resources that you would like help with: None Currently or been in a relationship where the following occur: No concerns reported THRIVE Score: 0 AUDIT C Alcohol Use Questionnaire (AUDIT-C) 1. How often do you have a drink containing alcohol?: Never 3. How often do you have six or more drinks on one occasion?: Never Total Score: 0 Score Reviewed/Action Taken: Yes RASHI-7 AMB Questionnaire RASHI-7 Date RASHI - 7 assessed: 01/22/25 Feeling nervous, anxious, or on edge: 1 = Several days Not being able to stop or control worryin = Not at all Worrying too much about different things: 0 = Not at all Trouble relaxin = Not at all Being so restless that it is hard to sit still: 0 = Not at all Becoming easily annoyed or irritable: 0 = Not at all Feeling afraid as if something awful might happen: 0 = Not at all Total RASHI-7 score (0-4 normal; 5-9 mild; 10-14 moderate; 15-21 severe): 1 Source: Developed by Drs. Ziyad Gary, Dayana Crane, Vinh Brar and colleagues, with an educational vero from ([employer]. Review of Systems Const Denies chills, Reports difficulty sleeping, Denies fatigue, Denies fever(s) and Denies headache(s) ENT Reports dysphagia (on and off lately), Denies dizziness, Denies otalgia, Denies headache(s), Denies neck pain, Denies odynophagia and Denies sore throat Card Denies chest pain, Denies rapid heart rate, Denies irregular heart rhythm, Denies palpitations and Denies dyspnea Resp Denies chest congestion, Denies cough and Denies dyspnea GI Denies abdominal pain, Denies constipation, Reports dysphagia (on and off lately), Denies heartburn, Denies diarrhea, Denies nausea, Denies odynophagia and Denies vomiting Denies difficulty voiding, Denies nocturia, Denies dysuria and Denies urinary urgency Musc Denies back pain, Reports arthralgias (on and off over her right ankle, foot and heel ) and Denies neck pain Skin/Breast Denies rash Neuro Denies dizziness, Denies headache(s) and Denies paresthesias Psych Denies anxiety and Denies depression Endo Denies fatigue and Denies palpitations Bryson/Lymph Denies easy bruising Physical exam (Primary Care) Vital Signs: Last Vital Signs Pulse 87 01/22/25 12:51 BP 132/80 01/22/25 12:51 Pulse Ox 96 01/22/25 12:51 Oxygen Delivery Method Room Air 01/22/25 12:51 BMI result Body Mass Index 32.4 Tobacco/Smoking Status: Tobacco use Status Tobacco use date assessed 01/22/25 01/22/25 12:58 Patient Tobacco Use Status Never used Tobacco 01/22/25 12:58 e-Cigarette/Vaping Use Never Used 01/22/25 12:58 PHQ-9: PHQ-9 Score PHQ-9: Total score 9 01/22/25 13:52 Depression Screening Interpretation: Positive Depression Screening Follow-up: Existing condition and In treatment Thrive Assessment: Date of Thrive Assessment Date Thrive assessed 01/22/25 01/22/25 12:58 Currently or been in a relationship where the following occur: No concerns reported Const General: no acute distress and alert HENMT Ears: TM's normal bilaterally and EAC's normal Throat: Yes posterior oropharynx normal and Yes tonsils normal (no TP congestion) Neck Neck: Yes supple and No lymphadenopathy Thyroid: Thyroid normal Resp Auscultation: clear to auscultation bilaterally, no rales and no wheezes Cardio Rate: regular rate Rhythm: regular rhythm Heart sounds: no murmurs GI Palpation (GI): Soft to palpation and nontender Auscultation: normal bowel sounds General: Yes no CVA tenderness Back/Spine/Pelvis Back: no CVA tenderness Thoracic/Lumbar Spine: No lumbar spinal tenderness Skin Rashes: no rashes Extrem General: Yes no clubbing, cyanosis or edema Right lower extremity: ankle Details: tenderness (mild) Location: of the lateral malleolus and of the achilles tendon; no swelling and foot Details: tenderness (mild) Location: of the calcaneus Coding Level of Care Code Est Pt Level 4 (91011) Diagnoses Dysphagia, unspecified type R13.10 Dysphagia type: unspecified Chest pain, unspecified type R07.9 Chest pain type: unspecified Elevated d-dimer R79.89 Erosive esophagitis K22.10 Atherosclerosis of one[place] coronary artery of [place] heart without angina pectoris I25.10 Coronary Disease-Associated Artery/Lesion type: [place] artery [place] vs. 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 use: without dedicated intermodal truck driver use Diabetes mellitus complication status: with hyperglycemia Essential hypertension I10 Moderate persistent asthma with acute exacerbation J45.41 Asthma severity: moderate Asthma persistence: persistent Asthma complication type: with acute exacerbation Acquired hypothyroidism E03.9 Thyroid nodule E04.1 Allergic rhinitis, unspecified seasonality, unspecified trigger J30.9 Allergic rhinitis trigger: unspecified Allergic rhinitis seasonality: unspecified Nonintractable epilepsy without status epilepticus, unspecified epilepsy type G40.909 Epilepsy type: unspecified Intractability: not intractable Status epilepticus: without status epilepticus Insomnia, unspecified type G47.00 Insomnia type: unspecified Anxiety F41.9 Episode of recurrent major depressive disorder, unspecified depression episode severity F33.9 Depression Type: major depressive disorder Major depression recurrence: recurrent Active/Remission status: currently active Major depression episode severity: unspecified Obesity (BMI 30-39.9) E66.9 Additional Codes PHQ-9 - 68810 - PHQ-9 Billing: Yes ([id number]) Assessment & Plan Assessment & Plan (1) Dysphagia: Code(s): R13.10 - Dysphagia, unspecified Category: Medical Qualifiers: Dysphagia type: unspecified Qualified Code(s): R13.10 - Dysphagia, unspecified Plan: Will send patient for a barium swallow for further evaluation (2) Chest pain: Code(s): R07.9 - Chest pain, unspecified Category: Medical Qualifiers: Chest pain type: unspecified Qualified Code(s): R07.9 - Chest pain, unspecified Plan: EKG and cardiac workups done at the ER at [facility] last week reportedly all came back normal She was advised that her chest pain is likely noncardiac in origin (3) Elevated d-dimer: Code(s): R79.89 - Other specified abnormal findings of blood chemistry Category: Medical Plan: Her D-dimer was reportedly elevated when checked in the ER last week She underwent a CTA of the chest as a result of this to help rule out pulmonary embolism - CTA of the chest came back negative Have advised patient the D-dimer level is a very nonspecific test and may be have been elevated due to other reasons, including her dysphagia and does not need to be rechecked or repeated at this time (4) Erosive esophagitis: Code(s): K22.10 - Ulcer of esophagus without bleeding Category: Medical Plan: Dx by EGD with Bx Dietary restrictions reinforced She was doing well on Omeprazole 40 mg BID but insurance would NOT cover Rx and she was getting Rx [id number] for a while but could not afford to continue She is currently on Famotidine 40 mg BID and Carafate liquid Q HS Follow up with GI as scheduled (5) Coronary atherosclerosis: Comment: S/P cardiac cath with stenting of LAD with ISAIAH on 05/05/2022 Code(s): I25.10 - Atherosclerotic heart disease of one[place] coronary artery without angina pectoris Category: Medical Qualifiers: Coronary Disease-Associated Artery/Lesion type: [place] artery [place] vs. transplanted heart: [place] heart Associated angina: without angina Qualified Code(s): I25.10 - Atherosclerotic heart disease of [place] coronary artery without angina pectoris Plan: Patient remains asymptomatic from cardiac standpoint Continue Aspirin 81 mg QD for lifelong antiplatelet Tx; continue Clopidogrel 75 mg QD and Metoprolol ER 25 mg QD (was taken off Brilinta by cardiology previously due to increasing SOB) Myocardial perfusion stress test imaging done on 09/08/22 at [facility] reportedly came out normal Repeat echocardiogram done on 10/26/2022 at [facility] was also normal, with EF of 65 to 70% (EF was at 35 to 40% back in April 2022 when patient had her SC and was experiencing ischemic cardiomyopathy at the time) Follow up with cardiology as scheduled (6) Mixed hyperlipidemia: Code(s): E78.2 - Mixed hyperlipidemia Category: Medical Plan: Reinforced low cholesterol diet Continue Atorvastatin 40 mg QD She was on Atorvastatin 80 mg QD previously but she cut her dose down to 40 mg QD on her own a few months ago due to increased myalgia that she attributed to her cholesterol Rx States that her muscle pains subsided when she cut her dose down Will recheck her labs and fasting lipids as scheduled next month for follow-up (7) Diabetes mellitus: Code(s): E11.9 - Type 2 diabetes mellitus without complications Category: Medical Qualifiers: Diabetes mellitus type: type 2 Diabetes mellitus alf insulin use: without dedicated intermodal truck driver use Diabetes mellitus complication status: with hyperglycemia Qualified Code(s): E11.65 - Type 2 diabetes mellitus with hyperglycemia Plan: Her HgbA1c is at 6.1% on her labs done a couple of months ago (HgbA1c was previously at 6.3% a few months ago) - goal is at least <7.0% but ideally <6.5% Reinforced diabetic diet Continue Metformin ER 500 mg BID: she could not tolerate Farxiga in the past due to chest pains (8) Essential hypertension: Code(s): I10 - Essential (primary) hypertension Category: Medical Plan: Reinforced low sodium diet - goal is systolic BP of 120 mm or less Continue Lisinopril 5 mg QD (9) Asthma: Code(s): J45.909 - Unspecified asthma, uncomplicated Category: Medical Qualifiers: Asthma severity: moderate Asthma persistence: persistent Asthma complication type: with acute exacerbation Qualified Code(s): J45.41 - Moderate persistent asthma with (acute) exacerbation Plan: Controlled [place] Advair HFA 115-21 mcg 2 inhalations BID and Albuterol HFA 1 to 2 inhalations Q 6 hours PRN (10) Acquired hypothyroidism: Code(s): E03.9 - Hypothyroidism, unspecified Category: Medical Plan: Continue Levothyroxine 100 mcg QD Will recheck her TFTs next month for follow up (11) Thyroid nodule: Code(s): E04.1 - Nontoxic single thyroid nodule Category: Medical Plan: Thyroid US done last year revealed (+) TI-RADS Category 4 right midpole nodule with maximum dimension of 1.0 cm Recommend followup ultrasound in 1, 2, 3 and 5 years for continuing surveillance She had a thyroid Bx done by endocrinology a couple of years ago on 07/15/2022 - cytology was benign Follow up with endocrinology as scheduled (12) Allergic rhinitis: Code(s): J30.9 - Allergic rhinitis, unspecified Category: Medical Qualifiers: Allergic rhinitis trigger: unspecified Allergic rhinitis seasonality: unspecified Qualified Code(s): J30.9 - Allergic rhinitis, unspecified Plan: Patient used to see Dr. Donita Ho for her allergies and was on Nasacort and Azelastine but she has not used these in a while as she did not feel that they were helping adequately She also has not seen Dr. Ho in a few years - she currently lives in the [facility] beds at the [facility] and finds it too far to go all the way to [place] She is now going to [facility] in [place] for her allergy issues Continue Cetirizine 10 mg QD PRN (13) Epilepsy: Code(s): G40.909 - Epilepsy, unspecified, not intractable, without status epilepticus Category: Medical Qualifiers: Epilepsy type: unspecified Intractability: not intractable Status epilepticus: without status epilepticus Qualified Code(s): G40.909 - Epilepsy, unspecified, not intractable, without status epilepticus Plan: Stable lately; recalls that her last seizure episode was over a year ago, and that she has never been started on any Rx for her seizures She was referred to neurology last year but patient states that she does not want to go back to see Dr. Pittman She was referred instead to Dr. Donahue as she has [facility], which is not accepted by [facility]-affiliated practices - to follow up with neurology as scheduled (14) Insomnia: Code(s): G47.00 - Insomnia, unspecified Category: Medical Qualifiers: Insomnia type: unspecified Qualified Code(s): G47.00 - Insomnia, unspecified Plan: Sleep hygiene reinforced She could not tolerate Trazodone due to side effects; also had issues with Zolpidem in the past She also stopped taking her Doxepin 25 mg Q HS PRN a while back (15) Anxiety: Code(s): F41.9 - Anxiety disorder, unspecified Category: Medical Plan: Continue Clonazepam 0.5 mg BID PRN Follow-up with Psychiatry as scheduled (16) Depression: Code(s): F32.9 - Major depressive disorder, single episode, unspecified Category: Medical Qualifiers: Depression Type: major depressive disorder Major depression recurrence: recurrent Active/Remission status: currently active Major depression episode severity: unspecified Qualified Code(s): F33.9 - Major depressive disorder, recurrent, unspecified Plan: Continue Escitalopram 20 mg QD (reportedly felt angry often while on Fluoxetine in the past) Follow-up with Psychiatry as scheduled (17) Obesity (BMI 30-39.9): Code(s): E66.9 - Obesity, unspecified Category: Medical Plan: Reinforced diet/exercise as tolerated/lose weight Plan Follow-up as scheduled next month Orders: Orders [place] barium swallow 01/22/25 R13.10 - Dysphagia, unspecified
--- OUTSIDE RECORDS SUMMARY | 2025-01-22 13:12 | XMS_ITS | Clinical Summary ---
Author Organization [facility] Address [address] [place] [phone] Phone Care Team Providers Care Rocket Motor Tester Name Role Phone Jacoby Kamara MD Primary Care Provider [phone] Allergies Active Allergy Reactions Criticality Noted Date Comments Amoxicillin-Pot Clavulanate Diarrhea,Rash Low 01/22 Medications clonazePAM (KLONOPIN) 0.5 MG tablet Take 0.5 mg by mouth daily. Active metoprolol succinate (TOPROL-XL) 25 MG 24 hr tablet Take 25 mg by mouth daily. Active SENNA 8.6 mg tablet Take 1 tablet by mouth continuous prn. 022 Active traZODone (DESYREL) 150 MG tablet TOME SHAUN TABLETA POR V A ORAL AL ACOSTARSE 022 Active metFORMIN (GLUCOPHAGE-XR) 500 MG 24 hr tablet daily. 023 Active escitalopram oxalate (LEXAPRO) 20 MG tablet TOME SHAUN TABLETA TODOS LOS D 024 Active omeprazole (PRILOSEC) 40 MG capsule 2 (two) times a day. 024 Active dicyclomine (BENTYL) 10 MG capsule as needed. 024 Active cetirizine (ZYRTEC) 10 MG tablet 024 Active atorvastatin (LIPITOR) 80 MG tablet Take 0.5 tablets (40 mg total) by mouth nightly at bedtime. 024 Active FREESTYLE TEST Strp strips 025 Active albuterol 90 mcg/actuation inhaler Inhale 1-2 puffs into the lungs every 4 (four) hours as needed for wheezing or shortness of breath/dyspne a. 8 g 025 Active inhaler spacing device (AEROCHAMBER,HORTENSIA THERITE) Spcr Inhale 1 each into the lungs every 4 (four) hours as needed (PRN). 1 each 025 Active butalbital-acetam inophen-caffeine (FIORICET, ESGIC) 50-325-40 mg per tablet Take 1 tablet by mouth every 6 (six) hours as needed. 025 Active dulaglutide (TRULICITY) 0.75 mg/0.5 mL subcutaneous injectionIndicati ons:Type 2 diabetes mellitus without complication, without long-term current use of insulin Inject 0.5 mL (0.75 mg total) under the skin every 7 days. 2 mL 5 025 Active nitroglycerin (NITROSTAT) 0.4 MG SL tabletIndications :Medication refill PLACE 1 TABLET UNDER THE TONGUE EVERY 5 MINUTES NEEDED FOR CHEST PAIN. 25 tablet 3 025 Active colchicine (COLCRYS) 0.6 mg tablet TAKE 1 TABLET BY MOUTH 2 TIMES A DAY. 180 tablet 3 025 Active ADVAIR HFA 115-21 mcg/actuation inhaler 025 Active LINZESS 145 mcg Cap TOME 1 C PSULA POR V A ORAL TODOS LOS D EN [place] [employer] [place] 025 Active losartan (COZAAR) 25 MG tablet Take 1 tablet (25 mg total) by mouth daily. 90 tablet 5 025 Active aspirin 81 MG EC tabletIndications :Benign essential hypertension TOME 1 TABLETA POR VIA ORAL TODOS LOS FLORES 90 tablet 3 025 Active levothyroxine (SYNTHROID, LEVOTHROID) 100 MCG tabletIndications :Acquired hypothyroidism Take 1 tablet (100 mcg total) by mouth as directed. Take 1 tablet 5 days a week, skip 2 days a week 66 tablet 025 Active levothyroxine (SYNTHROID, LEVOTHROID) 100 MCG tablet Take 100 mcg by mouth as directed. Take 1 tablet 6 days a week, skip the 7th day 024 2024 Discontinued(R eorder) aspirin 81 MG EC tabletIndications :Benign essential hypertension TOME SHAUN TABLETA TODOS LOS FLORES 90 tablet 3 024 2024 Discontinued Active Problems Problem Noted Date Diagnosed Date Acquired hypothyroidism 08/31/2024 Assessment & Plan (10/10/2024 1:03 PM EDT): Will check levels to determine if medication adjustments are needed Assessment & Plan (08/31/2024 12:39 PM EDT): Followed by PCP. Clinically and biochemically euthyroid. Last TSH 3.62 in 03/2024 while on 100 mcg LT4 daily. Thyroid nodule 08/31/2024 Assessment & Plan (01/16/2025 2:41 PM EDT): Will order labs to determine if any adjustments in her medications are needed Assessment & Plan (10/10/2024 1:05 PM EDT): [...] use of insulin 02/10/2024 Assessment & Plan (01/16/2025 2:43 PM EDT): Glucose control is very good based upon the patient's SMBG readings and her A1C of 6.3%. She is not using any medications to cause hypoglycemia. Will maintain her dosing. Continue to work on eating healthy and being active. To call or message with any issues managing her glucose levels. Up to date with [facility]. Assessment & Plan (10/10/2024 1:15 PM EDT): [...] her glucose levels. Up to date with [facility]. 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 She recalls slightly elevated blood sugars around 2019 and was diagnosed with diabetes after a massive STEMI in 2021. Status post LAD stent in 04/2022. 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 Since 01/2024 has been treated with colchicine [...] the last few years. Has not met hematology nurse educator/dietitian yet. Foot & nail care good. Up to date with [facility], to request report be sent here. Urine [...] this in the past. Advised to see COMMUNICATIONS ANALYST, may consider vaginal estradiol cream and after [...] -Continue with low-dose insulin sliding scale with [id number] testing. Mood disorder 02/10/2024 Assessment & Plan [...] Encounters Date Type Department Care Team Description 01/18/2025 Orders Only [facility] [address] [place] [address] [place] [address] Margareth Quiles PA-C Acquired hypothyroidism (Primary Dx) 01/16/2025 5:59 PM EDT - 01/16/2025 11:08 PM EDT Emergency [facility] [address] [place] [address] Discharge Disposition: Home or Self Care 01/16/2025 Procedure [facility] [address] [place] [address] 01/08/2025 12:30 PM EDT Office Visit [facility] [address] [place] [address] Margareth Quiles PA-C Type 2 diabetes mellitus without complication, without long-term current use of insulin (Primary Dx); Thyroid nodule 01/03/2025 12:42 PM EDT - 01/03/2025 11:59 PM EDT Hospital Encounter [facility] [address] [place] [address] Margareth Quiles PA-C Discharge Disposition: Home or Self Care 01/03/2025 Refill [facility] [address], [address] [place] [address] Mejia Quiros MD Medication Refill 12/19/2024 11:20 AM EDT Office Visit [facility] [address] [facility], [address] [place] [address] Charlie Amato MD Atherosclerosis of [place] coronary artery of stebbins heart without angina pectoris (Primary Dx); Benign essential hypertension; Mixed hyperlipidemia 12/09/2024 Refill [facility] [address] [facility], [address] [place] [address] Mejia Quiros MD Medication Refill 11/26/2024 Refill [facility] [address], [address] [place] [address] Mejia Quiros MD Medication Refill from Last 3 Months Social History Tobacco [...] your housing situation today? I have gisella tobin 02/10/2024 How many times have you move [...] as food, clothing, or medical care? No 01/16/2025 In the past 12 months have y ou been in a relationship with a person who hurts, threatens, or tries to control you? No 01/16/2025 Are you denied basic needs s uch as food, clothing, or medical care? No 01/16/2025 In the past 12 months have y ou been in a relationship with a person who hurts, threatens, or tries to control you? No 01/16/2025 Comments No Sex and Gender Information Value Date Recorded Sex Assigned at Female 05/05/2022 10:33 AM EST Legal Sex Female 11:10 AM EDT Gender Identity Female 05/05/2022 10:33 AM EST Sexual Orientation Straight 01/10/2023 9: 38 AM EDT Last Filed Vital Signs Vital Sign Reading Time Taken Comments Blood Pressure 133/68 01/16/2025 11:00 PM EDT Pulse 69 01/16/2025 8:00 PM EDT Temperature 36.8 C (98.2 F) 01/16/2025 11:00 PM EDT Respiratory Rate 16 01/16/2025 8:00 PM EDT Oxygen Saturation 98% 01/16/2025 11:00 PM EDT Inhaled Oxygen Concentration - - Weight 79.4 kg (175 lb) 01/16/2025 2:30 PM EDT Height 157.5 cm (5' 2 ) 01/16/2025 2:30 PM EDT Body Mass Index 32.01 01/16/2025 2:30 PM EDT Plan of Treatment Upcoming Encounters Date Type Department Care Team (Late st Contact Info) Description 02/05/2025 1:00 PM EDT Office Visit [facility] [address] [place] [address], [address] [place] [address] Deysi Rogers PA-C [address] [place] [address] 05/06/2025 8:40 AM EST Office Visit [facility] [address] [place] [address] Mackenzie Burt MD [address] [place] [address] 06/21/2025 10:40 AM EST Office Visit [facility] [address] [place] [address], [address] [place] [address] Charlie Amato MD [address] [place] [address], [address] [address] 08/13/2025 10:40 AM EST Office Visit [facility] [address] [place] [address] [place] [address] Margareth Quiles PA-C [address] [place] [address] Health Maintenance Due Date Last Done Comments [...] 07/06/2025 01/03/2025, 02/10/2024 BLOOD PRESSURE 07/11/2025 01/08/2025 TSH LEVEL 01/03/2026 01/03/2025, 10/09/2024 CREATININE LEVEL 01/16/2026 01/16/2025, , 02/10/2024, Additional history exists POTASSIUM LEVEL 01/16/2026 01/16/2025, 12/12, 02/10/2024, Additional history exists Adult Td,Tdap Booster 09/22/2032 09/22/2022 , 06/19/2008, 05/28/2008 PNEUMOCOCCAL VACCINES (50+ years) Completed 09/22/2022 ZOSTER VACCINES Completed 06/16/2023, 09/22/2022 SMOKING STATUS SCREENING (Once After 26 Yrs) Completed 01/16/2025 HEPATITIS A VACCINES Aged Out No long [...] Procedure Name Priority Date/Time Associated Diagnosis Comments CT CHEST PULMONARY ANGIOGRAM (ACUTE) Routine 01/16/2025 9:26 PM EDT ECG 12-LEAD STAT 01/16/2025 7:02 PM EDT D-DIMER STAT 01/16/2025 6:31 PM EDT TROPONIN STAT 01/16/2025 4:01 PM EDT TROPONIN STAT 01/16/2025 3:02 PM EDT BASIC METABOLIC PANEL STAT 01/16/2025 3:02 PM EDT CBC AND DIFFERENTIAL STAT 01/16/2025 3:02 PM EDT ECG 12-LEAD STAT 01/16/2025 2:28 PM EDT FREE T3 Routine 01/03/2025 12:57 PM EDT [...] Recently Relevant to Health Maintenance Results * CT CHEST PULMONARY ANGIOGRAM (ACUTE) (01/16/2025 9:26 PM EDT) Anatomical Region Laterality Modality Chest, Thoracic Vasculature Comp uted Tomography 01/16/2025 10:3 1 PM EDT Impressions 01/16/2025 10:36 PM EDT No pulmonary embolism or alternative CT explanation for symptoms. Narrative 01/16/2025 10:[address] CHEST PULMONARY ANGIOGRAM (ACUTE) Referring clinician's provided indication for this examination in [facility]: * PE suspected, low/intermediate prob, positive D-dimer TECHNIQUE: Multidetector CT pulmonary angiography was performed after administration of intravenous contrast using tailored dose modulation techniques. 3D angiographic postprocessing techniques were acquired in the form of axial maximum intensity projection images (MIPS). COMPARISON: None FINDINGS: Pulmonary Angiogram: The pulmonary arteries are well opacified. There is no pulmonary embolus. Devices/Tubes/Lines: None. Lungs: Bibasilar dependent atelectasis. 3 mm right middle lobe toña-fissural nodule, likely an intrapulmonary node. No suspicious pulmonary nodules or consolidation. Calcified granuloma in the right middle lobe. The airways are clear. Pleura: No pleural effusion or pneumothorax. Mediastinum: Heart size is normal. No pericardial effusion. Coronary arterial stent in the LAD. Small hiatus hernia. Lymph Nodes: No enlarged supraclavicular, axillary, mediastinal, or hilar lymph nodes. Upper Abdomen: No acute abnormality in the visualized upper abdomen. Chest Wall: No chest wall mass. Bones: No significant abnormality. Procedure Note Ethel Jackson MBBS - 01/16/2025 CT CHEST PULMONARY ANGIOGRAM (ACUTE) Referring clinician's provided indication for this examination in [facility]: *PE suspected, low/intermediate prob, positive D-dimer TECHNIQUE: Multidetector CT pulmonary angiography was performed afteradministration of intravenous contrast using tailored dose modulationtechniques. 3D angiographic postprocessing techniques were acquired in theform of axial maximum intensity projection images (MIPS). COMPARISON: None FINDINGS: Pulmonary Angiogram: The pulmonary arteries are well opacified. There is no pulmonaryembolus. Devices/Tubes/Lines: None. Lungs: Bibasilar dependent atelectasis. 3 mm right middle lobeperi-fissural nodule, likely an intrapulmonary node. No suspiciouspulmonary nodules or consolidation. Calcified granuloma in the rightmiddle lobe. The airways are clear. Pleura: No pleural effusion or pneumothorax. Mediastinum: Heart size is normal. No pericardial effusion. Coronaryarterial stent in the LAD. Small hiatus hernia. Lymph Nodes: No enlarged supraclavicular, axillary, mediastinal, or hilarlymph nodes. Upper Abdomen: No acute abnormality in the visualized upper abdomen. Chest Wall: No chest wall mass. Bones: No significant abnormality. IMPRESSION: No pulmonary embolism or alternative CT explanation for symptoms. us Ricardo Mathis PA-C IMG CT CHEST Final Result * ECG 12-LEAD (01/16/2025 7:02 PM EDT) Only the most recent of2 resultswithin the time period is included. Ventricular Rate EKG/MIN 67 BPM [facility] Atrial Rate 67 BPM [facility] PA Interval 126 ms [facility] QRS Duration 84 ms [facility] QT Interval 416 ms [facility] QTC Interval 439 ms [facility] P [place] -25 degrees [facility] R Wave [place] -14 degrees [facility] T Wave [place] -2 degrees [facility] 01/16/2025 7:02 PM EDT 01/18/2025 6:58 AM EDT Narrative [facility] - 01/18/2025 6:58 AM EDT Normal sinus rhythm Normal ECG When compared with ECG of 16-Jan-2025 14:28, No significant change was found Confirmed by Ricardo Balderas ([id number]) on 01/18/2025 6:58:13 AM us Ricardo Mathis PA-C ECG ORDERABLES Final Result [facility] * (ABNORMAL) D-dimer (01/16/2025 6:31 PM EDT) D-DIMER 785(H) <500 ng/mL FEU [facility] Comment:In patients with low to moderate pre-test probability scores for VTE (PE or DVT), a D-Dimer cut-off less than 500 ng/mL (FEU) has a negative predictive value (NPV) of 97 to 100%. Blood 01/16/2025 6:31 PM EDT 01/16/2025 6:38 PM EDT us Ricardo Mathis PA-C LAB BLOOD ORDERABLES Final R esult [address] [address] * Troponin (01/16/2025 4:01 PM EDT) Only the most recent of2 resultswithin the time period is included. Pathologist [facility] [place] Troponin-T, HS Gen5 <6 0 - 9 ng/L [facility] Blood 01/16/2025 4:01 PM EDT 01/16/2025 4:16 PM EDT us Brody Luciano MD LAB BLOOD ORDERABL ES Final Result Performing Organization Address City/[facility]/ZIP Co de Phone Number [address] [address] * (ABNORMAL) CBC and differential (01/16/2025 3:02 PM EDT) WBC 7.05 4.00 - 11.00 K/uL [facility] RBC 4.08 4.00 - 5.20 M/uL [facility] HGB 12.2 12.0 - 16.0 g/dL [facility] HCT 36.7 36.0 - 46.0 % [facility] PLT 235 150 - 450 K/uL [facility] MCV 90.0 80.0 - 100.0 [facility] MCH 29.9 27.0 - 31.0 pg [facility] MCHC 33.2 32.0 - 36.0 g/dL [facility] RDW 13.5 11.5 - 14.5 % [facility] MPV 11.4 8.4 - 12.0 [facility] NRBC 0.00 0.00 /100 WBCs [facility] ABSOLUTE NRBC 0.00 0.00 K/uL [facility] DIFF METHOD Auto [facility] NEUTS 48.4 48.0 - 76.0 % [facility] LYMPHS 43.8(H) 18.0 - 41.0 % [facility] MONOS 5.7 4.0 - 11.0 % [facility] EOS 1.3 0.0 - 5.0 % [facility] BASOS 0.4 0.0 - 1.5 % [facility] Granulocytes, immature (%) 0.4 0.0 - 0.9 % [facility] ABSOLUTE NEUTS 3.41 1.92 - 7.60 K/uL [facility] ABSOLUTE LYMPHS 3.09 0.72 - 4.10 K/uL [facility] ABSOLUTE MONOS 0.40 0.16 - 1.10 K/uL [facility] ABSOLUTE EOS 0.09 0.00 - 0.50 K/uL [facility] ABSOLUTE BASOS 0.03 0.00 - 0.15 K/uL [facility] Granulocytes, immature 0.03 0.00 - 0.09 K/uL [facility] Blood 01/16/2025 3:02 PM EDT 01/16/2025 3:04 PM EDT us Brody Luciano MD LAB BLOOD ORDERABL ES Final Result [address] [id number] * Basic metabolic panel (01/16/2025 3:02 PM EDT) Only the most recent of2 resultswithin the time period is included. SODIUM 142 133 - 146 mmol/L [facility] CHLORIDE 106 96 - 108 mmol/L [facility] POTASSIUM 4.2 3.3 - 5.1 mmol/L [facility] CO2 23 21 - 35 mmol/L [facility] BUN 10 6 - 19 mg/dL [facility] CREATININE 0.90 0.5 - 1.5 mg/dL [facility] GLUCOSE 90 70 - 99 mg/dL [facility] CALCIUM 9.6 8.4 - 10.3 mg/dL [facility] EGFR 71 >59 mL/min/1.7 3m2 [facility] Comment:Estimated glomerular filtration rate calculated using the CKD-EPI refit equation. ANION GAP 17 10 - 20 mmol/L [facility] Blood 01/16/2025 3:02 PM EDT 01/16/2025 3:04 PM EDT Brody Luciano MD LAB BLOOD ORDERABL ES Final Result Performing Organization Address [facility]/ZIP Co de Phone Number [address] [address] * (ABNORMAL) TSH with reflex (01/03/2025 12:57 PM EDT) TSH 0.17(L) 0.27 - 4.20 uIU/mL [facility] Blood 01/03/2025 12:5 7 PM EDT 01/03/2025 1:02 PM EDT Margareth Quiles PA-C LAB BLOOD ORDERABL ES Final Result Performing Organization Address [facility]/ZIP Co de Phone Number [address] [address] * Free T3 (01/03/2025 12:57 PM EDT) FREE T3 3.1 2.0 - 4.4 pg/mL [facility] 01/03/2025 12:5 7 PM EDT 01/03/2025 1:02 PM EDT Margareth Quiles PA-C LAB BLOOD ORDERABL ES Final Result Performing Organization Address [facility] Co de Phone Number [address] [address] * Alanine aminotransferase (ALT) (01/03/2025 12:57 PM EDT) ALT 22 0 - 40 U/L [facility] Blood 01/03/2025 12:5 7 PM EDT 01/03/2025 1:02 PM EDT us Margareth IRAHETA-C LAB BLOOD ORDERABL ES Final Result Performing Organization Address [facility]/ZIP Co de Phone Number [address] [address] * Aspartate aminotransferase (AST) (01/03/2025 12:57 PM EDT) AST 26 0 - 37 U/L [facility] Blood 01/03/2025 12:5 7 PM EDT 01/03/2025 1:02 PM EDT Margareth IRAHETA-C LAB BLOOD ORDERABL ES Final Result Performing Organization Address [facility] Co de Phone Number [address] [address] * Free T4 (01/03/2025 12:57 PM EDT) FREE T4 1.5 0.9 - 1.7 ng/dL [facility] 01/03/2025 12:5 7 PM EDT 01/03/2025 1:02 PM EDT Margareth IRAHETA-C LAB BLOOD ORDERABL ES Final Result Performing Organization Address [facility]/ZIP Co de Phone Number [address] [address] * (ABNORMAL) Hemoglobin A1c (01/03/2025 12:57 PM EDT) HEMOGLOBIN A1C 6.3(H) 4.3 - 5.8 % [facility] Blood 01/03/2025 12:5 7 PM EDT 01/03/2025 1:03 PM EDT Margareth IRAHETA-C LAB BLOOD ORDERABL ES Final Result Performing Organization Address City/[facility]/ZIP Co de Phone Number [address] [address] * (ABNORMAL) Lipid panel (02/10/2024 5:56 AM EDT) HDL 53 mg/dL [facility] Comment: Interpretation <40 mg/dL: Low HDL cholesterol (major risk factor for CHD) Greater than or equal to 60 mg/dL: High HDL cholesterol ( negative risk factor for CHD) HDL - cholesterol is affected by a number of factors, e.g. smoking, excerise, hormones, sex and age. CHOLESTEROL 152 0 - 240 mg/dL [facility] TRIGLYCERIDES 160 30 - 160 mg/dL [facility] LDL 67 50 - 129 mg/dL [facility] Comment: LDL levels in terms of risk for coronary heart disease: <100 mg/dL: Optimal 100-129 mg/dL: Near or above optimal 130-159 mg/dL: Borderline high 160-189 mg/dL: High >190 mg/dL: Very High CARDIAC RISK RATIO 2.9(L) 3.3 - 4.4 C [facility] Blood 02/10/2024 5:56 AM EDT 02/10/2024 6:03 AM EDT Ho Estrella MD LAB BLOOD ORDERABLES Final Resu lt [address] [address] from Last 3 Months or Most Recently Relevant to Health Maintenance Insurance [facility] [place] [address] [place] [address] [place] [address] [place] [facility] [address] [place] [address] [place] [address] [place] [address] [address] A[place] [facility] A[employer] [facility] Advance Directives For more information, please contact: [phone] (9AM - 5PM [facility], Tuesday-Tuesday) Documents on File Type Date Recorded Patient Television News Video Editor Expl anation Healthcare Proxy 02/27/2024 6:13 PM * Full Code (Latest Code Status on File) Date Activated Date Inactivated Comments 02/10/2024 2:40 AM Question Answer Comments Code Status Confirmed With: Patient Code Status Communicated To: Inpatient Attending Care Teams Rocket Motor Tester Relationship Specialty Start Date End Date Jacoby Kamara MD [address] [place] [address] [place] [id number] PCP - General Internal Medicine 01/22/22 Additional Source Comments The information contained in this document represents components of the legal health record. It is not the complete legal health record.[facility]
== END 2025-01-22 13:53 | disposition home or self-care (01) ==
LOC: HO.HMCH 12:23
PROVIDERS: PCP Internal Medicine; Visit Provider Internal Medicine
DX: R13.10 Dysphagia, unspecified (principal); E11.65 Type 2 diabetes mellitus with hyperglycemia; G40.909 Epilepsy, unspecified, not intractable, without status epilepticus; R07.9 Chest pain, unspecified; R79.89 Other specified abnormal findings of blood chemistry; K22.10 Ulcer of esophagus without bleeding; I25.10 Atherosclerotic heart disease of native coronary artery without angina pectoris; E78.2 Mixed hyperlipidemia; I10 Essential (primary) hypertension; J45.41 Moderate persistent asthma with (acute) exacerbation; E03.9 Hypothyroidism, unspecified; E04.1 Nontoxic single thyroid nodule

== ENCOUNTER → 2025-01-22 12:23 | Outpatient (BNVA) | payer OTHER, SELFPAY | PROVIDERS: PCP Internal Medicine; Visit Provider Internal Medicine | DX: R79.89 Other specified abnormal findings of blood chemistry (principal); R13.10 Dysphagia, unspecified; R07.9 Chest pain, unspecified; R00.2 Palpitations; K22.10 Ulcer of esophagus without bleeding; I25.10 Atherosclerotic heart disease of native coronary artery without angina pectoris; E78.2 Mixed hyperlipidemia; E11.65 Type 2 diabetes mellitus with hyperglycemia; I10 Essential (primary) hypertension; J45.41 Moderate persistent asthma with (acute) exacerbation; E03.9 Hypothyroidism, unspecified; E04.1 Nontoxic single thyroid nodule; J30.9 Allergic rhinitis, unspecified; G40.909 Epilepsy, unspecified, not intractable, without status epilepticus; G47.00 Insomnia, unspecified; F41.9 Anxiety disorder, unspecified; F33.9 Major depressive disorder, recurrent, unspecified; E66.9 Obesity, unspecified; Z68.32 Body mass index [BMI] 32.0-32.9, adult | CPT/HCPCS: 96127; 99212 ==

== ENCOUNTER 2025-02-19 08:34 | Outpatient (REF) | payer OTHER, SELFPAY ==
[2025-02-19 08:59] LABS: MANUAL DIFF FLAG NO
--- OUTSIDE RECORDS SUMMARY | 2025-02-19 09:37 | XMS_ITS | Encounter Summary ---
Author Organization [facility] Address [address] [place] [address] Phone Care Team Providers Care Cryptographic Center Specialist Name Role Phone Jacoby Kamara MD Primary Care Provider [phone] Encounter Details Date Type Department Care Team (Late st Contact Info) Description 05/20/2022 Procedure Pass [facility] [address] [place] [address] Social History Tobacco Use Types Packs/Day Years Used Date Smoking Tobacco: Never Smokeless Tobacco: Never Comments Unknown Sex and Gender Information Value Date Recorded Sex Assigned at Female 05/05/2022 10:33 AM EST Legal Sex Female 11:10 AM EDT Gender Identity Female 05/05/2022 10:33 AM EST Sexual Orientation Straight 01/10/2023 9: 38 AM EDT documented as of this encounter Plan of Treatment Upcoming Encounters Date Type Department Care Team (Late st Contact Info) Description 02/05/2025 Procedure Pass Echo [facility] [place] [address] [place] [address] 04/09/2025 9:30 AM EDT Appointment Echo Lab [place] [address] [place] [address] Deysi Rogers PA-C [address] [place] [address] 04/15/2025 3:00 PM EST Office Visit [facility] [address] [place] [address], [address] [place] [address] Deysi Rogers PA-C [address] [place] [address] 05/06/2025 8:40 AM EST Office Visit [facility] [address] [place] [address] Mackenzie Burt MD [address] [place] [address] 06/21/2025 10:40 AM EST Office Visit [facility] [address] [place] [address], [address] [address] Charlie Amato MD [address] [place] [address] 08/13/2025 10:40 AM EST Office Visit [facility] [address] [place] [address] Margareth Quiles PA-C [address] [place] [address] documented as of this encounter Visit Diagnoses Not on filedocumented in this encounter Additional Health Concerns Infection Onset Date Last Indicated Resolved Time CoV-Risk 05/30/2022 05/30/2022 06/10/2022 1:22 AM EST CoV-Risk 06/13/2023 06/13/2023 06/24/2023 1:23 AM EST CoV-Risk 02/04/2024 02/04/2024 02/04/2024 12:0 1 PM EDT COVID-19 02/04/2024 02/04/2024 02/25/2024 1:22 AM EDT CoV-Risk 05/20/2024 05/20/2024 05/31/2024 1:23 AM EST CoV-Risk 08/27/2024 08/27/2024 09/07/2024 1:21 AM EDT documented as of this encounter Care Teams Cryptographic Center Specialist Relationship Specialty Start Date End Date Jacoby Kamara MD [address] [place] [address] [place] [address] PCP - General Internal Medicine 01/22/22 documented as of this encounter Additional Source Comments The information contained in this document represents components of the legal health record. It is not the complete legal health record.[facility]
--- OUTSIDE RECORDS SUMMARY | 2025-02-19 09:37 | XMS_ITS | Encounter Summary ---
Author Organization [facility] Address [address] [place] [address] Phone Care Team Providers Care Tumbler Machine Operator Name Role Phone Jacoby Kamara MD Primary Care Provider [phone] Reason for Referral * - Closed Specialty Diagnoses / Procedures Referred By Contac t Referred To Contact Radiology Diagnoses PVD (peripheral vascular disease) Procedures US Lower Extremity Arteries (JERAD) Physio Complete Bilat Mejia Quiros MD Phone: tel: fax: mailto:[email or web address] Referral ID Status Reason Start Date Expiration Date Visits Re quested Visits Authorized [id number] Closed 01/21/2023 01/21/2024 1 1 Encounter Details Date Type Department Care Team (Latest Contact Info) Description 01/21/2023 Ancillary Orders [facility] [address] [place] [address] 3rd Floor, [address] [place] [address] Mejia Quiros MD [address] [facility], [facility] [address] [place] [address] [email or web address] PVD (peripheral vascular disease) Social History Tobacco Use Types Packs/Day Years Used Date Smoking Tobacco: Never Smokeless Tobacco: Never Alcohol Use Standard Drinks/Week Comments Yes 0 (1 standard drink = 0.6 oz pur e alcohol) Education Answer Date Recorded Are you interested in more education? Not on anupam e 10/09/2022 Are you concerned about learning? Not on file 10/09/2022 No 10/09/2022 No 10/09/2022 Digital Access Answer Date Recorded No 11/02/2022 No 11/02/2022 Reliable internet access at home? Not on file 11/02/2022 Device with a working camera? Not on file Comments Unknown Sex and Gender Information Value Date Recorded Sex Assigned at Female 05/05/2022 10:33 AM EST Legal Sex Female 11:10 AM EDT Gender Identity Female 05/05/2022 10:33 AM EST Sexual Orientation Straight 01/10/2023 9: 38 AM EDT documented as of this encounter Plan of Treatment Upcoming Encounters Date Type Department Care Team (Late st Contact Info) Description 02/05/2025 Procedure Pass [facility] [address] [place] [address] 04/09/2025 9:30 AM EDT Appointment Echo Lab [address] [place] [address] Deysi Rogers PA-C [address] [place] [address] 04/15/2025 3:00 PM EST Office Visit [facility] [address] [place] [address] [address]rd Floor, [address] [place] [address] Deysi Rogers PA-C [address] [place] [address] 05/06/2025 8:40 AM EST Office Visit [facility] [address] [place] [address] Mackenzie Burt MD [address] [place] [address] 3[address] [place] [address] 06/21/2025 10:40 AM EST Office Visit [facility] [address] [facility] 3rd Floor, [address] [place] [address] Charlie Amato MD 22 [facility], [address] [address] [email or web address] 08/13/2025 10:40 AM EST Office Visit [facility] [address] [place] [address] Margareth Quiles PA-C [address] [place] [address] [email or web address] documented as of this encounter Results * US Lower Extremity Arteries (JERAD) Physio Complete Bilat (01/21/2023 1:21 PM EDT) Anatomical Region Laterality Modality Ultrasound Narrative 01/24/2023 12:43 PM EDT See scanned document. Procedure Note Charlie Amato MD - 01/24/2023 See scanned document. us Mejia Quiros MD CV US VASCULAR Final Re sult documented in this encounter Visit Diagnoses Diagnosis Pain in both lower extremities PVD (peripheral vascular disease) Unspecified peripheral vascular disease PVD (peripheral vascular disease) Unspecified peripheral vascular disease documented in this encounter Additional Health Concerns Infection Onset Date Last Indicated Resolved Time CoV-Risk 06/13/2023 06/13/2023 06/24/2023 1:23 AM EST CoV-Risk 02/04/2024 02/04/2024 02/04/2024 12:0 1 PM EDT COVID-19 02/04/2024 02/04/2024 02/25/2024 1:22 AM EDT CoV-Risk 05/20/2024 05/20/2024 05/31/2024 1:23 AM EST CoV-Risk 08/27/2024 08/27/2024 09/07/2024 1:21 AM EDT documented as of this encounter Care Teams Tumbler Machine Operator Relationship Specialty Start Date End Date Jacoby Kamara MD [address] [place] [address] [facility] [place] [address] PCP - General Internal Medicine 01/22/22 documented as of this encounter Additional Source Comments The information contained in this document represents components of the legal health record. It is not the complete legal health record.[facility]
--- OUTSIDE RECORDS SUMMARY | 2025-02-19 09:37 | XMS_ITS | Encounter Summary ---
Author Organization [facility] Address [address] [place] [address] Phone Care Team Providers Care Band Sewer Name Role Phone Jacoby Kamara MD Primary Care Provider [phone] Encounter Details Date Type Department Care Team (Late st Contact Info) Description 06/16/2023 Procedure Pass [facility] [address] [place] [address] Social History Tobacco Use Types Packs/Day Years [...] Encounters Date Type Department Care Team (Late Contact Info) Description 02/05/2025 Procedure Pass [facility] [address] [address] 04/09/2025 9:30 AM EDT Appointment Echo Lab [address] [address] Deysi Rogers PA-C [address] [place] [address] 04/15/2025 3:00 PM EST Office Visit [facility] [address] [place] [address], [address] [address] Deysi Rogers PA-C [address] [place] [address] 05/06/2025 8:40 AM EST Office Visit [facility] [address] [place] [address] Mackenzie Burt MD [address] [place] [address] 06/21/2025 10:40 AM EST Office Visit [facility] [address], [address] [address] Charlie Amato MD [address] [place] [address] 08/13/2025 10:40 AM EST Office Visit [facility] [address] [place] [address] Margareth Quiles PA-C [address] [place] [address] documented as of this encounter Visit Diagnoses [...] documented as of this encounter Care Teams Band Sewer Relationship Specialty Start Date End Date Jacoby Kamara MD [address] [place] [address] Dr Dillard, [place]IMESH [address] PCP - General Internal Medicine 01/22/22 documented as of this encounter Additional Source Comments The information contained in this document represents components of the legal health record. It is not the complete legal health record.[facility]
--- OUTSIDE RECORDS SUMMARY | 2025-02-19 09:37 | XMS_ITS | Encounter Summary ---
Author Organization [facility] Address [address] [place] [address] Phone Care Team Providers Care Mechanical Technical Service Specialist Name Role Phone Jacoby Kamara MD Primary Care Provider [phone] Encounter Details Date Type Department Care Team (Late st Contact Info) Description 02/05/2025 Procedure Pass Non-Invasive Cardiology [address] [place] [address] Social History Tobacco Use Types Packs/Day Years Used Date Smoking Tobacco: Never Smokeless Tobacco: Never Alcohol Use Standard Drinks/Week Comments Never 0 [...] Info) Description 02/05/2025 Procedure Pass Echo Lab [place] [address] [address] [place] [address] 04/09/2025 9:30 AM EDT Appointment [facility] [place] [address] [address] Deysi Rogers PA-C [address] [place] [address] 04/15/2025 3:00 PM EST Office Visit [facility] [address] Floor, [address] [place] [address] Deysi Rogers PA-C [address] [place] [address] 05/06/2025 8:40 AM EST Office Visit [facility] [address] [place] [address] Mackenzie Burt MD [address] [place] [address] 06/21/2025 10:40 AM EST Office Visit [facility] [address], [address] [place] [address] Charlie Amato MD [address] [place] [address] 08/13/2025 10:40 AM EST Office Visit [facility] [address] [place] [address] Margareth Quiles PA-C [address] [place] [address] documented as of this encounter Visit Diagnoses Not on filedocumented in this encounter Care Teams Mechanical Technical Service Specialist Relationship Specialty Start Date End Date Jacoby Kamara MD [address] [place] [address] [place] [address] PCP - General Internal Medicine 01/22/22 documented as of this encounter Additional Source Comments The information contained in this document represents components of the legal health record. It is not the complete legal health record.[facility]
--- OUTSIDE RECORDS SUMMARY | 2025-02-19 09:37 | XMS_ITS | Clinical Summary ---
Author Organization [facility] Address [address] [place] [address] Phone Care Team Providers Care Child Care Group Leader Name Role Phone Jacoby Kamara MD Primary Care Provider [phone] Allergies Active Allergy Reactions Criticality Noted Date Comments Amoxicillin-Pot Clavulanate Diarrhea,Rash Low 01/22 Medications clonazePAM (KLONOPIN) 0.5 MG tablet Take 0.5 mg by mouth daily. 01/16/20 22 Active SENNA 8.6 mg tablet Take 1 tablet by mouth continuous prn. 03/17/20 22 Active traZODone (DESYREL) 150 MG tablet TOME SHAUN TABLETA POR V A ORAL AL ACOSTARSE 04/21/20 22 Active metFORMIN (GLUCOPHAGE-XR) 500 MG 24 hr tablet Take 500 mg by mouth daily. 10/21/19 23 Active escitalopram oxalate (LEXAPRO) 20 MG tablet TOME SHAUN TABLETA TODOS LOS D 09/28/19 24 Active omeprazole (PRILOSEC) 40 MG capsule 2 (two) times a day. 09/13/19 24 Active dicyclomine (BENTYL) 10 MG capsule as needed. 08/02/19 24 Active cetirizine (ZYRTEC) 10 MG tablet Take 10 mg by mouth daily as needed. 10/15/19 24 Active atorvastatin (LIPITOR) 80 MG tablet Take 0.5 tablets (40 mg total) by mouth nightly at bedtime. 02/10/20 24 Active FREESTYLE TEST Strp strips 08/15/19 25 Active albuterol 90 mcg/actuation inhaler Inhale 1-2 puffs into the lungs every 4 (four) hours as needed for wheezing or shortness of breath/dyspnea . 8 g 08/28/19 25 Active inhaler spacing device (AEROCHAMBER,BREAT HERITE) Spcr Inhale 1 each into the lungs every 4 (four) hours as needed (PRN). 1 each 08/28/19 25 Active butalbital-acetami nophen-caffeine (FIORICET, ESGIC) 50-325-40 mg per tablet Take 1 tablet by mouth every 6 (six) hours as needed. 09/14/19 25 Active dulaglutide (TRULICITY) 0.75 mg/0.5 mL subcutaneous injectionIndicatio ns:Type 2 diabetes mellitus without complication, without long-term current use of insulin Inject 0.5 mL (0.75 mg total) under the skin every 7 days. 2 mL 5 10/10/19 25 Active nitroglycerin (NITROSTAT) 0.4 MG SL tabletIndications: Medication refill PLACE 1 TABLET UNDER THE TONGUE EVERY 5 MINUTES NEEDED FOR CHEST PAIN. 25 tablet 3 11/27/19 25 Active ADVAIR HFA 115-21 mcg/actuation inhaler daily as needed. 10/18/19 25 Active LINZESS 145 mcg Cap TOME 1 C PSULA POR V A ORAL TODOS LOS D EN LA MA CHUCKY 12/06/19 25 Active aspirin 81 MG EC tabletIndications: Benign essential hypertension TOME 1 TABLETA POR VIA ORAL TODOS [place] 90 tablet 3 01/06/20 25 Active levothyroxine (SYNTHROID, LEVOTHROID) 100 MCG tabletIndications: Acquired hypothyroidism Take 1 tablet (100 mcg total) by mouth as directed. Take 1 tablet 5 days a week, skip 2 days a week 66 tablet 01/19/20 25 Active metoprolol succinate (TOPROL-XL) 25 MG 24 hr tablet Take 0.5 tablets (12.5 mg total) by mouth daily. 02/06/20 25 Active metoprolol succinate (TOPROL-XL) 25 MG 24 hr tablet Take 25 mg by mouth daily. 05/07/20 22 025 Discontin ued(Dose adjustmen t) colchicine (COLCRYS) 0.6 mg tablet TAKE 1 TABLET BY MOUTH 2 TIMES A DAY. 180 tablet 3 12/11/19 25 025 Discontin ued(No longer taking) losartan (COZAAR) 25 MG tablet Take 1 tablet (25 mg total) by mouth daily. 90 tablet 5 12/20/19 25 025 Discontin ued(No longer taking) Active Problems Problem Noted Date Diagnosed Date Palpitations 02/07/2025 Assessment & Plan (02/07/2025 7:22 AM EDT): Recent ED visit with palpitations, unremarkable other than some PACs on monitoring. She continues to endorse intermittent palpitations throughout the day. We will obtain a 48-hour Holter monitor. No obvious trigger identified. We are also updating an echocardiogram. Follow-up once complete. She is on metoprolol which could be uptitrated pending results and symptoms. Acquired hypothyroidism 08/31/2024 Assessment & Plan (10/10/2024 [...] her glucose levels. Up to date with [facility]. Assessment & Plan (10/10/2024 1:15 PM EDT): [...] her glucose levels. Up to date with [facility]. 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 She recalls slightly elevated blood sugars around 2018 and was diagnosed with diabetes after a massive STEMI in 2022. Status post LAD stent in 04/2022. She has history of CHF after [place]. Since 01/2024 has been treated with colchicine [...] the last few years. Has not met school vocational educator/dietitian yet. Foot & nail care good. Up to date with [facility], to request report be sent here. Urine [...] this in the past. Advised to see REGISTRY NP, may consider vaginal estradiol cream and after [...] -Continue with low-dose insulin sliding scale with [id number] testing. Mood disorder 02/10/2024 Assessment & Plan [...] fraction 35 to 40% Assessment & Plan (02/07/2025 7:14 AM EDT): 04/2022 status post 1 ISAIAH to her LAD, mild irregularities elsewhere. She had a recent ED visit earlier this month for chest pain which was unremarkable and she was discharged. Today patient states that the chest pain is completely gone. She denies any symptoms concerning for angina today. She had a normal nuclear stress test 03/2024. Continue aspirin lifelong. Continue to optimize cardiovascular risk factors. Assessment & Plan (07/13/2022 12:26 PM EST): [...] Benign essential hypertension 05/20/2022 Assessment & Plan (02/07/2025 7:16 AM EDT): Blood pressure very well-controlled in the office today. Lisinopril discontinued at last visit due to cough. She was started on losartan [address] in its [address] but patient is not taking this either. Her BP is really well-controlled 110 systolic. We will just continue her beta-samson at this time and continue to follow and add back an ARB in the future should BPs rise above goal. Labs up-to-date. Lifestyle measures ongoing. Assessment & Plan (02/10/2024 3:54 AM EDT): Continue with metoprolol with holding parameters. Assessment & Plan (05/20/2022 10:32 AM EST): Her blood pressure is very well controlled 07/02/1979 she will continue her present regimen of medication which includes metoprolol succinate in future I will add a low-dose of losartan at this point because of her low ejection fraction Hyperlipidemia 05/20/2022 Assessment & Plan (02/07/2025 7:20 AM EDT): LDL 67, on atorvastatin 40 mg daily. She has been on atorvastatin 80 mg in the past but had myalgias so self reduced to 40. Goal LDL less than 70 ideally less than 55. She is due for a lipid panel so this has been ordered for patient to obtain prior to her next visit and could consider ezetimibe if needed. LFTs are normal. Assessment & Plan (02/10/2024 3:54 AM EDT): Obtain fasting lipids in the morning Continue atorvastatin Ischemic cardiomyopathy 05/20/2022 Assessment & Plan (02/07/2025 7:18 AM EDT): since normalized 55 to 60%, (35 to 40% in 202). Continue metoprolol. We are updating an echocardiogram, patient was previously on colchicine but self stopped this a few months ago, there was a small pericardial effusion on last echo so we will reassess. Patient is currently asymptomatic other than the palpitations, see below Assessment & Plan (07/13/2022 12:27 PM EST): [...] Encounters Date Type Department Care Team Description 02/05/2025 1:30 PM EDT - 02/05/2025 11:59 PM EDT Hospital Encounter Non-Invasive Cardiology [address] [place] [address] Deysi Rogers PA-C Discharge Disposition: Home or Self Care 02/05/2025 1:00 PM EDT Office Visit [facility] [address], [address] [place] [address] Deysi Rogers PA-C Mixed hyperlipidemia (Primary Dx); Pericardial effusion (noninflammatory); Palpitations; Atherosclerosis of pilot station coronary artery of pilot station heart without angina pectoris; Benign essential hypertension; Ischemic cardiomyopathy 02/05/2025 Procedure Pass Non-Invasive Cardiology [address] [place] [address] 01/18/2025 Orders Only [facility] [address] [place] [address] Margareth Quiles PA-C Acquired hypothyroidism (Primary Dx) 01/16/2025 5:59 PM EDT - 01/16/2025 11:08 PM EDT Emergency [facility] [address] [place] [address] Discharge Disposition: Home or Self Care 01/16/2025 Procedure Pass [facility], Ct Scan - [facility] [address] [place] [address] 01/08/2025 12:30 PM EDT Office Visit [facility] [address] [place] [address] Margareth Quiles PA-C Type 2 diabetes mellitus without complication, without long-term current use of insulin (Primary Dx); Thyroid nodule 01/03/2025 12:42 PM EDT - 01/03/2025 11:59 PM EDT Hospital Encounter [facility] [address] [place] [address] Margareth Quiles PA-C Discharge Disposition: Home or Self Care 01/03/2025 Refill [facility] [address], [address] [place] [address] Mejia Quiros MD Medication Refill 12/19/2024 11:20 AM EDT Office Visit [facility] [address], [address] [place] [address] Charlie Amato MD Atherosclerosis of pilot station coronary artery of pilot station heart without angina pectoris (Primary Dx); Benign essential hypertension; Mixed hyperlipidemia 12/09/2024 Refill [facility] [address], [address] [place] [address] Mejia Quiros MD Medication Refill 11/26/2024 Refill [facility] [address], [address] [place], [place] [id number] Mejia Quiros MD Medication Refill from Last [...] Sign Reading Time Taken Comments Blood Pressure 110/72 02/05/2025 12:38 PM EDT Pulse 83 02/05/2025 12:38 PM EDT Temperature 36.8 C (98.2 F) 01/16/2025 11:00 PM EDT Respiratory Rate 16 01/16/2025 8:00 PM EDT Oxygen Saturation 95% 02/05/2025 12:38 PM EDT Inhaled Oxygen Concentration - - Weight 79.4 kg (175 lb) 02/05/2025 12:38 PM EDT Height 157.5 cm (5' 2.01 ) 02/05/2025 12:38 PM E DT Body Mass Index 32 02/05/2025 12:38 PM EDT Plan of Treatment Upcoming Encounters Date Type Department Care Team (Late st Contact Info) Description 02/05/2025 Procedure Pass [facility] [place] [address] [place] [address] 04/09/2025 9:30 AM EDT Appointment [facility] [place] [address] Deysi Rogers PA-C [address] [place] [address] 04/15/2025 3:00 PM EST Office Visit [facility] [address], [address] [place] [address] Deysi Rogers PA-C [address] [place] [address] 05/06/2025 8:40 AM EST Office Visit [facility] [address] [place] [address] Mackenzie Burt MD [address] [place] [address] [address] [place] [address] 06/21/2025 10:40 AM EST Office Visit [facility] [address] [place] [address], [address] [place] [address] Charlie Amato MD [address] [place] [address], [address] [address] 08/13/2025 10:40 AM EST Office Visit [facility] [address] [place] [address] Margareth Quiles PA-C [address] [place] [address] Health Maintenance Due Date Last Done Comments DEPRESSION SCREENING 1972 HEPATITIS C SCREENING 1978 HIV ONE-TIME SCREENING (18-65 YEARS) 1978 PAP SMEAR 1981 MAMMOGRAM 2000 COLOGUARD 2005 COLONOSCOPY 2005 COLORECTAL CANCER SCREENING 2005 FIT TEST 2005 FOBT 2005 SIGMOIDOSCOPY 2005 VIRTUAL COLONOSCOPY 2005 RSV VACCINE (1 - Risk 60-74 years 1-dose series) 2020 DIABETIC EYE EXAM 02/10/2024 URINE MICROALBUMIN/CREATININE RATIO 02/10/2024 INFLUENZA VACCINE (#1) 2025 , 04/14/2022, 06/09/2021, Additional history exists LIPID PANEL 02/09/2025 02/10/2024 COVID-19 VACCINE ( season) 2025 06/30/2021, 12/04/2020, 11/12/2020 HEMOGLOBIN A1C 07/06/2025 01/03/2025, 02/10/2024 BLOOD PRESSURE 08/08/2025 02/05/2025 TSH LEVEL 01/03/2026 01/03/2025, 10/09/2024 CREATININE LEVEL 01/16/2026 01/16/2025, , 02/10/2024, Additional history exists Adult Td,Tdap Booster 09/22/2032 09/22/2022 , 06/19/2008, 05/28/2008 PNEUMOCOCCAL VACCINES (50+ years) Completed 09/22/2022 ZOSTER VACCINES Completed 06/16/2023, 09/22/2022 SMOKING STATUS SCREENING (Once After 26 Yrs) Completed 02/05/2025 HEPATITIS A VACCINES Aged Out No long [...] clinician's provided indication for this examination in Epic: * PE suspected, low/intermediate prob, positive D-dimer [...] clinician's provided indication for this examination in Epic: *PE suspected, low/intermediate prob, positive D-dimer TECHNIQUE: [...] BPM [facility] Atrial Rate 67 BPM [facility] MA Interval 126 ms [facility] QRS Duration 84 ms [facility] QT Interval 416 ms [facility] QTC Interval 439 ms [facility] P [place] -25 degrees [facility] R Wave [place] -14 degrees [facility] T Wave [place] -2 degrees [facility] 01/16/2025 7:02 PM EDT 01/18/2025 6:58 AM EDT Narrative [facility] - 01/18/2025 6:58 AM EDT Normal sinus rhythm Normal ECG When compared with ECG of 16-Jan-2025 14:28, No significant change was found Confirmed by Ricardo Balderas ([id number]) on 01/18/2025 6:58:13 AM us Ricardo Mathis PA-C ECG ORDERABLES Final Result Performing Organization Address [facility]/ZIP Co de Phone Number [email or web address] * (ABNORMAL) D-dimer (01/16/2025 6:31 PM EDT) D-DIMER 785(H) <500 ng/mL [facility] Comment:In patients with low to moderate pre-test probability scores for VTE (PE or DVT), a D-Dimer cut-off less than 500 ng/mL (FEU) has a negative predictive value (NPV) of 97 to 100%. Blood 01/16/2025 6:31 PM EDT 01/16/2025 6:38 PM EDT us Ricardo Mathis PA-C LAB BLOOD ORDERABLES Final R esult Performing Organization Address City/[facility]/ZIP Co de Phone Number [address] [address] * Troponin (01/16/2025 4:01 PM EDT) Only the most recent of2 resultswithin the time period is included. Troponin-T, HS Gen5 <6 0 - 9 ng/L [facility] Blood 01/16/2025 4:01 PM EDT 01/16/2025 4:16 PM EDT us Brody Luciano MD LAB BLOOD ORDERABL ES Final Result [facility] [address] [place] [address] * (ABNORMAL) CBC and differential (01/16/2025 3:02 PM EDT) WBC 7.05 4.00 - 11.00 K/uL [facility] RBC 4.08 4.00 - 5.20 M/uL [facility] HGB 12.2 12.0 - 16.0 g/dL [facility] HCT 36.7 36.0 - 46.0 % [facility] PLT 235 150 - 450 K/uL [facility] MCV 90.0 80.0 - 100.0 fL [facility] MCH 29.9 27.0 - 31.0 pg [facility] MCHC 33.2 32.0 - 36.0 g/dL [facility] RDW 13.5 11.5 - 14.5 % [facility] MPV 11.4 8.4 - 12.0 fL [facility] NRBC 0.00 0.00 /100 WBCs [facility] ABSOLUTE NRBC 0.00 0.00 K/uL [facility] DIFF METHOD Auto [facility] NEUTS 48.4 48.0 - 76.0 % [facility] LYMPHS 43.8(H) 18.0 - 41.0 % [facility] MONOS 5.7 4.0 - 11.0 % [facility] EOS 1.3 0.0 - 5.0 % [facility] BASOS 0.4 0.0 - 1.5 % [facility] Granulocytes, immature (%) 0.4 0.0 - 0.9 % [facility] ABSOLUTE NEUTS 3.41 1.92 - 7.60 K/uL [facility] ABSOLUTE LYMPHS 3.09 0.72 - 4.10 K/uL [facility] ABSOLUTE MONOS 0.40 0.16 - 1.10 K/uL [facility] ABSOLUTE EOS 0.09 0.00 - 0.50 K/uL [facility] ABSOLUTE BASOS 0.03 0.00 - 0.15 K/uL [facility] Granulocytes, immature 0.03 0.00 - 0.09 K/uL [facility] Blood 01/16/2025 3:02 PM EDT 01/16/2025 3:04 PM EDT Brody Luciano MD LAB BLOOD ORDERABL ES Final Result Performing Organization Address City/[facility]/ZIP Co de Phone Number [address] [address] * Basic metabolic panel (01/16/2025 3:02 PM EDT) Only the most recent of2 resultswithin the time period is included. SODIUM 142 133 - 146 mmol/L [facility] CHLORIDE 106 96 - 108 mmol/L [facility] POTASSIUM 4.2 3.3 - 5.1 mmol/L [facility] CO2 23 21 - 35 mmol/L [facility] BUN 10 6 - 19 mg/dL [facility] CREATININE 0.90 0.5 - 1.5 mg/dL [facility] GLUCOSE 90 70 - 99 mg/dL [facility] CALCIUM 9.6 8.4 - 10.3 mg/dL [facility] EGFR 71 >59 mL/min/1.7 3m2 [facility] Comment:Estimated glomerular filtration rate calculated using the CKD-EPI refit equation. ANION GAP 17 10 - 20 mmol/L [facility] Blood 01/16/2025 3:02 PM EDT 01/16/2025 3:04 PM EDT Brody Luciano MD LAB BLOOD ORDERABL ES Final Result [address] [address] * (ABNORMAL) TSH with reflex (01/03/2025 12:57 PM EDT) TSH 0.17(L) 0.27 - 4.20 uIU/mL [facility] Blood 01/03/2025 12:5 7 PM EDT 01/03/2025 1:02 PM EDT Margareth Quiles PA-C LAB BLOOD ORDERABL ES Final Result [address] [address] * Free T3 (01/03/2025 12:57 PM EDT) FREE T3 3.1 2.0 - 4.4 pg/mL [facility] 01/03/2025 12:5 7 PM EDT 01/03/2025 1:02 PM EDT Margareth IRAHETA-C LAB BLOOD ORDERABL ES Final Result Performing Organization Address [facility]/ZIP Co de Phone Number [address] [address] * Alanine aminotransferase (ALT) (01/03/2025 12:57 PM EDT) ALT 22 0 - 40 U/L [facility] Blood 01/03/2025 12:5 7 PM EDT 01/03/2025 1:02 PM EDT Margareth Quiles PA-C LAB BLOOD ORDERABL ES Final Result Performing Organization Address [facility]/ZIP Co de Phone Number [address] [address] * Aspartate aminotransferase (AST) (01/03/2025 12:57 PM EDT) AST 26 0 - 37 U/L [facility] Blood 01/03/2025 12:5 7 PM EDT 01/03/2025 1:02 PM EDT Margareth Quiles PA-C LAB BLOOD ORDERABL ES Final Result Performing Organization Address City/[facility]/ZIP Co de Phone Number [address] [address] * Free T4 (01/03/2025 12:57 PM EDT) FREE T4 1.5 0.9 - 1.7 ng/dL [facility] 01/03/2025 12:5 7 PM EDT 01/03/2025 1:02 PM EDT Margareth Quiles PA-C LAB BLOOD ORDERABL ES Final Result Performing Organization Address [facility] Co de Phone Number [address] [address] * (ABNORMAL) Hemoglobin A1c (01/03/2025 12:57 PM EDT) HEMOGLOBIN A1C 6.3(H) 4.3 - 5.8 % [facility] Blood 01/03/2025 12:5 7 PM EDT 01/03/2025 1:03 PM EDT Margareth Quiles PA-C LAB BLOOD ORDERABL ES Final Result Performing Organization Address [facility]/ZIP Co de Phone Number [address] [address] * (ABNORMAL) Lipid panel (02/10/2024 5:56 AM EDT) HDL 53 mg/dL [facility] Comment: Interpretation <40 mg/dL: Low HDL cholesterol (major risk factor for CHD) Greater than or equal to 60 mg/dL: High HDL cholesterol ( negative risk factor for CHD) HDL - cholesterol is affected by a number of factors, e.g. smoking, excerise, hormones, sex and age. CHOLESTEROL 152 0 - 240 mg/dL [facility] TRIGLYCERIDES 160 30 - 160 mg/dL [facility] LDL 67 50 - 129 mg/dL [facility] Comment: LDL levels in terms of risk for coronary heart disease: <100 mg/dL: Optimal 100-129 mg/dL: Near or above optimal 130-159 mg/dL: Borderline high 160-189 mg/dL: High >190 mg/dL: Very High CARDIAC RISK RATIO 2.9(L) 3.3 - 4.4 C [facility] Blood 02/10/2024 5:56 AM EDT 02/10/2024 6:03 AM EDT us Ho Estrella MD LAB BLOOD ORDERABLES Final Resu lt [facility] [address] [place] [address] from Last 3 Months or Most Recently Relevant to Health Maintenance Insurance [place] [address] [place] [id number] A[facility] [place] [address] [place] [id number] [place] [address] [place] [id number] [place] [address] [place] [id number] ACO [facility] ACO Advance Directives For more information, please contact: [phone] (9AM - 5PM [facility], Tuesday-Tuesday) Documents on File Type Date Recorded Patient Psychiatric Specialist Expl anation Healthcare Proxy 02/27/2024 6:13 PM * Full Code (Latest Code Status on File) Date Activated Date Inactivated Comments 02/10/2024 2:40 AM Question Answer Comments Code Status Confirmed With: Patient Code Status Communicated To: Inpatient Attending Care Teams Child Care Group Leader Relationship Specialty Start Date End Date Jacoby Kamara MD [address] [place] [address] [place] [address] PCP - General Internal Medicine 01/22/22 Additional Source Comments The information contained in this document represents components of the legal health record. It is not the complete legal health record.[facility]
--- OUTSIDE RECORDS SUMMARY | 2025-02-19 09:37 | XMS_ITS | Encounter Summary ---
Author Organization [facility] Address [address] [place] [address] Phone Care Team Providers Care Child Development Instructor Name Role Phone Jacoby Kamara MD Primary Care Provider [phone] Reason for Referral * MRI/CAT Scan - Closed Specialty Diagnoses / Procedures Referred By Arnol branham Referred To Contact Radiology Diagnoses Chest pain, unspecified type Procedures NC Myocardial Perfusion Pharmacologic Stress Multiple NC Myocardial Perfusion Exercise Multiple Jesus Bang MD Phone: tel: fax: [email or web address] Referral ID Status Reason Start Date Expiration Date Visits Re quested Visits Authorized [id number] Closed 03/06/2024 05/05/2024 1 1 Encounter Details Date Type Department Care Team (Latest Contact Info) Description 03/13/2024 Ancillary Orders [facility] [address] [place] [address] 3rd Floor, [address] [place] [address] Jesus Bang MD [address], [address] [place], [place] [id number] [email or web address] Chest pain, unspecified type (Primary Dx) Social History Tobacco Use Types Packs/Day Years [...] Info) Description 02/05/2025 Procedure Pass [facility] [address] [place] [address] 04/09/2025 9:30 AM EDT Appointment Echo [facility] [address] [place] [address] Deysi Rogers PA-C [address] [place] [address] 04/15/2025 3:00 PM EST Office Visit [facility] [address], [address] [address] Deysi Rogers PA-C [address] [place] [address] 05/06/2025 8:40 AM EST Office Visit [facility] [address] [place] [address] Mackenzie Burt MD [address] [place] [address] 06/21/2025 10:40 AM EST Office Visit [address], [address] [address] Charlie Amato MD [address] [place] [address] 08/13/2025 10:40 AM EST Office Visit [facility] [address] [place] [address] Margareth Quiles PA-C [address] [place] [address] [email or web address] documented as of this encounter Results * NC Myocardial Perfusion Pharmacologic Stress Multiple (03/13/2024 10:21 AM EDT) Max Predicted Heart Rate 157 bpm Stress/rest perfusion ratio 0.92 Nuc Stress EF 66 % SNMDIAVOL 64.0 mL SNMSYSVOL 22.0 mL Nuc Rest EF 66 % RNMDIAVOL 68.0 mL RNMSYSVOL 23.0 mL Anatomical Region Laterality Modality Heart, Vascular Ultrasound Narrative 03/13/2024 4:17 PM EDT Normal myocardial perfusion imaging. There are no fixed or reversible perfusion defects. There is evidence of breast attenuation artifact. TID ratio is normal at 0.9. The LVEF was 66% both at rest and post-stress. Comparison is made to the prior study report dated February 2023. There is no significant change. Stress Findings NUCLEAR REPORT: TYPE OF STUDY: Myocardial Perfusion Imaging after a Walking Regadenoson protocol with gated SPECT. PROTOCOL USED: One day Regadenoson rest-stress protocol in the supine and prone position. Images were obtained in gated tomographic technique. Images were processed in SPECT format, reconstructed tomographically and compared [id number] in short axis, horizontal long axis and vertical long axis. DOSE: Technetium 99m Sestamibi 7.2 mCi injected intravenously in the right arm antecubital vein at rest on 03/13/2024 with post injection scan time of 60 minutes. Technetium 99m Sestamibi 21.4 mCi injected intravenously in the right arm antecubital vein after Regadenoson infusion on 03/13/2024 with post injection scan time of 40 minutes. Overall image quality is good. No motion artifact is present. ECG STRESS REPORT: GWYN PROTOCOL CONVERTED TO A WALKING REGADENOSON STUDY BMI: 32.18 Miss. Ash exercised 6:53 minutes on Gwyn protocol. Test was converted to a walking regadenoson study due to fatigue and inability to reach at least 85% of maximum predicted heart rate. Steffany Palm received 0.4 mg of regadenoson after walking on the treadmill for 1.0 minute at 1.0 miles per hour. Regadenoson was given via IV push over 10 seconds as per protocol, immediately followed by injection of Tc99m Sestamibi by Joseph Awad, the chief nuclear medicine technologist. 1. EKG - Baseline EKG showed sinus rhythm with nonspecific ST wave abnormalities. After injection of regadenoson, there were 0.5-[address] horizontal depressions in leads II and aVF and 0.5 mm horizontal to upsloping ST depressions in V3 6 . 2. SYMPTOMS - Patient developed shortness of breath, stomach ache, and lightheadedness after injection of regadenoson. Symptoms resolved within 2 minutes of recovery. No chest pain, tightness, or pressure. 3. PHYSIOLOGY - Resting HR was 63 bpm. After regadenoson injection, HR was 114 bpm. BP 112/72 mmHg at rest, BP 182/100 mmHg after Lexiscan injection, BP 128/78 mmHg on discharge from stress lab. 4. ARRHYTHMIAS - None. Conclusion - Equivocal EKG portion of stress test with 0.5-[address] changes detailed above. There were no symptoms concerning for angina. Nuclear images pending and will be reported separately. See attached stress report for full details. Brooklyn Ponce PA-C Stress Function Defect Left ventricular global function is normal during stress. Stress ejection fraction is 66%. The stress end diastolic cavity size is normal. Stress end diastolic size: 64.0 mL. The stress end systolic cavity size is normal. Stress end systolic size: 22.0 mL. Rest Function Defect Left ventricular global function is normal at rest. Resting ejection fraction was 66%. The rest end diastolic cavity size is normal. Rest end diastolic size: 68.0 ml. The rest end systolic cavity size is normal. Rest end systolic size: 23.0 mL. Nuclear Prior Study There is a prior study available for comparison that was performed on 03/08/2023. Nuclear Ancillary Finding There is no evidence of transient ischemic dilation (TID). The TID ratio is 0.92, which is normal. Perfusion Scoring Resting Summed Score: 7 Percent Normal: 10.29% Moderate count reduction in the following segments: apical septal, apical lateral and apex. Mild count reduction in the following segments: apical anterior. All other segments are normal. SUPINE IMAGING REST Perfusion Scoring Stress Summed Score: 0 Percent Normal: 0.00% The left ventricular perfusion is normal. PRONE IMAGING STRESS Perfusion Scores: SRS Score: 7 Percentage Abnormal: 10.29% Perfusion Scores: SSS Score: 0 Percentage Abnormal: 0.00% Perfusion Scores: SDS Score: N/A Percentage Abnormal: N/A Procedure Note Jesus Bang MD - 03/13/2024 Normal myocardial perfusion imaging. There are no fixed or reversible perfusion defects. There is evidence of breast attenuation artifact. TID ratio is normal at 0.9. The LVEF was 66% both at rest and post-stress. Comparison is made to the prior study report dated February 2023. Thereis no significant change. us Jesus Bang MD CV NM CARDIAC Final Result documented in this encounter Visit Diagnoses Diagnosis Chest pain, unspecified type- Primary Chest pain, unspecified type- Primary documented in this encounter Additional Health Concerns Infection Onset Date Last Indicated Resolved Time CoV-Risk 05/20/2024 05/20/2024 05/31/2024 1:23 AM EST CoV-Risk 08/27/2024 08/27/2024 09/07/2024 1:21 AM EDT documented as of this encounter Care Teams Child Development Instructor Relationship Specialty Start Date End Date Jacoby Kamara MD [address] [place] [address] [place] [address] PCP - General Internal Medicine 01/22/22 documented as of this encounter Additional Source Comments The information contained in this document represents components of the legal health record. It is not the complete legal health record.[facility]
--- OUTSIDE RECORDS SUMMARY | 2025-02-19 09:37 | XMS_ITS | Encounter Summary ---
Author Organization [facility] Address [address] [place] [address] Phone Care Team Providers Care Traditional Chinese Herbalist Name Role Phone Jacoby Kamara MD Primary Care Provider [phone] Encounter Details Date Type Department Care Team (Late st Contact Info) Description 01/16/2025 Procedure Pass [facility] Scan - [facility] [address] [place] [address] Social History Tobacco Use Types Packs/Day Years [...] AM EDT documented as of this encounter Functional Status * Calculated C-SSRS Risk Score (Lifetime/Recent) Answer Date of Assessment Author No Risk Indicated 01/16/2025 2:31 PM EDT Trinidad Lin RN * [place] Suicide Severity Rating Scale (Screener/Recent Self-Report) Question Answer Date of Assessment Author 1. Wish to be (Past 1 Month) No 01/16/2025 2:31 PM EDT Al[place] No RN 2. Non-Specific Active Suicidal Thoughts (Past 1 Month) No 01/16/2025 2:31 PM EDT [place] No RN 6. Suicidal Behavior (Lifetime) No 01/16/2025 2:31 PM EDT [place] No RN documented as of this encounter Plan of Treatment Upcoming Encounters Date Type Department Care Team (Late st Contact Info) Description 02/05/2025 Procedure Pass [facility] [address] [place] [address] 04/09/2025 9:30 AM EDT Appointment [facility] [address] [place] [address] Deysi Rogers PA-C [address] [place] [address] 04/15/2025 3:00 PM EST Office Visit [facility] [address], [address] [address] Deysi Rogers PA-C [address] [place] [address] 05/06/2025 8:40 AM EST Office Visit [facility] [address] [place] [address] [place] [address] Mackenzie Burt MD [address] [place] [address] 06/21/2025 10:40 AM EST Office Visit [address], [address] [place] [address] Charlie Amato MD [address] [place] [address] 08/13/2025 10:40 AM EST Office Visit [facility] [address] [place] [address] Margareth Quiles PA-C [address] [place] [phone] documented as of this encounter Visit Diagnoses Not on filedocumented in this encounter Care Teams Traditional Chinese Herbalist Relationship Specialty Start Date End Date Jacoby Kamara MD [address] [place] [address] [place] [address] PCP - General Internal Medicine 01/22/22 documented as of this encounter Additional Source Comments The information contained in this document represents components of the legal health record. It is not the complete legal health record.[facility]
--- OUTSIDE RECORDS SUMMARY | 2025-02-19 09:37 | XMS_ITS | Encounter Summary ---
Author Organization [facility] Address [address] [place] [address] Phone Care Team Providers Care Veneer Taping Machine Operator Name Role Phone Jacoby Kamara MD Primary Care Provider [phone] Encounter Details Date Type Department Care Team (Late st Contact Info) Description 03/26/2024 Procedure Pass [facility] [place] [address] [place] [address] Social History Tobacco Use Types Packs/Day Years [...] Info) Description 02/05/2025 Procedure Pass [facility] [place] [address] [place] [address] 04/09/2025 9:30 AM EDT Appointment [facility] [place] [address] [address] Deysi Rogers PA-C [address] [place] [address] 04/15/2025 3:00 PM EST Office Visit [facility] [address], [address] [place] [address] Deysi Rogers PA-C [address] [place] [address] 05/06/2025 8:40 AM EST Office Visit [facility] [address] [place] [address] Mackenzie Burt MD [address] [place] [address] 06/21/2025 10:40 AM EST Office Visit [facility] [address], [address] [place] [address] Charlie Amato MD [address] [place] [address] 08/13/2025 10:40 AM EST Office Visit [facility] [address] [place] [address] Margareth Quiles PA-C [address] [place] [address] documented as of this encounter Visit Diagnoses Not on filedocumented in this encounter Additional Health Concerns Infection Onset Date Last Indicated Resolved Time CoV-Risk 05/20/2024 05/20/2024 05/31/2024 1:23 AM EST CoV-Risk 08/27/2024 08/27/2024 09/07/2024 1:21 AM EDT documented as of this encounter Care Teams Veneer Taping Machine Operator Relationship Specialty Start Date End Date Jacoby Kamara MD [address] [place] [address] [place] [address] PCP - General Internal Medicine 01/22/22 documented as of this encounter Additional Source Comments The information contained in this document represents components of the legal health record. It is not the complete legal health record.[facility]
[2025-02-19 09:52] LABS: Hematocrit 36.9 % (37.0-47.0); Hemoglobin 11.9 g/dl (12.0-16.0); Imm Gran Abs Auto 0.01 X10*3/uL (0.00-0.03); Imm Gran Pct Auto 0.2 % (0.0-0.4); Lymphocytes Absolute Auto 1.9 X10*3/uL (1.2-4.9); Mean Corpuscular HGB Conc 32.2 g/dl (31.0-35.0); Mean Corpuscular Hemoglobin 28.6 pg (27.0-33.0); Mean Corpuscular Volume 88.7 fL (80.0-98.0); NRBC Abs Auto 0.000 X10*3/uL (0.0-0.012); NRBC Pct Auto 0.0 /100WBC (0.0-0.2); Platelet Count 247 X10*3/uL (160-400); Red Blood Count 4.16 X10*6/uL (4.20-5.50); White Blood Count 5.2 X10*3/uL (4.8-10.8)
[2025-02-19 10:08] LABS: Appearance Urine Clear; Glucose Urine UA Negative (Negative); PH 6.5 (5.0-9.0); Specific Gravity - Urine 1.020 (1.005-1.025); UMIC TRIGGER UACC YES
[2025-02-19 10:08] LABS: Hemoglobin A1C 144.9784 umol/L; Total Hemoglobin (HGBA1C) 3186.6887 umol/L
[2025-02-19 10:11] LABS: UACC Culture Trigger YES
[2025-02-19 10:42] LABS: Microalbum/Creatinine Ratio Ur 4.3 ug/mg cr (<30)
[2025-02-19 10:44] LABS: Alanine Aminotransferase 27 U/L (0-31); Albumin Level 4.1 g/dL (3.5-5.0); Alkaline Phosphatase 75 U/L (39-117); Anion Gap 12 (12-20); Aspartate Amino Transferase 28 U/L (5-31); Blood Urea Nitrogen 11 mg/dL (9-16); Calcium 8.9 mg/dL (8.4-10.2); Carbon Dioxide 23 mmol/L (22-29); Chloride 112 mmol/L (96-108); Cholesterol 151 mg/dL (<200); Estimated Glomerular Filt Rate > 60; HDL Cholesterol 45 mg/dL (>40); Potassium 4.1 mmol/L (3.3-5.1); Sodium 143 mmol/L (135-145); Total Protein 6.7 g/dL (6.5-8.0); Triglycerides 110 mg/dL (<150)
[2025-02-19 11:03] LABS: Free T4 (Free Thyroxine) 1.08 ng/dL (0.71-1.85); Thyroid Stimulating Hormone 2.39 uIU/mL (0.32-4.0)
[2025-02-19 11:08] LABS: Folate 10.4 ng/mL (> or = 4.0); Vitamin B12 404 pg/mL (200-900)
== END 2025-02-19 08:35 | disposition home or self-care (01) ==
LOC: HO.LAB 08:34
PROVIDERS: PCP Internal Medicine; Visit Provider Internal Medicine
DX: Z00.00 Encounter for general adult medical examination without abnormal findings (principal); E78.00 Pure hypercholesterolemia, unspecified; E11.9 Type 2 diabetes mellitus without complications; E53.8 Deficiency of other specified B group vitamins; E55.9 Vitamin D deficiency, unspecified; E03.9 Hypothyroidism, unspecified; D64.9 Anemia, unspecified
CPT/HCPCS: 36415; 80053; 80061; 81001; 81003; 82043; 82306; 82570; 82607; 82746; 83036; 84439; 84443; 85025; 87086

== ENCOUNTER 2025-02-20 08:58 | Outpatient (AMB) | payer OTHER, SELFPAY ==
--- OUTSIDE RECORDS SUMMARY | 2018-01-20 07:23 | XMS_ITS | Continuity of Care Document ---
Author Organization [facility] [facility] Address [address] [place] [address] Care Team Providers Care Police Shift Commander Name Role Phone Eduardo LOMBARDO, Juanita Unavailable [...] oral route every day in the morning - Active Prozac 20 mg capsule take [...] Diagnoses Date Provider Providers Copied on Encounter [facility], [address], [place], [place], [id number] , [facility] [place] No Information Eduardo Grant. [address], [address], [place], [address], [place]. tel:[phone] OFFICE/OUTPA TIENT VISIT, EST [facility] [employer], [address], [place], [place], [id number] , [facility] [place] neck pain (chief complaint) Pain in left shoulderChronic pain syndromeCervicalg iaRotator cuff rupture of left shoulder, not specified as traumaticRadiculo stuart, cervical regionBody mass index (BMI) 30.0-30.9, adult 8 [facility] Juanita. [address], [address], [place], [address], [place]. tel:[phone] Referring Provider: Samy patel, [facility] [place], [address] . [facility], [address], [place], [place], [id number] , [place] [facility] [place] Follow up chronic pain (chief complaint) Other disturbances of skin sensationBody mass index (BMI) 31.0-31.9, adult 8 [facility] Juanita. [address], [address], [place], [address], [place]. tel:[phone] Referring Provider: Samy patel, [address] [place] [address], [phone] . OFFICE/OUTPA TIENT VISIT, NEW [facility], [address], [place], [place], [id number] , [facility] [place] cervicalgia (chief complaint)Sh oulder Pain (chief complaint) Pain in left shoulderChronic pain syndromeBody mass index (BMI) 31.0-31.9, adultCervicalgiaR otator cuff rupture of left shoulder, not specified as traumaticOther disturbances of skin sensation Dec-0 3-201 8 [facility] [address], [address], [facility], . tel:[phone] Referring Provider: Samy patel, [address] [place] [address], [phone] . [facility], [address], [place], [place], [id number] , [facility] [place] Pain in left shoulder 8 [facility] [address], [facility] [address], [place], [facility], . tel:[phone] Referring Provider: Samy patel, [address] [place] [address], [phone] . Family History Family Member Type Diagnosis [...] ID Lex iniguez(s) [facility] Medicaid CI [id number] Social History Type Description Quantity Date Captured [...] , guidance, and counseling completed Referral Ordered: X-RAY EXAM OF NECK SPINE spine, cervical ordered Referral Ordered: Musc Test Done W/n Test Comp Bilateral Upper Extremity ordered History Of Present Illness Encounter Date [...]
[2025-02-20 09:03] VITALS: BP 122/86; PULSE 89; O2SAT 96; BMI 32.6
--- NOTE | 2025-02-20 09:03 | A.OFFPC_ITS ---
Vital Signs 02/20/25 09:03 Height 5 ft 2 in Weight 178 lb 4 oz BMI 32.6 BP 122/86 Blood Pressure Location Lt brachial Position Sitting Pulse 89 Pulse Source Pulse Oximeter Pulse Oximetry (%) 96 Oxygen Delivery Method Room Air Intake Visit Reasons: Annual Exam Veneer Grader Required: No Accompanied by: Self / Same As Patient Allergies Benadryl Allergy (Unknown, Verified 02/20/25 09:27) unknown dapagliflozin Adverse Reaction (Severe, Verified 02/20/25 09:27) Chest Pain, Weakness, Nausea, Fatigue amoxicillin (Augmentin) Adverse Reaction (Intermediate, Verified 02/20/25 09:27) diarrhea atorvastatin Adverse Reaction (Intermediate, Verified 02/20/25 09:27) myalgia, feet pain, hair loss morphine (MORPHINE) Adverse Reaction (Intermediate, Verified 02/20/25 09:27) TACHYCARDIA, CP, confusion simvastatin Adverse Reaction (Intermediate, Verified 02/20/25 09:27) swelling of feet tramadol (TRAMADOL) Adverse Reaction (Intermediate, Verified 02/20/25 09:27) DIZZYNESS, confusion trazodone Adverse Reaction (Intermediate, Verified 02/20/25 09:27) chest discomfort; tachycardia zolpidem Adverse Reaction (Intermediate, Verified 02/20/25 09:27) sleepwalking paroxetine (Paxil) Adverse Reaction (Unknown, Verified 02/20/25 09:27) Unknown Medication List - Last Reconciled 02/20/25 by Jacoby Kamara MD albuterol sulfate 90 mcg/actuation 2 puffs PO Q6H PRN albuterol sulfate 2.5 mg (3 mL) inhalation QID PRN 30 days aspirin 81 mg PO DAILY atorvastatin 40 mg PO BEDTIME blood sugar diagnostic (FreeStyle Lite Strips) As directed once a day blood-glucose meter (FreeStyle Lite Meter kit) As directed cjwtbievax-dymhkkypcmjuu-earp 50-325-40 mg 1 tab PO TID PRN cetirizine 10 mg PO DAILY PRN 90 days clonazepam 0.5 mg PO BID PRN 30 days dicyclomine 10 mg PO QID PRN dulaglutide (Trulicity) 0.75 mg subcut QWEEK escitalopram oxalate 20 mg PO DAILY 30 days fluticasone propion-salmeterol 115-21 mcg/actuation (Advair HFA) 2 puffs inhalation BID 30 days lancets (FreeStyle Lancets) As directed once a day levothyroxine 100 mcg PO DAILY linaclotide (Linzess) 145 mcg PO QAM losartan 25 mg PO DAILY metoprolol succinate ER 25 mg PO DAILY 90 days [NEBULIZER As directed] nitroglycerin mg sublingual omeprazole 40 mg PO BID 30 days sennosides (senna) 17.2 mg (2 x 8.6 mg) PO BEDTIME PRN Held on 12/05/24. Instructions: Doctor's Order trazodone 150 mg PO BEDTIME Tobacco use date assessed: 02/20/25 Fall risk assessment: No Falls in past year Last assessed Fall Risk: 02/20/25 Dental Screening Dental Screen Date: 02/20/25 Did you have a dental visit in the last 12 months?: Yes Did you have a dental problem in the last 6 months where you did not have access to dental care?: No Was dental information given to patient?: Patient has dentist HPI Annual Exam HPI Details Patient comes in today for her annual physical examination States that she feels okay except for a sore throat that has been bothering her for a few days now - feels that her sore throat seems slightly worse this morning She denies any fever or any increased cough/cold symptoms lately Denies any headaches or dizziness Denies any chest pains, no SOB No nausea/vomiting, no abdominal pain No change in bowel habits noted Adds that she has been experiencing some dysuria and slight urinary frequency over the past couple of days but denies any nocturia Also reports (+) mild on and off bilateral flank pains - states that this started on the left side a few days ago but is now also occurring on the right side and was bothering her more than usual last night She had her follow up labs done yesterday - to discuss her results She is up-to-date with her annual mammogram and colon cancer screening - is scheduled for her annual mammography this year on 03/13/2025 and will be due for repeat colonoscopy in 2026 She had her BMD done in 2022 (osteopenia) She has not had her yearly gynecology exam and pap smear done in over 5 years now - [facility] the [facility] of [facility] (in 2022 and 2023) but she recalls being advised that she will only be seen by a forge tender here when she comes in for her exam (which patient states that she was fine with) but recalls also being advised that they do not perform routine pap smears any longer (?), which patient finds strange and could not understand why States that she would rather try going to [facility] instead now for her yearly exam and would like to get a referral for this [facility] Medical History (Updated 02/20/25 @ 10:05 by Jacoby Kamara MD) Irritable bowel syndrome with both constipation and diarrhea [place] syndrome Obesity (BMI 30-39.9) Diabetes mellitus Coronary atherosclerosis Asthma Depression Epilepsy Anxiety Insomnia Osteopenia Allergic rhinitis Acquired hypothyroidism Acute non intractable tension-type headache Mixed hyperlipidemia Surgical History History of radiofrequency ablation (RFA) procedure for cardiac arrhythmia Hx of cardiac cath (~05/05/22) History of ST elevation myocardial infarction (STEMI) Hx of shoulder surgery History of bunionectomy History of esophagogastroduodenoscopy (EGD) Hx of colonoscopy Family History Father HTN (hypertension) Heart disease Myocardial infarction Mother Diabetes Hyperchloremia HTN (hypertension) Myocardial infarction Family/Other Stomach cancer Other Thyroid nodule Social History Household Members: None Housing: Apartment Alcohol intake: current Alcohol intake frequency: does not drink Patient Tobacco Use Status: Never used Tobacco e-Cigarette/Vaping Use: Never Used Second Hand Smoke Exposure: No service: No Current occupational status: disabled Cognitive needs: No Hearing needs: No Vision needs: Yes (Glasses) Questionnaire PHQ-9 Over the last 2 weeks, how often have you been bothered by any of the following problems? 1. Little interest or pleasure in doing things: several days 2. Feeling down, depressed, or hopeless: several days 3. Trouble falling or staying asleep, or sleeping too much: several days 4. Feeling tired or having little energy: several days 5. Poor appetite or overeating: several days 6. Feeling bad about yourself - or that you are a failure or have let yourself or your family down: several days 7. Trouble concentrating on things, such as reading the newspaper or watching television: several days 8. Moving or speaking so slowly that other people could have noticed. Or the opposite - being so fidgety or restless that you have been moving around a lot more than usual: several days 9. Thoughts that you would be better off or of hurting yourself in some way: several days Total score: 9 Depression Screening Interpretation: Positive Depression Screening Follow-up: Existing condition and In treatment Depression Screening Done: Yes 69826 - PHQ-9 Billing: Yes Source: Developed by Drs. Ziyad Gary, Dayana Crane, Vinh Brar and colleagues, with an educational vero from [employer]. Thrive Questionnaire Date Thrive assessed: 02/20/25 I am a: Patient What is your living situation today?: I have a steady place to live Within the past 12 months, did the food you bought not last and you didn't have the money to get more?: I choose not to answer this question Within the past 12 months, did you worry whether your food would run out before you got money to buy more?: I choose not to answer this question Do you have trouble paying for medicines?: No Do you have trouble getting transportation to medical appointments?: I choose not to answer this question Do you have trouble paying your heating and electricity bill?: I choose not to answer this question Do you have trouble taking care of your child, family member or friend?: No Do you have trouble with day-to-day activities such as bathing, preparing meals, shopping, managing finances, etc.?: I choose not to answer this question Are you currently unemployed and looking for a job?: No Are you interested in more education?: No Please select the resources that you would like help with: None Currently or been in a relationship where the following occur: No concerns reported THRIVE Score: 0 AUDIT C Alcohol Use Questionnaire (AUDIT-C) 1. How often do you have a drink containing alcohol?: Never 3. How often do you have six or more drinks on one occasion?: Never Total Score: 0 Score Reviewed/Action Taken: Yes RASHI-7 AMB Questionnaire RASHI-7 Date RASHI - 7 assessed: 02/20/25 Feeling nervous, anxious, or on edge: 1 = Several days Not being able to stop or control worryin = Not at all Worrying too much about different things: 0 = Not at all Trouble relaxin = Not at all Being so restless that it is hard to sit still: 0 = Not at all Becoming easily annoyed or irritable: 0 = Not at all Feeling afraid as if something awful might happen: 0 = Not at all Total RASHI-7 score (0-4 normal; 5-9 mild; 10-14 moderate; 15-21 severe): 1 Source: Developed by Drs. Ziyad Gary, Dayana Crane, Vinh Brar and colleagues, with an educational vero from [employer]. Review of Systems Const Denies chills, Denies fatigue, Denies fever(s), Denies headache(s) and Denies malaise Eyes Denies blurry vision, Denies change in vision, Denies irritation and Denies i tchy eyes ENT Reports dysphagia (on and off lately - (+) Hx of esophageal dilatation in the past), Denies dizziness, Denies otalgia, Denies headache(s), Denies nasal congestion, Denies neck pain, Denies odynophagia, Denies sinus pain and Reports sore throat (x few days) Card Denies chest pain, Denies rapid heart rate, Denies irregular heart rhythm, Denies palpitations and Denies dyspnea Resp Denies chest congestion, Denies cough, Denies dyspnea and Denies wheezing GI Denies abdominal pain, Denies bloating, Denies constipation, Reports dysphagia (on and off lately - (+) Hx of esophageal dilatation in the past), Denies heartburn, Denies diarrhea, Denies nausea, Denies odynophagia and Denies vo miting Denies hematuria, Denies difficulty voiding, Reports dysuria (mild, with urinary frequency lately but no nocturia), Denies urinary incontinence and Denies urinary urgency Musc Reports back pain (on and off over the flanks bilaterally - see HPI), Denies arthralgias, Denies joint swelling, Denies muscle weakness and Denies neck pain Skin/Breast Denies breast pain, Denies breast mass, Denies change in pigmentation, Denies lesions, Denies rash and Denies unusual bruising Neuro Denies dizziness, Denies headache(s) and Denies paresthesias Psych Denies anxiety and Denies depression Endo Denies fatigue and Denies palpitations Bryson/Lymph Denies easy bruising Aller/Immun Denies itchy eyes and Denies wheezing Physical exam (Primary Care) Vital Signs: Last Vital Signs Pulse 89 02/20/25 09:03 BP 122/86 02/20/25 09:03 Pulse Ox 96 02/20/25 09:03 Oxygen Delivery Method Room Air 02/20/25 09:03 BMI result Body Mass Index 32.6 Tobacco/Smoking Status: Tobacco use Status Tobacco use date assessed 02/20/25 02/20/25 09:11 Patient Tobacco Use Status Never used Tobacco 02/20/25 09:11 e-Cigarette/Vaping Use Never Used 02/20/25 09:11 PHQ-9: PHQ-9 Score PHQ-9: Total score 9 02/20/25 09:35 Depression Screening Interpretation: Positive Depression Screening Follow-up: Existing condition and In treatment Thrive Assessment: Date of Thrive Assessment Date Thrive assessed 02/20/25 02/20/25 09:11 Currently or been in a relationship where the following occur: No concerns reported Const General: no acute distress, alert and awake Orientation/consciousness: patient oriented x3 HENMT Head: Yes normocephalic and Yes atraumatic Ears: external ears normal, TM's normal bilaterally and EAC's normal General nose exam: No nasal discharge present Face and sinus: Yes normal facial exam and Yes sinuses nontender Teeth and gingiva: dentition normal Throat: Yes tonsils normal (no TP congestion) and Yes posterior oropharynx abnormal (increased erythema over the posterior pharynx) Eyes Eyelids: Yes eyelids normal Conjunctivae: conjunctivae normal Pupils: Equal, round and reactive pupils present EOM: EOMs intact bilaterally Neck Neck: Yes supple and No lymphadenopathy Thyroid: Thyroid normal Resp Auscultation: clear to auscultation bilaterally, no rales and no wheezes Cardio Rate: regular rate Rhythm: regular rhythm Heart sounds: no murmurs GI Palpation (GI): Soft to palpation, nontender and No hepatosplenomegaly present Auscultation: normal bowel sounds General: Yes no CVA tenderness Back/Spine/Pelvis Back: no CVA tenderness Thoracic/Lumbar Spine: thoracic and lumbar spine normal to inspection Skin Lesions: no lesions Rashes: no rashes Neuro General: patient oriented x3, moves all extremities, no focal motor deficits and CN's II-XI intact bilaterally Cranial nerves: Yes Equal, round and reactive pupils present Cognition (Neuro): normal cognition Gait exam (Neuro): Normal gait present Extrem General: Yes no clubbing, cyanosis or edema Results Reviewed Results Reviewed: Laboratory Tests 02/19/25 02/19/25 08:50 08:57 WBC 5.2 Hgb 11.9 L Hct 36.9 L Plt Count 247 Sodium 143 Potassium 4.1 Creatinine 0.93 Estimated GFR > 60 Fasting Glucose 126 H Hemoglobin A1c % 6.3 H Calcium 8.9 AST 28 ALT 27 Triglycerides 110 Cholesterol 151 LDL Cholesterol, Calc 84 HDL Cholesterol 45 Vitamin B12 404 25-OH Vitamin D Total 34.8 TSH 2.39 Free T4 1.08 Ur Specific [place] 1.020 Urine Protein Negative Urine Glucose (UA) Negative Urine Blood Negative Urine Nitrite Negative Ur Leukocyte Esterase Moderate (2+) H Microalb/Creat Ratio 4.3 Coding Level of Care Code Est Pt Prev Care 40-64y(59690) Diagnoses Annual physical exam Z00.00 Dysphagia, unspecified type R13.10 Dysphagia type: unspecified Erosive esophagitis K22.10 Elevated d-dimer R79.89 Atherosclerosis of [place] coronary artery of [place] heart without angina pectoris I25.10 Coronary Disease-Associated Artery/Lesion type: [place] artery [place] vs. transplanted heart: [place] heart Associated angina: without angina Mixed hyperlipidemia E78.2 Type 2 diabetes mellitus with hyperglycemia, without long-term current use of insulin E11.65 Diabetes mellitus type: type 2 Diabetes mellitus rat exterminator insulin use: without rat exterminator use Diabetes mellitus complication status: with hyperglycemia Essential hypertension I10 Moderate persistent asthma with acute exacerbation J45.41 Asthma severity: moderate Asthma persistence: persistent Asthma complication type: with acute exacerbation Acquired hypothyroidism E03.9 Thyroid nodule E04.1 Pharyngitis, unspecified etiology J02.9 Pharyngitis/tonsillitis etiology: unspecified etiology Allergic rhinitis, unspecified seasonality, unspecified trigger J30.9 Allergic rhinitis trigger: unspecified Allergic rhinitis seasonality: unspecified Nonintractable epilepsy without status epilepticus, unspecified epilepsy type G40.909 Epilepsy type: unspecified Intractability: not intractable Status epilepticus: without status epilepticus Dysuria R30.0 Insomnia, unspecified type G47.00 Insomnia type: unspecified Anxiety F41.9 Episode of recurrent major depressive disorder, unspecified depression episode severity F33.9 Depression Type: major depressive disorder Major depression recurrence: recurrent Active/Remission status: currently active Major depression episode severity: unspecified Obesity (BMI 30-39.9) E66.9 Cervical cancer screening Z12.4 Additional Codes PHQ-9 - 89603 - PHQ-9 Billing: Yes ([id number]) Assessment & Plan Assessment & Plan (1) Annual physical exam: Code(s): Z00.00 - Encounter for general adult medical examination without abnormal findings Category: Medical Plan: Results of her labs done yesterday reviewed and discussed with patient She is up-to-date with her annual mammogram and colon cancer screening - is scheduled for her annual mammography this year on 03/13/2025 and will be due for repeat colonoscopy in 2026 She had her BMD done in 2022 (osteopenia) She has not had her yearly gynecology exam and pap smear done in over 5 years now - she [facility] over the past couple of years (in 2022 and 2023) but she recalls being advised that she will only be seen by a forge tender here when she comes in for her exam (which patient states that she was fine with) but recalls also being advised that they do not perform routine pap smears any longer (?), which patient finds strange and could not understand why States that she would rather try going to [facility] instead now for her yearly exam and would like to get a referral for this (2) Dysphagia: Code(s): R13.10 - Dysphagia, unspecified Category: Medical Qualifiers: Dysphagia type: unspecified Qualified Code(s): R13.10 - Dysphagia, unspecified Plan: Patient was sent for a barium swallow for further evaluation and she is now scheduled to have this done on 06/04/2025 (3) Erosive esophagitis: Code(s): K22.10 - Ulcer of esophagus without bleeding Category: Medical Plan: Dx by EGD with Bx Dietary restrictions reinforced She was doing well on Omeprazole 40 mg BID but insurance would NOT cover the Rx and she was getting her Rx [id number] for a while but could not afford to continue She is currently on Famotidine 40 mg BID and Carafate liquid Q HS Follow up with GI as scheduled (4) Elevated d-dimer: Code(s): R79.89 - Other specified abnormal findings of blood chemistry Category: Medical Plan: Her D-dimer was reportedly elevated when it was checked in the ER at [facility] last month She subsequently underwent a chest CTA to rule out pulmonary embolism - CTA of the chest came back negative Have advised patient previously that the D-dimer is a very nonspecific test and this may be have been elevated due to other reasons, including her dysphagia and does not need to be rechecked or repeated unless there is any indication again to do so (5) Coronary atherosclerosis: Comment: S/P cardiac cath with stenting of LAD with ISAIAH on 05/05/2022 Code(s): I25.10 - Atherosclerotic heart disease of [place] coronary artery without angina pectoris Category: Medical Qualifiers: Coronary Disease-Associated Artery/Lesion type: [place] artery [place] vs. transplanted heart: [place] heart Associated angina: without angina Qualified Code(s): I25.10 - Atherosclerotic heart disease of [place] coronary artery without angina pectoris Plan: Patient remains asymptomatic from cardiac standpoint Continue Aspirin 81 mg QD for lifelong antiplatelet Tx; continue Clopidogrel 75 mg QD and Metoprolol ER 25 mg QD (was taken off Brilinta by cardiology previously due to increasing SOB) Myocardial perfusion stress test imaging done on 09/08/22 at [facility] reportedly came out normal Repeat echocardiogram done on 10/26/2022 at [facility] was also normal, with EF of 65 to 70% (EF was at 35 to 40% back in April 2022 when patient had her [place] and was experiencing ischemic cardiomyopathy at the time) Follow up with cardiology as scheduled (6) Mixed hyperlipidemia: Code(s): E78.2 - Mixed hyperlipidemia Category: Medical Plan: Have advised patient that her cholesterol levels were at goal on her recent labs Reinforced low cholesterol diet Continue Atorvastatin 40 mg QD She was on Atorvastatin 80 mg QD previously but she cut her dose down to 40 mg QD on her own a few months ago due to increased myalgia that she attributed to her cholesterol Rx States that her muscle pains subsided when she cut her dose down As her cholesterol levels have remained mostly at or near goal on her recent labs, will continue her on 40 mg QD for now Will recheck her labs and fasting lipids in 4 months for follow-up (7) Diabetes mellitus: Code(s): E11.9 - Type 2 diabetes mellitus without complications Category: Medical Qualifiers: Diabetes mellitus type: type 2 Diabetes mellitus alf insulin use: without rat exterminator use Diabetes mellitus complication status: with hyperglycemia Qualified Code(s): E11.65 - Type 2 diabetes mellitus with hyperglycemia Plan: Her HgbA1c is at 6.3% on her labs done yesterday (HgbA1c was previously at 6.1% a few months ago) - goal is at least <7.0% but ideally <6.5% Reinforced diabetic diet Continue Metformin ER 500 mg BID: she could not tolerate Farxiga in the past due to chest pains (8) Essential hypertension: Code(s): I10 - Essential (primary) hypertension Category: Medical Plan: Reinforced low sodium diet - goal is systolic BP of 120 mm or less Continue Lisinopril 5 mg QD (9) Asthma: Code(s): J45.909 - Unspecified asthma, uncomplicated Category: Medical Qualifiers: Asthma severity: moderate Asthma persistence: persistent Asthma complication type: with acute exacerbation Qualified Code(s): J45.41 - Moderate persistent asthma with (acute) exacerbation Plan: Controlled Continue Advair HFA 115-21 mcg 2 inhalations BID and Albuterol HFA 1 to 2 inhalations Q 6 hours PRN (10) Acquired hypothyroidism: Code(s): E03.9 - Hypothyroidism, unspecified Category: Medical Plan: Her TFTs were normal on her recent labs Continue Levothyroxine 100 mcg QD Will recheck her TFTs again in 4 months for follow up (11) Thyroid nodule: Code(s): E04.1 - Nontoxic single thyroid nodule Category: Medical Plan: Thyroid US done last year revealed (+) TI-RADS Category 4 right midpole nodule with maximum dimension of 1.0 cm Recommend followup ultrasound in 1, 2, 3 and 5 years for continuing surveillance She had a thyroid Bx done by endocrinology a couple of years ago on 07/15/2022 - cytology was benign Follow up with endocrinology as scheduled (12) Pharyngitis: Code(s): J02.9 - Acute pharyngitis, unspecified Category: Medical Qualifiers: Pharyngitis/tonsillitis etiology: unspecified etiology Qualified Code(s): J02.9 - Acute pharyngitis, unspecified Plan: Have advised patient that this is most likely viral in etiology, especially in the absence of any associated symptoms of increased cough and congestion but she will be started on empiric Tx for UTI/cystitis with oral Bactrim DS, which should also cover the possibility of any bacterial respiratory tract infection (13) Allergic rhinitis: Code(s): J30.9 - Allergic rhinitis, unspecified Category: Medical Qualifiers: Allergic rhinitis trigger: unspecified Allergic rhinitis seasonality: unspecified Qualified Code(s): J30.9 - Allergic rhinitis, unspecified Plan: Patient used to see Dr. Donita Ho for her allergies and was on Nasacort and Azelastine but she has not used these in a while as she did not feel that they were helping adequately She also has not seen Dr. Ho in a few years now - she currently lives in the [facility] and finds it too far to go all the way to [place] and is now going to [facility] in [place] for her allergy issues Continue Cetirizine 10 mg QD PRN (14) Epilepsy: Code(s): G40.909 - Epilepsy, unspecified, not intractable, without status epilepticus Category: Medical Qualifiers: Epilepsy type: unspecified Intractability: not intractable Status epilepticus: without status epilepticus Qualified Code(s): G40.909 - Epilepsy, unspecified, not intractable, without status epilepticus Plan: Stable lately; recalls that her last seizure episode was over a year ago, and that she has never been started on any Rx for her seizures She was referred to neurology last year but patient states that she does not want to go back to see Dr. Pittman She was referred instead to Dr. Donahue as she has [facility], which is not accepted by [facility] - to follow up with neurology as scheduled (15) Dysuria: Code(s): R30.0 - Dysuria Category: Medical Plan: Patient is advised that her urinalysis done yesterday did not really show any evidence of a urinary tract infection but based on her symptoms, then I would go ahead and treat her empirically with Bactrim DS BID x 7 days to also potentially cover her throat infection as mentioned above She is encouraged to increase her oral fluid intake to help clear up her UTI symptoms more effectively (16) Insomnia: Code(s): G47.00 - Insomnia, unspecified Category: Medical Qualifiers: Insomnia type: unspecified Qualified Code(s): G47.00 - Insomnia, unspecified Plan: Sleep hygiene reinforced She could not tolerate Trazodone due to side effects; also had issues with Zolpidem in the past She also stopped taking her Doxepin 25 mg Q HS PRN a while back (17) Anxiety: Code(s): F41.9 - Anxiety disorder, unspecified Category: Medical Plan: Continue Clonazepam 0.5 mg BID PRN Follow-up with Psychiatry as scheduled (18) Depression: Code(s): F32.9 - Major depressive disorder, single episode, unspecified Category: Medical Qualifiers: Depression Type: major depressive disorder Major depression recurrence: recurrent Active/Remission status: currently active Major depression episode severity: unspecified Qualified Code(s): F33.9 - Major depressive disorder, recurrent, unspecified Plan: Continue Escitalopram 20 mg QD (reportedly felt angry often while on Fluoxetine in the past) Follow-up with Psychiatry as scheduled (19) Obesity (BMI 30-39.9): Code(s): E66.9 - Obesity, unspecified Category: Medical Plan: Reinforced diet/exercise as tolerated/lose weight (20) Cervical cancer screening: Code(s): Z12.4 - Encounter for screening for malignant neoplasm of cervix Category: Medical Plan: Per request, will refer her to [facility] for her yearly gynecology exam and pap smear Plan Follow-up in 4 months Orders: Orders Complete Blood Count Auto Diff 4 Months D64.9 - Anemia, unspecified Comprehensive [place]. Panel Fast 4 Months E78.00 - Pure hypercholesterolemia, unspecified Hemoglobin A1c 4 Months E11.9 - Type 2 diabetes mellitus without complications Thyroid Stimulating Hormone 4 Months E03.9 - Hypothyroidism, unspecified Vitamin B12 and Folate 4 Months E53.8 - Deficiency of other specified B group vitamins Vitamin D 25-OH Total 4 Months E55.9 - Vitamin D deficiency, unspecified Lipid Panel 4 Months E78.00 - Pure hypercholesterolemia, unspecified Microalbumin, Random (w Creat) 4 Months E11.9 - Type 2 diabetes mellitus without complications Free T4 (Free Thyroxine) 4 Months E03.9 - Hypothyroidism, unspecified UA CC w/rflx Micro + Cult 4 Months R30.0 - Dysuria Referrals LICENSING ENGINEER Referral Z12.4 - Encounter for screening for malignant neoplasm of cervix Medications: New sulfamethoxazole-trimethoprim 800-160 mg (Bactrim DS) 1 tab PO BID 14 tabs 0RF 7 days
--- OUTSIDE RECORDS SUMMARY | 2025-02-20 10:37 | XMS_ITS | Encounter Summary ---
Author Organization [facility] Address [address] [place] [address] Phone Care Team Providers Care Cook Ship Name Role Phone Jacoby Kamara MD Primary Care Provider [phone] Reason for Referral * MRI/CAT Scan - Closed Specialty Diagnoses / Procedures Referred By Arnol branham Referred To Contact Radiology Diagnoses Chest pain, unspecified type Procedures NC Myocardial Perfusion Pharmacologic Stress Multiple NC Myocardial Perfusion Exercise Multiple Jesus Bang MD Phone: tel: fax: [email or web address] Referral ID Status Reason Start Date Expiration Date Visits Re quested Visits Authorized [id number] Closed 03/06/2024 05/05/2024 1 1 Encounter Details Date Type Department Care Team (Latest Contact Info) Description 03/13/2024 Ancillary Orders [facility] [address] [place] [address] 3rd Floor, [address] [place] [address] Jesus Bang MD [address] [facility], [address] [place], [place] [id number] [email or web address] Concierge Chest pain, unspecified type (Primary Dx) Social [...] Info) Description 02/05/2025 Procedure Pass [facility] [address] [place] [address] 04/09/2025 9:30 AM EDT Appointment [facility] [address] [place] [address] Deysi Rogers PA-C [address] [place] [address] 04/15/2025 3:00 PM EST Office Visit [facility] [address], [address] [address] Deysi Rogers PA-C [address] [place] [address] 05/06/2025 8:40 AM EST Office Visit [facility] [address] [place] [address] Mackenzie Burt MD [address] [place] [address] 06/21/2025 10:40 AM EST Office Visit [address], [address] [address] Charlie Amato MD [address] [place] [address] 08/13/2025 10:40 AM EST Office Visit [facility] [address] [place] [address] Margareth Quiles PA-C [address] [place] [address] [email or web address] documented as of this encounter Results * [...] in SPECT format, reconstructed tomographically and compared [id number] in short axis, horizontal long axis and [...] of Tc99m Sestamibi by Joseph Awad, the nuclear test technician. 1. EKG - Baseline EKG showed sinus [...] documented as of this encounter Care Teams Cook Ship Relationship Specialty Start Date End Date Jacoby Kamara MD [address] [place] [address] [place] [address] PCP - General Internal Medicine 01/22/22 documented as of this encounter Additional Source Comments The information contained in this document represents components of the legal health record. It is not the complete legal health record.[facility]
--- OUTSIDE RECORDS SUMMARY | 2025-02-20 10:37 | XMS_ITS | Encounter Summary ---
Author Organization [facility] Address [address] [place] [address] Phone Care Team Providers Care Humanities Division Chair Name Role Phone Jacoby Kamara MD Primary Care Provider [phone] Reason for Referral * - Closed Specialty Diagnoses / Procedures Referred By Contac t Referred To Contact Radiology Diagnoses PVD (peripheral vascular disease) Procedures US Lower Extremity Arteries (JERAD) Physio Complete Bilat Mejia Quiros MD Phone: tel: fax: [email or web address]:[email or web address] Referral ID Status Reason Start Date Expiration Date Visits Re quested Visits Authorized [id number] Closed 01/21/2023 01/21/2024 1 1 Encounter Details Date Type Department Care Team (Latest Contact Info) Description 01/21/2023 Ancillary Orders [facility] [address] [place] [address] 3rd Floor, [address] [place] [address] Mejia Quiros MD [address] [facility], [facility] [address] [place] [address] [email or web address] PVD (peripheral vascular disease) Social History Tobacco [...] Info) Description 02/05/2025 Procedure Pass [facility] [address] [place] [address] 04/09/2025 9:30 AM EDT Appointment [facility] [address] [place] [address] Deysi Rogers PA-C [address] [place] [address] 04/15/2025 3:00 PM EST Office Visit [facility] [address] [place] [address] [address]rd Floor, [address] [place] [address] Deysi Rogers PA-C [address] [place] [address] 05/06/2025 8:40 AM EST Office Visit [facility] [address] [place] [address] Mackenzie Burt MD [address] [place] [address] 3rd [place] [address] 06/21/2025 10:40 AM EST Office Visit [facility] [address] [facility] 3rd Floor, [address] [place] [address] Charlie Amato MD [address] [facility], [address] [address] [email or web address] 08/13/2025 10:40 AM EST Office Visit [facility] [address] [place] [address] Margareth Quiles PA-C [address] [place] [address] [email or web address] documented as of this encounter Results * [...] documented as of this encounter Care Teams Humanities Division Chair Relationship Specialty Start Date End Date Jacoby Kamara MD [address] [place] [address] [facility] [place] [address] PCP - General Internal Medicine 01/22/22 documented as of this encounter Additional Source Comments The information contained in this document represents components of the legal health record. It is not the complete legal health record.[facility]
--- OUTSIDE RECORDS SUMMARY | 2025-02-20 10:37 | XMS_ITS | Encounter Summary ---
Author Organization [facility] Address [address] [place] [address] Phone Care Team Providers Care Family Law Legal Assistant Name Role Phone Jacoby Kamara MD Primary Care Provider [phone] Encounter Details Date Type Department Care Team (Late st Contact Info) Description 03/26/2024 Procedure Pass [facility] [address] [place] [address] Social History Tobacco Use Types Packs/Day Years [...] Info) Description 02/05/2025 Procedure Pass [facility] [place] [address] [place] [address] 04/09/2025 9:30 AM EDT Appointment [facility] [address] [place] [address] Deysi Rogers PA-C [address] [place] [address] 04/15/2025 3:00 PM EST Office Visit [facility] [address] Floor, [address] [place] [address] Deysi Rogers PA-C [address] [place] [address] 05/06/2025 8:40 AM EST Office Visit [facility] [address] [place] [address] Mackenzie Burt MD [address] [place] [address] 06/21/2025 10:40 AM EST Office Visit [facility] [address], [address] [place] [address] Charlie Amato MD [address] [place] [address] 08/13/2025 10:40 AM EST Office Visit [facility] [address] [place] [address] Margareth Quiles PA-C [address] [place] [address] documented as of this encounter Visit Diagnoses Not on filedocumented in this encounter Additional Health Concerns Infection Onset Date Last Indicated Resolved Time CoV-Risk 05/20/2024 05/20/2024 05/31/2024 1:23 AM EST CoV-Risk 08/27/2024 08/27/2024 09/07/2024 1:21 AM EDT documented as of this encounter Care Teams Family Law Legal Assistant Relationship Specialty Start Date End Date Jacoby Kamara MD [address] [place] [address] [place] [address] PCP - General Internal Medicine 01/22/22 documented as of this encounter Additional Source Comments The information contained in this document represents components of the legal health record. It is not the complete legal health record.[facility]
--- OUTSIDE RECORDS SUMMARY | 2025-02-20 10:37 | XMS_ITS | Encounter Summary ---
Author Organization [facility] Address [address] [place] [address] Phone Care Team Providers Care Manager Human Resources Name Role Phone Jacoby Kamara MD Primary Care Provider [phone] [phone] Encounter Details Date Type Department Care Team (Late st Contact Info) Description 06/16/2023 Procedure Pass [facility] [address] [place] [address] Social History Tobacco Use Types Packs/Day Years [...] Info) Description 02/05/2025 Procedure Pass [facility] [address] [address] 04/09/2025 9:30 AM EDT Appointment [facility] [address] [address] Deysi Rogers PA-C [address] [place] [address] 04/15/2025 3:00 PM EST Office Visit [facility] [address] [place] [address], [address] [address] Deysi Rogers PA-C [address] [place] [address] 05/06/2025 8:40 AM EST Office Visit [facility] [address] [place] [address] Mackenzie Burt MD [address] [place] [address] 06/21/2025 10:40 AM EST Office Visit [facility] [address], [address] [address] Charlie Amato MD [address] [place] [address] 08/13/2025 10:40 AM EST Office Visit [facility] [address] [place] [address] Margareth Quiles PA-C [address] [place] [address] documented as of this encounter Visit Diagnoses [...] documented as of this encounter Care Teams Manager Human Resources Relationship Specialty Start Date End Date Jacoby Kamara MD [address] [place] [address] Dr [place], [place] [address] PCP - General Internal Medicine 01/22/22 documented as of this encounter Additional Source Comments The information contained in this document represents components of the legal health record. It is not the complete legal health record.[facility]
--- OUTSIDE RECORDS SUMMARY | 2025-02-20 10:37 | XMS_ITS | Encounter Summary ---
Author Organization [facility] Address [address] [place] [address] Phone Care Team Providers Care [employer] Principal Name Role Phone Jacoby Kamara MD Primary Care Provider [phone] Encounter Details Date Type Department Care Team (Late st Contact Info) Description 01/16/2025 Procedure Pass [facility], Ct Scan - [facility] [address] [place] [address] Social History Tobacco Use Types Packs/Day Years [...] 2:31 PM EDT Trinidad Lin RN * [place] Suicide Severity Rating Scale (Screener/Recent Self-Report) Question [...] Info) Description 02/05/2025 Procedure Pass [facility] [address] [place] [address] 04/09/2025 9:30 AM EDT Appointment [facility] [address] [place] [address] Deysi Rogers PA-C [address] [place] [address] 04/15/2025 3:00 PM EST Office Visit [facility] [address], [address] [address] Deysi Rogers PA-C [address] [place] [address] 05/06/2025 8:40 AM EST Office Visit [facility] [address] [place] [address] [place] [address] Mackenzie Burt MD [address] [place] [address] 06/21/2025 10:40 AM EST Office Visit [address], [address] [place] [address] Charlie Amato MD [address] [place] [address] 08/13/2025 10:40 AM EST Office Visit [facility] [address] [place] [address] Margareth Quiles PA-C [address] [place] [address] documented as of this encounter Visit Diagnoses Not on filedocumented in this encounter Care Teams K [employer] Principal Relationship Specialty Start Date End Date Jacoby Kamara MD [address] [place] [address] [place] [address] PCP - General Internal Medicine 01/22/22 documented as of this encounter Additional Source Comments The information contained in this document represents components of the legal health record. It is not the complete legal health record.[facility]
--- OUTSIDE RECORDS SUMMARY | 2025-02-20 10:37 | XMS_ITS | Encounter Summary ---
Author Organization [facility] Address [address] [place] [address] Phone Care Team Providers Care Gmat Instructor Name Role Phone Jacoby Kamara MD Primary Care Provider [phone] Encounter Details Date Type Department Care Team (Late st Contact Info) Description 02/05/2025 Procedure Pass [facility] [address] [place] [address] Social History Tobacco Use Types Packs/Day Years [...] Info) Description 02/05/2025 Procedure Pass [facility] [place] [address] [address] [place] [address] 04/09/2025 9:30 AM EDT Appointment [facility] [address] [address] Deysi Rogers PA-C [address] [place] [address] 04/15/2025 3:00 PM EST Office Visit [facility] [address] Floor, [address] [place] [address] Deysi Rogers PA-C [address] [place] [address] 05/06/2025 8:40 AM EST Office Visit [facility] [address] [place] [address] Mackenzie Burt MD [address] [place] [address] 06/21/2025 10:40 AM EST Office Visit [facility] [address], [address] [place] [address] Charlie Amato MD [address] [place] [address] 08/13/2025 10:40 AM EST Office Visit [facility] 22 [place] [address] Margareth Quiles PA-C [address] [place] [address] documented as of this encounter Visit Diagnoses Not on filedocumented in this encounter Care Teams Gmat Instructor Relationship Specialty Start Date End Date Jacoby Kamara MD [address] [place] [address] [place] [address] PCP - General Internal Medicine 01/22/22 documented as of this encounter Additional Source Comments The information contained in this document represents components of the legal health record. It is not the complete legal health record.[facility]
--- OUTSIDE RECORDS SUMMARY | 2025-02-20 10:37 | XMS_ITS | Clinical Summary ---
Author Organization [facility] Address [address] [place] [address] Phone Care Team Providers Care Scrapper Name Role Phone Jacoby Kamara MD Primary Care Provider [phone] Allergies Active Allergy Reactions Criticality Noted Date [...] her glucose levels. Up to date with [employer]. Assessment & Plan (10/10/2024 1:15 PM EDT): [...] her glucose levels. Up to date with [employer]. 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 She recalls slightly elevated blood sugars around 2018 and was diagnosed with diabetes after a massive STEMI in 2022. Status post LAD stent in 04/2022. She has history of CHF after GA. Since 01/2024 has been treated with colchicine [...] the last few years. Has not met nurse educator/dietitian yet. Foot & nail care [...] this in the past. Advised to see ENGINEERING LIBRARIAN, may consider vaginal estradiol cream and after [...] -Continue with low-dose insulin sliding scale with [id number] testing. Mood disorder 02/10/2024 Assessment & Plan [...] Non-Invasive Cardiology [address] [place] [address] Deysi Rogers PA-C Discharge Disposition: Home or Self Care 02/05/2025 1:00 PM EDT Office Visit [facility] [address], [address] [place] [address] Deysi Rogers PA-C Mixed hyperlipidemia (Primary Dx); Pericardial effusion (noninflammatory); Palpitations; Atherosclerosis of hughes coronary artery of hughes heart without angina pectoris; Benign essential hypertension; Ischemic cardiomyopathy 02/05/2025 Procedure Pass Non-Invasive Cardiology [address] [place] [address] 01/18/2025 Orders Only [facility] [address] [place] [address] Margareth Quiles PA-C Acquired hypothyroidism (Primary Dx) 01/16/2025 5:59 PM EDT - 01/16/2025 11:08 PM EDT Emergency [facility] [address] [place] [address] Discharge Disposition: Home or Self Care 01/16/2025 Procedure Pass [facility], Ct Scan - [facility] [address] [place] [address] 01/08/2025 12:30 PM EDT Office Visit [facility] [address] [place] [address] Margareth Quiles PA-C Type 2 diabetes mellitus without complication, without long-term current use of insulin (Primary Dx); Thyroid nodule 01/03/2025 12:42 PM EDT - 01/03/2025 11:59 PM EDT Hospital Encounter [facility] [address] [place] [address] Margareth Quiles PA-C Discharge Disposition: Home or Self Care 01/03/2025 Refill [facility] [address], [address] [place] [address] Mejia Quiros MD Medication Refill 12/19/2024 11:20 AM EDT Office Visit [facility] [address], [address] [place] [address] Charlie Amato MD Atherosclerosis of hughes coronary artery of hughes heart without angina pectoris (Primary Dx); Benign essential hypertension; Mixed hyperlipidemia 12/09/2024 Refill [facility] [address], [address] [place] [address] Mejia Quiros MD Medication Refill 11/26/2024 Refill [facility] [address], [address] [place], [place] [id number] Mejia Quiros MD Medication Refill from Last [...] Info) Description 02/05/2025 Procedure Pass Echo [facility] [place] [address] [place] [address] 04/09/2025 9:30 AM EDT Appointment [facility] [address] [place] [place] [address] Deysi Rogers PA-C [address] [place] [address] 04/15/2025 3:00 PM EST Office Visit [facility] [address], [address] [place] [address] Deysi Rogers PA-C [address] [place] [address] 05/06/2025 8:40 AM EST Office Visit [facility] [address] [place] [address] Mackenzie Burt MD [address] [place] [address] [address] [place] [address] 06/21/2025 10:40 AM EST Office Visit [facility] [address] [place] [address], [address] [place] [address] Charlie Amato MD [address] [place] [address], [address] [address] 08/13/2025 10:40 AM EST Office Visit [facility] [address] [place] [address] Margareth Quiles PA-C [address] [place] [address] Health Maintenance Due Date Last Done Comments [...] BPM [facility] Atrial Rate 67 BPM [facility] AK Interval 126 ms [facility] QRS Duration 84 ms [facility] QT Interval 416 ms [facility] QTC Interval 439 ms [facility] P [place] -25 degrees [facility] R Wave [place] -14 degrees [facility] T Wave [place] -2 degrees [facility] 01/16/2025 7:02 PM EDT 01/18/2025 6:58 AM EDT Narrative [facility] - 01/18/2025 6:58 AM EDT Normal sinus rhythm Normal ECG When compared with ECG of 16-Jan-2025 14:28, No significant change was found Confirmed by Ricardo Balderas ([id number]) on 01/18/2025 6:58:13 AM us Ricardo Mathis PA-C ECG ORDERABLES Final Result Performing Organization Address [facility]/ZIP Co de Phone Number [facility] * (ABNORMAL) D-dimer (01/16/2025 6:31 PM EDT) D-DIMER 785(H) <500 ng/mL [facility] Comment:In patients with low to moderate pre-test probability scores for VTE (PE or DVT), a D-Dimer cut-off less than 500 ng/mL (FEU) has a negative predictive value (NPV) of 97 to 100%. Blood 01/16/2025 6:31 PM EDT 01/16/2025 6:38 PM EDT us Ricardo Mathis PA-C LAB BLOOD ORDERABLES Final R esult Performing Organization Address City/[facility]/ZIP Co de Phone Number [address] [address] * Troponin (01/16/2025 4:01 PM EDT) Only the most recent of2 resultswithin the time period is included. Troponin-T, HS Gen5 <6 0 - 9 ng/L [facility] Blood 01/16/2025 4:01 PM EDT 01/16/2025 4:16 PM EDT us Brody Luciano MD LAB BLOOD ORDERABL ES Final Result [facility] [address] [place] [address] * (ABNORMAL) CBC and differential (01/16/2025 3:02 PM EDT) WBC 7.05 4.00 - 11.00 K/uL [facility] RBC 4.08 4.00 - 5.20 M/uL [facility] HGB 12.2 12.0 - 16.0 g/dL [facility] HCT 36.7 36.0 - 46.0 % [facility] PLT 235 150 - 450 K/uL [facility] MCV 90.0 80.0 - 100.0 fL [facility] MCH 29.9 27.0 - 31.0 pg [facility] MCHC 33.2 32.0 - 36.0 g/dL [facility] RDW 13.5 11.5 - 14.5 % [facility] MPV 11.4 8.4 - 12.0 fL [facility] NRBC 0.00 0.00 /100 WBCs [facility] ABSOLUTE NRBC 0.00 0.00 K/uL [facility] DIFF METHOD Auto [facility] NEUTS 48.4 48.0 - 76.0 % [facility] LYMPHS 43.8(H) 18.0 - 41.0 % [facility] MONOS 5.7 4.0 - 11.0 % [facility] EOS 1.3 0.0 - 5.0 % [facility] BASOS 0.4 0.0 - 1.5 % [facility] Granulocytes, immature (%) 0.4 0.0 - 0.9 % [facility] ABSOLUTE NEUTS 3.41 1.92 - 7.60 K/uL [facility] ABSOLUTE LYMPHS 3.09 0.72 - 4.10 K/uL [facility] ABSOLUTE MONOS 0.40 0.16 - 1.10 K/uL [facility] ABSOLUTE EOS 0.09 0.00 - 0.50 K/uL [facility] ABSOLUTE BASOS 0.03 0.00 - 0.15 K/uL [facility] Granulocytes, immature 0.03 0.00 - 0.09 K/uL [facility] Blood 01/16/2025 3:02 PM EDT 01/16/2025 3:04 PM EDT Brody Luciano MD LAB BLOOD ORDERABL ES Final Result Performing Organization Address City/[facility]/ZIP Co de Phone Number [address] [address] * Basic metabolic panel (01/16/2025 3:02 PM EDT) Only the most recent of2 resultswithin the time period is included. SODIUM 142 133 - 146 mmol/L [facility] CHLORIDE 106 96 - 108 mmol/L [facility] POTASSIUM 4.2 3.3 - 5.1 mmol/L [facility] CO2 23 21 - 35 mmol/L [facility] BUN 10 6 - 19 mg/dL [facility] CREATININE 0.90 0.5 - 1.5 mg/dL [facility] GLUCOSE 90 70 - 99 mg/dL [facility] CALCIUM 9.6 8.4 - 10.3 mg/dL [facility] EGFR 71 >59 mL/min/1.7 3m2 [facility] Comment:Estimated glomerular filtration rate calculated using the CKD-EPI refit equation. ANION GAP 17 10 - 20 mmol/L [facility] Blood 01/16/2025 3:02 PM EDT 01/16/2025 3:04 PM EDT Brody Luciano MD LAB BLOOD ORDERABL ES Final Result [address] [address] * (ABNORMAL) TSH with reflex (01/03/2025 12:57 PM EDT) TSH 0.17(L) 0.27 - 4.20 uIU/mL [facility] Blood 01/03/2025 12:5 7 PM EDT 01/03/2025 1:02 PM EDT Margareth Quiles PA-C LAB BLOOD ORDERABL ES Final Result [address] [address] * Free T3 (01/03/2025 12:57 PM EDT) FREE T3 3.1 2.0 - 4.4 pg/mL [facility] 01/03/2025 12:5 7 PM EDT 01/03/2025 1:02 PM EDT Margareth IRAHETA-C LAB BLOOD ORDERABL ES Final Result Performing Organization Address [facility]/ZIP Co de Phone Number [address] [address] * Alanine aminotransferase (ALT) (01/03/2025 12:57 PM EDT) ALT 22 0 - 40 U/L [facility] Blood 01/03/2025 12:5 7 PM EDT 01/03/2025 1:02 PM EDT Margareth Quiles PA-C LAB BLOOD ORDERABL ES Final Result Performing Organization Address [facility]/ZIP Co de Phone Number [address] [address] * Aspartate aminotransferase (AST) (01/03/2025 12:57 PM EDT) AST 26 0 - 37 U/L [facility] Blood 01/03/2025 12:5 7 PM EDT 01/03/2025 1:02 PM EDT Margareth Quiles PA-C LAB BLOOD ORDERABL ES Final Result Performing Organization Address City/[facility]/ZIP Co de Phone Number [address] [address] * Free T4 (01/03/2025 12:57 PM EDT) FREE T4 1.5 0.9 - 1.7 ng/dL [facility] 01/03/2025 12:5 7 PM EDT 01/03/2025 1:02 PM EDT Margareth Quiles PA-C LAB BLOOD ORDERABL ES Final Result Performing Organization Address [facility] Co de Phone Number [address] [address] * (ABNORMAL) Hemoglobin A1c (01/03/2025 12:57 PM EDT) HEMOGLOBIN A1C 6.3(H) 4.3 - 5.8 % [facility] Blood 01/03/2025 12:5 7 PM EDT 01/03/2025 1:03 PM EDT Margareth Quiles PA-C LAB BLOOD ORDERABL ES Final Result Performing Organization Address [facility]/ZIP Co de Phone Number [address] [address] * (ABNORMAL) Lipid panel (02/10/2024 5:56 AM EDT) HDL 53 mg/dL [facility] Comment: Interpretation <40 mg/dL: Low HDL cholesterol (major risk factor for CHD) Greater than or equal to 60 mg/dL: High HDL cholesterol ( negative risk factor for CHD) HDL - cholesterol is affected by a number of factors, e.g. smoking, excerise, hormones, sex and age. CHOLESTEROL 152 0 - 240 mg/dL [facility] 160 30 - 160 mg/dL [facility] LDL 67 50 - 129 mg/dL [facility] Comment: LDL levels in terms of risk for coronary heart disease: <100 mg/dL: Optimal 100-129 mg/dL: Near or above optimal 130-159 mg/dL: Borderline high 160-189 mg/dL: High >190 mg/dL: Very High CARDIAC RISK RATIO 2.9(L) 3.3 - 4.4 C [facility] Blood 02/10/2024 5:56 AM EDT 02/10/2024 6:03 AM EDT us Ho Estrella MD LAB BLOOD ORDERABLES Final Resu lt [facility] [address] [place] [address] from Last 3 Months or Most Recently Relevant to Health Maintenance Insurance [place] [address] [place] [address] [facility] [employer] [place] [address] [place] [address] [place] [address] [place] [address] [place] [address] [place] [address] [facility] [facility] [employer] Advance Directives For more information, please contact: [phone] (9AM - 5PM 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 It is not the complete legal health record.[facility]
--- OUTSIDE RECORDS SUMMARY | 2025-02-20 10:38 | XMS_ITS | Encounter Summary ---
Author Organization [facility] Address [address] [place] [address] Phone Care Team Providers Care Nib Inspector Name Role Phone Jacoby Kamara MD Primary Care Provider [phone] Encounter Details Date Type Department Care Team (Late st Contact Info) Description 05/20/2022 Procedure Pass [facility] [address] [place] [address] Social History Tobacco Use Types Packs/Day Years [...] Info) Description 02/05/2025 Procedure Pass Echo Lab [place] [address] [place] [address] 04/09/2025 9:30 AM EDT Appointment Echo Lab [place] [address] [place] [address] Deysi Rogers PA-C [address] [place] [address] 04/15/2025 3:00 PM EST Office Visit [facility] [address] [place] [address], [address] [place] [address] Deysi Rogers PA-C [address] [place] [address] 05/06/2025 8:40 AM EST Office Visit [facility] [address] [place] [address] Mackenzie Burt MD [address] [place] [address] 06/21/2025 10:40 AM EST Office Visit [facility] [address] [place] [address], [address] [address] Charlie Amato MD [address] [place] [address] 08/13/2025 10:40 AM EST Office Visit [facility] [address] [place] [address] Margareth Quiles PA-C [address] [place] [address] documented as of this encounter Visit Diagnoses [...] documented as of this encounter Care Teams Nib Inspector Relationship Specialty Start Date End Date Jacoby Kamara MD [address] [place] [address] [facility] [address] PCP - General Internal Medicine 01/22/22 documented as of this encounter Additional Source Comments The information contained in this document represents components of the legal health record. It is not the complete legal health record.[facility]
== END 2025-02-20 09:47 | disposition home or self-care (01) ==
LOC: HO.HMCH 08:59
PROVIDERS: PCP Internal Medicine; Visit Provider Internal Medicine
DX: Z00.00 Encounter for general adult medical examination without abnormal findings (principal); E11.65 Type 2 diabetes mellitus with hyperglycemia; G40.909 Epilepsy, unspecified, not intractable, without status epilepticus; R13.10 Dysphagia, unspecified; K22.10 Ulcer of esophagus without bleeding; R79.89 Other specified abnormal findings of blood chemistry; I25.10 Atherosclerotic heart disease of native coronary artery without angina pectoris; E78.2 Mixed hyperlipidemia; I10 Essential (primary) hypertension; J45.41 Moderate persistent asthma with (acute) exacerbation; E03.9 Hypothyroidism, unspecified; E04.1 Nontoxic single thyroid nodule

== ENCOUNTER → 2025-02-20 08:58 | Outpatient (BNVA) | payer OTHER, SELFPAY | PROVIDERS: PCP Internal Medicine; Visit Provider Internal Medicine | DX: Z00.00 Encounter for general adult medical examination without abnormal findings (principal); R13.10 Dysphagia, unspecified; K22.10 Ulcer of esophagus without bleeding; R79.89 Other specified abnormal findings of blood chemistry; I25.10 Atherosclerotic heart disease of native coronary artery without angina pectoris; E78.2 Mixed hyperlipidemia; E11.65 Type 2 diabetes mellitus with hyperglycemia; I10 Essential (primary) hypertension; J45.41 Moderate persistent asthma with (acute) exacerbation; E03.9 Hypothyroidism, unspecified; E04.1 Nontoxic single thyroid nodule; J02.9 Acute pharyngitis, unspecified; J30.9 Allergic rhinitis, unspecified; G40.909 Epilepsy, unspecified, not intractable, without status epilepticus; R30.0 Dysuria; G47.00 Insomnia, unspecified; F41.9 Anxiety disorder, unspecified; F33.9 Major depressive disorder, recurrent, unspecified; E66.9 Obesity, unspecified; Z68.32 Body mass index [BMI] 32.0-32.9, adult; Z79.84 Long term (current) use of oral hypoglycemic drugs; Z79.899 Other long term (current) drug therapy; Z13.31 Encounter for screening for depression; Z13.39 Encounter for screening examination for other mental health and behavioral disorders | CPT/HCPCS: 96127; 99396 ==

== ENCOUNTER 2025-03-27 12:10 | Outpatient (AMB) | payer OTHER, SELFPAY ==
--- OUTSIDE RECORDS SUMMARY | 2018-01-20 07:23 | XMS_ITS | Continuity of Care Document ---
Author Organization [facility] [employer] Address [address] [place] [address] Care Team Providers Care Geotechnician Name Role Phone Eduardo LOMBARDO, Juanita Unavailable [...] Diagnoses Date Provider Providers Copied on Encounter [facility], [address], [place], [place], [id number] , [facility] [place] No Information Eduardo Grant. [address], [address], [place], [address], [place]. tel:[phone] OFFICE/OUTPA TIENT VISIT, EST [facility], [address], [place], [place], [id number] , [facility] Pain [place] neck pain (chief complaint) Pain in left shoulderChronic pain syndromeCervicalg iaRotator cuff rupture of left shoulder, not specified as traumaticRadiculo stuart, cervical regionBody mass index (BMI) 30.0-30.9, adult 8 [facility] Juanita. [address], [address], [place], [address], [place]. tel:[phone] Referring Provider: Samy patel, [facility] [place], [address] . [facility], [address], [place], [place], [id number] , [place] [facility] [place] Follow up chronic pain (chief complaint) Other disturbances of skin sensationBody mass index (BMI) 31.0-31.9, adult 8 [facility] Juanita. [address], [place], [address], [place]. tel:[phone] Referring Provider: Samy patel, [address] [place] [address], [phone] . OFFICE/OUTPA TIENT VISIT, NEW [facility], [address], [place], [place], [id number] , [facility] Pain [place] cervicalgia (chief complaint)Sh oulder Pain (chief complaint) Pain in left shoulderChronic pain syndromeBody mass index (BMI) 31.0-31.9, adultCervicalgiaR otator cuff rupture of left shoulder, not specified as traumaticOther disturbances of skin sensation Dec-0 3-201 8 [facility] [address], [address], [facility], . tel:[phone] Referring Provider: Samy patel, [address] [place] [address], [phone] . [facility], [address], [place], [place], [id number] , [facility] [place] Pain in left shoulder 8 [facility] [address], [facility] [address], [place], [facility], . tel:[phone] Referring Provider: Samy patel, [address] [place] [address], [phone] . Family History Family Member Type Diagnosis Age At Onset Problem (finding) Family history of raise d blood lipids Problem (finding) Family history of Heart disease Problem (finding) Family history of Diabe mariangel mellitus Problem (finding) Family history of Thyro id disorder Problem (finding) Family history of Heada ches Problem (finding) Family history of hyper tension Payers Payer name Insurance type Covered green party ID Lex iniguez(s) [facility] Medicaid CI [id number] Social History Type Description Quantity Date Captured [...]
--- OUTSIDE RECORDS SUMMARY | 2025-03-21 07:05 | XMS_ITS | Encounter Summary ---
Author Organization [facility] Address [address] [place] [address] Phone Care Team Providers Care Laser Engraver Name Role Phone Jacoby Kamara MD Primary Care Provider [phone] [phone] Reason for Referral * Outpatient Procedure - New Request Specialty Diagnoses / Procedures Referred By Arnol branham Referred To Contact Diagnoses Pericardial effusion (noninflammatory) Procedures Adult Echo TTE Deysi Rogers PA-C [address] [place] [address] Phone: tel: fax: mailto:[email or web address] Referral ID Status Reason Start Date Expiration Date V isits Requested Visits Authorized [id number] New Request 02/05/2025 1 1 Reason for Visit * Outpatient Procedure - New Request Specialty Diagnoses / Procedures Referred By Arnol branham Referred To Contact Diagnoses Pericardial effusion (noninflammatory) Procedures Adult Echo TTE Deysi Rogers PA-C [address] [place] [address] Phone: tel: fax: mailto:[email or web address] Referral ID Status Reason Start Date Expiration Date V isits Requested Visits Authorized [id number] New Request 02/05/2025 1 1 Encounter Details Date Type Department Care Team (Latest Contact Info) Description 03/21/2025 7:05 AM EDT - 03/21/2025 11:59 PM EDT Hospital Encounter Echo Lab [facility] [address] [place] [address] Deysi Rogers PA-C [address] [place] [address] [email or web address] Discharge Disposition: Home or Self Care Social History Tobacco Use Types Packs/Day Years [...] AM EDT documented as of this encounter Last Filed Vital Signs Vital Sign Reading Time Taken Comments Blood Pressure 110/72 03/21/2025 7:07 AM EDT Pulse - - Temperature - - Respiratory Rate - - Oxygen Saturation - - Inhaled Oxygen Concentration - - Weight 79.4 kg (175 lb 0.7 oz) 03/21/2025 7:07 A M EDT Height 157.5 cm (5' 2.01 ) 03/21/2025 7:07 AM ED T Body Mass Index 32.01 03/21/2025 7:07 AM EDT documented in this encounter Medications at Time of Discharge ADVAIR HFA 115-21 mcg/actuation inhaler daily as needed. 10/17/2024 albuterol 90 mcg/actuation inhaler Inhale 1-2 puffs into the lungs every 4 (four) hours as needed for wheezing or shortness of breath/dyspnea. 8 g 08/27/2024 aspirin 81 MG EC tabletIndications:B enign essential hypertension TOME 1 TABLETA POR VIA ORAL TODOS [place] 90 tablet 3 01/05/2025 butalbital-acetamin ophen-caffeine (FIORICET, ESGIC) 50-325-40 mg per tablet Take 1 tablet by mouth every 6 (six) hours as needed. 09/13/2024 cetirizine (ZYRTEC) 10 MG tablet Take 10 mg by mouth daily as needed. 10/15/2023 clonazePAM (KLONOPIN) 0.5 MG tablet Take 0.5 mg by mouth daily. 01/15/2022 dicyclomine (BENTYL) 10 MG capsule as needed. 08/02/2023 dulaglutide (TRULICITY) 0.75 mg/0.5 mL subcutaneous injectionIndication s:Type 2 diabetes mellitus without complication, without long-term current use of insulin Inject 0.5 mL (0.75 mg total) under the skin every 7 days. 2 mL 5 10/09/2024 escitalopram oxalate (LEXAPRO) 20 MG tablet TOME SHAUN TABLETA TODOS LOS D 09/28/2023 FREESTYLE TEST Strp strips 08/14/2024 inhaler spacing device (AEROCHAMBER,BREATH ERITE) Spcr Inhale 1 each into the lungs every 4 (four) hours as needed (PRN). 1 each 08/27/2024 levothyroxine (SYNTHROID, LEVOTHROID) 100 MCG tabletIndications:A cquired hypothyroidism Take 1 tablet (100 mcg total) by mouth as directed. Take 1 tablet 5 days a week, skip 2 days a week 66 tablet 01/18/2025 LINZESS 145 mcg Cap TOME 1 C PSULA POR V A ORAL TODOS LOS D EN MIGNON LOCKE 12/05/2024 metFORMIN (GLUCOPHAGE-XR) 500 MG 24 hr tablet Take 500 mg by mouth daily. 10/20/2022 metoprolol succinate (TOPROL-XL) 25 MG 24 hr tablet Take 0.5 tablets (12.5 mg total) by mouth daily. 02/05/2025 nitroglycerin (NITROSTAT) 0.4 MG SL tabletIndications:M edication refill PLACE 1 TABLET UNDER THE TONGUE EVERY 5 MINUTES NEEDED FOR CHEST PAIN. 25 tablet 3 11/26/2024 omeprazole (PRILOSEC) 40 MG capsule 2 (two) times a day. 09/13/2023 SENNA 8.6 mg tablet Take 1 tablet by mouth continuous prn. 03/17/2022 traZODone (DESYREL) 150 MG tablet TOME SHAUN TABLETA POR V A ORAL AL ACOSTARSE 04/21/2022 documented as of this encounter Plan of Treatment Upcoming Encounters Date Type Department Care Team (Late st Contact Info) Description 04/15/2025 3:00 PM EST Office Visit [facility] [address], [address] [place] [address] Deysi Rogers PA-C [address] [place] [address] 05/06/2025 8:40 AM EST Office Visit [facility] [address] [place] [address] Mackenzie Burt MD [address] [place] [address] 06/21/2025 10:40 AM EST Office Visit [facility] [address] [place] [address], [address] [address] Charlie Amato MD [address] [place] [address] 08/13/2025 10:40 AM EST Office Visit [facility] [address] [place] [address] Margareth Quiles PA-C [address] [place] [address] documented as of this encounter Procedures Procedure Name Priority Date/Time Associated Diagnosis Comments TTE COMPREHENSIVE Routine 03/21/2025 7:4 5 AM EDT Pericardial effusion (noninflammatory) documented in this encounter Results * (ABNORMAL) TTE COMPREHENSIVE (03/21/2025 7:45 AM EDT) Body Surface Area 1.81 m2 Height 158 cm Weight 79 kg Interventricular Septum Thickness 10 6 - 11 mm Left Ventricle Internal Diameter End Diastole 42 37 - 52 mm Left Ventricle Internal Diameter End Systole 26 <35 mm Left Ventricular Outflow Tract Diameter 21.0 mm Left Ventricular Posterior Wall Thickness 12 6 - 11 mm Left Ventricle Ea Lateral Wave Speed 9.6(A) cm/s Left Ventricle Ea Septal Wave Speed 5.7(A) cm/s Ejection Fraction 77 50 - 75 Percent Left Atrium Dimension Anterior-Posterior 43 15 - 40 mm Aortic Valve Mean Gradient 4 mmHg Aortic Valve Time Velocity Integral 283.0 mm Aortic Valve Peak Velocity 1.4 m/s Aortic Valve Peak Gradient 7 mmHg Aortic Arch Diameter 24 mm Aortic Sinus Diameter 30 <40 mm Ascending Aorta Diameter 36 <36 mm Inferior Vena Cava Diameter 8 <21 mm Mitral Valve Deceleration Time 193 ms Left Ventricle A Wave Speed 77.1 cm/s Left Ventricle E Wave Speed 77.9 cm/s Pulmonary Valve Peak Velocity 0.9 m/s Pulmonary Valve Peak Gradient 3 mmHg Right Ventricle Basal Diameter 20 25 - 41 mm Raw LV EF% 62 % MV E/E' Tissue Velocity Lateral 8.11 Relative Wall Thickness 0.57 0.22 - 0.42 Left Ventricle indexed to BSA 86.8 g/m2 MV E/A ratio 1.0 MV E/e' septal 13.67 Left Ventricle E/e' Average 10.9(A) Aortic Valve Prosthetic Peak Gradient 7 mmHg Aortic Valve Prosthetic Mean Gradient 4 mmHg Aortic Valve Sinus Index by BSA 17 mm/m2 Aorta Sinus Index by Height 1.90 cm/m Aorta Sinus CSA index by Height 4.47 cm2/m Ascending Aorta Index 20 mm/m2 Asc Aorta CSA Index by Height 6.44 cm2/m Pulmonic Valve Prosthetic Peak Gradient 3 mmHg Ascending Aorta Index 20 mm Aortic Sinus Index 17 mm Ascending Aorta Diameter 20 mm Aortic Valve Sinus Index 1 17 19 - 27 mm AO ASC DIAM BSA INDEX 19.89 Echo E/Ea 13.67 Left Atrial Volume Index 22 16 - 34 mL/m2 Right Ventricle TAPSE 17 >=17 mm Right Ventricle Pulse Doppler S Wave 9.7 >=9.5 cm/s Left Atrial Volume 39 mL Left Atrial Volume Index by Height 25 mL/m Right Atrium Area 15 cm2 Right Atrium Area index 8 cm2/m2 Anatomical Region Laterality Modality Heart Ultrasound Narrative 03/22/2025 10:54 AM EDT Images from the original result were not included. Normal left ventricular size. Mild concentric left ventricular hypertrophy more prominent towards the apical myocardium. Normal LV systolic function estimated ejection fraction of 65%. Normal diastolic parameters for age. Normal right ventricular size and function. Normal biatrial size. Normal aortic and mitral valve structure and function. RVSP could not be determined due to inadequate TR Doppler envelope. There is trace pericardial effusion. Aortic dimensions were not recorded on current study. As compared to prior study dated May 2024, there is no significant pericardial effusion. Apical LVH appears prominent. Diastolic parameters appear improved. Left Ventricle The left ventricle is normal in size. There is mild concentric hypertrophy. There is normal left ventricular systolic function. The LV ejection fraction is 60-65% (visually estimated). Rosales's EF 56%. LV diastolic function appears within normal limits for age. The e' septal wave velocity is 5.7 cm/s. The e' lateral wave velocity is 9.6 cm/s. The average E/e' ratio is 10.9. Right Ventricle The right ventricle is normal in size. The RV basal dimension is 20 mm. There is normal right ventricular systolic function. TAPSE is 17 mm (normal: >= 17 mm). RV S' wave is 9.7 cm/s (normal: >= 9.5 cm/s). Left Atrium The left atrium is normal in size. The left atrial volume index by BSA is 22 mL/m2. Right Atrium The right atrium is normal in size. The IVC is normal in size. Mitral Valve There is mild mitral valve thickening. There is no mitral stenosis. There is trace mitral regurgitation. Tricuspid Valve The tricuspid valve appears normal. There is no tricuspid stenosis. There is trace tricuspid regurgitation. RV systolic pressure could not be estimated due to insufficient TR Doppler envelope. Aortic Valve The aortic valve is tricuspid. There is no aortic stenosis. There is no aortic regurgitation. The aortic sinuses are normal in size. The ascending aorta is mildly dilated. The ascending aortic diameter is 36 mm. Pulmonic Valve The pulmonic valve appears normal. There is no pulmonic stenosis. There is trace pulmonic regurgitation. Pericardium The pericardium appears normal. There is a trace pericardial effusion. General Findings The image quality was fair (3). Technique(s) used in the evaluation: Multiplane, Color flow Doppler, Spectral Doppler and Epiaortic scan. Comparison Findings Compared to prior TTE study on 05/29/2024, IAS/IVS The interatrial septum appears normal. There is no evidence of patent foramen ovale (PFO). us Deysi Rogers PA-C CV ECHO ORDERABLES Final Res ult documented in this encounter Visit Diagnoses Diagnosis Pericardial effusion (noninflammatory) documented in this encounter Care Teams Laser Engraver Relationship Specialty Start Date End Date Jacoby Kamara MD [address] [place] [address] [place] [address] PCP - General Internal Medicine 01/22/22 documented as of this encounter Additional Source Comments The information contained in this document represents components of the legal health record. It is not the complete legal health record.[facility]
--- NOTE | 2025-03-27 13:16 | MHC.OFFWIV ---
Intake Vital Signs 03/27/25 13:17 Height 5 ft 2 in Weight 182 lb BMI 33.3 BP 130/78 Blood Pressure Location Lt brachial Position Sitting Respiration 16 Pulse 77 Pulse Source Pulse Oximeter Pulse Oximetry (%) 96 Oxygen Delivery Method Room Air Intake Visit Reasons: EP-severe headaches Intake Note: Sore throat since February. 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: No Accompanied by: Self / Same As Patient Allergies Sulfa (Sulfonamide Antibiotics) Allergy (Severe, Verified 03/27/25 13:17) Rash Benadryl Allergy (Unknown, Verified 03/27/25 13:17) unknown dapagliflozin Adverse Reaction (Severe, Verified 03/27/25 13:17) Chest Pain, Weakness, Nausea, Fatigue amoxicillin (Augmentin) Adverse Reaction (Intermediate, Verified 03/27/25 13:17) diarrhea atorvastatin Adverse Reaction (Intermediate, Verified 03/27/25 13:17) myalgia, feet pain, hair loss morphine (MORPHINE) Adverse Reaction (Intermediate, Verified 03/27/25 13:17) TACHYCARDIA, CP, confusion simvastatin Adverse Reaction (Intermediate, Verified 03/27/25 13:17) swelling of feet tramadol (TRAMADOL) Adverse Reaction (Intermediate, Verified 03/27/25 13:17) DIZZYNESS, confusion trazodone Adverse Reaction (Intermediate, Verified 03/27/25 13:17) chest discomfort; tachycardia zolpidem Adverse Reaction (Intermediate, Verified 03/27/25 13:17) sleepwalking paroxetine (Paxil) Adverse Reaction (Unknown, Verified 03/27/25 13:17) Unknown Medication List - Last Reconciled 03/27/25 by Steve Pittman MD albuterol sulfate 90 mcg/actuation 2 puffs PO Q6H PRN albuterol sulfate 2.5 mg (3 mL) inhalation QID PRN 30 days aspirin 81 mg PO DAILY atorvastatin 40 mg PO BEDTIME blood sugar diagnostic (FreeStyle Lite Strips) As directed once a day blood-glucose meter (FreeStyle Lite Meter kit) As directed wylklrjjev-kswygeblgixki-eazy 50-325-40 mg 1 tab PO TID PRN cetirizine 10 mg PO DAILY PRN 90 days clonazepam 0.5 mg PO BID PRN 30 days dicyclomine 10 mg PO QID PRN dulaglutide (Trulicity) 0.75 mg subcut QWEEK escitalopram oxalate 20 mg PO DAILY 30 days fluticasone propion-salmeterol 115-21 mcg/actuation (Advair HFA) 2 puffs inhalation BID 30 days lancets (FreeStyle Lancets) As directed once a day levothyroxine 100 mcg PO DAILY linaclotide (Linzess) 145 mcg PO QAM losartan 25 mg PO DAILY metoprolol succinate ER 25 mg PO DAILY 90 days [NEBULIZER As directed] nitroglycerin mg sublingual omeprazole 40 mg PO BID 30 days sennosides (senna) 17.2 mg (2 x 8.6 mg) PO BEDTIME PRN Held on 12/05/24. Instructions: Doctor's Order trazodone 150 mg PO BEDTIME HPI EP-severe headaches HPI Details History of Present Illness The patient is a 64 year old female presenting with a severe headache, throat pain, ear discomfort and symptoms consistent with sinus infection. Headache: - The patient reports experiencing a severe headache that is notably different from her typical headaches. - Describes the headache as unilateral, with pain extending from one side of the head and occasionally radiating to other areas. - The headache is associated with a pre-existing condition of migraines and sinus problems. . - Bqih-wpl-lnnbfmw medications such as Tylenol have been used for management. - No fever accompanying the headache. Throat Pain: - The patient reports a significant sore throat with persistent symptoms for over a month. - Describes a past occurrence on February 20, where an appointment with Dr. Kamara PCP, sent sulfa med, to which Pt developed allergic reacting with swollen lips. - negative strep test today and denies having a fever. - Observed nasal discharge is described as cloudy, occasionally mixed with blood in the mornings. - Reports a sensation of postnasal drip and occasional cough without phlegm production. Diagnostic Results: - Strep test: Negative. Problem List - Headache - Throat pain - Ear discomfort - Sinusitis Plan - I will prescribe azithromycin (Z-[place]) to address the sinusitis. - I will prescribe a few tablets of prednisone to manage inflammation and aid in symptom relief. - Given the patient's history of fungal infections with antibiotics, I will also provide a medication to prevent a yeast infection, instructing the patient on its appropriate timing and use. - Education was provided on the importance of monitoring symptoms and possible side effects of the medications prescribed. - The patient demonstrated understanding of the treatment plan and agreed to proceed. Review of Systems - General: Denies fever. - General: No fever no chills - Cardiovascular: No syncope, no chest pain, no palpitations - Gastrointestinal: No nausea vomiting or diarrhea Physical Exam General: No acute distress HEENT: Sinus tender max, ears with in Normal limit, mild throat erythema + Neck: Supple Respiratory system: Able to talk in full sentences, no audible wheeze Gastrointestinal: No pain Extremities: No new findings MANGLE TENDER: Alert awake oriented x3 motor intact Skin: Normal turgor PENDING SALE TO [facility] Medical History Irritable bowel syndrome with both constipation and diarrhea [place] syndrome Obesity (BMI 30-39.9) Diabetes mellitus Coronary atherosclerosis Asthma Depression Epilepsy Anxiety Insomnia Osteopenia Allergic rhinitis Acquired hypothyroidism Acute non intractable tension-type headache Mixed hyperlipidemia Surgical History History of radiofrequency ablation (RFA) procedure for cardiac arrhythmia Hx of cardiac cath (~05/05/22) History of ST elevation myocardial infarction (STEMI) Hx of shoulder surgery History of bunionectomy History of esophagogastroduodenoscopy (EGD) Hx of colonoscopy Family History Father HTN (hypertension) Heart disease Myocardial infarction Mother Diabetes Hyperchloremia HTN (hypertension) Myocardial infarction Family/Other Stomach cancer Other Thyroid nodule Social History Household Members: None Housing: Apartment Alcohol intake: current Alcohol intake frequency: does not drink Patient Tobacco Use Status: Never used Tobacco e-Cigarette/Vaping Use: Never Used Second Hand Smoke Exposure: No service: No Current occupational status: disabled Cognitive needs: No Hearing needs: No Vision needs: Yes (Glasses) Physical Exam Vital Signs: Last Vital Signs Pulse 77 03/27/25 13:17 Resp 16 03/27/25 13:17 BP 130/78 03/27/25 13:17 Pulse Ox 96 03/27/25 13:17 Oxygen Delivery Method Room Air 03/27/25 13:17 BMI result Body Mass Index 33.3 Assessment & Plan Assessment & Plan (1) Acute sinusitis: Code(s): J01.90 - Acute sinusitis, unspecified Qualifiers: Sinusitis location: unspecified location Recurrence: not specified as recurrent Qualified Code(s): J01.90 - Acute sinusitis, unspecified Plan Headache: - The patient reports experiencing a severe headache that is notably different from her typical headaches. - Describes the headache as unilateral, with pain extending from one side of the head and occasionally radiating to other areas. - The headache is associated with a pre-existing condition of migraines and sinus problems. . - Amsk-qdl-dskghao medications such as Tylenol have been used for management. - No fever accompanying the headache. Throat Pain: - The patient reports a significant sore throat with persistent symptoms for over a month. - Describes a past occurrence on February 20, where an appointment with Dr. Kamara PCP, sent sulfa med, to which Pt developed allergic reacting with swollen lips. - negative strep test today and denies having a fever. - Observed nasal discharge is described as cloudy, occasionally mixed with blood in the mornings. - Reports a sensation of postnasal drip and occasional cough without phlegm production. Diagnostic Results: - Strep test: Negative. Problem List - Headache - Throat pain - Ear discomfort - Sinusitis Plan - I will prescribe azithromycin (Z-[place]) to address the sinusitis. - I will prescribe a few tablets of prednisone to manage inflammation and aid in symptom relief. - Given the patient's history of fungal infections with antibiotics, I will also provide a medication to prevent a yeast infection, instructing the patient on its appropriate timing and use. - Education was provided on the importance of monitoring symptoms and possible side effects of the medications prescribed. - The patient demonstrated understanding of the treatment plan and agreed to proceed. Medications: New prednisone 20 mg PO DAILY 5 tabs 0RF 5 days fluconazole may repeat second dose 72 hrs after first dose if symptoms persist 150 mg PO Q3D 2 tabs 0RF 2 doses azithromycin Take 2 tablets today then 1 daily 250 mg PO ONCE 6 tabs 0RF 5 days J06.9 - Acute upper respiratory infection, unspecified Coding Level of Care Code Est Pt Level 3 (06050) Diagnoses Acute sinusitis, recurrence not specified, unspecified location J01.90 Sinusitis location: unspecified location Recurrence: not specified as recurrent
[2025-03-27 13:17] VITALS: BP 130/78; PULSE 77; RESP 16; O2SAT 96; BMI 33.3
--- OUTSIDE RECORDS SUMMARY | 2025-03-27 15:26 | XMS_ITS | Encounter Summary ---
Author Organization [facility] Address [address] [place] [address] Phone Care Team Providers Care Production Designer Name Role Phone Jacoby Kamara MD Primary Care Provider [phone] Encounter Details Date Type Department Care Team (Late st Contact Info) Description 02/05/2025 Procedure Pass Echo Lab Maria Isabel [address] [place] [address] Social History Tobacco Use Types Packs/Day Years [...] Description 04/15/2025 3:00 PM EST Office Visit [facility] [address] [place] [address], [address] [place] [address] Deysi Rogers PA-C [address] [place] [address] 05/06/2025 8:40 AM EST Office Visit [facility] [address] [place] [address] Mackenzie Burt MD [address] [place] [address] 06/21/2025 10:40 AM EST Office Visit [facility] [address], [address] [place] [address] Charlie Amato MD [address] [facility], [address] [address] 08/13/2025 10:40 AM EST Office Visit [facility] [address] [place] [address] Margareth Quiles PA-C [address] [place] [address] documented as of this encounter Visit Diagnoses Not on filedocumented in this encounter Care Teams Production Designer Relationship Specialty Start Date End Date Jacoby Kamara MD [address] [place] [address] [place] [address] PCP - General Internal Medicine 01/22/22 documented as of this encounter Additional Source Comments The information contained in this document represents components of the legal health record. It is not the complete legal health record.[facility]
--- OUTSIDE RECORDS SUMMARY | 2025-03-27 15:26 | XMS_ITS | Encounter Summary ---
Author Organization [facility] Address [address] [place] [address] Phone Care Team Providers Care Warp Yarn Sorter Name Role Phone Jacoby Kamara MD Primary Care Provider [phone] Encounter Details Date Type Department Care Team (Late st Contact Info) Description 06/16/2023 Procedure Pass [facility] [address] [place] [address] Social History Tobacco Use Types Packs/Day Years [...] Description 04/15/2025 3:00 PM EST Office Visit [facility] [address] [place] [address], [address] [place] [address] Deysi Rogers PA-C [address] [place] [address] 05/06/2025 8:40 AM EST Office Visit [facility] [address] [place] [address] Mackenzie Burt MD [address] [place] [address] 06/21/2025 10:40 AM EST Office Visit [facility] [address] [place] [address], [address] [place] [address] Charlie Amato MD [address] [place] [address] 08/13/2025 10:40 AM EST Office Visit [facility] [address] [place] [address] Margareth Quiles PA-C [address] [place] [address] documented as of this encounter Visit Diagnoses [...] documented as of this encounter Care Teams Warp Yarn Sorter Relationship Specialty Start Date End Date Jacoby Kamara MD [address] [place] [address] [place] [address] PCP - General Internal Medicine 01/22/22 documented as of this encounter Additional Source Comments The information contained in this document represents components of the legal health record. It is not the complete legal health record.[facility]
--- OUTSIDE RECORDS SUMMARY | 2025-03-27 15:26 | XMS_ITS | Clinical Summary ---
Author Organization [facility] Address [address] [place] [address] Phone Care Team Providers Care Brine Tank Tender Name Role Phone Jacoby Kamara MD Primary Care Provider [phone] Allergies Active Allergy Reactions Criticality Noted Date Comments Amoxicillin-Pot Clavulanate Diarrhea,Rash Low 01/22 Medications clonazePAM (KLONOPIN) 0.5 MG tablet Take 0.5 mg by mouth daily. 2 Active SENNA 8.6 mg tablet Take 1 tablet by mouth continuous prn. 2 Active traZODone (DESYREL) 150 MG tablet TOME SHAUN TABLETA POR V A ORAL AL ACOSTARSE 2 Active metFORMIN (GLUCOPHAGE-XR) 500 MG 24 hr tablet Take 500 mg by mouth daily. 3 Active escitalopram oxalate (LEXAPRO) 20 MG tablet TOME SHAUN TABLETA TODOS LOS D 4 Active omeprazole (PRILOSEC) 40 MG capsule 2 (two) times a day. 4 Active dicyclomine (BENTYL) 10 MG capsule as needed. 4 Active cetirizine (ZYRTEC) 10 MG tablet Take 10 mg by mouth daily as needed. 4 Active atorvastatin (LIPITOR) 80 MG tablet Take 0.5 tablets (40 mg total) by mouth nightly at bedtime. 4 Active FREESTYLE TEST Strp strips 5 Active albuterol 90 mcg/actuation inhaler Inhale 1-2 puffs into the lungs every 4 (four) hours as needed for wheezing or shortness of breath/dyspnea . 8 g 5 Active inhaler spacing device (AEROCHAMBER,BREAT HERITE) Spcr Inhale 1 each into the lungs every 4 (four) hours as needed (PRN). 1 each 5 Active butalbital-acetami nophen-caffeine (FIORICET, ESGIC) 50-325-40 mg per tablet Take 1 tablet by mouth every 6 (six) hours as needed. 5 Active dulaglutide (TRULICITY) 0.75 mg/0.5 mL subcutaneous injectionIndicatio ns:Type 2 diabetes mellitus without complication, without long-term current use of insulin Inject 0.5 mL (0.75 mg total) under the skin every 7 days. 2 mL 5 5 Active nitroglycerin (NITROSTAT) 0.4 MG SL tabletIndications: Medication refill PLACE 1 TABLET UNDER THE TONGUE EVERY 5 MINUTES NEEDED FOR CHEST PAIN. 25 tablet 3 5 Active ADVAIR HFA 115-21 mcg/actuation inhaler daily as needed. 5 Active LINZESS 145 mcg Cap TOME 1 C PSULA POR V A ORAL TODOS LOS D EN LA MA CHUCKY 5 Active aspirin 81 MG EC tabletIndications: Benign essential hypertension TOME 1 TABLETA POR VIA ORAL TODOS LOS FLORES 90 tablet 3 5 Active levothyroxine (SYNTHROID, LEVOTHROID) 100 MCG tabletIndications: Acquired hypothyroidism Take 1 tablet (100 mcg total) by mouth as directed. Take 1 tablet 5 days a week, skip 2 days a week 66 tablet 5 Active metoprolol succinate (TOPROL-XL) 25 MG 24 hr tablet Take 0.5 tablets (12.5 mg total) by mouth daily. 5 Active Active Problems Problem Noted Date Diagnosed Date [...] her glucose levels. [facility] Assessment & Plan (10/10/2024 1:15 PM EDT): [...] her glucose levels. Up to date with [facility]. 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 She recalls slightly elevated blood sugars around 2018 and was diagnosed with diabetes after a massive STEMI in 2021. Status post LAD stent in 04/2022. She has history of CHF after [place]. Since 01/2024 has been treated with colchicine [...] the last few years. Has not met certified adaptive physical educator/dietitian yet. Foot & nail care good. [...] this in the past. Advised to see WINDER FIXER, may consider vaginal estradiol cream and after [...] -Continue with low-dose insulin sliding scale with [id number] testing. Mood disorder 02/10/2024 Assessment & Plan [...] 55 to 60%, (35 to 40% in 2021). Continue metoprolol. We are updating an echocardiogram, [...] Encounters Date Type Department Care Team Description 03/27/2025 Refill [facility] [address] 3rd Floor, [address] [place] [address] Charlie Amato MD Medication Refill 03/21/2025 7:05 AM EDT - 03/21/2025 11:59 PM EDT Hospital Encounter Echo Lab [facility] [address] [place] [address] Deysi Rogers, PA-Pedro Discharge Disposition: Home or Self Care 03/01/2025 Orders Only [facility] [address] 3[address] Floor, [address] [place] [address] Deysi Rogers PA-C 02/28/2025 Transcribe Orders [facility] [address] [place] [address] Jacoby Kamara MD 02/27/2025 12:30 PM EDT - 02/27/2025 11:59 PM EDT Hospital Encounter [facility] [address] [place] [address] Margareth Quiles PA-C Discharge Disposition: Home or Self Care 02/05/2025 1:00 PM EDT Office Visit [facility] [address] [place] [address] 3rd Floor, [address] [place] [address] Deysi Rogers PA-C Mixed hyperlipidemia (Primary Dx); Pericardial effusion (noninflammatory); Palpitations; Atherosclerosis of [place] coronary artery of [place] heart without angina pectoris; Benign essential hypertension; Ischemic cardiomyopathy 02/05/2025 Procedure Pass [facility] [address] [place] [address] 01/18/2025 Orders Only [facility] [address] [place] [address] [place] [address] Margareth Quiles PA-C Acquired hypothyroidism (Primary Dx) 01/16/2025 5:59 PM EDT - 01/16/2025 11:08 PM EDT Emergency [facility] Emergency [address] [place] [address] Discharge Disposition: Home or Self Care 01/16/2025 Procedure Pass [facility], Ct Scan - [facility] [address] [place] [address] 01/08/2025 12:30 PM EDT Office Visit [facility] [address] [place] [address] [place] [address] Margareth Quiles PA-C Type 2 diabetes mellitus without complication, without long-term current use of insulin (Primary Dx); Thyroid nodule 01/03/2025 12:42 PM EDT - 01/03/2025 11:59 PM EDT Hospital Encounter [facility] [address] [place] [address] [place] [address] Margareth Quiles PA-C Discharge Disposition: Home or Self Care 01/03/2025 Refill [facility] [address] [place] [address] 3rd Floor, [address] [place] [address] Mejia Quiros MD Medication Refill from Last [...] Pressure 110/72 03/21/2025 7:07 AM EDT Pulse 83 02/05/2025 12:38 PM EDT [...] Mass Index 32.01 03/21/2025 7:07 AM EDT Plan of Treatment Upcoming Encounters Date Type Department Care Team (Late st Contact Info) Description 04/15/2025 3:00 PM EST Office Visit [facility] [address] [place] [address], [address] [address] Deysi Rogers PA-C [address] [place] [address] 05/06/2025 8:40 AM EST Office Visit [facility] [address] [place] [address] [place] [address] Mackenzie Burt MD [address] [place] [address] 06/21/2025 10:40 AM EST Office Visit [facility] [address] [place] [address] [place] [address], [address] [address] Charlie Amato MD [address] [place] [address] 08/13/2025 10:40 AM EST Office Visit [facility] [address] [place] [address] [place] [address] Margareth Quiles PA-C [address] [place] [address] [email or web address] Health Maintenance Due Date Last Done Comments DEPRESSION SCREENING 1972 HEPATITIS C SCREENING 1978 HIV ONE-TIME SCREENING (18-65 YEARS) 1978 PAP SMEAR 1981 MAMMOGRAM 2000 COLOGUARD 2005 COLONOSCOPY 2005 COLORECTAL CANCER SCREENING 2005 FIT TEST 2005 FOBT 2005 SIGMOIDOSCOPY 2005 VIRTUAL COLONOSCOPY 2005 RSV VACCINE (1 - Risk 50-74 years 1-dose series) 2010 DIABETIC EYE EXAM 02/10/2024 URINE MICROALBUMIN/CREATININE RATIO 02/10/2024 INFLUENZA VACCINE (#1) 2025 , 04/14/2022, 06/09/2021, Additional history exists LIPID PANEL 02/09/2025 02/10/2024 COVID-19 VACCINE ( season) 2025 06/30/2021, 12/04/2020, 11/12/2020 HEMOGLOBIN A1C 07/06/2025 01/03/2025, 02/10/2024 BLOOD PRESSURE 08/08/2025 02/05/2025 CREATININE LEVEL 01/16/2026 01/16/2025, , 02/10/2024, Additional history exists TSH LEVEL 02/27/2026 02/27/2025, 12/12, 10/09/2024 Adult Td,Tdap Booster 09/22/2032 09/22/2022 , [...] 7:4 5 AM EDT Pericardial effusion (noninflammatory) OUTSIDE MONITOR Routine 03/01/2025 12:21 PM EDT TSH WITH REFLEX Routine 02/27/2025 12:42 PM EDT Thyroid nodule CT CHEST PULMONARY ANGIOGRAM (ACUTE) Routine 01/16/2025 [...] Relevant to Health Maintenance Results * (ABNORMAL) TTE COMPREHENSIVE (03/21/2025 7:45 [...] PA-C CV ECHO ORDERABLES Final Res ult * Outside Monitor Report Only (03/01/2025 12:21 PM EDT) us Deysi Rogers PA-C CV CARDIAC SERVICES ORDERABL ES Final Result * TSH with reflex (02/27/2025 12:42 PM EDT) Only the most recent of2 resultswithin the time period is included. TSH 1.82 0.27 - 4.20 uIU/mL [facility] Blood 02/27/2025 12:4 2 PM EDT 02/27/2025 12:45 PM EDT Margareth Quiles PA-C LAB BLOOD ORDERABL ES Final Result [address] [address] * CT CHEST PULMONARY ANGIOGRAM (ACUTE) (01/16/2025 9:26 PM EDT) Anatomical Region Laterality Modality Chest, Thoracic Vasculature Comp uted Tomography 01/16/2025 10:3 1 PM EDT Impressions 01/16/2025 10:36 PM EDT No pulmonary embolism or alternative CT explanation for symptoms. Narrative 01/16/2025 10:[address] CHEST PULMONARY ANGIOGRAM (ACUTE) Referring clinician's provided indication for this examination in [place]: * PE suspected, low/intermediate prob, positive D-dimer [...] clinician's provided indication for this examination in [place]: *PE suspected, low/intermediate prob, positive D-dimer TECHNIQUE: [...] embolism or alternative CT explanation for symptoms. Ricardo Mathis PA-C IMG CT CHEST Final Result * ECG 12-LEAD (01/16/2025 7:02 PM EDT) Only the most recent of2 resultswithin the time period is included. Ventricular Rate EKG/MIN 67 BPM [facility] Atrial Rate 67 BPM [facility] VT Interval 126 ms [facility] QRS Duration 84 ms [facility] QT Interval 416 ms [facility] QTC Interval 439 ms [facility] P [place] -25 degrees [facility] R Wave [place] -14 degrees [facility] T Wave [place] -2 degrees [facility] 01/16/2025 7:02 PM EDT 01/18/2025 6:58 AM EDT Narrative [facility] - 01/18/2025 6:58 AM EDT Normal sinus rhythm Normal ECG When compared with ECG of 16-Jan-2025 14:28, No significant change was found Confirmed by Ricardo Balderas ([id number]) on 01/18/2025 6:58:13 AM Ricardo Mathis PA-C ECG ORDERABLES Final Result [facility] * (ABNORMAL) D-dimer (01/16/2025 6:31 PM EDT) Pathologist [facility] D-DIMER 785(H) <500 ng/mL FEU [facility] Comment:In patients with low to moderate pre-test probability scores for VTE (PE or DVT), a D-Dimer cut-off less than 500 ng/mL (FEU) has a negative predictive value (NPV) of 97 to 100%. Blood 01/16/2025 6:31 PM EDT 01/16/2025 6:38 PM EDT us Ricardo Mathis PA-C LAB BLOOD ORDERABLES Final R esult Performing Organization Address City/[facility]/ZIP Co de Phone Number [address] [address] * Troponin (01/16/2025 4:01 PM EDT) Only the most recent of2 resultswithin the time period is included. Pathologist [facility] Troponin-T, HS Gen5 <6 0 - 9 ng/L [facility] Blood 01/16/2025 4:01 PM EDT 01/16/2025 4:16 PM EDT us Brody Luciano MD LAB BLOOD ORDERABL ES Final Result Performing Organization Address City/[facility]/ZIP Co de Phone Number [address] [address] * (ABNORMAL) CBC and differential (01/16/2025 3:02 PM EDT) Pathologist [facility] WBC 7.05 4.00 - 11.00 K/uL [facility] RBC 4.08 4.00 - 5.20 M/uL [facility] HGB 12.2 12.0 - 16.0 g/dL [facility] HCT 36.7 36.0 - 46.0 % [facility] PLT 235 150 - 450 K/uL [facility] MCV 90.0 80.0 - 100.0 fL [facility] MCH 29.9 27.0 - 31.0 pg [facility] MCHC 33.2 32.0 - 36.0 g/dL [facility] RDW 13.5 11.5 - 14.5 % [facility] MPV 11.4 8.4 - 12.0 fL [facility] NRBC 0.00 0.00 /100 WBCs [facility] ABSOLUTE NRBC 0.00 0.00 K/uL [facility] DIFF METHOD Auto [facility] NEUTS 48.4 48.0 - 76.0 % [facility] LYMPHS 43.8(H) 18.0 - 41.0 % [facility] MONOS 5.7 4.0 - 11.0 % [facility] EOS 1.3 0.0 - 5.0 % [facility] BASOS 0.4 0.0 - 1.5 % [facility] Granulocytes, immature (%) 0.4 0.0 - 0.9 % [facility] ABSOLUTE NEUTS 3.41 1.92 - 7.60 K/uL [facility] ABSOLUTE LYMPHS 3.09 0.72 - 4.10 K/uL [facility] ABSOLUTE MONOS 0.40 0.16 - 1.10 K/uL [facility] ABSOLUTE EOS 0.09 0.00 - 0.50 K/uL [facility] ABSOLUTE BASOS 0.03 0.00 - 0.15 K/uL [facility] Granulocytes, immature 0.03 0.00 - 0.09 K/uL [facility] Blood 01/16/2025 3:02 PM EDT 01/16/2025 3:04 PM EDT us Brody Luciano MD LAB BLOOD ORDERABL ES Final Result [address] [address] * Basic metabolic panel (01/16/2025 3:02 PM EDT) Only the most recent of2 resultswithin the time period is included. SODIUM 142 133 - 146 mmol/L [facility] CHLORIDE 106 96 - 108 mmol/L [facility] POTASSIUM 4.2 3.3 - 5.1 mmol/L [facility] CO2 23 21 - 35 mmol/L [facility] BUN 10 6 - 19 mg/dL [facility] CREATININE 0.90 0.5 - 1.5 mg/dL [facility] GLUCOSE 90 70 - 99 mg/dL [facility] CALCIUM 9.6 8.4 - 10.3 mg/dL [facility] EGFR 71 >59 mL/min/1.7 3m2 [facility] Comment:Estimated glomerular filtration rate calculated using the CKD-EPI refit equation. ANION GAP 17 10 - 20 mmol/L [facility] Blood 01/16/2025 3:02 PM EDT 01/16/2025 3:04 PM EDT us Brody Luciano MD LAB BLOOD ORDERABL ES Final Result Performing Organization Address [facility]/ZIP Co de Phone Number [address] [address] * Free T3 (01/03/2025 12:57 PM EDT) FREE T3 3.1 2.0 - 4.4 pg/mL [facility] 01/03/2025 12:5 7 PM EDT 01/03/2025 1:02 PM EDT us Margareth Quiles PA-C LAB BLOOD ORDERABL ES Final Result Performing Organization Address [facility]/ZIP Co de Phone Number [address] [address] * Alanine aminotransferase (ALT) (01/03/2025 12:57 PM EDT) ALT 22 0 - 40 U/L [facility] Blood 01/03/2025 12:5 7 PM EDT 01/03/2025 1:02 PM EDT us Margareth Quiles PA-C LAB BLOOD ORDERABL ES Final Result Performing Organization Address [facility]/ZIP Co de Phone Number [address] [address] * Aspartate aminotransferase (AST) (01/03/2025 12:57 PM EDT) AST 26 0 - 37 U/L [facility] Blood 01/03/2025 12:5 7 PM EDT 01/03/2025 1:02 PM EDT Margareth Quiles PA-C LAB BLOOD ORDERABL ES Final Result [address] [address] * Free T4 (01/03/2025 12:57 PM EDT) FREE T4 1.5 0.9 - 1.7 ng/dL [facility] 01/03/2025 12:5 7 PM EDT 01/03/2025 1:02 PM EDT Margareth Quiles PA-C LAB BLOOD ORDERABL ES Final Result Performing Organization Address [facility]/ZIP Co de Phone Number [address] [address] * (ABNORMAL) Hemoglobin A1c (01/03/2025 12:57 PM EDT) HEMOGLOBIN A1C 6.3(H) 4.3 - 5.8 % [facility] Blood 01/03/2025 12:5 7 PM EDT 01/03/2025 1:03 PM EDT Margareth Quiles PA-C LAB BLOOD ORDERABL ES Final Result Performing Organization Address City/[facility]/ZIP Co de Phone Number [address] [address] * (ABNORMAL) Lipid panel (02/10/2024 5:56 AM EDT) HDL 53 mg/dL [facility] Comment: Interpretation <40 mg/dL: Low HDL cholesterol (major risk factor for CHD) Greater than or equal to 60 mg/dL: High HDL cholesterol ( negative risk factor for CHD) HDL - cholesterol is affected by a number of factors, e.g. smoking, excerise, hormones, sex and age. CHOLESTEROL 152 0 - 240 mg/dL [facility] TRIGLYCERIDES 160 30 - 160 mg/dL [facility] LDL 67 50 - 129 mg/dL [facility] Comment: LDL levels in terms of risk for coronary heart disease: <100 mg/dL: Optimal 100-129 mg/dL: Near or above optimal 130-159 mg/dL: Borderline high 160-189 mg/dL: High >190 mg/dL: Very High CARDIAC RISK RATIO 2.9(L) 3.3 - 4.4 C [facility] Blood 02/10/2024 5:56 AM EDT 02/10/2024 6:03 AM EDT us Ho Estrella MD LAB BLOOD ORDERABLES Final Resu lt [facility] [address] [place] [address] from Last 3 Months or Most Recently Relevant to Health Maintenance [place] [address] [place] [address] [place] [address] [place] [address] [place] [address] [place] [address] [facility] [place] [address] [place] [address] [place] [address] [place] [address] [place] [address] [place] [address] ACO Advance Directives For more information, please contact: [phone] (9AM - 5PM [facility], Tuesday-Tuesday) Documents on File Type Date Recorded Patient Band Saw Marker Expl anation Healthcare Proxy 02/27/2024 6:13 PM * Full Code (Latest Code Status on File) Date Activated Date Inactivated Comments 02/10/2024 2:40 AM Question Answer Comments Code Status Confirmed With: Patient Code Status Communicated To: Inpatient Attending Care Teams Brine Tank Tender Relationship Specialty Start Date End Date Jacoby Kamara MD [address] [place] [address] [place] [address] PCP - General Internal Medicine 01/22/22 Additional Source Comments The information contained in this document represents components of the legal health record. It is not the complete legal health record.[facility]
--- OUTSIDE RECORDS SUMMARY | 2025-03-27 15:26 | XMS_ITS | Encounter Summary ---
Author Organization [facility] Address [address] [place] [address] Phone Care Team Providers Care Glass Mechanic Name Role Phone Jacoby Kamara MD Primary Care Provider [phone] Encounter Details Date Type Department Care Team (Late st Contact Info) Description 01/16/2025 Procedure Pass [facility], Ct Scan - [facility] [address] [place] [address] Social History Tobacco Use Types Packs/Day Years [...] 2:31 PM EDT Trinidad Lin RN * [place] Suicide Severity Rating Scale (Screener/Recent Self-Report) Question [...] Description 04/15/2025 3:00 PM EST Office Visit [facility] [address] [place] [address], [address] [address] Deysi Rogers PA-C [address] [place] [address] 05/06/2025 8:40 AM EST Office Visit [facility] [address] [place] [address] Mackenzie Burt MD [address] [place] [address] 06/21/2025 10:40 AM EST Office Visit [facility] [address], [address] [address] Charlie Amato MD [address] [place] [address] 08/13/2025 10:40 AM EST Office Visit [facility] [address] [place] [address] Margareth Quiles PA-C [address] [place] [address] documented as of this encounter Visit Diagnoses Not on filedocumented in this encounter Care Teams Glass Mechanic Relationship Specialty Start Date End Date Jacoby Kamara MD [address] [place] [address] [place] [address] PCP - General Internal Medicine 01/22/22 documented as of this encounter Additional Source Comments The information contained in this document represents components of the legal health record. It is not the complete legal health record.[facility]
--- OUTSIDE RECORDS SUMMARY | 2025-03-27 15:26 | XMS_ITS | Encounter Summary ---
Author Organization [facility] Address [address] [place] [address] Phone Care Team Providers Care Dump Worker Name Role Phone Jacoby Kamara MD Primary Care Provider [phone] [phone] Reason for Referral * MRI/CAT Scan - Closed Specialty Diagnoses / Procedures Referred By Arnol branham Referred To Contact Radiology Diagnoses Chest pain, unspecified type Procedures NC Myocardial Perfusion Pharmacologic Stress Multiple NC Myocardial Perfusion Exercise Multiple Jesus Bang MD Phone: tel: fax: [email or web address] Referral ID Status Reason Start Date Expiration Date Visits Re quested Visits Authorized [id number] Closed 03/06/2024 05/05/2024 1 1 Encounter Details Date Type Department Care Team (Latest Contact Info) Description 03/13/2024 Ancillary Orders [facility] [address] [place] [address] [address]rd Floor, [address] [place] [address] Jesus Bang MD 22 [facility], [address] [place], [place] [id number] [email or web address] Chest pain, unspecified type (Primary Dx) Social [...] Description 04/15/2025 3:00 PM EST Office Visit [facility] [address], [address] [place] [address] Deysi Rogers PA-C [address] [place] [address] 05/06/2025 8:40 AM EST Office Visit [facility] [address] [place] [address] Mackenzie Burt MD [address] [place] [address] 06/21/2025 10:40 AM EST Office Visit [facility] [address], [address] [place] [address] Charlie Amato MD [address] [place] [address] 08/13/2025 10:40 AM EST Office Visit [facility] [address] [place] [address] Margareth Quiles PA-C [address] [place] [address] documented as of this encounter Results * [...] in SPECT format, reconstructed tomographically and compared [id number] in short axis, horizontal long axis and [...] Tc99m Sestamibi by Joseph Awad, the nuclear operations specialist. 1. EKG - Baseline EKG showed sinus [...] documented as of this encounter Care Teams Dump Worker Relationship Specialty Start Date End Date Jacoby Kamara MD [address] [place] [address] [place] [address] PCP - General Internal Medicine 01/22/22 documented as of this encounter Additional Source Comments The information contained in this document represents components of the legal health record. It is not the complete legal health record.[facility]
--- OUTSIDE RECORDS SUMMARY | 2025-03-27 15:26 | XMS_ITS | Encounter Summary ---
Author Organization [facility] Address [address] [place] [address] Phone Care Team Providers Care Maintenance Supervisor 2Nd Shift Name Role Phone Jacoby Kamara MD Primary Care Provider [phone] Encounter Details Date Type Department Care Team (Late st Contact Info) Description 03/26/2024 Procedure Pass Echo [facility] [address] [place] [address] Social History Tobacco Use Types Packs/Day Years [...] Description 04/15/2025 3:00 PM EST Office Visit [facility] [address] [place] [address], [address] [place] [address] Deysi Rogers PA-C [address] [place] [address] 05/06/2025 8:40 AM EST Office Visit [facility] [address] [place] [address] Mackenzie Burt MD [address] [place] [address] 06/21/2025 10:40 AM EST Office Visit [facility] [address] Floor, [address] [place] [address] Charlie Amato MD 22 [facility], [address] [place] [address] 08/13/2025 10:40 AM EST Office Visit [facility] [address] [place] [address] Margareth Quiles PA-C [address] [place] [address] documented as of this encounter Visit Diagnoses Not on filedocumented in this encounter Additional Health Concerns Infection Onset Date Last Indicated Resolved Time CoV-Risk 05/20/2024 05/20/2024 05/31/2024 1:23 AM EST CoV-Risk 08/27/2024 08/27/2024 09/07/2024 1:21 AM EDT documented as of this encounter Care Teams Maintenance Supervisor 2Nd Shift Relationship Specialty Start Date End Date Jacoby Kamara MD [address] [place] [address] Dr Garcia [address] [place] [address] PCP - General Internal Medicine 01/22/22 documented as of this encounter Additional Source Comments The information contained in this document represents components of the legal health record. It is not the complete legal health record.[facility]
--- OUTSIDE RECORDS SUMMARY | 2025-03-27 15:26 | XMS_ITS | Encounter Summary ---
Author Organization [facility] Address [address] [place] [address] Phone Care Team Providers Care Agricultural Extension Specialist Name Role Phone Jacoby Kamara MD Primary Care Provider [phone] Reason for Visit * Reason Comments Medication Refill Encounter Details Date Type Department Care Team (Late st Contact Info) Description 03/27/2025 Refill [facility] [address] [place] [address] 3rd Floor, [address] [place] [address] Charlie Amato MD [address] [facility], [address] [place] [address] [email or web address] Medication Refill Social History Tobacco Use Types Packs/Day Years [...] Description 04/15/2025 3:00 PM EST Office Visit [facility] [address] [place] [address] 3rd Floor, [address] [place] [address] Deysi Rogers PA-C [address] [place] [address] 05/06/2025 8:40 AM EST Office Visit [facility] [address] [place] [address] Mackenzie Burt MD [address] [place] [address] 06/21/2025 10:40 AM EST Office Visit [facility] [address], [address] [place] [address] Charlie Amato MD [address] [place] [address] 08/13/2025 10:40 AM EST Office Visit [facility] [address] [place] [address] Margareth Quiles PA-C [address] [place] [address] documented as of this encounter Visit Diagnoses Diagnosis Medication refill Issue of repeat prescriptions documented in this encounter Care Teams Agricultural Extension Specialist Relationship Specialty Start Date End Date Jacoby Kamara MD [address] [place] [address] [address] PCP - General Internal Medicine 01/22/22 documented as of this encounter Additional Source Comments The information contained in this document represents components of the legal health record. It is not the complete legal health record.[facility]
--- OUTSIDE RECORDS SUMMARY | 2025-03-27 15:26 | XMS_ITS | Encounter Summary ---
Author Organization [facility] Address [address] [place] [address] Phone Care Team Providers Care Sixth Grade Teacher Name Role Phone Jacoby Kamara MD Primary Care Provider [phone] Encounter Details Date Type Department Care Team (Late st Contact Info) Description 03/01/2025 Orders Only [facility] 22 [facility] 3rd Floor, [address] [place] [address] Deysi Rogers PA-C [address] [place] [address] [email or web address] Social History Tobacco Use Types Packs/Day Years [...] Description 04/15/2025 3:00 PM EST Office Visit [facility] [address] Floor, [address] [place] [address] Deysi Rogers PA-C [address] [place] [address] 05/06/2025 8:40 AM EST Office Visit [facility] [address] [address] Mackenzie Burt MD [address] [place] [address] 06/21/2025 10:40 AM EST Office Visit [facility] [address], [address] [place] [address] Charlie Amato MD [address] [place] [address], [address] [address] 08/13/2025 10:40 AM EST Office Visit [facility] 22 [place] [address] Margareth Quiles PA-C [address] [place] [address] documented as of this encounter Procedures Procedure Name Priority Date/Time Associated Diagnosis Comments OUTSIDE MONITOR Routine 03/01/2025 12:21 PM EDT documented in this encounter Results * Outside Monitor Report Only (03/01/2025 12:21 PM EDT) Deysi Rogers PA-C [facility] ORDERABL ES Final Result documented in this encounter Visit Diagnoses Not on filedocumented in this encounter Care Teams Sixth Grade Teacher Relationship Specialty Start Date End Date Jacoby Kamara MD [address] [place] [address] Dr [address] [place] [address] PCP - General Internal Medicine 01/22/22 documented as of this encounter Additional Source Comments The information contained in this document represents components of the legal health record. It is not the complete legal health record.[facility]
--- OUTSIDE RECORDS SUMMARY | 2025-03-27 15:26 | XMS_ITS | Encounter Summary ---
Author Organization [facility] Address [address] [place] [address] Phone Care Team Providers Care Compressed Air Pile Driver Operator Name Role Phone Jacoby Kamara MD Primary Care Provider [phone] Reason for Referral * - Closed Specialty Diagnoses / Procedures Referred By Contac t Referred To Contact Radiology Diagnoses PVD (peripheral vascular disease) Procedures US Lower Extremity Arteries (JERAD) Physio Complete Bilat Mejia Quiros MD Phone: tel: fax: [email or web address] Referral ID Status Reason Start Date Expiration Date Visits Re quested Visits Authorized [id number] Closed 01/21/2023 01/21/2024 1 1 Encounter Details Date Type Department Care Team (Latest Contact Info) Description 01/21/2023 Ancillary Orders [facility] [address] [place] [address] [address], [address] [place] [address] Mejia Quiros MD 22 [facility] [address] [place] [address] [email or web address] PVD (peripheral vascular disease) Social History Tobacco [...] Description 04/15/2025 3:00 PM EST Office Visit [facility] [address] [place] [address] [place] [address], [address] [address] Deysi Rogers PA-C [address] [place] [address] 05/06/2025 8:40 AM EST Office Visit [facility] [address] [place] [address] [place] [address] Mackenzie Burt MD [address] [place] [address] 06/21/2025 10:40 AM EST Office Visit [facility] [address] [place] [address] [place] [address], [address] [address] Charlie Amato MD [address] [place] [address] 08/13/2025 10:40 AM EST Office Visit [facility] [address] [place] [address] [place] [address] Margareth Quiles PA-C 22 [place] [address] [email or web address] documented as of this encounter Results * US Lower Extremity Arteries (JERAD) Physio Complete Bilat (01/21/2023 1:21 PM EDT) Anatomical Region Laterality Modality Ultrasound Narrative 01/24/2023 12:43 PM EDT See scanned document. Procedure Note Charlie Amato MD - 01/24/2023 See scanned document. Mejia Quiros MD US VASCULAR Final Re sult documented in [...] documented as of this encounter Care Teams Compressed Air Pile Driver Operator Relationship Specialty Start Date End Date Jacoby Kamara MD [address] [place] [address] [place] [address] PCP - General Internal Medicine 01/22/22 documented as of this encounter Additional Source Comments The information contained in this document represents components of the legal health record. It is not the complete legal health record.[facility]
--- OUTSIDE RECORDS SUMMARY | 2025-03-27 15:27 | XMS_ITS | Encounter Summary ---
Author Organization [facility] Address [address] [place] [address] Phone Care Team Providers Care Assistant Golf Coach Name Role Phone Jacoby Kamara MD Primary Care Provider [phone] Encounter Details Date Type Department Care Team (Late st Contact Info) Description 05/20/2022 Procedure [facility] [address] [place] [address] Social History Tobacco Use Types Packs/Day Years [...] Description 04/15/2025 3:00 PM EST Office Visit [facility] 22 [facility] 3rd [facility], [address] [place] [address] Deysi Rogers PA-C [address] [place] [address] 05/06/2025 8:40 AM EST Office Visit [facility] [address] [place] [address] Mackenzie Burt MD [address] [place] [address] 06/21/2025 10:40 AM EST Office Visit [facility] [address], [address] [place] [address] Charlie Amato MD [address] [place] [address], [address] [address] 08/13/2025 10:40 AM EST Office Visit [facility] 22 [place] [address] Margareth Quiles PA-C [address] [place] [address] documented as of this encounter Visit Diagnoses [...] documented as of this encounter Care Teams Assistant Golf Coach Relationship Specialty Start Date End Date Jacoby Kamara MD [address] [place] [address] [place] [address] PCP - General Internal Medicine 01/22/22 documented as of this encounter Additional Source Comments The information contained in this document represents components of the legal health record. It is not the complete legal health record.[facility]
== END 2025-03-27 13:45 | disposition home or self-care (01) ==
PROVIDERS: PCP Internal Medicine; Visit Provider Internal Medicine
DX: J01.90 Acute sinusitis, unspecified (principal)

== ENCOUNTER → 2025-03-27 12:10 | Outpatient (BNVA) | payer OTHER, SELFPAY | PROVIDERS: PCP Internal Medicine; Visit Provider Internal Medicine | DX: E78.2 Mixed hyperlipidemia (principal); R51.9 Headache, unspecified; J01.90 Acute sinusitis, unspecified; J06.9 Acute upper respiratory infection, unspecified | CPT/HCPCS: 99212 ==